=== PATIENT | male | born 1950 | race Caucasian/White ===

== ENCOUNTER → 2020-07-18 | Outpatient (CLI) | payer MEDICARE ==
--- NOTE | 2020-07-18 16:38 | XR ---
EXAMINATION TYPE: XR chest 2V DATE OF EXAM: 07/18/2020 COMPARISON: NONE HISTORY: COPD. Short of breath. TECHNIQUE: Single view FINDINGS: There is 10 cm area of increased density in the lateral aspect of the right lung with fluid level. There is blunting right costophrenic angle. Left lung is clear. Heart size is normal. There i s no heart failure. Bony thorax is intact. IMPRESSION: Complex mass in the lateral aspect of the right lung adjacent to the pleura. This could b e chronic empyema or lung abscess. Necrotic tumor also possible.
== END | disposition home or self-care (01) ==
LOC: RADXRMAIN 16:19
PROVIDERS: ATTEND Family Medicine
DX: R91.8 Other nonspecific abnormal finding of lung field (principal); J44.9 Chronic obstructive pulmonary disease, unspecified
CPT/HCPCS: 71046

== ENCOUNTER 2020-07-22 11:25 | Inpatient (IN) | payer MEDICARE ==
[2020-07-22] MEDS ORDERED: VANCOMYCIN 1,000 MG in SODIUM CHLORIDE 0.9% 250 ML IVPB STA (11:29)
[2020-07-22] MEDS ORDERED: PIPERACILLIN-TAZOBACTAM 3.375 GM in SODIUM CHLORIDE 0.9% 100 ML IVPB STA (11:29)
[2020-07-22] MEDS ORDERED: RX INFO: IV CONTRAST WAS GIVEN 1 EACH MISC MISCELLANE PRN (11:29)
--- NOTE | 2020-07-22 11:45 | ED ---
General Adult HPI - General Chief complaint: Shortness of Breath Stated complaint: mass in lung Time Seen by Provider: 07/22/20 11:30 Source: patient, RN notes reviewed, old records reviewed Mode of arrival: ambulatory Limitations: no limitations - History of Present Illness Initial comments: This is a 69-year-old male who presents emergency Department complaining of some shortness of breath recently. Patient was seeing a media relations specialist because of a m ass in his right lung and it was determined it was either abscess empyema or eye cavitating mass potentially. Dr. Ortega wanted the patient admitted after CAT scan antibiotics are started. Patient denies any fever chills patient denies any chest pain or palpitations. Patient denies any abdominal pain patient denies nausea vomiting diarrhea. - Related Data Home Medications Medication Instructions Recorded Confirmed Fluticasone/Umeclidin/Vilanter 1 puff INHALATION RT-DAILY 07/22/20 07/22/20 [Trelegy Ellipta 100-62.5-25] Ibuprofen [Motrin Ib] 200 mg PO Q8H PRN 07/22/20 07/22/20 Multivitamins, Thera [Multivitamin 1 tab PO DAILY 07/22/20 07/22/20 (formulary)] allopurinoL [Zyloprim] 300 mg PO DAILY 07/22/20 07/22/20 Allergies Allergy/AdvReac Type Severity Reaction Status Date / Time No Known Allergies Allergy Verified 07/22/20 12:36 Review of Systems ROS Statement: Those systems with pertinent positive or pertinent negative responses have been documented in the HPI. ROS Other: All systems not noted in ROS Statement are negative. Past Medical History Past Medical History: COPD Additional Past Medical History / Comment(s): gout History of Any Multi-Drug Resistant Organisms: None Reported Past Surgical History: Adenoidectomy, Appendectomy, Tonsillectomy Past Psychological History: No Psychological Hx Reported Smoking Status: Former smoker Past Alcohol Use History: None Reported Past Drug Use History: None Reported General Exam - General Exam Comments Initial Comments: GENERAL: Patient is well-developed and well-nourished. Patient is nontoxic and well- hydrated and is in mild distress. ENT: Neck is soft and supple. No significant lymphadenopathy is noted. Oropharynx is clear. Moist mucous membranes. Neck has full range of motion without eliciting any pain. EYES: The sclera were anicteric and conjunctiva were pink and moist. Extraocular movements were intact and pupils were equal round and reactive to light. Eyelids were unremarkable. PULMONARY: Unlabored respirations. Good breath sounds bilaterally. Right right face has significant crackles. CARDIOVASCULAR: There is a regular rate and rhythm without any murmurs gallops or rubs. ABDOMEN: Soft and nontender with normal bowel sounds. SKIN: Skin is clear with no lesions or rashes and otherwise unremarkable. NEUROLOGIC: Patient is alert and oriented x3. Cranial nerves II through XII are grossly intact. Motor and sensory are also intact. Normal speech, volume and content. Symmetrical smile. MUSCULOSKELETAL: Normal extremities with adequate strength and full range of motion. No lower extremity swelling or edema. No calf tenderness. LYMPHATICS: No significant lymphadenopathy is noted PSYCHIATRIC: Normal psychiatric evaluation. Limitations: no limitations Course Vital Signs 07/22/20 07/22/20 11:27 13:31 Temperature 96.9 F L Pulse Rate 110 H 97 Respiratory 18 18 Rate Blood Pressure 122/74 103/65 O2 Sat by Pulse 96 96 Oximetry Medical Decision Making - Medical Decision Making EKG shows normal sinus rhythm at 100 bpm ID interval 112 QRS is 82 QT interval 352 QTC is 454. Patient's EKG shows no ST segment elevation or depression. CT of the chest showed a right-sided empyema. I spoke with Dr. merlos he agreed to admit the patient admitted the patient wrote admitting orders. I started Zosyn and Vanco on the patient in the emergency department. I continue that on the floor. I also consulted Dr. Ortega - Lab Data Result diagrams: 07/22/20 11:53 07/22/20 11:53 Lab Results 07/22/20 07/22/20 07/22/20 Range/Units 11:53 11:53 11:53 WBC 18.3 H (3.8-10.6) k/uL RBC 4.29 L (4.30-5.90) m/uL Hgb 10.5 L (13.0-17.5) gm/dL Hct 33.4 L (39.0-53.0) % MCV 77.9 L (80.0-100.0) fL MCH 24.5 L (25.0-35.0) pg MCHC 31.5 (31.0-37.0) g/dL RDW 16.2 H (11.5-15.5) % Plt Count 590 H (150-450) k/uL MPV 6.5 Neutrophils % 80 % Lymphocytes % 14 % Monocytes % 4 % Eosinophils % 1 % Basophils % 0 % Neutrophils # 14.6 H (1.3-7.7) k/uL Lymphocytes # 2.6 (1.0-4.8) k/uL Monocytes # 0.7 (0-1.0) k/uL Eosinophils # 0.2 (0-0.7) k/uL Basophils # 0.1 (0-0.2) k/uL Hypochromasia Slight Anisocytosis Slight Microcytosis Slight PT 11.1 (9.0-12.0) sec INR 1.1 (<1.2) APTT 23.6 (22.0-30.0) sec Sodium 135 L (137-145) mmol/L Potassium 4.2 (3.5-5.1) mmol/L Chloride 106 (98-107) mmol/L Carbon Dioxide 23 (22-30) mmol/L Anion Gap 6 mmol/L BUN 14 (9-20) mg/dL Creatinine 0.80 (0.66-1.25) mg/dL Est GFR (CKD-EPI)AfAm >90 (>60 ml/min/1.73 sqM) Est GFR (CKD-EPI)NonAf >90 (>60 ml/min/1.73 sqM) Glucose 99 (74-99) mg/dL Plasma Lactic Acid Maverick (0.7-2.0) mmol/L Calcium 8.7 (8.4-10.2) mg/dL Magnesium 2.0 (1.6-2.3) mg/dL Total Bilirubin 0.2 (0.2-1.3) mg/dL AST 19 (17-59) U/L ALT 13 (4-49) U/L Alkaline Phosphatase 100 (38-126) U/L Troponin I (0.000-0.034) ng/mL NT-Pro-B Natriuret Pep pg/mL Total Protein 6.4 (6.3-8.2) g/dL Albumin 2.7 L (3.5-5.0) g/dL 07/22/20 07/22/20 07/22/20 Range/Units 11:53 11:53 11:53 WBC (3.8-10.6) k/uL RBC (4.30-5.90) m/uL Hgb (13.0-17.5) gm/dL Hct (39.0-53.0) % MCV (80.0-100.0) fL MCH (25.0-35.0) pg MCHC (31.0-37.0) g/dL RDW (11.5-15.5) % Plt Count (150-450) k/uL MPV Neutrophils % % Lymphocytes % % Monocytes % % Eosinophils % % Basophils % % Neutrophils # (1.3-7.7) k/uL Lymphocytes # (1.0-4.8) k/uL Monocytes # (0-1.0) k/uL Eosinophils # (0-0.7) k/uL Basophils # (0-0.2) k/uL Hypochromasia Anisocytosis Microcytosis PT (9.0-12.0) sec INR (<1.2) APTT (22.0-30.0) sec Sodium (137-145) mmol/L Potassium (3.5-5.1) mmol/L Chloride (98-107) mmol/L Carbon Dioxide (22-30) mmol/L Anion Gap mmol/L BUN (9-20) mg/dL Creatinine (0.66-1.25) mg/dL Est GFR (CKD-EPI)AfAm (>60 ml/min/1.73 sqM) Est GFR (CKD-EPI)NonAf (>60 ml/min/1.73 sqM) Glucose (74-99) mg/dL Plasma Lactic Acid Maverick 1.2 (0.7-2.0) mmol/L Calcium (8.4-10.2) mg/dL Magnesium (1.6-2.3) mg/dL Total Bilirubin (0.2-1.3) mg/dL AST (17-59) U/L ALT (4-49) U/L Alkaline Phosphatase (38-126) U/L Troponin I <0.012 (0.000-0.034) ng/mL NT-Pro-B Natriuret Pep 779 pg/mL Total Protein (6.3-8.2) g/dL Albumin (3.5-5.0) g/dL Disposition Clinical Impression: Empyema lung Disposition: ADMITTED IP TO THIS HOSP Referrals: Chapito Stokes Jr, [Primary Care Provider] - 1-2 days Time of Disposition: 14:06
[2020-07-22 12:06] LABS: Anisocytosis Slight; Basophils # (A) 0.1 k/uL (0-0.2); Basophils % (A) 0 %; Eosinophils # (A) 0.2 k/uL (0-0.7); Eosinophils % (A) 1 %; HCT 33.4 % (39.0-53.0); HGB 10.5 gm/dL (13.0-17.5); Hypochromasia Slight; Lymphocytes # (A) 2.6 k/uL (1.0-4.8); Lymphocytes % (A) 14 %; MCH 24.5 pg (25.0-35.0); MCHC 31.5 g/dL (31.0-37.0); MCV 77.9 fL (80.0-100.0); Mean Platelet Volume 6.5; Microcytosis Slight; Monocytes # (A) 0.7 k/uL (0-1.0); Monocytes % (A) 4 %; Neutrophils # (A) 14.6 k/uL (1.3-7.7); Neutrophils % (A) 80 %; Platelet Count 590 k/uL (150-450); RBC 4.29 m/uL (4.30-5.90); RDW 16.2 % (11.5-15.5); WBC 18.3 k/uL (3.8-10.6)
[2020-07-22 12:21] LABS: INR 1.1 (<1.2); Partial Thromboplastin Time 23.6 sec (22.0-30.0); Prothrombin Time 11.1 sec (9.0-12.0)
[2020-07-22 12:32] LABS: ALT 13 U/L (4-49); AST 19 U/L (17-59); African American GFR (CKD) >90 (>60 ml/min/1.73 sqM); Albumin 2.7 g/dL (3.5-5.0); Alkaline Phosphatase 100 U/L (38-126); Anion Gap 6 mmol/L; Blood Urea Nitrogen 14 mg/dL (9-20); Calcium 8.7 mg/dL (8.4-10.2); Carbon Dioxide 23 mmol/L (22-30); Chloride 106 mmol/L (98-107); Glucose 99 mg/dL (74-99); Non-African American GFR(CKD) >90 (>60 ml/min/1.73 sqM); Potassium 4.2 mmol/L (3.5-5.1); Sodium 135 mmol/L (137-145); Total Bilirubin 0.2 mg/dL (0.2-1.3); Total Protein 6.4 g/dL (6.3-8.2)
--- NOTE | 2020-07-22 13:37 | CT ---
EXAMINATION TYPE: CT chest angio for PE DATE OF EXAM: 07/22/2020 COMPARISON: HISTORY: Mass in Lung CT DLP: 266.5 mGycm Automated exposure control for dose reduction was used. CONTRAST: CT Chest for pulmonary embolism performed with with IV Contrast, patient injected with 71 mL of Isovu e 370. FINDINGS: LUNGS: Large area of pleural-based thickening and subpleural fluid collection mixed with air suggesti ve of either empyema or less likely pulmonary abscess. There is a consolidation noted. No pneumothora x. COPD noted. MEDIASTINUM: There is satisfactory enhancement of the pulmonary artery and its branches, there is no CT evidence for pulmonary embolism. There is a 1.1 cm lymph node in the mediastinum.. No pericardi al effusion is seen. OTHER: Hypertrophic and degenerative changes of the spine chronic appearing rib fracture on the left noted. Hypodensity within the right lobe of the liver is stable from prior CT scan likely related IMPRESSION: 1. No diagnostic evidence of pulmonary embolism. Correlate for COPD. Mediastinal lymphadenopathy note d. 2. Large right-sided suspected subpleural fluid collection or empyema with mixed soft tissue, fluid a nd air density.
[2020-07-22] MEDS ORDERED: SODIUM CHLORIDE 0.9% 1,000 ML IV ONE (14:07)
[2020-07-22] MEDS ORDERED: VANCOMYCIN IV PER PHARMACY 1 EACH MISC MISCELLANE PRN (14:12)
[2020-07-22] MEDS: PIPERACILLIN-TAZOBACTAM 3.375 GM in SODIUM CHLORIDE 0.9% 100 ML IVPB SCH (20:30)
[2020-07-23] MEDS: VANCOMYCIN 1,250 MG in SODIUM CHLORIDE 0.9% 250 ML IVPB SCH ×2 (00:02→12:00)
[2020-07-23] MEDS: PIPERACILLIN-TAZOBACTAM 3.375 GM in SODIUM CHLORIDE 0.9% 100 ML IVPB SCH ×3 (04:00→19:20)
[2020-07-23 07:32] LABS: African American GFR (CKD) >90 (>60 ml/min/1.73 sqM); Non-African American GFR(CKD) 84 (>60 ml/min/1.73 sqM)
--- NOTE | 2020-07-23 09:15 | US ---
EXAMINATION TYPE: US chest DATE OF EXAM: 07/23/2020 COMPARISON: NONE CLINICAL HISTORY: empyema, right lung. Pleural effusion. TECHNIQUE: Targeted ultrasound of the posterior lower right hemithorax EXAM MEASUREMENTS: Right Pleural Effusion pocket size: 2.9 cm complex fluid pocket. Right skin surface to fluid distance: 2.6 cm Right side not marked for thoracentesis outside the dept. Pulmonologists are able to review the images in the patient?s EMR. Complex small right pleural fluid collection most consistent with empyema. IMPRESSIONS: Small right-sided empyema
[2020-07-23 11:00] LABS: African American GFR (CKD) >90 (>60 ml/min/1.73 sqM); Anion Gap 6 mmol/L; Blood Urea Nitrogen 13 mg/dL (9-20); Calcium 8.4 mg/dL (8.4-10.2); Carbon Dioxide 26 mmol/L (22-30); Chloride 106 mmol/L (98-107); Glucose 158 mg/dL (74-99); Non-African American GFR(CKD) 82 (>60 ml/min/1.73 sqM); Sodium 138 mmol/L (137-145)
[2020-07-23 11:28] LABS: Anisocytosis Slight; Basophils % (A) 0 %; Eosinophils # (A) 0.1 k/uL (0-0.7); Eosinophils % (A) 0 %; HCT 32.2 % (39.0-53.0); HGB 10.1 gm/dL (13.0-17.5); Hypochromasia Moderate; Lymphocytes # (A) 1.7 k/uL (1.0-4.8); Lymphocytes % (A) 8 %; MCH 24.8 pg (25.0-35.0); MCHC 31.3 g/dL (31.0-37.0); MCV 79.3 fL (80.0-100.0); Mean Platelet Volume 6.3; Microcytosis Slight; Monocytes # (A) 0.6 k/uL (0-1.0); Monocytes % (A) 3 %; Neutrophils # (A) 19.1 k/uL (1.3-7.7); Neutrophils % (A) 88 %; Platelet Count 536 k/uL (150-450); RBC 4.06 m/uL (4.30-5.90); RDW 16.6 % (11.5-15.5); WBC 21.6 k/uL (3.8-10.6)
--- NOTE | 2020-07-23 11:45 | P.HPIM ---
History of Present Illness H&P Date: 07/23/20 Chief Complaint: Fluid on the lungs. 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 He was seen by Dr. Saba one day ago and sent to the emergency room after there is evidence of empyema in the right lung. Emergency room CTA showed on the empyema, and no evidence of pulmonary embolism. He is admitted to the stepdown unit is currently resting comfortably. He is complaining quite a bit of cough. He is complaining of chest pains with cough. He denies any significant nausea or vomiting. Indicates he's lost about 30 pounds over the past 2-3 months. Vital signs overnight show he's been afebrile. Labs show a white count of 21.6 and hemoglobin 10.1. There is predominantly neutrophilia. Chemistries are essentially normal, the exception of a glucose 158 late a.m. COVID-19, RSV and influenza PCR were all negative. 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 History of Any Multi-Drug Resistant Organisms: None Reported Past Surgical History: Adenoidectomy, Appendectomy, Tonsillectomy Past Anesthesia/Blood Transfusion Reactions: No Reported Reaction Past Psychological History: No Psychological Hx Reported Additional Psychological History / Comment(s): Pt resides alone. He is independent. Smoking Status: Former smoker Past Alcohol Use History: None Reported Additional Past Alcohol Use History / Comment(s): Pt started smoking in 1964 and quit 2 months ago. He was a 3 ppd smoker. Past Drug Use History: None Reported - Past Family History Father Family Medical History: Hyperlipidemia, Pneumonia Additional Family Medical History / Comment(s): Father did of aspiration pneumonia. Mother Family Medical History: Diabetes Mellitus, Hypertension Additional Family Medical History / Comment(s): Mother is living. Medications and Allergies Home Medications Medication Instructions Recorded Confirmed Type Fluticasone/Umeclidin/Vilanter 1 puff INHALATION RT-DAILY 07/22/20 07/22/20 History [Trelegy Ellipta 100-62.5-25] Ibuprofen [Motrin Ib] 200 mg PO Q8H PRN 07/22/20 07/22/20 History Multivitamins, Thera [Multivitamin 1 tab PO DAILY 07/22/20 07/22/20 History (formulary)] allopurinoL [Zyloprim] 300 mg PO DAILY 07/22/20 07/22/20 History Allergies Allergy/AdvReac Type Severity Reaction Status Date / Time No Known Allergies Allergy Verified 07/22/20 12:36 Physical Exam Vitals: Vital Signs Temp Pulse Pulse Pulse Pulse Resp BP 07/23/20 07:28 98.4 F 94 16 07/23/20 02:08 98.8 F 101 H 17 07/22/20 19:10 98.5 F 103 H 103 H 20 07/22/20 13:31 97 18 103/65 BP Pulse Ox 07/23/20 07:28 103/57 94 L 07/23/20 02:08 104/68 98 07/22/20 19:10 113/72 07/22/20 13:31 96 Intake and Output 07/22/20 07/23/20 07/23/20 22:59 06:59 14:59 Intake Total 1850 Balance 1850 Intake: Intake, IV Titration 1200 Amount Piperacillin-Tazobactam 3 200 .375 gm In Sodium Chloride 0.9% 100 ml @ 25 mls/hr IVPB Q8H [facility] Rx#: [id number] Sodium Chloride 0.9% 1, 750 000 ml @ 75 mls/hr IV . [id number] ONE Rx#:[id number] Vancomycin 1,250 mg In 250 Sodium Chloride 0.9% 250 ml @ 125 mls/hr IVPB Q12H [facility] Rx#:[id number] Oral 650 Other: Voiding Method Toilet # Voids 3 Weight 68.039 kg 68.039 kg GENERAL: Thin slightly emaciated white male, actively coughing during my exam. HEAD: Atraumatic, normocephalic. EYES: Pupils equal round and reactive to light, extraocular movements intact, sclera anicteric, conjunctiva are normal. ENT:nares patent, oropharynx clear without exudates. Moist mucous membranes. NECK: Normal range of motion, supple without lymphadenopathy or JVD, no thyromegaly LUNGS: Breath sounds coarse with decreased air exchange on the right side consistent with empyema findings, risks crackles or rhonchi noted. HEART: Regular rate and rhythm without murmurs, rubs or gallops.S1S2 Normal ABDOMEN: Soft, nontender, normoactive bowel sounds. No guarding, no rebound. No masses appreciated. EXTREMITIES: Normal range of motion, no pitting or edema. No clubbing or cyanosis. NEUROLOGICAL: Cranial nerves II through XII grossly intact. Normal speech, normal gait. PSYCH: Normal mood, normal affect. SKIN: Warm, Dry, normal turgor, no rashes or lesions noted. Results CBC & Chem 7: 07/23/20 10:32 07/23/20 10:32 Labs: Abnormal Lab Results - Last 24 Hours (Table) 07/22/20 07/22/20 07/23/20 Range/Units 11:53 11:53 10:32 WBC 18.3 H 21.6 H (3.8-10.6) k/uL RBC 4.29 L 4.06 L (4.30-5.90) m/uL Hgb 10.5 L 10.1 L (13.0-17.5) gm/dL Hct 33.4 L 32.2 L (39.0-53.0) % MCV 77.9 L 79.3 L (80.0-100.0) fL MCH 24.5 L 24.8 L (25.0-35.0) pg RDW 16.2 H 16.6 H (11.5-15.5) % Plt Count 590 H 536 H (150-450) k/uL Neutrophils # 14.6 H (1.3-7.7) k/uL Sodium 135 L (137-145) mmol/L Glucose (74-99) mg/dL Albumin 2.7 L (3.5-5.0) g/dL 07/23/20 Range/Units 10:32 WBC (3.8-10.6) k/uL RBC (4.30-5.90) m/uL Hgb (13.0-17.5) gm/dL Hct (39.0-53.0) % MCV (80.0-100.0) fL MCH (25.0-35.0) pg RDW (11.5-15.5) % Plt Count (150-450) k/uL Neutrophils # (1.3-7.7) k/uL Sodium (137-145) mmol/L Glucose 158 H (74-99) mg/dL Albumin (3.5-5.0) g/dL CT scan - chest: report reviewed Thrombosis Risk Factor Assmnt - DVT/VTE Prophylaxis DVT/VTE Prophylaxis: Mechanical Prophylaxis ordered - Choose All That Apply Any of the Below Risk Factors Present?: Yes Each Factor Represents 1 point: Abnormal pulmonary function (COPD), Serious lung disease incl. pneumonia (< 1month) Other Risk Factors: Yes Each Risk Factor Represents 2 Points: Age 61-74 years Other congenital or acquired thrombophilia - If yes, enter type in comment: No Thrombosis Risk Factor Assessment Total Risk Factor Score: 4 Thrombosis Risk Factor Assessment Level: Moderate Risk Assessment and Plan (1) Fatigue Current Visit: Yes Status: Acute Code(s): R53.83 - OTHER FATIGUE SNOMED Code(s): 93358585 (2) Weight loss Current Visit: Yes Status: Acute Code(s): R63.4 - ABNORMAL WEIGHT LOSS SNOMED Code(s): 83079659 (3) Gout Current Visit: Yes Status: Acute Code(s): M10.9 - GOUT, UNSPECIFIED SNOMED Code(s): 39967337 (4) Empyema lung Narrative/Plan: Patient remain on Zosyn and vancomycin, and IV fluid until pulmonology sees. Weight on the consultation. Repeat labs in a.m. Thoracic surgery may need to be consult depending on the pulmonology findings. Ultrasound was reviewed showing a complex loculated mass. Order medications for pain and cough this time. He'll be reevaluated next 24 hours. Current Visit: Yes Status: Acute Code(s): J86.9 - PYOTHORAX WITHOUT FISTULA SNOMED Code(s): 21202299
[2020-07-23 12:09] LABS: Lymphocytes # (M) 3.24 k/uL (1.0-4.8); Monocytes # (M) 0.43 k/uL (0-1.0); Neutrophils # (M) 17.93 k/uL (1.3-7.7); Neutrophils % (M) 83 %; Nucleated Red Blood Cells 0 /100 WBC (0-0); Total Cells Counted 100
--- NOTE | 2020-07-23 13:25 | P.CNPUL ---
History of Present Illness Consult date: 07/23/20 Requesting physician: Marty Garcia Reason for consult: dyspnea, abnormal CXR/CT Chief complaint: Shortness of breath, right-sided chest discomfort History of present illness: This is a pleasant 69-year-old male, known history of COPD, benign essential hypertension, patient salas been feeling ill for the last few months. Back in March, patient had symptoms suggestive of COVID-19 infection including cough, fatigue, aches and pains, fever and chills, but apparently no medical attention was sought at the time. Patient was recently seen by Dr. Stokes and he was complaining of cough, he was also complaining of left-sided chest pain. Patient had positive IgG titer for COVID-19 infection which clearly implies that the patient had previous exposure and COVID-19 infection. Part of the workup also included a chest x-ray, and it came back quite abnormal showing a large area of abnormality involving the right lung, the differential diagnoses includes empyema, lung abscess, and possibly a large tumor involving the right lower lobe with necrosis and air fluid level noted. He was referred to Dr. Ortega in our office for the same. He was seen as a new patient yesterday. Based on the [facility] t x-ray findings Dr. Ortega preferred the patient obtain a computed tomography scan of the chest and probable admission for IV antibiotics and possible CT- guided needle biopsy or bronchoscopy with transbronchial biopsies. CAT scan does reveal a large right-sided suspected subpleural fluid collection or empyema with mixed soft tissue, fluid in ear density. No evidence of pulmonary embolism. There is evidence of COPD. Mediastinal lymphadenopathy. Ultrasound of the chest revealed minimal effusion at 2.9 cm and a complex fluid pocket suggestive of empyema. White count 21.6. Hemoglobin 10.1. Sodium 138. Potassium 4.0. Creatinine 0.96. ProBNP 779. Influenza screen negative. Coronavirus screen negative. Patient is seen today in consultation on the regular medical floor. He is currently sitting up in bed. Awake and alert in no acute distress. Currently maintaining O2 saturations in the mid 90s on room air. He's been afebrile. He's been initiated on vancomycin and Zosyn. Review of Systems REVIEW OF SYSTEMS: CONSTITUTIONAL: Denies any recent significant weight loss or weight gain. EYES: Denies change in vision. EARS, NOSE, MOUTH, THROAT: Denies headaches, denies sore throat. CARDIOVASCULAR: Right-sided chest pain, no palpitations or syncopal episodes. RESPIRATORY: Positive for shortness of breath, cough, congestion no hemoptysis. GASTROINTESTINAL: Denies change in appetite, denies abdominal pain GENITOURINARY: Denies hematuria, denies infections. MUSKULOSKELETAL: Denies pain, denies swelling. INTEGUMENTARY: Denies rash, denies eczema. NEUROLOGICAL: Denies recent memory loss, no recent seizure activity. PSYCHIATRIC: Denies anxiety, denies depression. HEMATOLOGIC/LYMPHATIC: Denies anemia, denies enlarged lymph nodes. 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 History of Any Multi-Drug Resistant Organisms: None Reported Past Surgical History: Adenoidectomy, Appendectomy, Tonsillectomy Past Anesthesia/Blood Transfusion Reactions: No Reported Reaction Past Psychological History: No Psychological Hx Reported Additional Psychological History / Comment(s): Pt resides alone. He is independent. Smoking Status: Former smoker Past Alcohol Use History: None Reported Additional Past Alcohol Use History / Comment(s): Pt started smoking in 1965 and quit 2 months ago. He was a 3 ppd smoker. Past Drug Use History: None Reported - Past Family History Father Family Medical History: Hyperlipidemia, Pneumonia Additional Family Medical History / Comment(s): Father did of aspiration pneumonia. Mother Family Medical History: Diabetes Mellitus, Hypertension Additional Family Medical History / Comment(s): Mother is living. Medications and Allergies Home Medications Medication Instructions Recorded Confirmed Type Fluticasone/Umeclidin/Vilanter 1 puff INHALATION RT-DAILY 07/22/20 07/22/20 History [Trelegy Ellipta 100-62.5-25] Ibuprofen [Motrin Ib] 200 mg PO Q8H PRN 07/22/20 07/22/20 History Multivitamins, Thera [Multivitamin 1 tab PO DAILY 07/22/20 07/22/20 History (formulary)] allopurinoL [Zyloprim] 300 mg PO DAILY 07/22/20 07/22/20 History Allergies Allergy/AdvReac Type Severity Reaction Status Date / Time No Known Allergies Allergy Verified 07/22/20 12:36 Physical Exam Vitals: Vital Signs Temp Pulse Pulse Pulse Pulse Resp BP 07/23/20 08:00 16 07/23/20 07:28 98.4 F 94 16 07/23/20 02:08 98.8 F 101 H 17 07/22/20 19:10 98.5 F 103 H 103 H 20 07/22/20 13:31 97 18 103/65 BP Pulse Ox 07/23/20 08:00 07/23/20 07:28 103/57 94 L 07/23/20 02:08 104/68 98 07/22/20 19:10 113/72 07/22/20 13:31 96 Intake and Output 07/22/20 07/23/20 07/23/20 22:59 06:59 14:59 Intake Total 1850 Balance 1850 Intake: Intake, IV Titration 1200 Amount Piperacillin-Tazobactam 3 200 .375 gm In Sodium Chloride 0.9% 100 ml @ 25 mls/hr IVPB Q8H [facility] Rx#: [id number] Sodium Chloride 0.9% 1, 750 000 ml @ 75 mls/hr IV . [id number] ONE Rx#:[id number] Vancomycin 1,250 mg In 250 Sodium Chloride 0.9% 250 ml @ 125 mls/hr IVPB Q12H [facility] Rx#:[id number] Oral 650 Other: Voiding Method Toilet # Voids 3 Weight 68.039 kg 68.039 kg GENERAL EXAM: Alert, 69-year-old gentleman, on room air, fairly comfortable in no apparent distress. HEAD: Normocephalic. EYES: Normal reaction of pupils, equal size. NOSE: Clear with pink turbinates. THROAT: No erythema or exudates. NECK: No masses, no JVD. CHEST: No chest wall deformity. LUNGS: Equal air entry with crackles in the right lung base, diminished. CVS: S1 and S2 normal with no audible murmur, regular rhythm. ABDOMEN: No hepatosplenomegaly, normal bowel sounds, no guarding or rigidity. SPINE: No scoliosis or deformity SKIN: No rashes CENTRAL NERVOUS SYSTEM: No focal deficits, tone is normal in all 4 extremities. EXTREMITIES: There is no peripheral edema. No clubbing, no cyanosis. Angela pheral pulses are intact. Results - Laboratory Findings CBC and BMP: 05/01/21 10:32 07/23/20 10:32 PT/INR, D-dimer PT 11.1 sec (9.0-12.0) 07/22/20 11:53 INR 1.1 (<1.2) 07/22/20 11:53 Abnormal lab findings: Abnormal Labs 07/22/20 07/22/20 07/23/20 11:53 11:53 10:32 WBC 18.3 H 21.6 H RBC 4.29 L 4.06 L Hgb 10.5 L 10.1 L Hct 33.4 L 32.2 L MCV 77.9 L 79.3 L MCH 24.5 L 24.8 L RDW 16.2 H 16.6 H Plt Count 590 H 536 H Neutrophils # 14.6 H 19.1 H Neutrophils # (Manual) 17.93 H Sodium 135 L Glucose Albumin 2.7 L 07/23/20 10:32 WBC RBC Hgb Hct MCV MCH RDW Plt Count Neutrophils # Neutrophils # (Manual) Sodium Glucose 158 H Albumin - Diagnostic Findings Chest x-ray: image reviewed CT scan - chest: image reviewed Assessment and Plan Assessment: 1 Dyspnea with right-sided chest discomfort secondary to large right-sided loculated pleural fluid collection, suspect empyema versus lung abscess versus necrotic tumor/bronchogenic carcinoma 2 History of COVID-19 infection based on titers. Initial symptoms from March 2020. 3 Chronic obstructive pulmonary disease 4 History of chronic tobacco dependence up to 3 packs per day. Quit 2 months ago 5 History of gout Plan: The patient was seen and evaluated by Dr. Lind Chest x-ray, CAT scans and labs reviewed Continue vancomycin and Zosyn Consult interventional radiology for possible pigtail placement Consults cardiothoracic surgery for possible surgical intervention We'll continue to follow and make further recommendations based on his clinical status I, the cosigning physician, performed a history & physical examination of the patient. Lungs sounds with crackles in the right lung base, diminished. Maintaining good O2 saturations in the 90s on room air. I discussed the assessment and plan of care with my nurse practitioner, Shirlene Garcia. I attest to the above consultation as dictated by her. Time with Patient: Greater than 30
[2020-07-23] MEDS: guaiFENesin 600 MG TABLET.ER PO SCH ×2 (14:12→20:52)
[2020-07-23] MEDS: methylPREDNISolone SOD SUCCI 40 MG/ML 1 ML VIAL IV SCH (14:21)
[2020-07-23] MEDS: PANTOPRAZOLE 40 MG TABLET PO SCH (14:21)
[2020-07-23] MEDS: ENOXAPARIN 40 MG/0.4 ML SYRINGE SQ SCH (14:21)
[2020-07-23] MEDS: IPRATROPIUM-ALBUTEROL 3 ML NEB INHALATION SCH ×2 (17:13→20:11)
[2020-07-23] MEDS: FORMOTEROL FUMARATE 20 MCG/2 ML NEBU INHALATION SCH (20:10)
[2020-07-23] MEDS: BUDESONIDE 1 MG/2 ML NEBU INHALATION SCH (20:11)
[2020-07-24] MEDS: methylPREDNISolone SOD SUCCI 40 MG/ML 1 ML VIAL IV SCH ×4 (00:16→23:36)
[2020-07-24] MEDS: VANCOMYCIN 1,250 MG in SODIUM CHLORIDE 0.9% 250 ML IVPB SCH ×3 (00:16→23:37)
[2020-07-24] MEDS: PIPERACILLIN-TAZOBACTAM 3.375 GM in SODIUM CHLORIDE 0.9% 100 ML IVPB SCH ×3 (03:49→19:05)
--- NOTE | 2020-07-24 07:21 | XR ---
EXAMINATION TYPE: XR chest 2V DATE OF EXAM: 07/24/2020 COMPARISON: 07/18/2020 TECHNIQUE: PA and lateral views submitted. HISTORY: Cough possible pneumonia FINDINGS: Pleural-based mass or complicated fluid collection with air-fluid level noted correlate for possible empyema. Right basilar infiltrate and small effusion seen. Left lung clear. Underlying chronic inters titial lung disease and COPD suspected. Arthropathy shoulders. Heart size normal. IMPRESSION: 1. Persistent suspected pleural fluid collection with air-fluid levels correlate for empyema otherwis e consider pulmonary abscess.
[2020-07-24] MEDS: MULTIVITAMINS, THERA 1 EACH TAB PO SCH (07:55)
[2020-07-24] MEDS: ENOXAPARIN 40 MG/0.4 ML SYRINGE SQ SCH (07:55)
[2020-07-24] MEDS: allopurinoL 300 MG TAB PO SCH (07:55)
[2020-07-24] MEDS: guaiFENesin 600 MG TABLET.ER PO SCH ×2 (07:55→20:24)
[2020-07-24] MEDS: PANTOPRAZOLE 40 MG TABLET PO SCH (07:55)
[2020-07-24] MEDS: IPRATROPIUM-ALBUTEROL 3 ML NEB INHALATION SCH ×4 (08:43→19:37)
[2020-07-24] MEDS: FORMOTEROL FUMARATE 20 MCG/2 ML NEBU INHALATION SCH ×2 (08:43→19:37)
[2020-07-24] MEDS: BUDESONIDE 1 MG/2 ML NEBU INHALATION SCH ×2 (08:43→19:37)
[2020-07-24 09:40] LABS: HCT 35.6 % (39.6-50.0); HGB 10.1 g/dL (13.0-17.0); MCH 23.5 pg (27.0-32.0); MCHC 28.4 g/dL (32.0-37.0); MCV 82.8 fL (80.0-97.0); Platelet Count 594 X 10*3/uL (140-440); RDW 17.8 % (11.5-14.5); WBC 21.02 X 10*3/uL (4.50-10.00)
[2020-07-24 09:43] LABS: African American GFR (CKD) 80.1 (60.0-200.0); Anion Gap 10.1 mmol/L (4.00-12.00); BUN/Creat Ratio 11.82 Ratio (12.00-20.00); Calcium 8.5 mg/dL (8.7-10.3); Carbon Dioxide 24.9 mmol/L (21.6-31.8); Magnesium 2.2 mg/dL (1.5-2.4); Non-African American GFR(CKD) 69.1 (60.0-200.0); Potassium 4.9 mmol/L (3.5-5.5)
--- NOTE | 2020-07-24 10:12 | P.GSCN ---
History of Present Illness Consult date: 07/24/20 Reason for Consult: Loculated right pleural effusion. Requesting physician: Wolfgang Lind History of present illness: This is a 69-year-old gentleman who is followed by Dr. Chapito Stokes on an outpatient basis for his primary care service. He is a past medical history significant for COPD, remote history of pneumonia, gout, history of obstructive sleep apnea-status post corrective surgery, hard of hearing and chronic ongoing tobacco dependence although reports that he has not been smoking for the past 6 weeks due to him feeling short of breath. The patient also reports that he has had COVID 19 in March and has also been vaccinated for COVID 19 with the Neuronetrix vaccination within the last 3 weeks. Recently, the patient has had complaints of shortness of breath, productive cough with yellowish colored ten acious sputum, fatigue, decreased appetite with a 30 pound weight loss in the past 6-8 weeks. He reports the symptoms have progressively gotten worse over the last week and has sought medical attention with his primary care office. He denies any fever, chills, nausea, vomiting, headache, dizziness, syncope, hemoptysis or hematemesis. Subsequently, due to the patient's symptoms he was started on Trelegy Ellipta inhaler in which he says did help his symptoms for a short period. He was referred to Dr. Ortega from pulmonary medicine for further evaluation and treatment recommendations. A chest x-ray was completed on 07/18/2020 which showed a complex mass in the lateral aspect of the right lung adjacent to the pleura. This was suspicious for chronic empyema, lung abscess or necrotic tumor. After seeing Dr. Ortega from pulmonary medicine, recommendations were made to proceed to clear at [facility] for further workup and treatment recommendations as an inpatient. On admission 07/22/[address] chest in August for pulmonary embolus was completed which demonstrated no diagnostic evidence of a pulmonary embolism, they 1.1 cm lymph node in the mediastinum and a large right-sided suspected subpleural fluid collection or empyema with mixed soft tissue, fluid and air density was noted. Yesterday 07/23/2020 he underwent an ultrasound of his chest which showed a 2.9 cm complex fluid pocket, small right-sided empyema. A repeat chest x-ray was Completed this morning 07/24/2020 which showed a persistent suspected pleural fluid collection with air-fluid levels correlated for empyema or pulmonary abscess considered. Due to the patient's presenting symptoms and findings on his above mentioned studies a consult was placed to Dr. Valentin Soliz from cardiothoracic surgery for further evaluation and treatment recommendations. Review of Systems A 14 point review of systems was completed and was negative except as mentioned in the HPI. 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 History of Any Multi-Drug Resistant Organisms: None Reported Past Surgical History: Adenoidectomy, Appendectomy, Tonsillectomy Additional Past Surgical History / Comment(s): Surgery for sleep apnea. Past Anesthesia/Blood Transfusion Reactions: No Reported Reaction Past Psychological History: No Psychological Hx Reported Additional Psychological History / Comment(s): Pt resides alone. He is independent. Smoking Status: Former smoker Past Alcohol Use History: Occasional Additional Past Alcohol Use History / Comment(s): Pt started smoking in 1964 and quit 2 months ago due to his symptoms of shortness of breath. He was a 3 ppd smoker. Past Drug Use History: None Reported - Past Family History Father Family Medical History: Dementia, Hyperlipidemia, Pneumonia Additional Family Medical History / Comment(s): Father of aspiration pneumonia. Mother Family Medical History: Diabetes Mellitus, Hypertension Additional Family Medical History / Comment(s): Mother is living. Medications and Allergies Home Medications Medication Instructions Recorded Confirmed Type Fluticasone/Umeclidin/Vilanter 1 puff INHALATION RT-DAILY 07/22/20 07/22/20 History [Trelegy Ellipta 100-62.5-25] Ibuprofen [Motrin Ib] 200 mg PO Q8H PRN 07/22/20 07/22/20 History Multivitamins, Thera [Multivitamin 1 tab PO DAILY 07/22/20 07/22/20 History (formulary)] allopurinoL [Zyloprim] 300 mg PO DAILY 07/22/20 07/22/20 History Allergies Allergy/AdvReac Type Severity Reaction Status Date / Time No Known Allergies Allergy Verified 07/22/20 12:36 Surgical - Exam Vital Signs Temp Pulse Resp BP Pulse Ox 96.9 F L 110 H 18 122/74 96 07/22/20 11:27 07/22/20 11:27 07/22/20 11:27 07/22/20 11:27 07/22/20 11:27 - General well developed, well nourished, no distress, no pain - Eyes PERRL, normal ocular movement, no icteric - ENT normal pinna, normal nares, normal mucosa, no congestion, decreased hearing - Neck Neck is supple, no lymphadenopathy. no masses, no bruits, trachea midline, no venous distension - Respiratory Lung sounds with expiratory wheezes and diminished to his bilateral bases right greater than left. Respirations are symmetrical and nonlabored. - Cardiovascular Regular rhythm and rate. S1 and S2 present, negative for S3, gallop or murmur. No edema present. - Abdomen Abdomen is soft, nontender and nondistended. Active bowel sounds present in all 4 abdominal quadrants. No guarding or rigidity. No organomegaly appreciated. - Genitourinary Deferred - Rectum Deferred - Integumentary no rash, no growths, no abnormal pigmentation - Neurologic Cranial nerves II through XII intact. normal coordination, normal sensation - Musculoskeletal Moves all 4 extremities with equal strength bilateral. - Psychiatric oriented to time, oriented to person, oriented to place, speech is normal, memory intact Results - Labs 07/24/20 05:48 07/24/20 05:48 Abnormal Lab Results - Last 24 Hours (Table) 07/23/20 07/23/20 07/23/20 Range/Units 10:32 10:32 10:32 WBC 21.6 H (3.8-10.6) k/uL RBC 4.06 L (4.30-5.90) m/uL Hgb 10.1 L (13.0-17.5) gm/dL Hct 32.2 L (39.0-53.0) % MCV 79.3 L (80.0-100.0) fL MCH 24.8 L (25.0-35.0) pg MCHC (32.0-37.0) g/dL RDW 16.6 H (11.5-15.5) % Plt Count 536 H (150-450) k/uL MPV (9.5-12.2) fL Neutrophils # 19.1 H (1.3-7.7) k/uL Neutrophils # (Manual) 17.93 H (1.3-7.7) k/uL BUN/Creatinine Ratio (12.00-20.00) Ratio Glucose 158 H (74-99) mg/dL Calcium (8.7-10.3) mg/dL Procalcitonin 0.13 H (0.02-0.09) ng/mL 07/24/20 07/24/20 Range/Units 05:48 05:48 WBC 21.02 H (3.8-10.6) k/uL RBC 4.30 L (4.30-5.90) m/uL Hgb 10.1 L (13.0-17.5) gm/dL Hct 35.6 L (39.0-53.0) % MCV (80.0-100.0) fL MCH 23.5 L (25.0-35.0) pg MCHC 28.4 L (32.0-37.0) g/dL RDW 17.8 H (11.5-15.5) % Plt Count 594 H (150-450) k/uL MPV 9.0 L (9.5-12.2) fL Neutrophils # (1.3-7.7) k/uL Neutrophils # (Manual) (1.3-7.7) k/uL BUN/Creatinine Ratio 11.82 L (12.00-20.00) Ratio Glucose 182 H (74-99) mg/dL Calcium 8.5 L (8.7-10.3) mg/dL Procalcitonin (0.02-0.09) ng/mL Microbiology - Last 24 Hours (Table) 07/23/20 20:15 Sputum Culture - Preliminary Sputum 07/22/20 12:12 Blood Culture - Preliminary Blood No Growth after 24 hours 07/22/20 12:12 Blood Culture - Preliminary Blood No Growth after 24 hours Diabetes panel 07/23/20 07/24/20 Range/Units 10:32 05:48 Sodium 138 141 (137-145) mmol/L Potassium 4.0 4.9 (3.5-5.1) mmol/L Chloride 106 106 (98-107) mmol/L Carbon Dioxide 26 24.9 (22-30) mmol/L BUN 13 13.0 (9-20) mg/dL Creatinine 0.96 1.1 (0.66-1.25) mg/dL Glucose 158 H 182 H (74-99) mg/dL Calcium 8.4 8.5 L (8.4-10.2) mg/dL Calcium panel 07/23/20 07/24/20 Range/Units 10:32 05:48 Calcium 8.4 8.5 L (8.4-10.2) mg/dL Pituitary panel 07/23/20 07/24/20 Range/Units 10:32 05:48 Sodium 138 141 (137-145) mmol/L Potassium 4.0 4.9 (3.5-5.1) mmol/L Chloride 106 106 (98-107) mmol/L Carbon Dioxide 26 24.9 (22-30) mmol/L BUN 13 13.0 (9-20) mg/dL Creatinine 0.96 1.1 (0.66-1.25) mg/dL Glucose 158 H 182 H (74-99) mg/dL Calcium 8.4 8.5 L (8.4-10.2) mg/dL Adrenal panel 07/23/20 07/24/20 Range/Units 10:32 05:48 Sodium 138 141 (137-145) mmol/L Potassium 4.0 4.9 (3.5-5.1) mmol/L Chloride 106 106 (98-107) mmol/L Carbon Dioxide 26 24.9 (22-30) mmol/L BUN 13 13.0 (9-20) mg/dL Creatinine 0.96 1.1 (0.66-1.25) mg/dL Glucose 158 H 182 H (74-99) mg/dL Calcium 8.4 8.5 L (8.4-10.2) mg/dL - Imaging Chest x-ray: report reviewed, image reviewed CT scan - chest: report reviewed, image reviewed Assessment and Plan Assessment: 1. Large right-sided loculated pleural fluid collection, suspected empyema versus lung abscess versus necrotic tumor 2. Dyspnea, secondary to above 3. Leukocytosis, secondary to loculated pleural collection suspected empyema 4. Chronic obstructive pulmonary disease 5. History of COVID 19 infection from March 2020, status post COVID 19 vaccination around 3 weeks ago 6. History of chronic tobacco dependence, quit smoking around 6 weeks ago 7. History of gout 8. History of obstructive sleep apnea, status post corrective surgery Plan: The patient was seen and examined at his bedside on the fourth floor medical surgical unit. His chart and diagnostics were reviewed. His case was discussed in detail with Dr. Valentin Soliz from cardiothoracic surgery. Agree with consultation to interventional radiology for pigtail catheter placement with initial treatment recommendations for pleural instillation of fibrinolytic therapy once the pigtail catheter has been placed. Currently on Zosyn and vancomycin for antibiotic coverage managed by pulmonary/critical care medicine. We will order an incentive spirometry and encourage use every hour while awake. Medical management and other comorbidities per primary care service. Continue to follow daily chest x-rays. More recommendations to follow based on patient's clinical course. Follow sputum and blood culture results. Thank you Dr. Lind for this consult and we will look forward to working with you in the care of this patient. Time with Patient: Greater than 30
[2020-07-24 10:30] LABS: Basophils # (A) 0.03 X 10*3/uL (0.00-0.10); Basophils % (A) 0.1 %; Eosinophils # (A) 0.01 X 10*3/uL (0.04-0.35); Eosinophils % (A) 0 %; Lymphocytes # (A) 1.25 X 10*3/uL (0.90-5.00); Lymphocytes % (A) 5.9 %; Monocytes # (A) 0.07 X 10*3/uL (0.20-1.00); Monocytes % (A) 0.3 %; Neutrophils # (A) 19.49 X 10*3/uL (1.80-7.70); Neutrophils % (A) 92.9 %
--- NOTE | 2020-07-24 10:53 | P.PN ---
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 He was seen by Dr. Saba one day ago and sent to the emergency room after there is evidence of empyema in the right lung. Emergency room CTA showed on the empyema, and no evidence of pulmonary embolism. He is admitted to the stepdown unit is currently resting comfortably. He is complaining quite a bit of cough. He is complaining of chest pains with cough. He denies any significant nausea or vomiting. Indicates he's lost about 30 pounds over the past 2-3 months. Vital signs overnight show he's been afebrile. Labs show a white count of 21.6 and hemoglobin 10.1. There is predominantly neutrophilia. Chemistries are essentially normal, the exception of a glucose 158 late a.m. COVID-19, RSV and influenza PCR were all negative. 07/24/2020: Patient remained stable overnight. He denies any current significant chest pains pressures or shortness of breath at rest. He indicates cough is little bit better. He denies any significant nausea or vomiting. Denies any difficulty with urination or constipation this time. Pulmonology has seen him as have thoracic surgery. Currently thoracic surgery is planning a to catheter versus. Interventional radiology and fibrotic treatment. Vitals remained stable. He remains on room air. He is afebrile. Weight is down almost 4 kg from admission. Laboratory studies continue to show a significant leukocytosis at 21 predominantly left shift of neutrophils. He has a microcytic anemia hemoglobin 10.1 and MCV 82.8. Platelets are increased at 594 this time. Chemistries were essentially normal. Patient remains on albuterol, budesonide, millimeter all, doing, methylprednisolone, Zosyn, and vancomycin. His guaifenesin ordered for cough. He is currently on Lovenox 40 mg daily for anticoagulation. Objective - Vital Signs Vital signs: Vital Signs Temp 97.4 F L 07/24/20 07:20 Pulse 100 07/24/20 09:22 Resp 17 07/24/20 08:00 BP 94/59 07/24/20 07:20 Pulse Ox 94 L 07/24/20 07:20 Intake & Output 05/04/1407/24/20 07/24/20 18:59 06:59 18:59 Intake Total 1200 200 Balance 1200 200 Weight 68.039 kg 64.1 kg Intake: Intake, IV Titration 600 Amount Sodium Chloride 0.9% 1, 600 000 ml @ 75 mls/hr IV . [id number] Rx#:[id number] Oral 600 200 Other: Voiding Method Toilet # Voids 2 3 - Exam GENERAL: Thin slightly emaciated white male, actively coughing during my exam. NECK: Normal range of motion, supple without lymphadenopathy or JVD, no thyromegaly LUNGS: Breath sounds coarse with decreased air exchange on the right side consistent with empyema findings, risks crackles or rhonchi noted. HEART: Regular rate and rhythm without murmurs, rubs or gallops.S1S2 Normal ABDOMEN: Soft, nontender, normoactive bowel sounds. No guarding, no rebound. No masses appreciated. EXTREMITIES: Normal range of motion, no pitting or edema. No clubbing or cyanosis. NEUROLOGICAL: Cranial nerves II through XII grossly intact. Normal speech, normal gait. PSYCH: Normal mood, normal affect. SKIN: Warm, Dry, normal turgor, no rashes or lesions noted. - Labs CBC & Chem 7: 07/24/20 05:48 07/24/20 05:48 Labs: Abnormal Lab Results - Last 24 Hours (Table) 07/23/20 07/23/20 07/23/20 Range/Units 10:32 10:32 10:32 WBC 21.6 H (3.8-10.6) k/uL RBC 4.06 L (4.30-5.90) m/uL Hgb 10.1 L (13.0-17.5) gm/dL Hct 32.2 L (39.0-53.0) % MCV 79.3 L (80.0-100.0) fL MCH 24.8 L (25.0-35.0) pg MCHC (32.0-37.0) g/dL RDW 16.6 H (11.5-15.5) % Plt Count 536 H (150-450) k/uL Plt Count Comment MPV (9.5-12.2) fL Immature Gran # (0.00-0.04) X 10*3/uL Neutrophils # 19.1 H (1.3-7.7) k/uL Neutrophils # (Manual) 17.93 H (1.3-7.7) k/uL Monocytes # (0.20-1.00) X 10*3/uL Eosinophils # (0.04-0.35) X 10*3/uL BUN/Creatinine Ratio (12.00-20.00) Ratio Glucose 158 H (74-99) mg/dL Calcium (8.7-10.3) mg/dL Procalcitonin 0.13 H (0.02-0.09) ng/mL 07/24/20 07/24/20 Range/Units 05:48 05:48 WBC 21.02 H (3.8-10.6) k/uL RBC 4.30 L (4.30-5.90) m/uL Hgb 10.1 L (13.0-17.5) gm/dL Hct 35.6 L (39.0-53.0) % MCV (80.0-100.0) fL MCH 23.5 L (25.0-35.0) pg MCHC 28.4 L (32.0-37.0) g/dL RDW 17.8 H (11.5-15.5) % Plt Count 594 H (150-450) k/uL Plt Count Comment INCREASED A MPV 9.0 L (9.5-12.2) fL Immature Gran # 0.17 H (0.00-0.04) X 10*3/uL Neutrophils # 19.49 H (1.3-7.7) k/uL Neutrophils # (Manual) (1.3-7.7) k/uL Monocytes # 0.07 L (0.20-1.00) X 10*3/uL Eosinophils # 0.01 L (0.04-0.35) X 10*3/uL BUN/Creatinine Ratio 11.82 L (12.00-20.00) Ratio Glucose 182 H (74-99) mg/dL Calcium 8.5 L (8.7-10.3) mg/dL Procalcitonin (0.02-0.09) ng/mL Microbiology - Last 24 Hours (Table) 07/23/20 20:15 Sputum Culture - Preliminary Sputum 07/22/20 12:12 Blood Culture - Preliminary Blood No Growth after 24 hours 07/22/20 12:12 Blood Culture - Preliminary Blood No Growth after 24 hours Assessment and Plan (1) Fatigue Current Visit: Yes Status: Acute Code(s): R53.83 - OTHER FATIGUE SNOMED Code(s): 73595005 (2) Weight loss Current Visit: Yes Status: Acute Code(s): R63.4 - ABNORMAL WEIGHT LOSS SNOMED Code(s): 86526987 (3) Gout Current Visit: Yes Status: Acute Code(s): M10.9 - GOUT, UNSPECIFIED SNOMED Code(s): 92225351 (4) Empyema lung Current Visit: Yes Status: Acute Code(s): J86.9 - PYOTHORAX WITHOUT FISTULA SNOMED Code(s): 14785087 (5) Leukocytosis Current Visit: Yes Status: Acute Code(s): D72.829 - ELEVATED WHITE BLOOD CELL COUNT, UNSPECIFIED SNOMED Code(s): 031435386 (6) Microcytic anemia Current Visit: Yes Status: Acute Code(s): D50.9 - IRON DEFICIENCY ANEMIA, UN SPECIFIED SNOMED Code(s): 384737436 (7) Thrombocytosis Current Visit: Yes Status: Acute Code(s): D47.3 - ESSENTIAL (HEMORRHAGIC) THROMBOCYTHEMIA SNOMED Code(s): 6934556 Plan: I will await further recommendations from pulmonology, thoracic surgery, infectious disease. I will await procedure pigtail catheter by interventional radiology. Repeat labs in am. Remain on vancomycin and Zosyn. Continue on his breathing medications ordered by pulmonology. I'll continue enalapril for now. Reevaluate next 24 hours.
[2020-07-24] MEDS ORDERED: VANCOMYCIN TROUGH DUE 1 EACH MISC MISCELLANE ONE (11:00)
[2020-07-24 11:12] LABS: African American GFR (CKD) >90 (>60 ml/min/1.73 sqM); Non-African American GFR(CKD) 88 (>60 ml/min/1.73 sqM)
[2020-07-24 12:13] LABS: Glucose,Whole Blood 154 mg/dL (75-99)
[2020-07-24] MEDS: INSULIN ASPART (NovoLOG) 100 UNIT/ML VIAL SQ SCH ×3 (12:33→20:24)
--- NOTE | 2020-07-24 14:58 | P.PN ---
Subjective Progress Note Date: 07/24/20 Principal diagnosis: Right-sided pleural effusion, empyema This is a pleasant 69-year-old male, known history of COPD, benign essential hypertension, patient salas been feeling ill for the last few months. Back in March, patient had symptoms suggestive of COVID-19 infection including cough, fatigue, aches and pains, fever and chills, but apparently no medical attention was sought at the time. Patient was recently seen by Dr. Stokes and he was complaining of cough, he was also complaining of left-sided chest pain. Patient had positive IgG titer for COVID-19 infection which clearly implies that the patient had previous exposure and COVID-19 infection. Part of the workup also included a chest x-ray, and it came back quite abnormal showing a large area of abnormality involving the right lung, the differential diagnoses includes empyema, lung abscess, and possibly a large tumor involving the right lower lobe with necrosis and air fluid level noted. He was referred to Dr. Ortega in our office for the same. He was seen as a new patient yesterday. Based on the chest x-ray findings Dr. Ortega preferred the patient obtain a computed tomography scan of the chest and probable admission for IV antibiotics and possible CT-guided needle biopsy or bronchoscopy with transbronchial biopsies. CAT scan does reveal a large right-sided suspected subpleural fluid collection or empyema with mixed soft tissue, fluid in ear density. No evidence of pulmonary embolism. There is evidence of COPD. Mediastinal lymphadenopathy. Ultrasound of the chest revealed minimal effusion at 2.9 cm and a complex fluid pocket suggestive of empyema. White count 21.6. Hemoglobin 10.1. Sodium 138. Potassium 4.0. Creatinine 0.96. ProBNP 779. Influenza screen negative. Coronavirus screen negative. Patient is seen today in consultation on the regular medical floor. He is currently sitting up in bed. Awake and alert in no acute distress. Currently maintaining O2 saturations in the mid 90s on room air. He's been afebrile. He's been initiated on vancomycin and Zosyn. On 07/24/2020 patient seen in follow-up on medical surgical floor. He states he is feeling better today, but still congested and wheezy, he is bringing up large amount of phlegm, he was able to produce sputum for culture, which was sent to the lab, and is pending at this time, blood cultures so far have shown no growth, final cultures are pending, has had no fevers overnight. Vital signs have been stable, he is maintaining stable O2 saturations, his pulse ox is 95% on room air, no complex of chest pain or hemoptysis. He continues on the antibiotics in the form of Zosyn and vancomycin. He is on IV steroids and breathing treatments. 0.9 normal saline at 20 ML per hour. Today's labs have been reviewed the patient's white blood cell count is 21.02, hemoglobin is 10.1, electrolytes and renal profile are within normal limits, the viral panel including influenza RSV and COVID-19 were negative. Objective - Vital Signs Vital signs: Vital Signs Temp 97.7 F 07/24/20 14:00 Pulse 112 H 07/24/20 14:00 Resp 16 07/24/20 14:00 BP 113/69 07/24/20 14:00 Pulse Ox 95 07/24/20 14:00 Intake & Output 07/23/20 07/24/20 07/24/20 18:59 06:59 18:59 Intake Total 1200 200 240 Balance 1200 200 240 Weight 68.039 kg 64.1 kg Intake: Intake, IV Titration 600 Amount Sodium Chloride 0.9% 1, 600 000 ml @ 75 mls/hr IV . [id number] Rx#:[id number] Oral 600 200 240 Other: Voiding Method Toilet # Voids 2 3 - Exam GENERAL EXAM: Alert, very pleasant, 69-year-old white male on room air with a pulse ox of 95%, comfortable in no apparent distress. HEAD: Normocephalic/atraumatic. EYES: Normal reaction of pupils, equal size. Conjunctiva pink, sclera white. NOSE: Clear with pink turbinates. THROAT: No erythema or exudates. NECK: No masses, no JVD, no thyroid enlargement, no adenopathy. CHEST: No chest wall deformity. Symmetrical expansion. LUNGS: Equal air entry with coarse crackles, and wheezes CVS: Regular rate and rhythm, normal S1 and S2, no gallops, no murmurs, no rubs ABDOMEN: Soft, nontender. No hepatosplenomegaly, normal bowel sounds, no guarding or rigidity. EXTREMITIES: No clubbing, no edema, no cyanosis, 2+ pulses and upper and lower extremities. MUSCULOSKELETAL: Muscle strength and tone normal. SPINE: No scoliosis or deformity SKIN: No rashes CENTRAL NERVOUS SYSTEM: Alert and oriented -3. No focal deficits, tone is normal in all 4 extremities. PSYCHIATRIC: Alert and oriented -3. Appropriate affect. Intact judgment and insight. - Labs CBC & Chem 7: 07/24/20 05:48 07/24/20 10:39 Labs: Abnormal Lab Results - Last 24 Hours (Table) 07/23/20 07/24/20 07/24/20 Range/Units 10:32 05:48 05:48 WBC 21.02 H (4.50-10.00) X 10*3/uL RBC 4.30 L (4.40-5.60) X 10*6/uL Hgb 10.1 L (13.0-17.0) g/dL Hct 35.6 L (39.6-50.0) % MCH 23.5 L (27.0-32.0) pg MCHC 28.4 L (32.0-37.0) g/dL RDW 17.8 H (11.5-14.5) % Plt Count 594 H (140-440) X 10*3/uL Plt Count Comment INCREASED A MPV 9.0 L (9.5-12.2) fL Immature Gran # 0.17 H (0.00-0.04) X 10*3/uL Neutrophils # 19.49 H (1.80-7.70) X 10*3/uL Monocytes # 0.07 L (0.20-1.00) X 10*3/uL Eosinophils # 0.01 L (0.04-0.35) X 10*3/uL BUN/Creatinine Ratio 11.82 L (12.00-20.00) Ratio Glucose 182 H (70-110) mg/dL POC Glucose (mg/dL) (75-99) mg/dL Calcium 8.5 L (8.7-10.3) mg/dL Procalcitonin 0.13 H (0.02-0.09) ng/mL 07/24/20 Range/Units 12:10 WBC (4.50-10.00) X 10*3/uL RBC (4.40-5.60) X 10*6/uL Hgb (13.0-17.0) g/dL Hct (39.6-50.0) % MCH (27.0-32.0) pg MCHC (32.0-37.0) g/dL RDW (11.5-14.5) % Plt Count (140-440) X 10*3/uL Plt Count Comment MPV (9.5-12.2) fL Immature Gran # (0.00-0.04) X 10*3/uL Neutrophils # (1.80-7.70) X 10*3/uL Monocytes # (0.20-1.00) X 10*3/uL Eosinophils # (0.04-0.35) X 10*3/uL BUN/Creatinine Ratio (12.00-20.00) Ratio Glucose (70-110) mg/dL POC Glucose (mg/dL) 154 H (75-99) mg/dL Calcium (8.7-10.3) mg/dL Procalcitonin (0.02-0.09) ng/mL Microbiology - Last 24 Hours (Table) 07/22/20 12:12 Blood Culture - Preliminary Blood No Growth after 48 hours 07/22/20 12:12 Blood Culture - Preliminary Blood No Growth after 48 hours 07/23/20 20:15 Sputum Culture - Preliminary Sputum Assessment and Plan Plan: Assessment: #1. Right-sided empyema and loculated right-sided pleural fluid collection, rule out possibility of lung abscess versus necrotic tumor/bronchogenic carcinoma #2. History of COVID-19 infection based on titers, initial symptoms from March 2020 #3. History of COPD #4. History of chronic tobacco dependence up to 3 packs per day, quit smoking 2 months ago #5. History of gout Plan: Consultation to interventional radiology has been placed for CT-guided pigtail chest tube placement CT surgery is following Continue current antibiotics Continue steroids and breathing treatments GI/DVT prophylaxis I performed a history & physical examination of the patient and discussed their management with my nurse practitioner, Adela Ruelas. I reviewed the nurse practitioner's note and agree with the documented findings and plan of care. Lung sounds are positive for diffuse wheezes throughout the lung [place]. The findings and the impression was discussed with the patient. I attest to the documentation by the nurse practitioner. Time with Patient: Less than 30
[2020-07-24 16:41] LABS: Glucose,Whole Blood 164 mg/dL (75-99)
[2020-07-24 18:54] LABS: Hemoglobin A1C 5.8 % (4.0-6.0)
[2020-07-24 20:29] LABS: Glucose,Whole Blood 145 mg/dL (75-99)
[2020-07-25] MEDS: PIPERACILLIN-TAZOBACTAM 3.375 GM in SODIUM CHLORIDE 0.9% 100 ML IVPB SCH ×3 (03:53→19:47)
[2020-07-25 07:11] LABS: Glucose,Whole Blood 130 mg/dL (75-99)
[2020-07-25] MEDS: INSULIN ASPART (NovoLOG) 100 UNIT/ML VIAL SQ SCH ×4 (07:35→21:34)
[2020-07-25] MEDS: ENOXAPARIN 40 MG/0.4 ML SYRINGE SQ SCH ×2 (07:51→07:54)
[2020-07-25] MEDS: allopurinoL 300 MG TAB PO SCH (07:51)
[2020-07-25] MEDS: guaiFENesin 600 MG TABLET.ER PO SCH ×2 (07:51→19:47)
[2020-07-25] MEDS: PANTOPRAZOLE 40 MG TABLET PO SCH (07:51)
[2020-07-25] MEDS: methylPREDNISolone SOD SUCCI 40 MG/ML 1 ML VIAL IV SCH ×2 (07:51→17:07)
[2020-07-25] MEDS: MULTIVITAMINS, THERA 1 EACH TAB PO SCH (07:51)
[2020-07-25] MEDS: IPRATROPIUM-ALBUTEROL 3 ML NEB INHALATION SCH ×4 (08:24→21:19)
[2020-07-25] MEDS: FORMOTEROL FUMARATE 20 MCG/2 ML NEBU INHALATION SCH ×2 (08:24→21:20)
[2020-07-25] MEDS: BUDESONIDE 1 MG/2 ML NEBU INHALATION SCH ×2 (08:24→21:19)
[2020-07-25 11:02] LABS: Basophils # (A) 0.02 X 10*3/uL (0.00-0.10); Basophils % (A) 0.1 %; Eosinophils # (A) 0 X 10*3/uL (0.04-0.35); Eosinophils % (A) 0 %; HCT 34.3 % (39.6-50.0); HGB 9.8 g/dL (13.0-17.0); Lymphocytes # (A) 1.52 X 10*3/uL (0.90-5.00); Lymphocytes % (A) 7.9 %; MCH 23.4 pg (27.0-32.0); MCHC 28.6 g/dL (32.0-37.0); MCV 82.1 fL (80.0-97.0); Monocytes # (A) 0.19 X 10*3/uL (0.20-1.00); Neutrophils # (A) 17.37 X 10*3/uL (1.80-7.70); Neutrophils % (A) 90.1 %; Platelet Count 583 X 10*3/uL (140-440); RBC 4.18 X 10*6/uL (4.40-5.60); WBC 19.27 X 10*3/uL (4.50-10.00)
[2020-07-25 11:40] LABS: African American GFR (CKD) 102.1 (60.0-200.0); Anion Gap 6.4 mmol/L (4.00-12.00); BUN/Creat Ratio 22.22 Ratio (12.00-20.00); Calcium 8.2 mg/dL (8.7-10.3); Carbon Dioxide 24.6 mmol/L (21.6-31.8); Non-African American GFR(CKD) 88.1 (60.0-200.0); Potassium 4.7 mmol/L (3.5-5.5)
[2020-07-25] MEDS: VANCOMYCIN 1,250 MG in SODIUM CHLORIDE 0.9% 250 ML IVPB SCH (11:48)
[2020-07-25 12:06] LABS: Glucose,Whole Blood 144 mg/dL (75-99)
--- NOTE | 2020-07-25 13:22 | P.PN ---
Subjective Progress Note Date: 07/25/20 Principal diagnosis: This is a 69-year-old gentleman who is followed by Dr. Chapito Stokes on an outpatient basis for his primary care service. He is a past medical history significant for COPD, remote history of pneumonia, gout, history of obstructive sleep apnea-status post corrective surgery, hard of hearing and chronic ongoing tobacco dependence although reports that he has not been smoking for the past 6 weeks due to him feeling short of breath. The patient also reports that he has had COVID 19 in March and has also been vaccinated for COVID 19 with the [employer] vaccination within the last 3 weeks. Recently, the patient has had complaints of shortness of breath, productive cough with yellowish colored tenacious sputum, fatigue, decreased appetite with a 30 pound weight loss in the past 6-8 weeks. He reports the symptoms have progressively gotten worse over the last week and has sought medical attention with his primary care office. He denies any fever, chills, nausea, vomiting, headache, dizziness, syncope, hemoptysis or hematemesis. Subsequently, due to the patient's symptoms he was started on Trelegy Ellipta inhaler in which he says did help his symptoms for a short period. He was referred to Dr. Ortega from pulmonary medicine for further evaluation and treatment recommendations. A chest x-ray was completed on 07/18/2020 which showed a complex mass in the lateral aspect of the right lung adjacent to the pleura. This was suspicious for chronic empyema, lung abscess or necrotic tumor. After seeing Dr. Ortega from pulmonary medicine, recomme ndations were made to proceed to clear at [facility] for further workup and treatment recommendations as an inpatient. On admission 07/22/[address] chest in August for pulmonary embolus was completed which demonstrated no diagnostic evidence of a pulmonary embolism, they 1.1 cm lymph node in the mediastinum and a large right-sided suspected subpleural fluid collection or empyema with mixed soft tissue, fluid and air density was noted. Yesterday 07/23/2020 he underwent an ultrasound of his chest which showed a 2.9 cm complex fluid pocket, small right-sided empyema. A repeat chest x-ray was Completed this morning 07/24/2020 which showed a persistent suspected pleural fluid collection with air-fluid levels correlated for empyema or pulmonary abscess considered. Due to the patient's presenting symptoms and findings on his above mentioned studies a consult was placed to Dr. Valentin Soliz from cardiothoracic surgery for further evaluation and treatment recommendations. The patient was seen in follow-up today 07/25/2020 at his bedside on the fourth floor medical surgical unit. He is currently sitting up to the bedside edge, is awake, alert and oriented 3. Denies any complaints of pain or shortness of breath. This morning he is reporting that his cough is somewhat improved with less sputum production. He is having some occasional productive cough with yellowish tinged tenacious sputum. Oxygen saturations are 98% on 2 L nasal cannula and he is achieving 1500 mL on his incentive spirometry. Laboratory results this morning show his WBC count trending down and is 19.2 this morning hemoglobin 9.8, hematocrit 34.3, platelets 583, sodium 142, potassium 4.7, chloride 111, BUN 20.0, creatinine 0.9, glucose 130 and calcium 8.2. The patient is scheduled for a right-sided pigtail catheter placement today by interventional radiology. The patient has remained afebrile the last 24 hours, sputum culture preliminary report shows many polymorphonuclear leukocytes, rare epithelial cells, moderate gram-positive bacilli and few gram-positive cocci. Blood culture results show no growth after 48 hours. The patient remains on Zosyn and vancomycin for antibiotic coverage managed by pulmonary/critical care medicine. Objective - Vital Signs Vital signs: Vital Signs Temp 97.6 F 07/25/20 07:27 Pulse 89 07/25/20 12:10 Resp 17 07/25/20 07:27 BP 102/49 07/25/20 07:27 Pulse Ox 95 07/25/20 07:27 Intake & Output 07/24/20 07/25/20 07/25/20 18:59 06:59 18:59 Intake Total 240 200 Balance 240 200 Weight 66.6 kg Intake: Oral 240 200 Other: Voiding Method Toilet Toilet # Voids 3 1 - Exam CONSTITUTIONAL: Sitting up to the bedside edge, appears comfortable, cooperative, no apparent acute distress. RESPIRATORY: Lungs sounds with few scattered rhonchi and wheezes throughout, diminished to his bilateral bases right greater than left. Respirations are symmetrical and nonlabored. Currently on 2 L nasal cannula with oxygen saturations 98%. Able to achieve 1500 mL on incentive spirometry. Strong cough productive cough with yellow tinge tenacious sputum. CARDIOVASCULAR: S1, S2 present, negative for S3, gallop or murmur. Regular rate and rhythm. Palpable peripheral pulses bilaterally. No edema present. No calf pain or tenderness noted. GASTROINTESTINAL: Abdomen soft, nontender, nondistended. Active bowel sounds present 4 quadrants. Tolerating diet. GENITOURINARY: Continues to void clear, yellow urine. INTEGUMENTARY: Skin is warm and dry. No clubbing or cyanosis is present. NEUROLOGIC: Cranial nerves II through XII intact. No focal deficits. MUSKULOSKELETAL: Able to move all extremities, strength equal bilaterally, gait normal. PSYCHIATRIC: Alert and oriented to person place and time, appropriate affect, intact judgment and insight. - Labs CBC & Chem 7: 07/25/20 07:06 07/25/20 07:06 Labs: Abnormal Lab Results - Last 24 Hours (Table) 07/24/20 07/24/20 07/25/20 Range/Units 16:35 20:16 06:55 WBC (4.50-10.00) X 10*3/uL RBC (4.40-5.60) X 10*6/uL Hgb (13.0-17.0) g/dL Hct (39.6-50.0) % MCH (27.0-32.0) pg MCHC (32.0-37.0) g/dL RDW (11.5-14.5) % Plt Count (140-440) X 10*3/uL MPV (9.5-12.2) fL Immature Gran # (0.00-0.04) X 10*3/uL Neutrophils # (1.80-7.70) X 10*3/uL Monocytes # (0.20-1.00) X 10*3/uL Eosinophils # (0.04-0.35) X 10*3/uL Chloride (96-109) mmol/L BUN/Creatinine Ratio (12.00-20.00) Ratio Glucose (70-110) mg/dL POC Glucose (mg/dL) 164 H 145 H 130 H (75-99) mg/dL Calcium (8.7-10.3) mg/dL 07/25/20 07/25/20 07/25/20 Range/Units 07:06 07:06 11:38 WBC 19.27 H (4.50-10.00) X 10*3/uL RBC 4.18 L (4.40-5.60) X 10*6/uL Hgb 9.8 L (13.0-17.0) g/dL Hct 34.3 L (39.6-50.0) % MCH 23.4 L (27.0-32.0) pg MCHC 28.6 L (32.0-37.0) g/dL RDW 18.0 H (11.5-14.5) % Plt Count 583 H (140-440) X 10*3/uL MPV 9.0 L (9.5-12.2) fL Immature Gran # 0.17 H (0.00-0.04) X 10*3/uL Neutrophils # 17.37 H (1.80-7.70) X 10*3/uL Monocytes # 0.19 L (0.20-1.00) X 10*3/uL Eosinophils # 0 L (0.04-0.35) X 10*3/uL Chloride 111 H (96-109) mmol/L BUN/Creatinine Ratio 22.22 H (12.00-20.00) Ratio Glucose 119 H (70-110) mg/dL POC Glucose (mg/dL) 144 H (75-99) mg/dL Calcium 8.2 L (8.7-10.3) mg/dL Microbiology - Last 24 Hours (Table) 07/23/20 20:15 Gram Stain - Preliminary Sputum Sputum Culture - Preliminary 07/22/20 12:12 Blood Culture - Preliminary Blood No Growth after 48 hours 07/22/20 12:12 Blood Culture - Preliminary Blood No Growth after 48 hours Assessment and Plan Assessment: 1. Large right-sided loculated pleural fluid collection, suspected empyema versus lung abscess versus necrotic tumor 2. Dyspnea, secondary to above 3. Leukocytosis, secondary to loculated pleural collection suspected empyema 4. Chronic obstructive pulmonary disease 5. History of COVID 19 infection from March 2020, status post COVID 19 vaccination around 3 weeks ago 6. History of chronic tobacco dependence, quit smoking around 6 weeks ago 7. History of gout 8. History of obstructive sleep apnea, status post corrective surgery Plan: 1. Interventional radiology has been consulted for pigtail catheter placement, scheduled for pigtail catheter placement today. Once the pigtail catheter has been placed starting tomorrow 07/26/2020 we will start to instill pleural fibrinolytic. 2. Encourage use of his incentive spirometry 10 times every hour while awake. 3. Continue IV antibiotics Zosyn and vancomycin managed by pulmonary/critical care medicine. 4. Continue to follow daily chest x-rays. 5. Send pleural fluid for Gram stain and culture and cytology. 6. More recommendations follow based on patient's clinical course. Time with Patient: Greater than 30
--- NOTE | 2020-07-25 13:57 | P.PN ---
Subjective Progress Note Date: 07/25/20 Principal diagnosis: Right-sided pleural effusion, empyema This is a pleasant 69-year-old male, known history of COPD, benign essential hypertension, patient salas been feeling ill for the last few months. Back in March, patient had symptoms suggestive of COVID-19 infection including cough, fatigue, aches and pains, fever and chills, but apparently no medical attention was sought at the time. Patient was recently seen by Dr. Stokes and he was complaining of cough, he was also complaining of left-sided chest pain. Patient had positive IgG titer for COVID-19 infection which clearly implies that the patient had previous exposure and COVID-19 infection. Part of the workup also included a chest x-ray, and it came back quite abnormal showing a large area of abnormality involving the right lung, the differential diagnoses includes empyema, lung abscess, and possibly a large tumor involving the right lower lobe with necrosis and air fluid level noted. He was referred to Dr. Ortega in our office for the same. He was seen as a new patient yesterday. Based on the chest x-ray findings Dr. Ortega preferred the patient obtain a computed tomography scan of the chest and probable admission for IV antibiotics and possible CT-guided needle biopsy or bronchoscopy with transbronchial biopsies. CAT scan does reveal a large right-sided suspected subpleural fluid collection or empyema with mixed soft tissue, fluid in ear density. No evidence of pulmonary embolism. There is evidence of COPD. Mediastinal lymphadenopathy. Ultrasound of the chest revealed minimal effusion at 2.9 cm and a complex fluid pocket suggestive of empyema. White count 21.6. Hemoglobin 10.1. Sodium 138. Potassium 4.0. Creatinine 0.96. ProBNP 779. Influenza screen negative. Coronavirus screen negative. Patient is seen today in consultation on the regular medical floor. He is currently sitting up in bed. Awake and alert in no acute distress. Currently maintaining O2 saturations in the mid 90s on room air. He's been afebrile. He's been initiated on vancomycin and Zosyn. On 07/24/2020 patient seen in follow-up on medical surgical floor. He states he is feeling better today, but still congested and wheezy, he is bringing up large amount of phlegm, he was able to produce sputum for culture, which was sent to the lab, and is pending at this time, blood cultures so far have shown no growth, final cultures are pending, has had no fevers overnight. Vital signs have been stable, he is maintaining stable O2 saturations, his pulse ox is 95% on room air, no complex of chest pain or hemoptysis. He continues on the antibiotics in the form of Zosyn and vancomycin. He is on IV steroids and breathing treatments. 0.9 normal saline at 20 ML per hour. Today's labs have been reviewed the patient's white blood cell count is 21.02, hemoglobin is 10.1, electrolytes and renal profile are within normal limits, the viral panel including influenza RSV and COVID-19 were negative. On 07/25/2020 patient seen in follow-up on medical surgical floor. He is awake and alert, and in no acute distress, he is not on any oxygen, he states his breathing is improving, although physical exam still reveals diffuse rhonchi and wheezes, patient remains on IV steroids and antibiotics. His had no fevers overnight, interventional radiology was consulted for placement of right-sided pigtail chest tube catheter for loculated pleural effusion likely related to empyema. CT surgery is also following the patient. Overnight he's had no acute events, his labs have been reviewed, his white count is improving but still elevated at 19.7, hemoglobin is 9.8, his electrolyte and renal profile were unremarkable. His blood and sputum cultures have shown no growth thus far, final cultures are pending. He still bringing up phlegm, no hemoptysis. Denies any chest discomfort, denies any pleuritic chest pain Objective - Vital Signs Vital signs: Vital Signs Temp 97.6 F 07/25/20 07:27 Pulse 89 07/25/20 12:10 Resp 17 07/25/20 07:27 BP 102/49 07/25/20 07:27 Pulse Ox 95 07/25/20 07:27 Intake & Output 07/24/20 07/25/20 07/25/20 18:59 06:59 18:59 Intake Total 240 200 Balance 240 200 Weight 66.6 kg Intake: Oral 240 200 Other: Voiding Method Toilet Toilet # Voids 3 1 - Exam GENERAL EXAM: Alert, very pleasant, 69-year-old white male on room air with a pulse ox of 95%, comfortable in no apparent distress. HEAD: Normocephalic/atraumatic. EYES: Normal reaction of pupils, equal size. Conjunctiva pink, sclera white. NOSE: Clear with pink turbinates. THROAT: No erythema or exudates. NECK: No masses, no JVD, no thyroid enlargement, no adenopathy. CHEST: No chest wall deformity. Symmetrical expansion. LUNGS: Equal air entry with coarse crackles, and wheezes CVS: Regular rate and rhythm, normal S1 and S2, no gallops, no murmurs, no rubs ABDOMEN: Soft, nontender. No hepatosplenomegaly, normal bowel sounds, no guarding or rigidity. EXTREMITIES: No clubbing, no edema, no cyanosis, 2+ pulses and upper and lower extremities. MUSCULOSKELETAL: Muscle strength and tone normal. SPINE: No scoliosis or deformity SKIN: No rashes CENTRAL NERVOUS SYSTEM: Alert and oriented -3. No focal deficits, tone is normal in all 4 extremities. PSYCHIATRIC: Alert and oriented -3. Appropriate affect. Intact judgment and insight. - Labs CBC & Chem 7: 07/25/20 07:06 07/25/20 07:06 Labs: Abnormal Lab Results - Last 24 Hours (Table) 07/24/20 07/24/20 07/25/20 Range/Units 16:35 20:16 06:55 WBC (4.50-10.00) X 10*3/uL RBC (4.40-5.60) X 10*6/uL Hgb (13.0-17.0) g/dL Hct (39.6-50.0) % MCH (27.0-32.0) pg MCHC (32.0-37.0) g/dL RDW (11.5-14.5) % Plt Count (140-440) X 10*3/uL MPV (9.5-12.2) fL Immature Gran # (0.00-0.04) X 10*3/uL Neutrophils # (1.80-7.70) X 10*3/uL Monocytes # (0.20-1.00) X 10*3/uL Eosinophils # (0.04-0.35) X 10*3/uL Chloride (96-109) mmol/L BUN/Creatinine Ratio (12.00-20.00) Ratio Glucose (70-110) mg/dL POC Glucose (mg/dL) 164 H 145 H 130 H (75-99) mg/dL Calcium (8.7-10.3) mg/dL 07/25/20 07/25/20 07/25/20 Range/Units 07:06 07:06 11:38 WBC 19.27 H (4.50-10.00) X 10*3/uL RBC 4.18 L (4.40-5.60) X 10*6/uL Hgb 9.8 L (13.0-17.0) g/dL Hct 34.3 L (39.6-50.0) % MCH 23.4 L (27.0-32.0) pg MCHC 28.6 L (32.0-37.0) g/dL RDW 18.0 H (11.5-14.5) % Plt Count 583 H (140-440) X 10*3/uL MPV 9.0 L (9.5-12.2) fL Immature Gran # 0.17 H (0.00-0.04) X 10*3/uL Neutrophils # 17.37 H (1.80-7.70) X 10*3/uL Monocytes # 0.19 L (0.20-1.00) X 10*3/uL Eosinophils # 0 L (0.04-0.35) X 10*3/uL Chloride 111 H (96-109) mmol/L BUN/Creatinine Ratio 22.22 H (12.00-20.00) Ratio Glucose 119 H (70-110) mg/dL POC Glucose (mg/dL) 144 H (75-99) mg/dL Calcium 8.2 L (8.7-10.3) mg/dL Microbiology - Last 24 Hours (Table) 07/23/20 20:15 Gram Stain - Preliminary Sputum Sputum Culture - Preliminary 07/22/20 12:12 Blood Culture - Preliminary Blood No Growth after 48 hours 07/22/20 12:12 Blood Culture - Preliminary Blood No Growth after 48 hours Assessment and Plan Plan: Assessment: #1. Right-sided empyema and loculated right-sided pleural fluid collection, rule out possibility of lung abscess versus necrotic tumor/bronchogenic carcinoma #2. History of COVID-19 infection based on titers, initial symptoms from March 2020 #3. History of COPD #4. History of chronic tobacco dependence up to 3 packs per day, quit smoking 2 months ago #5. History of gout Plan: Consultation to interventional radiology has been placed for CT-guided pigtail chest tube placement The procedure is planned for today in the afternoon Continue current antibiotics and steroids, Continue bronchodilators Nothing by mouth after midnight for bronchoscopy with bronchoalveolar lavage of the right lower lobe with Dr. Berg This was discussed with the patient and he is agreeable to proceed GI/DVT prophylaxis I performed a history & physical examination of the patient and discussed their management with my nurse practitioner, Adela Ruelas. I reviewed the nurse practitioner's note and agree with the documented findings and plan of care. Lung sounds are positive for diffuse wheezes throughout the lung [place]. The f indings and the impression was discussed with the patient. I attest to the documentation by the nurse practitioner. Time with Patient: Less than 30
--- NOTE | 2020-07-25 16:11 | P.PN ---
Subjective Progress Note Date: 07/25/20 This is a pleasant 69-year-old white male patient of nurse practitioner, CHIARA Baig, is been having shortness of breath for the past 4-6 weeks after COVID-19. He was seen by Dr. Saba one day ago and sent to the emergency room after there is evidence of empyema in the right lung. Emergency room CTA showed on the empyema, and no evidence of pulmonary embolism. He is admitted to the stepdown unit is currently resting comfortably. He is complaining quite a bit of cough. He is complaining of chest pains with cough. He denies any significant nausea or vomiting. Indicates he's lost about 30 pounds over the past 2-3 months. Vital signs overnight show he's been afebrile. Labs show a white count of 21.6 and hemoglobin 10.1. There is predominantly neutrophilia. Chemistries are essentially normal, the exception of a glucose 158 late a.m. COVID-19, RSV and influenza PCR were all negative. 07/24/2020: Patient remained stable overnight. He denies any current significant chest pains pressures or shortness of breath at rest. He indicates cough is little bit better. He denies any significant nausea or vomiting. Denies any difficulty with urination or constipation this time. Pulmonology has seen him as have thoracic surgery. Currently thoracic surgery is planning a to catheter versus. Interventional radiology and fibrotic treatment. Vitals remained stable. He remains on room air. He is afebrile. Weight is down almost 4 kg from admission. Laboratory studies continue to show a signific ant leukocytosis at 21 predominantly left shift of neutrophils. He has a microcytic anemia hemoglobin 10.1 and MCV 82.8. Platelets are increased at 594 this time. Chemistries were essentially normal. Patient remains on albuterol, budesonide, millimeter all, doing, methylprednisolone, Zosyn, and vancomycin. His guaifenesin ordered for cough. He is currently on Lovenox 40 mg daily for anticoagulation. 07/25/2020 maintained on nebulized bronchodilators, IV steroids, antibiotics sitting up at side of bed, maintaining O2 sats of 96% on room air. Awaiting placement of pigtail catheter via interventional radiology, in regards to right loculated pleural effusion. Cardiothoracic surgery following. Scheduled for bronchoscopy tomorrow. Sputum culture pending. No hemoptysis. Continues on van comycin and Zosyn. Afebrile, WBC decreased to 19.27. Blood cultures reporting no growth at 72 hours, sputum culture pending . Blood sugars controlled.Denies any chest pain/discomfort. Objective - Vital Signs Vital signs: Vital Signs Temp 97.6 F 07/25/20 07:27 Pulse 94 07/25/20 08:45 Resp 17 07/25/20 07:27 BP 102/49 07/25/20 07:27 Pulse Ox 95 07/25/20 07:27 Intake & Output 07/24/20 07/25/20 07/25/20 18:59 06:59 18:59 Intake Total 240 200 Balance 240 200 Weight 66.6 kg Intake: Oral 240 200 Other: Voiding Method Toilet Toilet # Voids 3 1 - Exam - Exam GENERAL: Alert and oriented 3, sitting up at side of bed, no acute distress NECK: Normal range of motion, supple without lymphadenopathy or JVD, no thyromegaly LUNGS: Breath sounds decreased with coarse rhonchi and expiratory wheezing. HEART: Regular rate and rhythm without murmurs, rubs or gallops.S1S2 Normal. ABDOMEN: Soft, nontender, normoactive bowel sounds. No guarding, no rebound. No masses appreciated. EXTREMITIES: Normal range of motion, no pitting or edema. No clubbing or cyanosis. NEUROLOGICAL: Cranial nerves II through XII grossly intact. Normal speech, normal gait. PSYCH: Normal mood, normal affect. SKIN: Warm, Dry, normal turgor, no rashes noted. Microbiology 07/23/20 20:15 Sputum Gram Stain - Preliminary 07/23/20 20:15 Sputum Sputum Culture - Preliminary 07/22/20 12:12 Blood Blood Culture - Preliminary No Growth after 48 hours 07/22/20 12:12 Blood Blood Culture - Preliminary No Growth after 48 hours - Labs CBC & Chem 7: 07/25/20 07:06 07/25/20 07:06 Labs: Abnormal Lab Results - Last 24 Hours (Table) 07/24/20 07/24/20 07/24/20 Range/Units 12:10 16:35 20:16 POC Glucose (mg/dL) 154 H 164 H 145 H (75-99) mg/dL 07/25/20 Range/Units 06:55 POC Glucose (mg/dL) 130 H (75-99) mg/dL Microbiology - Last 24 Hours (Table) 07/23/20 20:15 Gram Stain - Preliminary Sputum Sputum Culture - Preliminary 07/22/20 12:12 Blood Culture - Preliminary Blood No Growth after 48 hours 07/22/20 12:12 Blood Culture - Preliminary Blood No Growth after 48 hours Assessment and Plan Assessment: Right-sided empyema with right-sided loculated pleural effusion, possible abscess, possible necrotic tumor, possible bronchogenic carcinoma in a patient who smoked 3 packs a day for many years, quit smoking 3 months ago, with unintentional weight loss of 30 pounds in one month. Leukocytosis, thrombocytosis, microcytic anemia secondary to the above History of Covid-19 infection, March 2020 COPD, history of Chronic nicotine dependence, 3 packs per dayX many years, quit 3 months ago History of gout Plan: Continue on current medication regime ,monitoring and symptomatic treatment. Aggressive pulmonary toileting, continue nebulized bronchodilators, steroids, antibiotics. Pigtail catheter placement per interventional radiology pending. Diagnostic bronchoscopy with pulmonary tomorrow. Prognosis guarded given multiple complex medical issues . The impression and plan of care has been dictated as directed. : I performed a history and examination of this patient, discussed the same with the dictator. I agree with the dictator's note ,documented as a scribe. Any additional findings or plans will be noted.
--- NOTE | 2020-07-25 16:49 | P.OP ---
Date of Procedure: 07/25/20 Preoperative Diagnosis: Right empyema Postoperative Diagnosis: Right empyema Procedure(s) Performed: CT guided right side chest tube placement Implants: 8.5 FR coiled chest tube Anesthesia: local Surgeon: Robyn Vazquez Estimated Blood Loss (ml): 1 Pathology: other (20 mL green-tinged pus sent for microbiology) Condition: stable Disposition: floor
[2020-07-25 17:09] LABS: Glucose,Whole Blood 133 mg/dL (75-99)
[2020-07-25 19:20] LABS: Appearance,BF Cloudy; Nucleated Cells, Body Fluid 477500 /uL; RBC, Body Fluid 17000 /uL
[2020-07-25 19:27] LABS: Mononuclear WBC,Body Fluid 16 %; Polynuclear WBC,Body Fluid 84 %; Total Cells Counted,Body Fluid 100
[2020-07-25 20:45] LABS: Glucose,Whole Blood 255 mg/dL (75-99)
--- NOTE | 2020-07-25 20:57 | XR ---
EXAMINATION TYPE: XR chest 1V portable DATE OF EXAM: 07/25/2020 COMPARISON: Radiograph 07/24/2020. Same-day CT. HISTORY: Pulled chest tube. TECHNIQUE: Single frontal view of the chest is obtained. FINDINGS: There is redemonstration of small to moderate partially loculated right pleural effusion w ith associated peripheral and bibasilar opacities, similar to prior study. No definite new opacity or pneumothorax. Stable mild cardiomegaly. The osseous structures are unchanged. IMPRESSION: No significant change of partially loculated right pleural effusion with associated opaci ties.
[2020-07-26] MEDS: methylPREDNISolone SOD SUCCI 40 MG/ML 1 ML VIAL IV SCH ×3 (00:31→16:57)
[2020-07-26] MEDS: VANCOMYCIN 1,250 MG in SODIUM CHLORIDE 0.9% 250 ML IVPB SCH ×2 (00:31→12:22)
[2020-07-26 01:51] LABS: Amylase, Fluid Source Pleural Fluid; LDH, Body Fluid Source Pleural Fluid
[2020-07-26] MEDS: PIPERACILLIN-TAZOBACTAM 3.375 GM in SODIUM CHLORIDE 0.9% 100 ML IVPB SCH ×3 (05:18→20:59)
[2020-07-26 06:54] LABS: Glucose,Whole Blood 125 mg/dL (75-99)
[2020-07-26] MEDS: INSULIN ASPART (NovoLOG) 100 UNIT/ML VIAL SQ SCH ×4 (06:54→20:16)
[2020-07-26] MEDS: ENOXAPARIN 40 MG/0.4 ML SYRINGE SQ SCH (07:03)
[2020-07-26] MEDS: MULTIVITAMINS, THERA 1 EACH TAB PO SCH (07:06)
[2020-07-26] MEDS: PANTOPRAZOLE 40 MG TABLET PO SCH (07:06)
[2020-07-26] MEDS: guaiFENesin 600 MG TABLET.ER PO SCH ×2 (07:12→20:59)
[2020-07-26] MEDS: allopurinoL 300 MG TAB PO SCH (07:12)
[2020-07-26] MEDS: IPRATROPIUM-ALBUTEROL 3 ML NEB INHALATION SCH ×4 (07:40→21:34)
[2020-07-26] MEDS: BUDESONIDE 1 MG/2 ML NEBU INHALATION SCH ×2 (07:40→21:34)
[2020-07-26] MEDS: FORMOTEROL FUMARATE 20 MCG/2 ML NEBU INHALATION SCH ×2 (07:40→21:34)
--- NOTE | 2020-07-26 10:24 | P.PN ---
Subjective Progress Note Date: 07/26/20 Principal diagnosis: This is a 69-year-old gentleman who is followed by Dr. Chapito Stokes on an outpatient basis for his primary care service. He is a past medical history significant for COPD, remote history of pneumonia, gout, history of obstructive sleep apnea-status post corrective surgery, hard of hearing and chronic ongoing tobacco dependence although reports that he has not been smoking for the past 6 weeks due to him feeling short of breath. The patient also reports that he has had COVID 19 in March and has also been vaccinated for COVID 19 with the [employer] vaccination within the last 3 weeks. Recently, the patient has had complaints of shortness of breath, productive cough with yellowish colored tenacious sputum, fatigue, decreased appetite with a 30 pound weight loss in the past 6-8 weeks. He reports the symptoms have progressively gotten worse over the last week and has sought medical attention with his primary care office. He denies any fever, chills, nausea, vomiting, headache, dizziness, syncope, hemoptysis or hematemesis. Subsequently, due to the patient's symptoms he was started on Trelegy Ellipta inhaler in which he says did help his symptoms for a short period. He was referred to Dr. Ortega from pulmonary medicine for further evaluation and treatment recommendations. A chest x-ray was completed on 07/18/2020 which showed a complex mass in the lateral aspect of the right lung adjacent to the pleura. This was suspicious for chronic empyema, lung abscess or necrotic tumor. After seeing Dr. Ortega from pulmonary medicine, recomme ndations were made to proceed to clear at [facility] for further workup and treatment recommendations as an inpatient. On admission 07/22/[address] chest in August for pulmonary embolus was completed which demonstrated no diagnostic evidence of a pulmonary embolism, they 1.1 cm lymph node in the mediastinum and a large right-sided suspected subpleural fluid collection or empyema with mixed soft tissue, fluid and air density was noted. Yesterday 07/23/2020 he underwent an ultrasound of his chest which showed a 2.9 cm complex fluid pocket, small right-sided empyema. A repeat chest x-ray was Completed this morning 07/24/2020 which showed a persistent suspected pleural fluid collection with air-fluid levels correlated for empyema or pulmonary abscess considered. Due to the patient's presenting symptoms and findings on his above mentioned studies a consult was placed to Dr. Valentin Soliz from cardiothoracic surgery for further evaluation and treatment recommendations. POD #[address]-guided 8.5-Thai coiled chest tube performed by interventional radiology. The patient was seen in follow-up today 07/26/2020 at his bedside on the medical surgical unit. He is currently sitting up to the bedside edge, as awake, alert and oriented 3. Denies any complaints of pain or shortness of breath at this time. He underwent a CT-guided placement of a right chest pigtail catheter placed by interventional radiology yesterday 07/25/2020. The patient reports around 3 hours after the pigtail catheter was placed the tube fell out. A repeat chest x-ray last evening after the pigtail catheter came out was completed which showed no significant change of partially loculated right pleural effusion with associated opacities and no evidence of pneumothorax. Oxygen saturation are 95% on room air and he is achieving 2000 L on his incentive spirometry. Blood culture results show no growth after 72 hours. Sputum culture final results shows many normal respiratory chris and his Gram stain pleural fluid shows many polymorphonuclear leukocytes and no organisms seen. Cytology and final culture results from the pleural fluid remain pending. He remains on Zosyn and vancomycin for antibiotic coverage which is managed by pulmonary/critical care medicine. He is nothing by mouth at this time as he reports he is to undergo a bronchoscopy procedure to be performed by Dr. Katie peters today. Objective - Vital Signs Vital signs: Vital Signs Temp 97.5 F L 07/26/20 07:55 Pulse 89 07/26/20 08:06 Resp 16 07/26/20 07:55 BP 122/74 07/26/20 07:55 Pulse Ox 95 07/26/20 07:55 Intake & Output 07/25/20 07/26/20 07/26/20 18:59 06:59 18:59 Weight 68.8 kg Other: Voiding Method Toilet Toilet # Voids 1 - Exam CONSTITUTIONAL: Sitting up to the bedside edge, appears comfortable, cooperative, no apparent acute distress. HEENT: No scleral icterus. Normocephalic. No JVD. No lymphadenopathy. Mucous membranes are moist. RESPIRATORY: Lungs sounds with few scattered rhonchi and wheezes throughout, diminished to his bilateral bases right greater than left. Respirations are symmetrical and nonlabored. Currently on room air with oxygen saturations 95%. Able to achieve 2000 mL on incentive spirometry. Strong cough productive cough with yellow tinge tenacious sputum. CARDIOVASCULAR: S1, S2 present, negative for S3, gallop or murmur. Regular rate and rhythm. Palpable peripheral pulses bilaterally. No edema present. No calf pain or tenderness noted. GASTROINTESTINAL: Abdomen soft, nontender, nondistended. Active bowel sounds present 4 quadrants. Tolerating diet. GENITOURINARY: Continues to void clear, yellow urine. INTEGUMENTARY: Skin is warm and dry. No clubbing or cyanosis is present. NEUROLOGIC: Cranial nerves II through XII intact. No focal deficits. MUSKULOSKELETAL: Able to move all extremities, strength equal bilaterally, gait normal. PSYCHIATRIC: Alert and oriented to person place and time, appropriate affect, intact judgment and insight. - Labs CBC & Chem 7: 07/25/20 07:06 07/25/20 07:06 Labs: Abnormal Lab Results - Last 24 Hours (Table) 07/25/20 07/25/20 07/25/20 Range/Units 07:06 07:06 11:38 WBC 19.27 H (4.50-10.00) X 10*3/uL RBC 4.18 L (4.40-5.60) X 10*6/uL Hgb 9.8 L (13.0-17.0) g/dL Hct 34.3 L (39.6-50.0) % MCH 23.4 L (27.0-32.0) pg MCHC 28.6 L (32.0-37.0) g/dL RDW 18.0 H (11.5-14.5) % Plt Count 583 H (140-440) X 10*3/uL MPV 9.0 L (9.5-12.2) fL Immature Gran # 0.17 H (0.00-0.04) X 10*3/uL Neutrophils # 17.37 H (1.80-7.70) X 10*3/uL Monocytes # 0.19 L (0.20-1.00) X 10*3/uL Eosinophils # 0 L (0.04-0.35) X 10*3/uL Chloride 111 H (96-109) mmol/L BUN/Creatinine Ratio 22.22 H (12.00-20.00) Ratio Glucose 119 H (70-110) mg/dL POC Glucose (mg/dL) 144 H (75-99) mg/dL Calcium 8.2 L (8.7-10.3) mg/dL 07/25/20 07/25/20 07/26/20 Range/Units 17:07 20:43 06:52 WBC (4.50-10.00) X 10*3/uL RBC (4.40-5.60) X 10*6/uL Hgb (13.0-17.0) g/dL Hct (39.6-50.0) % MCH (27.0-32.0) pg MCHC (32.0-37.0) g/dL RDW (11.5-14.5) % Plt Count (140-440) X 10*3/uL MPV (9.5-12.2) fL Immature Gran # (0.00-0.04) X 10*3/uL Neutrophils # (1.80-7.70) X 10*3/uL Monocytes # (0.20-1.00) X 10*3/uL Eosinophils # (0.04-0.35) X 10*3/uL Chloride (96-109) mmol/L BUN/Creatinine Ratio (12.00-20.00) Ratio Glucose (70-110) mg/dL POC Glucose (mg/dL) 133 H 255 H 125 H (75-99) mg/dL Calcium (8.7-10.3) mg/dL Microbiology - Last 24 Hours (Table) 07/23/20 20:15 Gram Stain - Final Sputum Sputum Culture - Final 07/25/20 17:03 Gram Stain - Preliminary Pleural Fluid Body Fluid Culture - Preliminary 07/25/20 17:03 Anaerobic Culture - Preliminary Pleural Fluid 07/22/20 12:12 Blood Culture - Preliminary Blood No Growth after 72 hours 07/22/20 12:12 Blood Culture - Preliminary Blood No Growth after 72 hours Assessment and Plan Assessment: 1. Large right-sided loculated pleural fluid collection, suspected empyema versus lung abscess versus necrotic tumor, status post right chest pigtail catheter placement by interventional radiology 2. Dyspnea, secondary to above 3. Leukocytosis, secondary to loculated pleural collection suspected empyema 4. Chronic obstructive pulmonary disease 5. History of COVID 19 infection from March 2020, status post COVID 19 vaccination around 3 weeks ago 6. History of chronic tobacco dependence, quit smoking around 6 weeks ago 7. History of gout 8. History of obstructive sleep apnea, status post corrective surgery Plan: 1. Interventional radiology has been re-consulted consulted for pigtail catheter placement, as his other pigtail catheter has fallen out. Once the pigtail catheter has been placed today we will start to instill pleural fibrinolytic therapy. 2. Encourage use of his incentive spirometry 10 times every hour while awake. 3. Continue IV antibiotics Zosyn and vancomycin managed by pulmonary/critical care medicine. 4. Continue to follow daily chest x-rays. 5. Continue to follow pleural fluid culture and cytology, results pending. 6. More recommendations follow based on patient's clinical course. Time with Patient: Greater than 30
--- NOTE | 2020-07-26 12:13 | P.OP ---
Date of Procedure: 07/26/20 Preoperative Diagnosis: left empyema Postoperative Diagnosis: same Procedure(s) Performed: CT guided left chest tube placement Implants: 8.5 FR coiled catheter Anesthesia: local Surgeon: Robyn Vazquez Estimated Blood Loss (ml): 0 Pathology: other Condition: stable Disposition: floor
--- NOTE | 2020-07-26 12:31 | P.PN ---
Subjective Progress Note Date: 07/26/20 This is a pleasant 69-year-old white male patient of nurse practitioner, CHIARA Baig, is been having shortness of breath for the past 4-6 weeks after COVID-19. He was seen by Dr. Saba one day ago and sent to the emergency room after there is evidence of empyema in the right lung. Emergency room CTA showed on the empyema, and no evidence of pulmonary embolism. He is admitted to the stepdown unit is currently resting comfortably. He is complaining quite a bit of cough. He is complaining of chest pains with cough. He denies any significant nausea or vomiting. Indicates he's lost about 30 pounds over the past 2-3 months. Vital signs overnight show he's been afebrile. Labs show a white count of 21.6 and hemoglobin 10.1. There is predominantly neutrophilia. Chemistries are essentially normal, the exception of a glucose 158 late a.m. COVID-19, RSV and influenza PCR were all negative. 07/24/2020: Patient remained stable overnight. He denies any current significant chest pains pressures or shortness of breath at rest. He indicates cough is little bit better. He denies any significant nausea or vomiting. Denies any difficulty with urination or constipation this time. Pulmonology has seen him as have thoracic surgery. Currently thoracic surgery is planning a to catheter versus. Interventional radiology and fibrotic treatment. Vitals remained stable. He remains on room air. He is afebrile. Weight is down almost 4 kg from admission. Laboratory studies continue to show a signific ant leukocytosis at 21 predominantly left shift of neutrophils. He has a microcytic anemia hemoglobin 10.1 and MCV 82.8. Platelets are increased at 594 this time. Chemistries were essentially normal. Patient remains on albuterol, budesonide, millimeter all, doing, methylprednisolone, Zosyn, and vancomycin. His guaifenesin ordered for cough. He is currently on Lovenox 40 mg daily for anticoagulation. 07/25/2020 maintained on nebulized bronchodilators, IV steroids, antibiotics sitting up at side of bed, maintaining O2 sats of 96% on room air. Awaiting placement of pigtail catheter via interventional radiology, in regards to right loculated pleural effusion. Cardiothoracic surgery following. Scheduled for bronchoscopy tomorrow. Sputum culture pending. No hemoptysis. Continues on van comycin and Zosyn. Afebrile, WBC decreased to 19.27. Blood cultures reporting no growth at 72 hours, sputum culture pending . Blood sugars controlled.Denies any chest pain/discomfort. 07/26/2020 CT-guided chest pigtail catheter placed yesterday via interventional radiology, tolerated procedure well. Apparently the catheter fell out shortly after. Follow-up chest x-ray reported no significant change of partially loculated right pleural effusion with associated opacities, pneumonia, no pneumo thorax. Pleural fluid cultures/cytology pending. Productive cough with thick yellow sputum .Continues on vancomycin and Zosyn, sputum culture reporting many normal respiratory chris, Gram stain reporting many polymorphonuclear leukocytes ,moderate gram positive Bacilli with few gram-positive cocci .Afebrile. Labs pending. NPO, scheduled for bronchoscopy today with pulmonary. Maintaining O2 sats in the mid 90s on room air, incentive spirometer up to 1999. Objective - Vital Signs Vital signs: Vital Signs Temp 97.5 F L 07/26/20 07:55 Pulse 89 07/26/20 08:06 Resp 16 07/26/20 07:55 BP 122/74 07/26/20 07:55 Pulse Ox 95 07/26/20 07:55 Intake & Output 07/25/20 07/26/20 07/26/20 18:59 06:59 18:59 Intake Total 100 Balance 100 Weight 68.8 kg Intake: Oral 100 Other: Voiding Method Toilet Toilet # Voids 1 - Exam - Exam GENERAL: Alert and oriented 3, sitting up at side of bed, no acute distress NECK: Normal range of motion, supple without lymphadenopathy or JVD, no thyromegaly LUNGS: Breath sounds decreased with coarse rhonchi and expiratory wheezing. HEART: Regular rate and rhythm without murmurs, rubs or gallops.S1S2 Normal. ABDOMEN: Soft, nontender, normoactive bowel sounds. No guarding, no rebound. No masses appreciated. EXTREMITIES: Normal range of motion, no pitting or edema. No clubbing or cyanosis. NEUROLOGICAL: Cranial nerves II through XII grossly intact. Normal speech, normal gait. PSYCH: Normal mood, normal affect. SKIN: Warm, Dry, normal turgor, no rashes noted. Microbiology 07/23/20 20:15 Sputum Gram Stain - Final 07/23/20 20:15 Sputum Sputum Culture - Final 07/25/20 17:03 Pleural Fluid Gram Stain - Preliminary 07/25/20 17:03 Pleural Fluid Body Fluid Culture - Preliminary 07/25/20 17:03 Pleural Fluid Anaerobic Culture - Preliminary 07/22/20 12:12 Blood Blood Culture - Preliminary No Growth after 72 hours 07/22/20 12:12 Blood Blood Culture - Preliminary No Growth after 72 hours - Labs CBC & Chem 7: 07/25/20 07:06 07/25/20 07:06 Labs: Abnormal Lab Results - Last 24 Hours (Table) 07/25/20 07/25/20 07/25/20 Range/Units 07:06 11:38 17:07 Chloride 111 H (96-109) mmol/L BUN/Creatinine Ratio 22.22 H (12.00-20.00) Ratio Glucose 119 H (70-110) mg/dL POC Glucose (mg/dL) 144 H 133 H (75-99) mg/dL Calcium 8.2 L (8.7-10.3) mg/dL 07/25/20 07/26/20 Range/Units 20:43 06:52 Chloride (96-109) mmol/L BUN/Creatinine Ratio (12.00-20.00) Ratio Glucose (70-110) mg/dL POC Glucose (mg/dL) 255 H 125 H (75-99) mg/dL Calcium (8.7-10.3) mg/dL Microbiology - Last 24 Hours (Table) 07/23/20 20:15 Gram Stain - Final Sputum Sputum Culture - Final 07/25/20 17:03 Gram Stain - Preliminary Pleural Fluid Body Fluid Culture - Preliminary 07/25/20 17:03 Anaerobic Culture - Preliminary Pleural Fluid 07/22/20 12:12 Blood Culture - Preliminary Blood No Growth after 72 hours 07/22/20 12:12 Blood Culture - Preliminary Blood No Growth after 72 hours Assessment and Plan Assessment: Right-sided empyema with right-sided loculated pleural effusion, possible abscess, possible necrotic tumor, possible bronchogenic carcinoma in a patient who smoked 3 packs a day for many years, quit smoking 3 months ago, with unintentional weight loss of 30 pounds in one month. Leukocytosis, thrombocytosis, microcytic anemia secondary to the above History of Covid-19 infection, March 2020 COPD, history of Chronic nicotine dependence, 3 packs per dayX many years, quit 3 months ago History of gout Plan: Continue on current medication regime ,monitoring and symptomatic treatment. Labs pending. Replacement of pigtail catheter with interventional radiology pending.pleural cytology/cultures pending .NPO,Diagnostic bronchoscopy pending. Aggressive pulmonary toileting, continue nebulized bronchodilators, steroids, antibiotics.Prognosis guarded given multiple complex medical issues . The impression and plan of care has been dictated as directed. : I performed a history and examination of this patient, discussed the same with the dictator. I agree with the dictator's note ,documented as a scribe. Any additional findings or plans will be noted.
[2020-07-26 12:38] LABS: Anisocytosis Slight; HCT 35.3 % (39.0-53.0); HGB 10.7 gm/dL (13.0-17.5); Hypochromasia Marked; MCH 24.6 pg (25.0-35.0); MCHC 30.3 g/dL (31.0-37.0); Mean Platelet Volume 6.1; Platelet Count 532 k/uL (150-450); RBC 4.36 m/uL (4.30-5.90); WBC 21.2 k/uL (3.8-10.6)
[2020-07-26 12:51] LABS: African American GFR (CKD) >90 (>60 ml/min/1.73 sqM); Anion Gap 6 mmol/L; Blood Urea Nitrogen 24 mg/dL (9-20); Calcium 8.8 mg/dL (8.4-10.2); Carbon Dioxide 25 mmol/L (22-30); Chloride 112 mmol/L (98-107); Glucose 125 mg/dL (74-99); Non-African American GFR(CKD) 78 (>60 ml/min/1.73 sqM); Sodium 143 mmol/L (137-145)
[2020-07-26 12:55] LABS: INR 1.1 (<1.2); Prothrombin Time 11.2 sec (9.0-12.0)
--- NOTE | 2020-07-26 13:01 | CT ---
EXAMINATION TYPE: CT chest tube insertion DATE OF EXAM: 07/25/2020 HISTORY: Right empyema COMPARISON: CTA chest 07/22/2020 SHEETROCK APPLICATOR: Dr. Robyn Vazquez PROCEDURE: The procedure was discussed with the patient. The risks, complications, benefits, and alternatives we re discussed and any questions were answered. Informed consent was obtained. Preprocedure preliminary imaging demonstrated a moderate right empyema of the mid and upper right hem ithorax, moderate centrilobular emphysema, and consolidative patchy opacities at the right lung base. Patient was placed mildly left posterior oblique. Maximal barrier technique was utilized. The skin ov er suitable path to the right empyema was localized with CT and the overlying skin prepped and draped . 1% Lidocaine was used for local anesthesia. A skin rahul made with a scalpel. Access was gained usin g CT guidance with an 8-FR drain utilizing direct trocar technique. 20 cc of green-tinged purulent m aterial aspirated and sent for laboratory analysis. Catheter fixed in place with stay-fix device and the cathter was attached to Pleur-evac. No immediate complication. The patient remained in stable condition. Postprocedure imaging demonstrated no evidence of significant hemorrhage or pneumothorax. Drain care orders placed in patient's chart. IMPRESSION: Status post CT-guided 8FR coiled chest tube placement in right-sided empyema.
--- NOTE | 2020-07-26 13:05 | CT ---
EXAMINATION TYPE: CT chest tube insertion DATE OF EXAM: 07/26/2020 HISTORY: Right-sided chest tube fell out. Right empyema. COMPARISON: CT chest tube placement 07/25/2020 STEERSMAN: Dr. Robyn Vazquez PROCEDURE: The procedure was discussed with the patient. The risks, complications, benefits, and alternatives we re discussed and any questions were answered. Informed consent was obtained. Preprocedure preliminary imaging demonstrated a persistent moderate right empyema of the mid and uppe r right hemithorax with internal foci of air, and moderate centrilobular emphysema. Patient was placed mildly left posterior oblique. Maximal barrier technique was utilized. The skin ov er suitable path to the right empyema was localized with CT and the overlying skin prepped and draped . 1% Lidocaine was used for local anesthesia. A skin rahul made with a scalpel. Access was gained usin g CT guidance with an 8-FR drain utilizing direct trocar technique. 5 cc of green-tinged purulent ma terial aspirated and sent for laboratory analysis. Catheter fixed in place with single suture with 8. 0 silk, and also with stay-fix device. No immediate complication. The patient remained in stable condition. Postprocedure imaging demonstrated appropriately positioned right-sided chest tube, and no evidence o f significant hemorrhage or pneumothorax. Drain care orders placed in patient's chart. IMPRESSION: Status post CT-guided 8FR coiled chest tube placement in right-sided empyema.
--- NOTE | 2020-07-26 14:11 | P.PN ---
Subjective Progress Note Date: 07/26/20 Principal diagnosis: Right-sided pleural effusion, empyema This is a pleasant 69-year-old male, known history of COPD, benign essential hypertension, patient salas been feeling ill for the last few months. Back in March, patient had symptoms suggestive of COVID-19 infection including cough, fatigue, aches and pains, fever and chills, but apparently no medical attention was sought at the time. Patient was recently seen by Dr. Stokes and he was complaining of cough, he was also complaining of left-sided chest pain. Patient had positive IgG titer for COVID-19 infection which clearly implies that the patient had previous exposure and COVID-19 infection. Part of the workup also included a chest x-ray, and it came back quite abnormal showing a large area of abnormality involving the right lung, the differential diagnoses includes empyema, lung abscess, and possibly a large tumor involving the right lower lobe with necrosis and air fluid level noted. He was referred to Dr. Ortega in our office for the same. He was seen as a new patient yesterday. Based on the chest x-ray findings Dr. Ortega preferred the patient obtain a computed tomography scan of the chest and probable admission for IV antibiotics and possible CT-guided needle biopsy or bronchoscopy with transbronchial biopsies. CAT scan does reveal a large right-sided suspected subpleural fluid collection or empyema with mixed soft tissue, fluid in ear density. No evidence of pulmonary embolism. There is evidence of COPD. Mediastinal lymphadenopathy. Ultrasound of the chest revealed minimal effusion at 2.9 cm and a complex fluid pocket suggestive of empyema. White count 21.6. Hemoglobin 10.1. Sodium 138. Potassium 4.0. Creatinine 0.96. ProBNP 779. Influenza screen negative. Coronavirus screen negative. Patient is seen today in consultation on the regular medical floor. He is currently sitting up in bed. Awake and alert in no acute distress. Currently maintaining O2 saturations in the mid 90s on room air. He's been afebrile. He's been initiated on vancomycin and Zosyn. On 07/24/2020 patient seen in follow-up on medical surgical floor. He states he is feeling better today, but still congested and wheezy, he is bringing up large amount of phlegm, he was able to produce sputum for culture, which was sent to the lab, and is pending at this time, blood cultures so far have shown no growth, final cultures are pending, has had no fevers overnight. Vital signs have been stable, he is maintaining stable O2 saturations, his pulse ox is 95% on room air, no complex of chest pain or hemoptysis. He continues on the antibiotics in the form of Zosyn and vancomycin. He is on IV steroids and breathing treatments. 0.9 normal saline at 20 ML per hour. Today's labs have been reviewed the patient's white blood cell count is 21.02, hemoglobin is 10.1, electrolytes and renal profile are within normal limits, the viral panel including influenza RSV and COVID-19 were negative. On 07/25/2020 patient seen in follow-up on medical surgical floor. He is awake and alert, and in no acute distress, he is not on any oxygen, he states his breathing is improving, although physical exam still reveals diffuse rhonchi and wheezes, patient remains on IV steroids and antibiotics. His had no fevers overnight, interventional radiology was consulted for placement of right-sided pigtail chest tube catheter for loculated pleural effusion likely related to empyema. CT surgery is also following the patient. Overnight he's had no acute events, his labs have been reviewed, his white count is improving but still elevated at 19.7, hemoglobin is 9.8, his electrolyte and renal profile were unremarkable. His blood and sputum cultures have shown no growth thus far, final cultures are pending. He still bringing up phlegm, no hemoptysis. Denies any chest discomfort, denies any pleuritic chest pain On 07/26/2020 patient seen in follow-up on medical surgical floor, his pigtail chest tube got dislodged and fell out, pleural fluid was sent for cultures, pleural fluid analysis showed high content of fluid nucleated cells, of 477,500, polynuclear WBCs were 84, mononuclear WBCs were 16, LDH was greater than 4500, and pleural fluid analysis was consistent with empyema. Had no fever or chills overnight, pleural fluid cultures are pending, Gram stain showed no organisms. Today's labs have been reviewed. He continues on Zosyn and vancomycin, he continues on breathing treatments and IV steroids 40 mg every 8 hours. Objective - Vital Signs Vital signs: Vital Signs Temp 97.5 F L 07/26/20 07:55 Pulse 82 07/26/20 11:40 Resp 16 07/26/20 11:40 BP 122/72 07/26/20 11:40 Pulse Ox 95 07/26/20 11:40 Intake & Output 07/25/20 07/26/20 07/26/20 18:59 06:59 18:59 Intake Total 200 Balance 200 Weight 68.8 kg Intake: Oral 200 Other: Voiding Method Toilet Toilet # Voids 1 - Exam GENERAL EXAM: Alert, very pleasant, 69-year-old white male on room air with a pulse ox of 95%, comfortable in no apparent distress. HEAD: Normocephalic/atraumatic. EYES: Normal reaction of pupils, equal size. Conjunctiva pink, sclera white. NOSE: Clear with pink turbinates. THROAT: No erythema or exudates. NECK: No masses, no JVD, no thyroid enlargement, no adenopathy. CHEST: No chest wall deformity. Symmetrical expansion. LUNGS: Equal air entry with coarse crackles, and wheezes CVS: Regular rate and rhythm, normal S1 and S2, no gallops, no murmurs, no rubs ABDOMEN: Soft, nontender. No hepatosplenomegaly, normal bowel sounds, no guarding or rigidity. EXTREMITIES: No clubbing, no edema, no cyanosis, 2+ pulses and upper and lower extremities. MUSCULOSKELETAL: Muscle strength and tone normal. SPINE: No scoliosis or deformity SKIN: No rashes CENTRAL NERVOUS SYSTEM: Alert and oriented -3. No focal deficits, tone is normal in all 4 extremities. PSYCHIATRIC: Alert and oriented -3. Appropriate affect. Intact judgment and i nsight. - Labs CBC & Chem 7: 07/26/20 12:22 07/26/20 12:22 Labs: Abnormal Lab Results - Last 24 Hours (Table) 07/25/20 07/25/20 07/26/20 Range/Units 17:07 20:43 06:52 WBC (3.8-10.6) k/uL Hgb (13.0-17.5) gm/dL Hct (39.0-53.0) % MCH (25.0-35.0) pg MCHC (31.0-37.0) g/dL RDW (11.5-15.5) % Plt Count (150-450) k/uL Chloride (98-107) mmol/L BUN (9-20) mg/dL Glucose (74-99) mg/dL POC Glucose (mg/dL) 133 H 255 H 125 H (75-99) mg/dL 07/26/20 07/26/20 Range/Units 12:22 12:22 WBC 21.2 H (3.8-10.6) k/uL Hgb 10.7 L (13.0-17.5) gm/dL Hct 35.3 L (39.0-53.0) % MCH 24.6 L (25.0-35.0) pg MCHC 30.3 L (31.0-37.0) g/dL RDW 17.0 H (11.5-15.5) % Plt Count 532 H (150-450) k/uL Chloride 112 H (98-107) mmol/L BUN 24 H (9-20) mg/dL Glucose 125 H (74-99) mg/dL POC Glucose (mg/dL) (75-99) mg/dL Microbiology - Last 24 Hours (Table) 07/23/20 20:15 Gram Stain - Final Sputum Sputum Culture - Final 07/25/20 17:03 Gram Stain - Preliminary Pleural Fluid Body Fluid Culture - Preliminary 07/25/20 17:03 Anaerobic Culture - Preliminary Pleural Fluid 07/22/20 12:12 Blood Culture - Preliminary Blood No Growth after 72 hours 07/22/20 12:12 Blood Culture - Preliminary Blood No Growth after 72 hours Assessment and Plan Plan: Assessment: #1. Right-sided empyema and loculated right-sided pleural fluid collection, status post pigtail chest tube placement on 07/25/2020, and pleural fluid analysis is consistent with empyema, pleural fluid cultures are pending at this time. Pigtail chest tube been dislodged on 07/25/2020, and he is scheduled for reinsertion of the chest tube today on 07/26/2020 #2. History of COVID-19 infection based on titers, initial symptoms from March 2020 #3. History of COPD #4. History of chronic tobacco dependence up to 3 packs per day, quit smoking 2 months ago #5. History of gout Plan: Patient is having another pigtail chest tube catheter reinserted today TPA per CT surgery Continue current antibiotics No fever or chills Continue steroids and breathing treatments Still quite wheezy and congested Bronchoscopy will be rescheduled for tomorrow related to scheduling conflict with reinsertion of the pigtail chest tube catheter I performed a history & physical examination of the patient and discussed their management with my nurse practitioner, Adela Ruelas. I reviewed the nurse practitioner's note and agree with the documented findings and plan of care. Lung sounds are positive for diffuse wheezes throughout the lung [place]. The findings and the impression was discussed with the patient. I attest to the documentation by the nurse practitioner. Time with Patient: Less than 30
[2020-07-26] MEDS ORDERED: SODIUM CHLORIDE 0.9% IRRIGATION ONE ×2 (16:00)
[2020-07-26] MEDS ORDERED: ALTEPLASE IRRIGATION ONE (16:00)
[2020-07-26] MEDS ORDERED: DORNASE ALFA IRRIGATION ONE (16:00)
[2020-07-26 16:55] LABS: Glucose,Whole Blood 246 mg/dL (75-99)
[2020-07-26 20:14] LABS: Glucose,Whole Blood 131 mg/dL (75-99)
[2020-07-26] MEDS ORDERED: MELATONIN 3 MG TABLET PO SCH (21:00)
[2020-07-26] MEDS: ACETAMINOPHEN TAB 325 MG TAB PO PRN (21:00)
[2020-07-27] MEDS: methylPREDNISolone SOD SUCCI 40 MG/ML 1 ML VIAL IV SCH ×3 (00:25→15:43)
[2020-07-27] MEDS: VANCOMYCIN 1,250 MG in SODIUM CHLORIDE 0.9% 250 ML IVPB SCH (00:26)
[2020-07-27] MEDS ORDERED: MELATONIN 3 MG TABLET PO SCH (00:45)
[2020-07-27] MEDS: PIPERACILLIN-TAZOBACTAM 3.375 GM in SODIUM CHLORIDE 0.9% 100 ML IVPB SCH ×3 (05:44→16:16)
[2020-07-27 06:54] LABS: Glucose,Whole Blood 126 mg/dL (75-99)
[2020-07-27] MEDS: INSULIN ASPART (NovoLOG) 100 UNIT/ML VIAL SQ SCH ×4 (07:18→20:55)
[2020-07-27] MEDS: PANTOPRAZOLE 40 MG TABLET PO SCH (07:29)
[2020-07-27] MEDS: BUDESONIDE 1 MG/2 ML NEBU INHALATION SCH ×2 (07:35→19:28)
[2020-07-27] MEDS: IPRATROPIUM-ALBUTEROL 3 ML NEB INHALATION SCH ×4 (07:35→19:29)
[2020-07-27] MEDS: FORMOTEROL FUMARATE 20 MCG/2 ML NEBU INHALATION SCH ×2 (07:35→19:28)
--- NOTE | 2020-07-27 08:42 | P.PN ---
Subjective Progress Note Date: 07/27/20 Principal diagnosis: Large right-sided loculated pleural fluid collection, suspected empyema versus lung abscess versus necrotic tumor, status post right chest pigtail catheter meghan cement by interventional radiology, leukocytosis. Previous medical history of chronic obstructive pulmonary disease, COVID 19 infection from March 2020 with subsequent COVID 19 vaccination around 3 weeks ago, previous tobacco dependence with recent cessation, gout, obstructive sleep apnea, status post corrective surgery, 30 pound weight loss in the last 6-8 weeks The patient currently sitting up in bed in no acute distress receiving a breathing treatment. Denies pain, states shortness of breath has improved somewhat. Remains afebrile on room air, actively using incentive spirometer. He is coughing up thick sputum. Right anterior chest wall pigtail catheter placed yesterday, subsequent installation of alteplase/dornase with evacuation of approximately 140 mL of thick yellowish white fluid. Patient has been ambulatory in his room. Anticipate bronchoscopy today with Dr. Berg. No other new concerns Objective - Vital Signs Vital signs: Vital Signs Temp 97.5 F L 07/27/20 07:08 Pulse 72 07/27/20 07:56 Resp 17 07/27/20 07:08 BP 116/79 07/27/20 07:08 Pulse Ox 97 07/27/20 07:08 Intake & Output 07/26/20 07/27/20 07/27/20 18:59 06:59 18:59 Intake Total 200 750 Output Total 95 Balance 200 655 Weight 70.9 kg Intake: Intake, IV Titration 350 Amount Piperacillin-Tazobactam 3 100 .375 gm In Sodium Chloride 0.9% 100 ml @ 25 mls/hr IVPB Q8H [facility] Rx#: [id number] Vancomycin 1,250 mg In 250 Sodium Chloride 0.9% 250 ml @ 125 mls/hr IVPB Q12H [facility] Rx#:[id number] Oral 200 400 Output: Chest Tube Drainage 95 Chest Tube Right Anterior 95 Chest Other: Voiding Method Toilet Toilet # Voids 3 3 - Exam CONSTITUTIONAL: Appears comfortable, cooperative, no acute distress RESPIRATORY: Lungs sounds diminished bilaterally, right greater than left. Respirations even, nonlabored. Currently on room air with oxygen saturation 97%. Able to achieve 2000 mL on incentive spirometry. Strong productive cough. CARDIOVASCULAR: S1, S2 present. Regular rate and rhythm. Palpable peripheral pulses bilaterally. No edema present. No calf pain or tenderness noted. GASTROINTESTINAL: Abdomen soft, nontender, nondistended. Active bowel sounds present 4 quadrants. Tolerating diet. GENITOURINARY: Continues to void INTEGUMENTARY: Skin is warm and dry with evidence of good perfusion. NEUROLOGIC: Cranial nerves II through XII intact MUSKULOSKELETAL: Able to move all extremities, strength equal bilaterally, gait normal PSYCHIATRIC: Alert and oriented to person place and time, appropriate affect, intact judgment and insight INVASIVE LINES AND TUBES: Right anterior pigtail catheter present and connected to wall suction, no air leaks present, 140 mL thick yellowish-white drainage since placement of pigtail yesterday. - Allied health notes Allied health notes reviewed: nursing - Labs CBC & Chem 7: 07/26/20 12:22 07/26/20 12:22 Labs: Abnormal Lab Results - Last 24 Hours (Table) 07/26/20 07/26/20 07/26/20 Range/Units 12:22 12:22 16:53 WBC 21.2 H (3.8-10.6) k/uL Hgb 10.7 L (13.0-17.5) gm/dL Hct 35.3 L (39.0-53.0) % MCH 24.6 L (25.0-35.0) pg MCHC 30.3 L (31.0-37.0) g/dL RDW 17.0 H (11.5-15.5) % Plt Count 532 H (150-450) k/uL Chloride 112 H (98-107) mmol/L BUN 24 H (9-20) mg/dL Glucose 125 H (74-99) mg/dL POC Glucose (mg/dL) 246 H (75-99) mg/dL 07/26/20 07/27/20 Range/Units 20:11 06:52 WBC (3.8-10.6) k/uL Hgb (13.0-17.5) gm/dL Hct (39.0-53.0) % MCH (25.0-35.0) pg MCHC (31.0-37.0) g/dL RDW (11.5-15.5) % Plt Count (150-450) k/uL Chloride (98-107) mmol/L BUN (9-20) mg/dL Glucose (74-99) mg/dL POC Glucose (mg/dL) 131 H 126 H (75-99) mg/dL Microbiology - Last 24 Hours (Table) 07/25/20 17:03 Gram Stain - Preliminary Pleural Fluid Body Fluid Culture - Preliminary 07/22/20 12:12 Blood Culture - Preliminary Blood No Growth after 96 hours 07/22/20 12:12 Blood Culture - Preliminary Blood No Growth after 96 hours 07/23/20 20:15 Gram Stain - Final Sputum Sputum Culture - Final - Imaging and Cardiology Chest x-ray: image reviewed Assessment and Plan Assessment: 1. Large right-sided loculated pleural fluid collection, suspected empyema versus lung abscess versus necrotic tumor, status post right chest pigtail catheter placement by interventional radiology, with subsequent alteplase/dornase instillation 2. Dyspnea, secondary to above 3. Leukocytosis, secondary to above 4. Chronic obstructive pulmonary disease 5. COVID 19 infection March 2020, status post COVID 19 vaccination around 3 weeks ago 6. Previous tobacco dependence with recent cessation 7. History of gout 8. History of obstructive sleep apnea, status post corrective surgery 9. Unplanned 30 pound weight loss in the last 6-8 weeks Plan: 1. We will instill pleural fibrinolytic therapy again today 2. Encourage use of his incentive spirometry 10 times every hour while awake. 3. Continue IV antibiotics, steroids, bronchodilators per pulmonology 4. Continue to follow daily chest x-rays. 5. Continue to follow pleural fluid culture and cytology, results pending. 6. Anticipate bronchoscopy today by Dr. Berg 7. More recommendations to follow Time with Patient: Greater than 30
[2020-07-27] MEDS: MULTIVITAMINS, THERA 1 EACH TAB PO SCH (09:24)
--- NOTE | 2020-07-27 09:42 | XR ---
EXAMINATION TYPE: XR chest 1V portable DATE OF EXAM: 07/27/2020 CLINICAL HISTORY: pneumonia. TECHNIQUE: Portable frontal view of the chest. COMPARISON: 07/25/2020 chest x-ray. 07/26/2020 CT chest tube placement. FINDINGS: There is a coiled chest tube distally over the mid peripheral right lung overlying the kno wn empyema focal fluid collection. Small foci of air within the empyema redemonstrated from CT compar marlin. There is increased opacity over the right lung base versus 07/25/2020. No pneumothorax. Cardiomed iastinal silhouette normal. IMPRESSION: 1. Coiled chest tube distally over the right peripheral empyema focal fluid collection. 2. Moderately increased airspace opacities over the right lung base versus 07/25/2020 may be related to atelectasis versus worsening consolidation.
[2020-07-27] MEDS: guaiFENesin 600 MG TABLET.ER PO SCH ×2 (09:45→20:55)
[2020-07-27] MEDS ORDERED: VANCOMYCIN TROUGH DUE 1 EACH MISC MISCELLANE ONE (11:00)
--- NOTE | 2020-07-27 11:04 | P.PN ---
Subjective Progress Note Date: 07/27/20 This is a pleasant 69-year-old white male patient of nurse practitioner, CHIARA Baig, is been having shortness of breath for the past 4-6 weeks after COVID-19. He was seen by Dr. Saba one day ago and sent to the emergency room after there is evidence of empyema in the right lung. Emergency room CTA showed on the empyema, and no evidence of pulmonary embolism. He is admitted to the stepdown unit is currently resting comfortably. He is complaining quite a bit of cough. He is complaining of chest pains with cough. He denies any significant nausea or vomiting. Indicates he's lost about 30 pounds over the past 2-3 months. Vital signs overnight show he's been afebrile. Labs show a white count of 21.6 and hemoglobin 10.1. There is predominantly neutrophilia. Chemistries are essentially normal, the exception of a glucose 158 late a.m. COVID-19, RSV and influenza PCR were all negative. 07/24/2020: Patient remained stable overnight. He denies any current significant chest pains pressures or shortness of breath at rest. He indicates cough is little bit better. He denies any significant nausea or vomiting. Denies any difficulty with urination or constipation this time. Pulmonology has seen him as have thoracic surgery. Currently thoracic surgery is planning a to catheter versus. Interventional radiology and fibrotic treatment. Vitals remained stable. He remains on room air. He is afebrile. Weight is down almost 4 kg from admission. Laboratory studies continue to show a signific ant leukocytosis at 21 predominantly left shift of neutrophils. He has a microcytic anemia hemoglobin 10.1 and MCV 82.8. Platelets are increased at 594 this time. Chemistries were essentially normal. Patient remains on albuterol, budesonide, millimeter all, doing, methylprednisolone, Zosyn, and vancomycin. His guaifenesin ordered for cough. He is currently on Lovenox 40 mg daily for anticoagulation. 07/25/2020 maintained on nebulized bronchodilators, IV steroids, antibiotics sitting up at side of bed, maintaining O2 sats of 96% on room air. Awaiting placement of pigtail catheter via interventional radiology, in regards to right loculated pleural effusion. Cardiothoracic surgery following. Scheduled for bronchoscopy tomorrow. Sputum culture pending. No hemoptysis. Continues on van comycin and Zosyn. Afebrile, WBC decreased to 19.27. Blood cultures reporting no growth at 72 hours, sputum culture pending . Blood sugars controlled.Denies any chest pain/discomfort. 07/26/2020 CT-guided chest pigtail catheter placed yesterday via interventional radiology, tolerated procedure well. Apparently the catheter fell out shortly after. Follow-up chest x-ray reported no significant change of partially loculated right pleural effusion with associated opacities, pneumonia, no pneumo thorax. Pleural fluid cultures/cytology pending. Productive cough with thick yellow sputum .Continues on vancomycin and Zosyn, sputum culture reporting many normal respiratory chris, Gram stain reporting many polymorphonuclear leukocytes ,moderate gram positive Bacilli with few gram-positive cocci .Afebrile. Labs pending. NPO, scheduled for bronchoscopy today with pulmonary. Maintaining O2 sats in the mid 90s on room air, incentive spirometer up to 1999. 07/27/2020 Right chest pigtail catheter replaced yesterday, tolerated procedure well. Instilled with alteplase/dornase. Less shortness of breath. Is up to 1999. Chest x-ray reporting coiled chest tube distally over the right periph eral empyema focal fluid collection, moderately increased airspace opacity over the right lung base, possibly atelectasis versus worsening consolidation .Maintaining O2 sats in the high 90s on room air. Continues on Zosyn, vancomycin nebulized bronchodilators, steroids. Afebrile, cultures and labs pending. Bronchoscopy today. Objective - Vital Signs Vital signs: Vital Signs Temp 97.5 F L 07/27/20 07:08 Pulse 72 07/27/20 07:56 Resp 17 07/27/20 07:08 BP 116/79 07/27/20 07:08 Pulse Ox 97 07/27/20 07:08 Intake & Output 07/26/20 07/27/20 07/27/20 18:59 06:59 18:59 Intake Total 200 750 Output Total 95 Balance 200 655 Weight 70.9 kg Intake: Intake, IV Titration 350 Amount Piperacillin-Tazobactam 3 100 .375 gm In Sodium Chloride 0.9% 100 ml @ 25 mls/hr IVPB Q8H [facility] Rx#: [id number] Vancomycin 1,250 mg In 250 Sodium Chloride 0.9% 250 ml @ 125 mls/hr IVPB Q12H [facility] Rx#:[id number] Oral 200 400 Output: Chest Tube Drainage 95 Chest Tube Right Anterior 95 Chest Other: Voiding Method Toilet Toilet # Voids 3 3 - Exam - Exam GENERAL: Alert and oriented 3, sitting up at side of bed, no acute distress NECK: Supple, no JVD LUNGS: Nonlabored, Breath sounds decreased with bilateral bases diminished. Course rhonchi, Right anterior chest pigtail catheter present with purulent drainage. HEART: Regular rate and rhythm without murmurs, rubs or gallops.S1S2 Normal. ABDOMEN: Soft, nontender, normoactive bowel sounds. No guarding, no rebound. No masses appreciated. EXTREMITIES: Normal range of motion, no pitting or edema. No clubbing or cyanosis. NEUROLOGICAL: Cranial nerves II through XII grossly intact. No focal deficits. PSYCH: Normal mood, normal affect. SKIN: Warm, Dry, normal turgor, no rashes noted. - Labs CBC & Chem 7: 07/26/20 12:22 07/26/20 12:22 Labs: Abnormal Lab Results - Last 24 Hours (Table) 07/26/20 07/26/20 07/26/20 Range/Units 12:22 12:22 16:53 WBC 21.2 H (3.8-10.6) k/uL Hgb 10.7 L (13.0-17.5) gm/dL Hct 35.3 L (39.0-53.0) % MCH 24.6 L (25.0-35.0) pg MCHC 30.3 L (31.0-37.0) g/dL RDW 17.0 H (11.5-15.5) % Plt Count 532 H (150-450) k/uL Chloride 112 H (98-107) mmol/L BUN 24 H (9-20) mg/dL Glucose 125 H (74-99) mg/dL POC Glucose (mg/dL) 246 H (75-99) mg/dL 07/26/20 07/27/20 Range/Units 20:11 06:52 WBC (3.8-10.6) k/uL Hgb (13.0-17.5) gm/dL Hct (39.0-53.0) % MCH (25.0-35.0) pg MCHC (31.0-37.0) g/dL RDW (11.5-15.5) % Plt Count (150-450) k/uL Chloride (98-107) mmol/L BUN (9-20) mg/dL Glucose (74-99) mg/dL POC Glucose (mg/dL) 131 H 126 H (75-99) mg/dL Microbiology - Last 24 Hours (Table) 07/25/20 17:03 Gram Stain - Preliminary Pleural Fluid Body Fluid Culture - Preliminary 07/22/20 12:12 Blood Culture - Preliminary Blood No Growth after 96 hours 07/22/20 12:12 Blood Culture - Preliminary Blood No Growth after 96 hours 07/23/20 20:15 Gram Stain - Final Sputum Sputum Culture - Final Assessment and Plan Assessment: Right-sided empyema with right-sided loculated pleural effusion, possible abscess, possible necrotic tumor, possible bronchogenic carcinoma in a patient who smoked 3 packs a day for many years, quit smoking 3 months ago, with unintentional weight loss of 30 pounds in one month. Status post right chest pigtail catheter placement. Leukocytosis, thrombocytosis, microcytic anemia secondary to the above History of Covid-19 infection, March 2020 COPD, history of Chronic nicotine dependence, 3 packs per dayX many years, quit 3 months ago History of gout Plan: Continue on current medication regime ,monitoring and symptomatic treatment. Labs pending. Pleural cytology/cultures pending .NPO,Diagnostic bronchoscopy pending. Aggressive pulmonary toileting, continue nebulized bronchodilators, steroids, antibiotics.Prognosis guarded given multiple complex medical issues . The impression and plan of care has been dictated as directed. : I performed a history and examination of this patient, discussed the same with the dictator. I agree with the dictator's note ,documented as a scribe. Any additional findings or plans will be noted.
[2020-07-27 11:22] LABS: Anisocytosis Slight; HCT 35.8 % (39.0-53.0); HGB 10.6 gm/dL (13.0-17.5); Hypochromasia Marked; MCH 24.4 pg (25.0-35.0); MCHC 29.5 g/dL (31.0-37.0); MCV 82.8 fL (80.0-100.0); Mean Platelet Volume 6.5; Platelet Count 501 k/uL (150-450); RBC 4.32 m/uL (4.30-5.90); WBC 23.7 k/uL (3.8-10.6)
[2020-07-27 11:31] LABS: Glucose,Whole Blood 115 mg/dL (75-99)
[2020-07-27 11:33] LABS: African American GFR (CKD) 85 (>60 ml/min/1.73 sqM); Anion Gap 3 mmol/L; Blood Urea Nitrogen 24 mg/dL (9-20); Calcium 9.2 mg/dL (8.4-10.2); Carbon Dioxide 28 mmol/L (22-30); Chloride 110 mmol/L (98-107); Glucose 121 mg/dL (74-99); Non-African American GFR(CKD) 74 (>60 ml/min/1.73 sqM); Potassium 4.9 mmol/L (3.5-5.1); Sodium 141 mmol/L (137-145)
[2020-07-27] MEDS ORDERED: VANCOMYCIN 1,000 MG in SODIUM CHLORIDE 0.9% 250 ML IVPB SCH (12:00)
[2020-07-27] MEDS ORDERED: DORNASE ALFA IRRIGATION ONE (13:00)
[2020-07-27] MEDS ORDERED: ALTEPLASE IRRIGATION ONE (13:00)
[2020-07-27] MEDS ORDERED: SODIUM CHLORIDE 0.9% IRRIGATION ONE ×2 (13:00)
[2020-07-27] MEDS ORDERED: LIDOCAINE 1% INJ 10MG/ML (20 ML MDV) ONE (13:37)
[2020-07-27] MEDS ORDERED: SUCCINYLCHOLINE CHLORIDE 100 MG/5 ML SYR IV ONE (13:37)
[2020-07-27] MEDS ORDERED: PROPOFOL 10 MG/ML 20 ML VIAL IV ONE (13:37)
[2020-07-27] MEDS ORDERED: LACTATED RINGERS 1,000 ML IV ONE (13:41)
[2020-07-27] MEDS: allopurinoL 300 MG TAB PO SCH (13:43)
[2020-07-27] MEDS ORDERED: SODIUM CHLORIDE 0.9% 500 ML 500 ML IV ONE (14:32)
--- NOTE | 2020-07-27 15:29 | P.PN ---
Subjective Progress Note Date: 07/27/20 On today's evaluation of 07/27/2020, the patient is being seen for a follow-up. He still has some cough and congestion. Noted the original pigtail catheter was inserted in this patient was accidentally lost and the patient's was given another pigtail catheter to drain the right-sided empyema. Noted the patient was found to have a located pleural effusion/collection which turned out to be competent parapneumonic effusion/empyema. Post insertion of the second pigtail catheter, the patient was given alteplase 2 and the patient has drained approximately 160 mL of purulent material/possible from his right hemithorax. He is having some cough and congestion. No fever or chills. The plan is to pro ceed with a bronchoscopy today for therapeutic or suctioning and the bronchioloalveolar lavage. At the same time look for any endobronchial abnormalities contributing to this pneumonia. The patient remains on broad- spectrum antibiotics and the patient is currently on accommodation Zosyn and vancomycin. He is on DuoNeb nebulized treatment [id number]. He is also on IV Solu Medrol 40 g every 8 hours. On his blood work, the patient's white cell count is at 23 and the patient is a hemoglobin of 10.6 and renal function is stable with a creatinine of 1.05 and a BUN of 24. Pleural fluid as mentioned earlier showed elevated LDH more than 4500 and the white cell count was 199144 and this is consistent with an empyema/pus. Cultures are still pending for now. Repeat chest x-ray post pigtail catheter insertion And the chest tube is coiled over the right peripheral empyema fluid collection. There is also airspace disease in the right lower lobe and possibly some right midlung atelectasis. There is an area of atelectasis and consolidation involving the right middle lobe/right lower lobe. Objective - Vital Signs Vital signs: Vital Signs Temp 98 F 07/27/20 14:37 Pulse 83 07/27/20 14:37 Resp 16 07/27/20 14:37 BP 132/80 07/27/20 14:37 Pulse Ox 98 07/27/20 14:37 Intake & Output 07/26/20 07/27/20 07/27/20 18:59 06:59 18:59 Intake Total 200 750 300 Output Total 95 Balance 200 655 300 Weight 70.9 kg Intake: IV 300 Intake, IV Titration 350 Amount Piperacillin-Tazobactam 3 100 .375 gm In Sodium Chloride 0.9% 100 ml @ 25 mls/hr IVPB Q8H [facility] Rx#: [id number] Vancomycin 1,250 mg In 250 Sodium Chloride 0.9% 250 ml @ 125 mls/hr IVPB Q12H [facility] Rx#:[id number] Oral 200 400 Output: Chest Tube Drainage 95 Chest Tube Right Anterior 95 Chest Other: Voiding Method Toilet Toilet # Voids 3 3 - Exam CONSTITUTIONAL: Appears comfortable, cooperative, no acute distress RESPIRATORY: Lungs sounds diminished bilaterally, right greater than left. Respirations even, nonlabored. Currently on room air with oxygen saturation 97%. Able to achieve 2000 mL on incentive spirometry. Strong productive cough. CARDIOVASCULAR: S1, S2 present. Regular rate and rhythm. Palpable peripheral pulses bilaterally. No edema present. No calf pain or tenderness noted. GASTROINTESTINAL: Abdomen soft, nontender, nondistended. Active bowel sounds present 4 quadrants. Tolerating diet. GENITOURINARY: Continues to void INTEGUMENTARY: Skin is warm and dry with evidence of good perfusion. NEUROLOGIC: Cranial nerves II through XII intact MUSKULOSKELETAL: Able to move all extremities, strength equal bilaterally, gait normal PSYCHIATRIC: Alert and oriented to person place and time, appropriate affect, intact judgment and insight INVASIVE LINES AND TUBES: Right anterior pigtail catheter present and connected to wall suction, no air leaks present, 140 mL thick yellowish-white drainage since placement of pigtail yesterday. - Labs CBC & Chem 7: 07/27/20 10:55 07/27/20 10:55 Labs: Abnormal Lab Results - Last 24 Hours (Table) 07/26/20 07/26/20 07/27/20 Range/Units 16:53 20:11 06:52 WBC (3.8-10.6) k/uL Hgb (13.0-17.5) gm/dL Hct (39.0-53.0) % MCH (25.0-35.0) pg MCHC (31.0-37.0) g/dL RDW (11.5-15.5) % Plt Count (150-450) k/uL Chloride (98-107) mmol/L BUN (9-20) mg/dL Glucose (74-99) mg/dL POC Glucose (mg/dL) 246 H 131 H 126 H (75-99) mg/dL 07/27/20 07/27/20 07/27/20 Range/Units 10:55 10:55 11:29 WBC 23.7 H (3.8-10.6) k/uL Hgb 10.6 L (13.0-17.5) gm/dL Hct 35.8 L (39.0-53.0) % MCH 24.4 L (25.0-35.0) pg MCHC 29.5 L (31.0-37.0) g/dL RDW 17.0 H (11.5-15.5) % Plt Count 501 H (150-450) k/uL Chloride 110 H (98-107) mmol/L BUN 24 H (9-20) mg/dL Glucose 121 H (74-99) mg/dL POC Glucose (mg/dL) 115 H (75-99) mg/dL Microbiology - Last 24 Hours (Table) 07/22/20 12:12 Blood Culture - Preliminary Blood No Growth after 120 hours 07/22/20 12:12 Blood Culture - Preliminary Blood No Growth after 120 hours 07/25/20 17:03 Gram Stain - Preliminary Pleural Fluid Body Fluid Culture - Preliminary Assessment and Plan Plan: 1 right-sided loculated empyema post-PICC Catheter insertion. Fluid is consistent with pus and a culture are still pending. Patient was given altepl ase 2 and output is being monitored. 2 right lower lobe consolidation/volume loss. Rule out atelectasis. Rule out endobronchial tumor. Bronchoscopy will be needed 3 leukocytosis secondary to above 4 COPD 5 history of COVID-19 infection back in early of 2020 6 history of smoking 7 obstructive sleep apnea. 8 gout Plan Keep the pigtail catheter in place Alteplase on a daily basis Monitor output Repeat chest x-ray on daily basis Continued IV Zosyn and vancomycin Awaiting final cultures from the pleural fluid aspirated Bronchoscopy today We'll continue to follow
--- NOTE | 2020-07-27 15:43 | P.PCN ---
Date of Procedure: 07/27/20 Preoperative Diagnosis: Right lung empyema Postoperative Diagnosis: Right lung empyema Right middle lobe syndrome Pneumonia, likely postobstructive Anesthesia: JEOVANYA Surgeon: Onofre Berg Estimated Blood Loss (ml): 0 Pathology: other Condition: stable Disposition: same day Operative Findings: This procedure was done under general anesthesia. The patient was intubated and placed on a mechanical ventilator by the anesthesia team. The procedure was done while the patient was adequately oxygenated and ventilated. An adapter was attached and orotracheal tube and following that the bronchoscope was advanced into the mid and lower trachea. Inspection of the airway was initiated. There was purulent respiratory secretions throughout the patient's middle and distal trachea and the secretions were suctioned out. Most of the secretions were originating from the right lung as the right mainstem bronchus was also involved with rest or secretions that were quite purulent. Examination of the right mainstem bronchus was within normal limits. Airway was patent. Secretions were suctioned out. The bronchoscope was moved to the right upper lobe bronchus and the 3 different segments of the right upper lobe were visualized including the anterior, apical and posterior segments. Following that, the bronchus was moved to the bronchus intermedius. The orifice and the ostium of the right middle lobe bronchus was atelectatic and there was only a slit opening. Examination of the right lower lobe bronchus was within normal limits. Very symptoms of the right lower lobe including the superior, medial basilar, anterior lateral and posterior segments were within normal limits. There were some rest or secretions within the subsegments in the right lower lobe and these were suctioned out. Examination of the left side included the left mainstem bronchus, left upper lobe bronchus, laser segment and left lower lobe bronchus and the various 8 segments of the left upper and left lower lobe were visualized and there was no endobronchial tumors or lesions or abnormalities noted. Most of the respiratory secretions were identified from the right lung. As such, a bronchioloalveolar lavage of the right lower lobe was done with a total of 80 mL of fluid was infused in 15- 20 mL was suctioned back. Aspirate was purulence. Following that, the bronchoscope was moved again to the ostium of the right middle lobe. With various manipulations, was able to introduce the bronchoscope through the ostial and into the right middle lobe bronchus and the different segments of the right middle lobe including the medial and lateral segments were visualized. I do not think there is any form of extrinsic compression. The segments were patent. Fluid was infused and on the aquatic vision, the various segments and the right middle lobe were patent and were free of any endobronchial tumors or lesions. after completing the airway inspection, the bronchoscope was removed and the patient was extubated and transferred to recovery in stable condition. In summary, there is a possibility of a right middle lobe syndrome causing pneumonia with secondary empyema. The pathology underlying this narrowing of the ostium of the right middle lobe is fully understood. It can be related to 4 collateral ventilation. Chronic infections may also play a role. No endobronchial tumors. No evidence of any extrinsic compression based on my bronchoscopic evaluation.
[2020-07-27] MEDS: VANCOMYCIN 1,000 MG in SODIUM CHLORIDE 0.9% 250 ML IVPB SCH (15:52)
[2020-07-27] MEDS ORDERED: TEMAZEPAM 15 MG CAP PO PRN (16:05)
[2020-07-27] MEDS: ENOXAPARIN 40 MG/0.4 ML SYRINGE SQ SCH (16:07)
[2020-07-27 16:31] LABS: Glucose,Whole Blood 107 mg/dL (75-99)
[2020-07-27 20:11] LABS: Glucose,Whole Blood 180 mg/dL (75-99)
[2020-07-27] MEDS: ACETAMINOPHEN TAB 325 MG TAB PO PRN (20:55)
[2020-07-28] MEDS: methylPREDNISolone SOD SUCCI 40 MG/ML 1 ML VIAL IV SCH ×4 (00:33→23:55)
[2020-07-28] MEDS: PIPERACILLIN-TAZOBACTAM 3.375 GM in SODIUM CHLORIDE 0.9% 100 ML IVPB SCH ×4 (00:33→23:56)
[2020-07-28] MEDS: VANCOMYCIN 1,000 MG in SODIUM CHLORIDE 0.9% 250 ML IVPB SCH ×2 (05:16→15:19)
[2020-07-28 06:59] LABS: Glucose,Whole Blood 111 mg/dL (75-99)
[2020-07-28] MEDS: INSULIN ASPART (NovoLOG) 100 UNIT/ML VIAL SQ SCH ×4 (07:37→20:20)
--- NOTE | 2020-07-28 07:49 | P.PN ---
Subjective Progress Note Date: 07/28/20 Principal diagnosis: Large right-sided loculated pleural fluid collection, suspected empyema versus lung abscess versus necrotic tumor, status post right chest pigtail catheter meghan cement by interventional radiology, leukocytosis. Previous medical history of chronic obstructive pulmonary disease, COVID 19 infection from March 2020 with subsequent COVID 19 vaccination around 3 weeks ago, previous tobacco dependence with recent cessation, gout, obstructive sleep apnea, status post corrective surgery, 30 pound weight loss in the last 6-8 weeks The patient currently sitting up in bed in no acute distress. Denies pain, states shortness of breath has improved. Remains afebrile on room air, actively using incentive spirometer. He continues to cough up thick sputum although less than yesterday. Right anterior chest wall pigtail catheter in place, status post 2 installations of alteplase/dornase. Patient has been ambulatory in his room. Bronchoscopy completed yesterday by Dr. Berg, no endobronchial tumors found, copious amounts of purulent secretions were suctions, patient has evidence of possible right middle lobe syndrome. No other new concerns Objective - Vital Signs Vital signs: Vital Signs Temp 97.7 F 07/28/20 07:21 Pulse 72 07/28/20 07:21 Resp 16 07/28/20 07:21 BP 137/85 07/28/20 07:21 Pulse Ox 97 07/28/20 07:21 Intake & Output 07/27/20 07/28/20 07/28/20 18:59 06:59 18:59 Intake Total 1070 Output Total 32 Balance 1038 Weight 71 kg Intake: IV 350 Oral 720 Output: Chest Tube Drainage 32 Chest Tube Right Anterior 32 Chest Other: Voiding Method Toilet Toilet # Voids 1 - Exam CONSTITUTIONAL: Appears comfortable, cooperative, no acute distress RESPIRATORY: Lungs sounds diminished bilaterally. Respirations even, nonlabored. Currently on room air with oxygen saturation 96%. Able to achieve 1500 mL on incentive spirometry. Strong productive cough. CARDIOVASCULAR: S1, S2 present. Regular rate and rhythm. Palpable peripheral pulses bilaterally. No edema present. No calf pain or tenderness noted. GASTROINTESTINAL: Abdomen soft, nontender, nondistended. Active bowel sounds present 4 quadrants. Tolerating diet. GENITOURINARY: Continues to void INTEGUMENTARY: Skin is warm and dry with evidence of good perfusion. NEUROLOGIC: Cranial nerves II through XII intact MUSKULOSKELETAL: Able to move all extremities, strength equal bilaterally, gait normal PSYCHIATRIC: Alert and oriented to person place and time, appropriate affect, intact judgment and insight INVASIVE LINES AND TUBES: Right anterior pigtail catheter present and connected to wall suction, no air leaks present, 50 mL thick blood tinged drainage in the last 24 hours. - Allied health notes Allied health notes reviewed: nursing - Labs CBC & Chem 7: 07/27/20 10:55 07/27/20 10:55 Labs: Abnormal Lab Results - Last 24 Hours (Table) 07/27/20 07/27/20 07/27/20 Range/Units 10:55 10:55 11:29 WBC 23.7 H (3.8-10.6) k/uL Hgb 10.6 L (13.0-17.5) gm/dL Hct 35.8 L (39.0-53.0) % MCH 24.4 L (25.0-35.0) pg MCHC 29.5 L (31.0-37.0) g/dL RDW 17.0 H (11.5-15.5) % Plt Count 501 H (150-450) k/uL Chloride 110 H (98-107) mmol/L BUN 24 H (9-20) mg/dL Glucose 121 H (74-99) mg/dL POC Glucose (mg/dL) 115 H (75-99) mg/dL 07/27/20 07/27/20 07/28/20 Range/Units 16:29 20:08 06:58 WBC (3.8-10.6) k/uL Hgb (13.0-17.5) gm/dL Hct (39.0-53.0) % MCH (25.0-35.0) pg MCHC (31.0-37.0) g/dL RDW (11.5-15.5) % Plt Count (150-450) k/uL Chloride (98-107) mmol/L BUN (9-20) mg/dL Glucose (74-99) mg/dL POC Glucose (mg/dL) 107 H 180 H 111 H (75-99) mg/dL Microbiology - Last 24 Hours (Table) 07/27/20 14:15 Bronchial Washings Culture - Preliminary Bronchial Washings - Random 07/27/20 14:15 Acid Fast Bacilli Culture - Preliminary Bronchial Washings - Random 07/27/20 14:15 Fungal Culture - Preliminary Bronchial Washings - Random 07/25/20 17:03 Gram Stain - Preliminary Pleural Fluid Body Fluid Culture - Preliminary 07/22/20 12:12 Blood Culture - Preliminary Blood No Growth after 120 hours 07/22/20 12:12 Blood Culture - Preliminary Blood No Growth after 120 hours - Imaging and Cardiology Chest x-ray: image reviewed Assessment and Plan Assessment: 1. Large right-sided loculated pleural fluid collection, suspected empyema versus lung abscess versus necrotic tumor, status post right chest pigtail catheter placement by interventional radiology, with subsequent alteplase/dornase instillation, S/P bronchoscopy 2. Dyspnea, secondary to above 3. Leukocytosis, secondary to above 4. Chronic obstructive pulmonary disease 5. COVID 19 infection March 2020, status post COVID 19 vaccination around 3 weeks ago 6. Previous tobacco dependence with recent cessation 7. History of gout 8. History of obstructive sleep apnea, status post corrective surgery 9. Unplanned 30 pound weight loss in the last 6-8 weeks Plan: 1. We will instill pleural fibrinolytic therapy again today 2. Encourage use of his incentive spirometry 10 times every hour while awake. 3. Continue IV antibiotics, steroids, bronchodilators per pulmonology 4. Continue to follow daily chest x-rays. 5. Continue to follow pleural fluid culture and cytology, results pending. 6. More recommendations to follow Time with Patient: Greater than 30
[2020-07-28] MEDS: guaiFENesin 600 MG TABLET.ER PO SCH ×2 (07:55→20:26)
[2020-07-28] MEDS: MULTIVITAMINS, THERA 1 EACH TAB PO SCH (07:55)
[2020-07-28] MEDS: allopurinoL 300 MG TAB PO SCH (07:55)
[2020-07-28] MEDS: PANTOPRAZOLE 40 MG TABLET PO SCH (07:55)
[2020-07-28] MEDS: ENOXAPARIN 40 MG/0.4 ML SYRINGE SQ SCH (08:03)
[2020-07-28] MEDS: FORMOTEROL FUMARATE 20 MCG/2 ML NEBU INHALATION SCH ×2 (08:43→20:26)
[2020-07-28] MEDS: IPRATROPIUM-ALBUTEROL 3 ML NEB INHALATION SCH ×4 (08:43→20:26)
[2020-07-28] MEDS: BUDESONIDE 1 MG/2 ML NEBU INHALATION SCH ×2 (08:43→20:33)
[2020-07-28] MEDS ORDERED: SODIUM CHLORIDE 0.9% IRRIGATION ONE ×2 (09:00)
[2020-07-28] MEDS ORDERED: DORNASE ALFA IRRIGATION ONE (09:00)
[2020-07-28] MEDS ORDERED: ALTEPLASE IRRIGATION ONE (09:00)
[2020-07-28 09:18] LABS: HCT 35.5 % (39.6-50.0); HGB 10.1 g/dL (13.0-17.0); MCH 23.7 pg (27.0-32.0); MCHC 28.5 g/dL (32.0-37.0); MCV 83.3 fL (80.0-97.0); Platelet Count 461 X 10*3/uL (140-440); RBC 4.26 X 10*6/uL (4.40-5.60); RDW 18.7 % (11.5-14.5); WBC 17.05 X 10*3/uL (4.50-10.00)
[2020-07-28 09:35] LABS: Glucose,Whole Blood 173 mg/dL (75-99)
--- NOTE | 2020-07-28 09:42 | XR ---
EXAMINATION TYPE: XR chest 1V portable DATE OF EXAM: 07/28/2020 CLINICAL HISTORY: empyema. TECHNIQUE: Portable frontal view of the chest. COMPARISON: 07/27/2020 FINDINGS: There is a coiled chest catheter over the right peripheral midlung overlying the empyema. There is mildly decreased size of the focal fluid collection versus 07/27/2020. There is improved aerat ion of the right lung base versus 07/27/2020 with persistent linear opacities. No pneumothorax. Cardiac size normal. IMPRESSION: 1. Coiled chest tube distal tip over the right peripheral empyema focal fluid collection. The empyem a is mildly decreased in size versus 07/27/2020 comparison. 2. There is improved aeration of the right lung base versus 07/27/2020, with persistent linear opaciti es.
--- NOTE | 2020-07-28 10:44 | P.PN ---
Subjective Progress Note Date: 07/28/20 This is a pleasant 69-year-old white male patient of nurse practitioner, CHIARA Baig, is been having shortness of breath for the past 4-6 weeks after COVID-19. He was seen by Dr. Saba one day ago and sent to the emergency room after there is evidence of empyema in the right lung. Emergency room CTA showed on the empyema, and no evidence of pulmonary embolism. He is admitted to the stepdown unit is currently resting comfortably. He is complaining quite a bit of cough. He is complaining of chest pains with cough. He denies any significant nausea or vomiting. Indicates he's lost about 30 pounds over the past 2-3 months. Vital signs overnight show he's been afebrile. Labs show a white count of 21.6 and hemoglobin 10.1. There is predominantly neutrophilia. Chemistries are essentially normal, the exception of a glucose 158 late a.m. COVID-19, RSV and influenza PCR were all negative. 07/24/2020: Patient remained stable overnight. He denies any current significant chest pains pressures or shortness of breath at rest. He indicates cough is little bit better. He denies any significant nausea or vomiting. Denies any difficulty with urination or constipation this time. Pulmonology has seen him as have thoracic surgery. Currently thoracic surgery is planning a to catheter versus. Interventional radiology and fibrotic treatment. Vitals remained stable. He remains on room air. He is afebrile. Weight is down almost 4 kg from admission. Laboratory studies continue to show a signific ant leukocytosis at 21 predominantly left shift of neutrophils. He has a microcytic anemia hemoglobin 10.1 and MCV 82.8. Platelets are increased at 594 this time. Chemistries were essentially normal. Patient remains on albuterol, budesonide, millimeter all, doing, methylprednisolone, Zosyn, and vancomycin. His guaifenesin ordered for cough. He is currently on Lovenox 40 mg daily for anticoagulation. 07/25/2020 maintained on nebulized bronchodilators, IV steroids, antibiotics sitting up at side of bed, maintaining O2 sats of 96% on room air. Awaiting placement of pigtail catheter via interventional radiology, in regards to right loculated pleural effusion. Cardiothoracic surgery following. Scheduled for bronchoscopy tomorrow. Sputum culture pending. No hemoptysis. Continues on van comycin and Zosyn. Afebrile, WBC decreased to 19.27. Blood cultures reporting no growth at 72 hours, sputum culture pending . Blood sugars controlled.Denies any chest pain/discomfort. 07/26/2020 CT-guided chest pigtail catheter placed yesterday via interventional radiology, tolerated procedure well. Apparently the catheter fell out shortly after. Follow-up chest x-ray reported no significant change of partially loculated right pleural effusion with associated opacities, pneumonia, no pneumo thorax. Pleural fluid cultures/cytology pending. Productive cough with thick yellow sputum .Continues on vancomycin and Zosyn, sputum culture reporting many normal respiratory chris, Gram stain reporting many polymorphonuclear leukocytes ,moderate gram positive Bacilli with few gram-positive cocci .Afebrile. Labs pending. NPO, scheduled for bronchoscopy today with pulmonary. Maintaining O2 sats in the mid 90s on room air, incentive spirometer up to 2000. 07/27/2020 Right chest pigtail catheter replaced yesterday, tolerated procedure well. Instilled with alteplase/dornase. Less shortness of breath. Is up to 1999. Chest x-ray reporting coiled chest tube distally over the right periph eral empyema focal fluid collection, moderately increased airspace opacity over the right lung base, possibly atelectasis versus worsening consolidation .Maintaining O2 sats in the high 90s on room air. Continues on Zosyn, vancomycin nebulized bronchodilators, steroids. Afebrile, cultures and labs pending. Bronchoscopy today. 07/28/2020 maintained on nebulized bronchodilators, steroids, antibiotics and addition to pleural fibrinolytics as per CTS. Right pleural fluid cytology reporting empyema with no cytologically malignant cells identified. Underwent diagnostic bronchoscopy yesterday reporting no endobronchial tumors, lesions or abnormalities noted, possible right middle lobe syndrome causing pneumonia- postobstructive and secondary empyema. Tolerated procedure well. Afebrile, yulia ntaining O2 sats in the high 90s on room air. Incentive spirometer up to 1500.Chest x-ray pending.WBC trending down, 17. Denies chest pain, palpitation or shortness of breath. BUN 24 creatinine 1.05. Yesterday, patient joked about needing a Bryn Walker, used to drink a couple cocktails daily. He reports his last drink was 2 months ago. Reported melatonin did not help him sleep, slept well with Restoril. Objective - Vital Signs Vital signs: Vital Signs Temp 97.7 F 07/28/20 07:21 Pulse 87 07/28/20 09:05 Resp 16 07/28/20 07:21 BP 137/85 07/28/20 07:21 Pulse Ox 97 07/28/20 07:21 Intake & Output 07/27/20 07/28/20 07/28/20 18:59 06:59 18:59 Intake Total 1070 Output Total 32 Balance 1038 Weight 71 kg Intake: IV 350 Oral 720 Output: Chest Tube Drainage 32 Chest Tube Right Anterior 32 Chest Other: Voiding Method Toilet Toilet # Voids 1 - Exam - Exam GENERAL: Alert and oriented 3, sitting up at side of bed, no acute distress NECK: Supple, no JVD LUNGS: Nonlabored, Breath sounds decreased with bilateral bases diminished. Right anterior chest pigtail catheter present. HEART: Regular rate and rhythm without murmurs, rubs or gallops.S1S2 Normal. ABDOMEN: Soft, nontender, normoactive bowel sounds. No guarding, no rebound. No masses appreciated. EXTREMITIES: Normal range of motion, no pitting or edema. No clubbing or cyanosis. NEUROLOGICAL: Cranial nerves II through XII grossly intact. No focal deficits. PSYCH: Normal mood, normal affect. SKIN: Warm, Dry, normal turgor, no rashes noted. - Labs CBC & Chem 7: 07/28/20 06:44 07/27/20 10:55 Labs: Abnormal Lab Results - Last 24 Hours (Table) 07/27/20 07/27/20 07/27/20 Range/Units 10:55 10:55 11:29 WBC 23.7 H (3.8-10.6) k/uL RBC (4.40-5.60) X 10*6/uL Hgb 10.6 L (13.0-17.5) gm/dL Hct 35.8 L (39.0-53.0) % MCH 24.4 L (25.0-35.0) pg MCHC 29.5 L (31.0-37.0) g/dL RDW 17.0 H (11.5-15.5) % Plt Count 501 H (150-450) k/uL MPV (9.5-12.2) fL Chloride 110 H (98-107) mmol/L BUN 24 H (9-20) mg/dL Glucose 121 H (74-99) mg/dL POC Glucose (mg/dL) 115 H (75-99) mg/dL 07/27/20 07/27/20 07/28/20 Range/Units 16:29 20:08 06:44 WBC 17.05 H (3.8-10.6) k/uL RBC 4.26 L (4.40-5.60) X 10*6/uL Hgb 10.1 L (13.0-17.5) gm/dL Hct 35.5 L (39.0-53.0) % MCH 23.7 L (25.0-35.0) pg MCHC 28.5 L (31.0-37.0) g/dL RDW 18.7 H (11.5-15.5) % Plt Count 461 H (150-450) k/uL MPV 9.0 L (9.5-12.2) fL Chloride (98-107) mmol/L BUN (9-20) mg/dL Glucose (74-99) mg/dL POC Glucose (mg/dL) 107 H 180 H (75-99) mg/dL 07/28/20 Range/Units 06:58 WBC (3.8-10.6) k/uL RBC (4.40-5.60) X 10*6/uL Hgb (13.0-17.5) gm/dL Hct (39.0-53.0) % MCH (25.0-35.0) pg MCHC (31.0-37.0) g/dL RDW (11.5-15.5) % Plt Count (150-450) k/uL MPV (9.5-12.2) fL Chloride (98-107) mmol/L BUN (9-20) mg/dL Glucose (74-99) mg/dL POC Glucose (mg/dL) 111 H (75-99) mg/dL Microbiology - Last 24 Hours (Table) 07/27/20 14:15 Gram Stain - Preliminary Bronchial Washings - Random Bronchial Washings Culture - Preliminary 07/27/20 14:15 Acid Fast Bacilli Culture - Preliminary Bronchial Washings - Random 07/27/20 14:15 Fungal Culture - Preliminary Bronchial Washings - Random 07/25/20 17:03 Gram Stain - Preliminary Pleural Fluid Body Fluid Culture - Preliminary 07/22/20 12:12 Blood Culture - Preliminary Blood No Growth after 120 hours 07/22/20 12:12 Blood Culture - Preliminary Blood No Growth after 120 hours Assessment and Plan Assessment: Right-sided empyema with right-sided loculated pleural effusion, status post right chest pigtail catheter placement with cytology reporting empyema. 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 Leukocytosis, thrombocytosis, microcytic anemia secondary to the above Unintentional weight loss of 30 pounds in one month. History of Covid-19 infection, March 2020 COPD, history of History of daily alcohol use, reports last drink 2 months ago Chronic nicotine dependence, 3 packs per dayX many years, quit 3 months ago History of gout Plan: Continue on current medication regime ,monitoring and symptomatic treatment. Bronchial washings/cultures pending. Aggressive pulmonary toileting, incentive spirometer reinforced.Continue nebulized bronchodilators, steroids, antibiotics.Prognosis guarded given multiple complex medical issues. The impression and plan of care has been dictated as directed. : I performed a history and examination of this patient, discussed the same with the dictator. I agree with the dictator's note ,documented as a scribe. Any additional findings or plans will be noted.
[2020-07-28 11:11] LABS: African American GFR (CKD) 102.1 (60.0-200.0); Anion Gap 6.2 mmol/L (4.00-12.00); BUN/Creat Ratio 26.67 Ratio (12.00-20.00); Calcium 8.3 mg/dL (8.7-10.3); Carbon Dioxide 25.8 mmol/L (21.6-31.8); Non-African American GFR(CKD) 88.1 (60.0-200.0); Potassium 4.8 mmol/L (3.5-5.5)
[2020-07-28 11:34] LABS: Glucose,Whole Blood 105 mg/dL (75-99)
--- NOTE | 2020-07-28 15:56 | P.PN ---
Subjective Progress Note Date: 07/28/20 Principal diagnosis: Right-sided pleural effusion, empyema This is a pleasant 69-year-old male, known history of COPD, benign essential hypertension, patient salas been feeling ill for the last few months. Back in March, patient had symptoms suggestive of COVID-19 infection including cough, fatigue, aches and pains, fever and chills, but apparently no medical attention was sought at the time. Patient was recently seen by Dr. Stokes and he was complaining of cough, he was also complaining of left-sided chest pain. Patient had positive IgG titer for COVID-19 infection which clearly implies that the patient had previous exposure and COVID-19 infection. Part of the workup also included a chest x-ray, and it came back quite abnormal showing a large area of abnormality involving the right lung, the differential diagnoses includes empyema, lung abscess, and possibly a large tumor involving the right lower lobe with necrosis and air fluid level noted. He was referred to Dr. Ortega in our office for the same. He was seen as a new patient yesterday. Based on the chest x-ray findings Dr. Ortega preferred the patient obtain a computed tomography scan of the chest and probable admission for IV antibiotics and possible CT-guided needle biopsy or bronchoscopy with transbronchial biopsies. CAT scan does reveal a large right-sided suspected subpleural fluid collection or empyema with mixed soft tissue, fluid in ear density. No evidence of pulmonary embolism. There is evidence of COPD. Mediastinal lymphadenopathy. Ultrasound of the chest revealed minimal effusion at 2.9 cm and a complex fluid pocket suggestive of empyema. White count 21.6. Hemoglobin 10.1. Sodium 138. Potassium 4.0. Creatinine 0.96. ProBNP 779. Influenza screen negative. Coronavirus screen negative. Patient is seen today in consultation on the regular medical floor. He is currently sitting up in bed. Awake and alert in no acute distress. Currently maintaining O2 saturations in the mid 90s on room air. He's been afebrile. He's been initiated on vancomycin and Zosyn. On 07/24/2020 patient seen in follow-up on medical surgical floor. He states he is feeling better today, but still congested and wheezy, he is bringing up large amount of phlegm, he was able to produce sputum for culture, which was sent to the lab, and is pending at this time, blood cultures so far have shown no growth, final cultures are pending, has had no fevers overnight. Vital signs have been stable, he is maintaining stable O2 saturations, his pulse ox is 95% on room air, no complex of chest pain or hemoptysis. He continues on the antibiotics in the form of Zosyn and vancomycin. He is on IV steroids and breathing treatments. 0.9 normal saline at 20 ML per hour. Today's labs have been reviewed the patient's white blood cell count is 21.02, hemoglobin is 10.1, electrolytes and renal profile are within normal limits, the viral panel including influenza RSV and COVID-19 were negative. On 07/25/2020 patient seen in follow-up on medical surgical floor. He is awake and alert, and in no acute distress, he is not on any oxygen, he states his breathing is improving, although physical exam still reveals diffuse rhonchi and wheezes, patient remains on IV steroids and antibiotics. His had no fevers overnight, interventional radiology was consulted for placement of right-sided pigtail chest tube catheter for loculated pleural effusion likely related to empyema. CT surgery is also following the patient. Overnight he's had no acute events, his labs have been reviewed, his white count is improving but still elevated at 19.7, hemoglobin is 9.8, his electrolyte and renal profile were unremarkable. His blood and sputum cultures have shown no growth thus far, final cultures are pending. He still bringing up phlegm, no hemoptysis. Denies any chest discomfort, denies any pleuritic chest pain On 07/26/2020 patient seen in follow-up on medical surgical floor, his pigtail chest tube got dislodged and fell out, pleural fluid was sent for cultures, pleural fluid analysis showed high content of fluid nucleated cells, of 477,500, polynuclear WBCs were 84, mononuclear WBCs were 16, LDH was greater than 4500, and pleural fluid analysis was consistent with empyema. Had no fever or chills overnight, pleural fluid cultures are pending, Gram stain showed no organisms. Today's labs have been reviewed. He continues on Zosyn and vancomycin, he continues on breathing treatments and IV steroids 40 mg every 8 hours. On 07/28/2020 and the patient seen in follow-up on the surgical floor, he is status post bronchoscopy with bronchoalveolar lavage on 07/27/2020, patient tolerated procedure very well, he was found to have significant the right middle lobe. Large amount of thick secretions were removed from the airways. Patient states he is breathing easier today, his been afebrile, he still has a right- sided chest tube in place, and there has been additional 60 mL of thinners serosanguineous output since yesterday. Pleural fluid cultures remained negative, cytology showed inflammatory cells, no cytologically malignant cells were identified. Today's chest x-ray shows chest tube the distal tip over the right peripheral empyema focal fluid collection. In the empyema was mildly decreased in size versus 07/27/2020 comparison, with improved aeration of the right lung base. And there were persistent linear opacities. Patient remains on antibiotics in the form of Zosyn and vancomycin. No complaint of chest pain, he is breathing comfortably, lung sounds revealed minimal wheezing, less congested. Objective - Vital Signs Vital signs: Vital Signs Temp 97.5 F L 07/28/20 14:29 Pulse 96 07/28/20 14:29 Resp 16 07/28/20 14:29 BP 144/76 07/28/20 14:29 Pulse Ox 94 L 07/28/20 14:29 Intake & Output 07/27/20 07/28/20 07/28/20 18:59 06:59 18:59 Intake Total 1070 200 Output Total 32 Balance 1038 200 Weight 71 kg Intake: IV 350 Oral 720 200 Output: Chest Tube Drainage 32 Chest Tube Right Anterior 32 Chest Other: Voiding Method Toilet Toilet Toilet # Voids 1 - Exam GENERAL EXAM: Alert, very pleasant, 69-year-old white male on room air with a pulse ox of 94%, comfortable in no apparent distress. HEAD: Normocephalic/atraumatic. EYES: Normal reaction of pupils, equal size. Conjunctiva pink, sclera white. NOSE: Clear with pink turbinates. THROAT: No erythema or exudates. NECK: No masses, no JVD, no thyroid enlargement, no adenopathy. CHEST: No chest wall deformity. Symmetrical expansion. LUNGS: Equal air entry with coarse crackles, and wheezes CVS: Regular rate and rhythm, normal S1 and S2, no gallops, no murmurs, no rubs ABDOMEN: Soft, nontender. No hepatosplenomegaly, normal bowel sounds, no guarding or rigidity. EXTREMITIES: No clubbing, no edema, no cyanosis, 2+ pulses and upper and lower extremities. MUSCULOSKELETAL: Muscle strength and tone normal. SPINE: No scoliosis or deformity SKIN: No rashes CENTRAL NERVOUS SYSTEM: Alert and oriented -3. No focal deficits, tone is normal in all 4 extremities. PSYCHIATRIC: Alert and oriented -3. Appropriate affect. Intact judgment and insight. - Labs CBC & Chem 7: 07/28/20 06:44 07/28/20 06:44 Labs: Abnormal Lab Results - Last 24 Hours (Table) 07/27/20 07/27/20 07/28/20 Range/Units 16:29 20:08 06:44 WBC 17.05 H (4.50-10.00) X 10*3/uL RBC 4.26 L (4.40-5.60) X 10*6/uL Hgb 10.1 L (13.0-17.0) g/dL Hct 35.5 L (39.6-50.0) % MCH 23.7 L (27.0-32.0) pg MCHC 28.5 L (32.0-37.0) g/dL RDW 18.7 H (11.5-14.5) % Plt Count 461 H (140-440) X 10*3/uL MPV 9.0 L (9.5-12.2) fL Chloride (96-109) mmol/L BUN/Creatinine Ratio (12.00-20.00) Ratio Glucose (70-110) mg/dL POC Glucose (mg/dL) 107 H 180 H (75-99) mg/dL Calcium (8.7-10.3) mg/dL 07/28/20 07/28/20 07/28/20 Range/Units 06:44 06:58 09:32 WBC (4.50-10.00) X 10*3/uL RBC (4.40-5.60) X 10*6/uL Hgb (13.0-17.0) g/dL Hct (39.6-50.0) % MCH (27.0-32.0) pg MCHC (32.0-37.0) g/dL RDW (11.5-14.5) % Plt Count (140-440) X 10*3/uL MPV (9.5-12.2) fL Chloride 110 H (96-109) mmol/L BUN/Creatinine Ratio 26.67 H (12.00-20.00) Ratio Glucose 114 H (70-110) mg/dL POC Glucose (mg/dL) 111 H 173 H (75-99) mg/dL Calcium 8.3 L (8.7-10.3) mg/dL 07/28/20 Range/Units 11:32 WBC (4.50-10.00) X 10*3/uL RBC (4.40-5.60) X 10*6/uL Hgb (13.0-17.0) g/dL Hct (39.6-50.0) % MCH (27.0-32.0) pg MCHC (32.0-37.0) g/dL RDW (11.5-14.5) % Plt Count (140-440) X 10*3/uL MPV (9.5-12.2) fL Chloride (96-109) mmol/L BUN/Creatinine Ratio (12.00-20.00) Ratio Glucose (70-110) mg/dL POC Glucose (mg/dL) 105 H (75-99) mg/dL Calcium (8.7-10.3) mg/dL Microbiology - Last 24 Hours (Table) 07/22/20 12:12 Blood Culture - Final Blood No Growth after 144 hours 07/22/20 12:12 Blood Culture - Final Blood No Growth after 144 hours 07/27/20 14:15 Gram Stain - Preliminary Bronchial Washings - Random Bronchial Washings Culture - Preliminary 07/27/20 14:15 Acid Fast Bacilli Culture - Preliminary Bronchial Washings - Random 07/27/20 14:15 Fungal Culture - Preliminary Bronchial Washings - Random 07/25/20 17:03 Gram Stain - Preliminary Pleural Fluid Body Fluid Culture - Preliminary Assessment and Plan Plan: Assessment: #1. Right-sided empyema and loculated right-sided pleural fluid collection, status post pigtail chest tube placement on 07/25/2020, and pleural fluid analysis is consistent with empyema, pleural fluid cultures are pending at this time. Pigtail chest tube been dislodged on 07/25/2020, and he is scheduled for reinsertion of the chest tube today on 07/26/2020 #2. History of COVID-19 infection based on titers, initial symptoms from March 2020 #3. History of COPD #4. History of chronic tobacco dependence up to 3 packs per day, quit smoking 2 months ago #5. History of gout Plan: Continue current antibiotics Cultures remain negative thus far Today's chest x-ray reviewed showing improved aeration of the right lung base TPA per CT surgery No fever or chills Continue steroids and breathing treatments Continue steroids and breathing treatments I performed a history & physical examination of the patient and discussed their management with my nurse practitioner, Adela Ruelas. I reviewed the nurse practitioner's note and agree with the documented findings and plan of care. Lung sounds are positive for diffuse wheezes throughout the lung [place]. The findings and the impression was discussed with the patient. I attest to the documentation by the nurse practitioner. Time with Patient: Less than 30
[2020-07-28 15:57] VITALS: BMI 26.9
[2020-07-28 17:11] LABS: Glucose,Whole Blood 92 mg/dL (75-99)
[2020-07-28 20:11] LABS: Glucose,Whole Blood 134 mg/dL (75-99)
[2020-07-29] MEDS: TEMAZEPAM 15 MG CAP PO PRN ×2 (00:14→21:12)
[2020-07-29] MEDS: VANCOMYCIN 1,000 MG in SODIUM CHLORIDE 0.9% 250 ML IVPB SCH (05:15)
[2020-07-29 07:00] LABS: Glucose,Whole Blood 130 mg/dL (75-99)
[2020-07-29] MEDS: INSULIN ASPART (NovoLOG) 100 UNIT/ML VIAL SQ SCH ×4 (07:02→21:11)
--- NOTE | 2020-07-29 07:02 | XR ---
EXAMINATION TYPE: XR chest 1V portable DATE OF EXAM: 07/29/2020 CLINICAL HISTORY: Difficulty breathing and chest tube progress study. TECHNIQUE: Single AP portable upright view of the chest is obtained. COMPARISON: Chest x-ray from one day earlier FINDINGS: Persistent bilateral basilar right pleural drainage catheter at stable small right pleural fluid collection extending laterally. Chronic parenchymal changes with right basilar opacity. Improv ed left basilar opacity. Cardiac flow size stable and within normal limits. High riding humeral heads consistent with chronic rotator cuff tears. IMPRESSION: Chronic changes with small right pleural fluid collection despite a pleural drainage cath eter. Associated right basilar atelectasis and/or infiltrate. Improved aeration left lung base noted.
[2020-07-29] MEDS: BUDESONIDE 1 MG/2 ML NEBU INHALATION SCH ×2 (07:18→20:08)
[2020-07-29] MEDS: IPRATROPIUM-ALBUTEROL 3 ML NEB INHALATION SCH ×4 (07:18→20:08)
[2020-07-29] MEDS: FORMOTEROL FUMARATE 20 MCG/2 ML NEBU INHALATION SCH ×2 (07:18→20:08)
[2020-07-29] MEDS: methylPREDNISolone SOD SUCCI 40 MG/ML 1 ML VIAL IV SCH ×2 (07:19→15:58)
[2020-07-29] MEDS: guaiFENesin 600 MG TABLET.ER PO SCH ×2 (07:20→21:13)
[2020-07-29] MEDS: PIPERACILLIN-TAZOBACTAM 3.375 GM in SODIUM CHLORIDE 0.9% 100 ML IVPB SCH ×2 (07:20→15:58)
[2020-07-29] MEDS: ENOXAPARIN 40 MG/0.4 ML SYRINGE SQ SCH (07:20)
[2020-07-29] MEDS: MULTIVITAMINS, THERA 1 EACH TAB PO SCH (07:20)
[2020-07-29] MEDS: allopurinoL 300 MG TAB PO SCH (07:20)
[2020-07-29] MEDS: PANTOPRAZOLE 40 MG TABLET PO SCH (07:21)
--- NOTE | 2020-07-29 09:05 | P.PN ---
Subjective Progress Note Date: 07/29/20 Principal diagnosis: Large right-sided loculated pleural fluid collection, suspected empyema versus lung abscess versus necrotic tumor, status post right chest pigtail catheter meghan cement by interventional radiology, leukocytosis. Previous medical history of chronic obstructive pulmonary disease, COVID 19 infection from March 2020 with subsequent COVID 19 vaccination around 3 weeks ago, previous tobacco dependence with recent cessation, gout, obstructive sleep apnea, status post corrective surgery, 30 pound weight loss in the last 6-8 weeks The patient currently sitting up in bed eating breakfast in no acute distress. Denies pain, states shortness of breath continues to improve. Remains afebrile on room air, actively using incentive spirometer. He continues to cough up thick sputum although minimal in the last 24 hours per the patient. Right anterior chest wall pigtail catheter in place, status post 3 installations of alteplase/dornase. Patient has been ambulatory in his room. Bronchoscopy completed by Dr. Berg, no endobronchial tumors found, copious amounts of purulent secretions were suctioned, patient has evidence of right middle lobe syndrome. No other new concerns Objective - Vital Signs Vital signs: Vital Signs Temp 99.2 F 07/29/20 07:42 Pulse 80 07/29/20 07:43 Resp 16 07/29/20 07:42 BP 133/80 07/29/20 07:42 Pulse Ox 96 07/29/20 07:42 Intake & Output 07/28/20 07/29/20 07/29/20 18:59 06:59 18:59 Intake Total 200 Balance 200 Weight 71 kg 72 kg Intake: Oral 200 Other: Voiding Method Toilet Toilet # Voids 1 4 - Exam CONSTITUTIONAL: Appears comfortable, cooperative, no acute distress RESPIRATORY: Lungs sounds diminished bilaterally. Respirations even, n onlabored. Currently on room air with oxygen saturation 98%. Able to achieve 1500 mL on incentive spirometry. Strong productive cough. CARDIOVASCULAR: S1, S2 present. Regular rate and rhythm. Palpable peripheral pulses bilaterally. No edema present. No calf pain or tenderness noted. GASTROINTESTINAL: Abdomen soft, nontender, nondistended. Active bowel sounds present 4 quadrants. Tolerating diet. GENITOURINARY: Continues to void INTEGUMENTARY: Skin is warm and dry with evidence of good perfusion. NEUROLOGIC: Cranial nerves II through XII intact MUSKULOSKELETAL: Able to move all extremities, strength equal bilaterally, gait normal PSYCHIATRIC: Alert and oriented to person place and time, appropriate affect, intact judgment and insight INVASIVE LINES AND TUBES: Right anterior pigtail catheter present and connected to wall suction, no air leaks present, 90 mL blood tinged drainage in the last 24 hours. - Allied health notes Allied health notes reviewed: nursing - Labs CBC & Chem 7: 07/28/20 06:44 07/28/20 06:44 Labs: Abnormal Lab Results - Last 24 Hours (Table) 07/28/20 07/28/20 07/28/20 Range/Units 06:44 06:44 09:32 WBC 17.05 H (4.50-10.00) X 10*3/uL RBC 4.26 L (4.40-5.60) X 10*6/uL Hgb 10.1 L (13.0-17.0) g/dL Hct 35.5 L (39.6-50.0) % MCH 23.7 L (27.0-32.0) pg MCHC 28.5 L (32.0-37.0) g/dL RDW 18.7 H (11.5-14.5) % Plt Count 461 H (140-440) X 10*3/uL MPV 9.0 L (9.5-12.2) fL Chloride 110 H (96-109) mmol/L BUN/Creatinine Ratio 26.67 H (12.00-20.00) Ratio Glucose 114 H (70-110) mg/dL POC Glucose (mg/dL) 173 H (75-99) mg/dL Calcium 8.3 L (8.7-10.3) mg/dL 07/28/20 07/28/20 07/29/20 Range/Units 11:32 20:09 06:59 WBC (4.50-10.00) X 10*3/uL RBC (4.40-5.60) X 10*6/uL Hgb (13.0-17.0) g/dL Hct (39.6-50.0) % MCH (27.0-32.0) pg MCHC (32.0-37.0) g/dL RDW (11.5-14.5) % Plt Count (140-440) X 10*3/uL MPV (9.5-12.2) fL Chloride (96-109) mmol/L BUN/Creatinine Ratio (12.00-20.00) Ratio Glucose (70-110) mg/dL POC Glucose (mg/dL) 105 H 134 H 130 H (75-99) mg/dL Calcium (8.7-10.3) mg/dL Microbiology - Last 24 Hours (Table) 07/25/20 17:03 Anaerobic Culture - Final Pleural Fluid Anaerobic Gm Negative Bacilli 07/27/20 14:15 Acid Fast Bacilli Smear - Final Bronchial Washings - Random Acid Fast Bacilli Culture - Preliminary 07/25/20 17:03 Gram Stain - Preliminary Pleural Fluid Body Fluid Culture - Preliminary 07/22/20 12:12 Blood Culture - Final Blood No Growth after 144 hours 07/22/20 12:12 Blood Culture - Final Blood No Growth after 144 hours 07/27/20 14:15 Gram Stain - Preliminary Bronchial Washings - Random Bronchial Washings Culture - Preliminary - Imaging and Cardiology Chest x-ray: report reviewed, image reviewed Assessment and Plan Assessment: 1. Large right-sided loculated pleural fluid collection, suspected empyema versus lung abscess versus necrotic tumor, status post right chest pigtail catheter placement by interventional radiology, with subsequent alt eplase/dornase instillation, S/P bronchoscopy with suspected right middle lobe syndrome 2. Dyspnea, secondary to above 3. Leukocytosis, secondary to above 4. Chronic obstructive pulmonary disease 5. COVID 19 infection March 2020, status post COVID 19 vaccination around 3 weeks ago 6. Previous tobacco dependence with recent cessation 7. History of gout 8. History of obstructive sleep apnea, status post corrective surgery 9. Unplanned 30 pound weight loss in the last 6-8 weeks Plan: 1. We will instill pleural fibrinolytic therapy again today 2. Encourage use of his incentive spirometry 10 times every hour while awake. 3. Continue IV antibiotics, steroids, bronchodilators per pulmonology 4. Continue to follow daily chest x-rays. 5. Continue to follow pleural fluid culture and cytology, anaerobic pleural fluid culture growing gram-negative bacilli. 6. More recommendations to follow Time with Patient: Greater than 30
[2020-07-29 10:59] LABS: Anisocytosis Slight; HCT 37.3 % (39.0-53.0); HGB 10.9 gm/dL (13.0-17.5); Hypochromasia Marked; MCH 23.9 pg (25.0-35.0); MCHC 29.3 g/dL (31.0-37.0); MCV 81.4 fL (80.0-100.0); Mean Platelet Volume 6.6; Platelet Count 470 k/uL (150-450); RBC 4.59 m/uL (4.30-5.90); RDW 17.8 % (11.5-15.5); WBC 16.8 k/uL (3.8-10.6)
[2020-07-29 11:15] LABS: African American GFR (CKD) >90 (>60 ml/min/1.73 sqM); Anion Gap 6 mmol/L; Blood Urea Nitrogen 23 mg/dL (9-20); Calcium 8.6 mg/dL (8.4-10.2); Carbon Dioxide 26 mmol/L (22-30); Chloride 108 mmol/L (98-107); Glucose 147 mg/dL (74-99); Non-African American GFR(CKD) 86 (>60 ml/min/1.73 sqM); Potassium 4.5 mmol/L (3.5-5.1); Sodium 140 mmol/L (137-145)
--- NOTE | 2020-07-29 11:24 | P.PN ---
Subjective Progress Note Date: 07/29/20 This is a pleasant 69-year-old white male patient of nurse practitioner, CHIARA Baig, is been having shortness of breath for the past 4-6 weeks after COVID-19. He was seen by Dr. Saba one day ago and sent to the emergency room after there is evidence of empyema in the right lung. Emergency room CTA showed on the empyema, and no evidence of pulmonary embolism. He is admitted to the stepdown unit is currently resting comfortably. He is complaining quite a bit of cough. He is complaining of chest pains with cough. He denies any significant nausea or vomiting. Indicates he's lost about 30 pounds over the past 2-3 months. Vital signs overnight show he's been afebrile. Labs show a white count of 21.6 and hemoglobin 10.1. There is predominantly neutrophilia. Chemistries are essentially normal, the exception of a glucose 158 late a.m. COVID-19, RSV and influenza PCR were all negative. 07/24/2020: Patient remained stable overnight. He denies any current significant chest pains pressures or shortness of breath at rest. He indicates cough is little bit better. He denies any significant nausea or vomiting. Denies any difficulty with urination or constipation this time. Pulmonology has seen him as have thoracic surgery. Currently thoracic surgery is planning a to catheter versus. Interventional radiology and fibrotic treatment. Vitals remained stable. He remains on room air. He is afebrile. Weight is down almost 4 kg from admission. Laboratory studies continue to show a signific ant leukocytosis at 21 predominantly left shift of neutrophils. He has a microcytic anemia hemoglobin 10.1 and MCV 82.8. Platelets are increased at 594 this time. Chemistries were essentially normal. Patient remains on albuterol, budesonide, millimeter all, doing, methylprednisolone, Zosyn, and vancomycin. His guaifenesin ordered for cough. He is currently on Lovenox 40 mg daily for anticoagulation. 07/25/2020 maintained on nebulized bronchodilators, IV steroids, antibiotics sitting up at side of bed, maintaining O2 sats of 96% on room air. Awaiting placement of pigtail catheter via interventional radiology, in regards to right loculated pleural effusion. Cardiothoracic surgery following. Scheduled for bronchoscopy tomorrow. Sputum culture pending. No hemoptysis. Continues on van comycin and Zosyn. Afebrile, WBC decreased to 19.27. Blood cultures reporting no growth at 72 hours, sputum culture pending . Blood sugars controlled.Denies any chest pain/discomfort. 07/26/2020 CT-guided chest pigtail catheter placed yesterday via interventional radiology, tolerated procedure well. Apparently the catheter fell out shortly after. Follow-up chest x-ray reported no significant change of partially loculated right pleural effusion with associated opacities, pneumonia, no pneumo thorax. Pleural fluid cultures/cytology pending. Productive cough with thick yellow sputum .Continues on vancomycin and Zosyn, sputum culture reporting many normal respiratory chris, Gram stain reporting many polymorphonuclear leukocytes ,moderate gram positive Bacilli with few gram-positive cocci .Afebrile. Labs pending. NPO, scheduled for bronchoscopy today with pulmonary. Maintaining O2 sats in the mid 90s on room air, incentive spirometer up to 2000. 07/27/2020 Right chest pigtail catheter replaced yesterday, tolerated procedure well. Instilled with alteplase/dornase. Less shortness of breath. Is up to 1999. Chest x-ray reporting coiled chest tube distally over the right periph eral empyema focal fluid collection, moderately increased airspace opacity over the right lung base, possibly atelectasis versus worsening consolidation .Maintaining O2 sats in the high 90s on room air. Continues on Zosyn, vancomycin nebulized bronchodilators, steroids. Afebrile, cultures and labs pending. Bronchoscopy today. 07/28/2020 maintained on nebulized bronchodilators, steroids, antibiotics and addition to pleural fibrinolytics as per CTS. Right pleural fluid cytology reporting empyema with no cytologically malignant cells identified. Underwent diagnostic bronchoscopy yesterday reporting no endobronchial tumors, lesions or abnormalities noted, possible right middle lobe syndrome causing pneumonia- postobstructive and secondary empyema. Tolerated procedure well. Afebrile, yulia ntaining O2 sats in the high 90s on room air. Incentive spirometer up to 1500.Chest x-ray pending.WBC trending down, 17. Denies chest pain, palpitation or shortness of breath. BUN 24 creatinine 1.05. Yesterday, patient joked about needing a Bryn Walker, used to drink a couple cocktails daily. He reports his last drink was 2 months ago. Reported melatonin did not help him sleep, slept well with Restoril. 07/29/2020 T-max 99.2. Maintaining O2 sats in the high 90s on room air. Reports less coughing, productive. Labs pending. Incentive spirometer up to 1500. Chest x-ray reporting chronic changes with small right pleural fluid collection despite pleural drainage catheter, associated right basilar atelectasis and/or infiltrate, improving left lung base aeration. Labs pending. AFB smear reporting no acid-fast bacilli. Anaerobic bronch wash reporting no growth at 48 hours, Gram stain bronch wash no organisms seen, pleural fluid cultures reporting no growth at 72 hours. Anaerobic pleural fluid when culture reporting gram-negative bacilli. Objective - Vital Signs Vital signs: Vital Signs Temp 99.2 F 07/29/20 07:42 Pulse 80 07/29/20 07:43 Resp 16 07/29/20 07:42 BP 133/80 07/29/20 07:42 Pulse Ox 96 07/29/20 07:42 Intake & Output 07/28/20 07/29/20 07/29/20 18:59 06:59 18:59 Intake Total 200 Balance 200 Weight 71 kg 72 kg Intake: Oral 200 Other: Voiding Method Toilet Toilet # Voids 1 4 - Exam - Exam GENERAL: Alert and oriented 3, sitting up at side of bed, no acute distress NECK: Supple, no JVD LUNGS: Nonlabored, Breath sounds decreased with bilateral bases diminished. Righ t anterior chest pigtail catheter present. HEART: Regular rate and rhythm without murmurs, rubs or gallops.S1S2 Normal. ABDOMEN: Soft, nontender, normoactive bowel sounds. No guarding, no rebound. No masses appreciated. EXTREMITIES: Normal range of motion, no pitting or edema. No clubbing or cyanos is. NEUROLOGICAL: Cranial nerves II through XII grossly intact. No focal deficits. PSYCH: Normal mood, normal affect. SKIN: Warm, Dry, normal turgor, no rashes noted. - Labs CBC & Chem 7: 07/29/20 10:34 07/29/20 10:34 Labs: Abnormal Lab Results - Last 24 Hours (Table) 07/28/20 07/28/20 07/28/20 Range/Units 06:44 11:32 20:09 Chloride 110 H (96-109) mmol/L BUN/Creatinine Ratio 26.67 H (12.00-20.00) Ratio Glucose 114 H (70-110) mg/dL POC Glucose (mg/dL) 105 H 134 H (75-99) mg/dL Calcium 8.3 L (8.7-10.3) mg/dL 07/29/20 Range/Units 06:59 Chloride (96-109) mmol/L BUN/Creatinine Ratio (12.00-20.00) Ratio Glucose (70-110) mg/dL POC Glucose (mg/dL) 130 H (75-99) mg/dL Calcium (8.7-10.3) mg/dL Microbiology - Last 24 Hours (Table) 07/25/20 17:03 Anaerobic Culture - Final Pleural Fluid Anaerobic Gm Negative Bacilli 07/27/20 14:15 Acid Fast Bacilli Smear - Final Bronchial Washings - Random Acid Fast Bacilli Culture - Preliminary 07/25/20 17:03 Gram Stain - Preliminary Pleural Fluid Body Fluid Culture - Preliminary 07/22/20 12:12 Blood Culture - Final Blood No Growth after 144 hours 07/22/20 12:12 Blood Culture - Final Blood No Growth after 144 hours 07/27/20 14:15 Gram Stain - Preliminary Bronchial Washings - Random Bronchial Washings Culture - Preliminary Assessment and Plan Assessment: Right-sided empyema with right-sided loculated pleural effusion, status post right chest pigtail catheter placement with cytology reporting empyema. 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 Leukocytosis, thrombocytosis, microcytic anemia secondary to the above Unintentional weight loss of 30 pounds in one month. History of Covid-19 infection, March 2020 COPD, history of History of daily alcohol use, reports last drink 2 months ago Chronic nicotine dependence, 3 packs per dayX many years, quit 3 months ago History of gout Plan: Continue on current medication regime ,monitoring and symptomatic treatment. Labs pending, cultures finalizing. Aggressive pulmonary toileting, incentive spirometer reinforced.Continue nebulized bronchodilators, steroids, antibiotics.Prognosis guarded given multiple complex medical issues. The impression and plan of care has been dictated as directed. : I performed a history and examination of this patient, discussed the same with the dictator. I agree with the dictator's note ,documented as a scribe. Any additional findings or plans will be noted.
[2020-07-29 11:37] LABS: HCT 36.7 % (39.6-50.0); HGB 10.3 g/dL (13.0-17.0); MCH 23.7 pg (27.0-32.0); MCHC 28.1 g/dL (32.0-37.0); MCV 84.6 fL (80.0-97.0); Mean Platelet Volume 9.2 fL (9.5-12.2); Platelet Count 472 X 10*3/uL (140-440); RBC 4.34 X 10*6/uL (4.40-5.60); RDW 19.4 % (11.5-14.5); WBC 18.26 X 10*3/uL (4.50-10.00)
[2020-07-29 11:40] LABS: Glucose,Whole Blood 143 mg/dL (75-99)
[2020-07-29 12:19] LABS: Basophils # (A) 0.03 X 10*3/uL (0.00-0.10); Basophils % (A) 0.2 %; Eosinophils # (A) 0 X 10*3/uL (0.04-0.35); Eosinophils % (A) 0 %; Lymphocytes # (A) 1.45 X 10*3/uL (0.90-5.00); Lymphocytes % (A) 7.9 %; Monocytes # (A) 0.25 X 10*3/uL (0.20-1.00); Monocytes % (A) 1.4 %; Neutrophils # (A) 16.02 X 10*3/uL (1.80-7.70); Neutrophils % (A) 87.7 %
[2020-07-29] MEDS ORDERED: DORNASE ALFA IRRIGATION ONE (13:00)
[2020-07-29] MEDS ORDERED: SODIUM CHLORIDE 0.9% IRRIGATION ONE ×2 (13:00)
[2020-07-29] MEDS ORDERED: ALTEPLASE IRRIGATION ONE (13:00)
--- NOTE | 2020-07-29 16:41 | P.PN ---
Subjective Progress Note Date: 07/29/20 07/29/2020, the patient is being seen for a follow-up. Doing well. He is currently on room air oxygen. Pleural fluid culture came back positive for 19 oh. The patient is on Zosyn and vancomycin. Vancomycin will be discontinued. Meanwhile, the bronchioloalveolar lavage came back also negative for the time being. The patient is being seen by cardiac thoracic surgery. The patient has a pigtail catheter in his right hemithorax. The patient is status post previous ablation with alteplase. Output is diminished at this point in time. His cough and congestion is improved. Is feeling better. Less short of breath is sitting up on a chair. He is ambulating. No chest pain. No angina. No other new complaints otherwise for now. His white cell count at 16.8 with hemoglobin of 10.9. Objective - Vital Signs Vital signs: Vital Signs Temp 97.6 F 07/29/20 14:00 Pulse 100 07/29/20 14:00 Resp 16 07/29/20 14:00 BP 125/76 07/29/20 14:00 Pulse Ox 95 07/29/20 14:00 Intake & Output 07/28/20 07/29/20 07/29/20 18:59 06:59 18:59 Intake Total 200 633 Balance 200 633 Weight 71 kg 72 kg Intake: Oral 200 633 Other: Voiding Method Toilet Toilet # Voids 1 4 - Exam CONSTITUTIONAL: Appears comfortable, cooperative, no acute distress, currently on room air oxygen. RESPIRATORY: Lungs sounds diminished bilaterally, right greater than left. Respirations even, nonlabored. Currently on room air with oxygen saturation 97%. Able to achieve 2000 mL on incentive spirometry. Strong productive cough. CARDIOVASCULAR: S1, S2 present. Regular rate and rhythm. Palpable peripheral pulses bilaterally. No edema present. No calf pain or tenderness noted. GASTROINTESTINAL: Abdomen soft, nontender, nondistended. Active bowel sounds present 4 quadrants. Tolerating diet. GENITOURINARY: Continues to void INTEGUMENTARY: Skin is warm and dry with evidence of good perfusion. NEUROLOGIC: Cranial nerves II through XII intact MUSKULOSKELETAL: Able to move all extremities, strength equal bilaterally, gait normal PSYCHIATRIC: Alert and oriented to person place and time, appropriate affect, intact judgment and insight INVASIVE LINES AND TUBES: Right anterior pigtail catheter present and connected to wall suction, no air leaks present, 140 mL thick yellowish-white drainage since placement of pigtail yesterday. - Labs CBC & Chem 7: 07/29/20 10:34 07/29/20 10:34 Labs: Abnormal Lab Results - Last 24 Hours (Table) 07/28/20 07/29/20 07/29/20 Range/Units 20:09 06:59 07:06 WBC 18.26 H (4.50-10.00) X 10*3/uL RBC 4.34 L (4.40-5.60) X 10*6/uL Hgb 10.3 L (13.0-17.0) g/dL Hct 36.7 L (39.6-50.0) % MCH 23.7 L (27.0-32.0) pg MCHC 28.1 L (32.0-37.0) g/dL RDW 19.4 H (11.5-14.5) % Plt Count 472 H (140-440) X 10*3/uL Plt Count Comment INCREASED A MPV 9.2 L (9.5-12.2) fL Absolute Nucleated RBC 0.02 H (0.00-0.00) X 10*3/uL Immature Gran # 0.51 H (0.00-0.04) X 10*3/uL Neutrophils # 16.02 H (1.80-7.70) X 10*3/uL Eosinophils # 0 L (0.04-0.35) X 10*3/uL NRBC/100 WBC Diff 0.1 H (0.0-0.0) /100 WBCS Chloride (98-107) mmol/L BUN (9-20) mg/dL Glucose (74-99) mg/dL POC Glucose (mg/dL) 134 H 130 H (75-99) mg/dL 07/29/20 07/29/20 07/29/20 Range/Units 10:34 10:34 11:39 WBC 16.8 H (4.50-10.00) X 10*3/uL RBC (4.40-5.60) X 10*6/uL Hgb 10.9 L (13.0-17.0) g/dL Hct 37.3 L (39.6-50.0) % MCH 23.9 L (27.0-32.0) pg MCHC 29.3 L (32.0-37.0) g/dL RDW 17.8 H (11.5-14.5) % Plt Count 470 H (140-440) X 10*3/uL Plt Count Comment MPV (9.5-12.2) fL Absolute Nucleated RBC (0.00-0.00) X 10*3/uL Immature Gran # (0.00-0.04) X 10*3/uL Neutrophils # (1.80-7.70) X 10*3/uL Eosinophils # (0.04-0.35) X 10*3/uL NRBC/100 WBC Diff (0.0-0.0) /100 WBCS Chloride 108 H (98-107) mmol/L BUN 23 H (9-20) mg/dL Glucose 147 H (74-99) mg/dL POC Glucose (mg/dL) 143 H (75-99) mg/dL Microbiology - Last 24 Hours (Table) 07/27/20 14:15 Gram Stain - Final Bronchial Washings - Random Bronchial Washings Culture - Final 07/25/20 17:03 Anaerobic Culture - Final Pleural Fluid Anaerobic Gm Negative Bacilli 07/27/20 14:15 Acid Fast Bacilli Smear - Final Bronchial Washings - Random Acid Fast Bacilli Culture - Preliminary 07/25/20 17:03 Gram Stain - Preliminary Pleural Fluid Body Fluid Culture - Preliminary 07/22/20 12:12 Blood Culture - Final Blood No Growth after 144 hours 07/22/20 12:12 Blood Culture - Final Blood No Growth after 144 hours Assessment and Plan Plan: 1 right-sided loculated empyema post-PICC Catheter insertion. Fluid is consistent with pus and a culture are consistent with anaerobes. Patient was given alteplase 3 and output is being monitored. Noted the output has dropped recently from his PICC the catheter. The repeat chest x-ray from today showing chronic changes with a small right-sided pleural effusion with collection. The pigtail catheter is in good location. There is also some right basilar atelectasis/infiltration. Overall, the patient has improved in both lungs. 2 right middle lobe syndrome/atelectasis, please refer to the bronchoscopy report 3 leukocytosis secondary to above, improving 4 COPD 5 history of COVID-19 infection back in early of 2020 6 history of smoking 7 obstructive sleep apnea. 8 gout Plan Keep the pigtail catheter in place and monitor the output. The patient will receive a total of 3 treatments with alteplase Alteplase on a daily basis Monitor output Chest x-ray showing some residual pleural fluid. Nevertheless, there is improvement in aeration and infiltration of the right lung base. Continued IV Zosyn and discontinue the vancomycin Awaiting the final results of the bronchial lavage. The pleural fluid cultures positive for an adult. We'll continue to follow
[2020-07-29 17:05] LABS: Glucose,Whole Blood 111 mg/dL (75-99)
[2020-07-29 20:37] LABS: Glucose,Whole Blood 181 mg/dL (75-99)
[2020-07-30] MEDS: methylPREDNISolone SOD SUCCI 40 MG/ML 1 ML VIAL IV SCH ×3 (00:04→16:46)
[2020-07-30] MEDS: PIPERACILLIN-TAZOBACTAM 3.375 GM in SODIUM CHLORIDE 0.9% 100 ML IVPB SCH ×3 (00:04→16:46)
[2020-07-30 06:45] LABS: Glucose,Whole Blood 147 mg/dL (75-99)
[2020-07-30] MEDS: allopurinoL 300 MG TAB PO SCH (07:39)
[2020-07-30] MEDS: MULTIVITAMINS, THERA 1 EACH TAB PO SCH (07:39)
[2020-07-30] MEDS: INSULIN ASPART (NovoLOG) 100 UNIT/ML VIAL SQ SCH ×4 (07:39→21:03)
[2020-07-30] MEDS: guaiFENesin 600 MG TABLET.ER PO SCH ×2 (07:39→21:03)
[2020-07-30] MEDS: ENOXAPARIN 40 MG/0.4 ML SYRINGE SQ SCH (07:40)
[2020-07-30] MEDS: PANTOPRAZOLE 40 MG TABLET PO SCH (07:40)
--- NOTE | 2020-07-30 07:50 | P.PN ---
Subjective Progress Note Date: 07/30/20 Principal diagnosis: Large right-sided loculated pleural fluid collection, suspected empyema, status post right chest pigtail catheter placement by interventional radiology, leukoc ytosis. Previous medical history of chronic obstructive pulmonary disease, COVID 19 infection from March 2020 with subsequent COVID 19 vaccination around 3 weeks ago, previous tobacco dependence with recent cessation, gout, obstructive sleep apnea, status post corrective surgery, 30 pound weight loss in the last 6-8 weeks The patient currently sitting up in bed eating breakfast in no acute distress. Denies pain, states shortness of breath continues to improve. Remains afebrile on room air, actively using incentive spirometer. Right anterior chest wall pigtail catheter in place, status post 4 installations of alteplase/dornase. Patient has been ambulatory in his room. Bronchoscopy completed by Dr. Berg, no endobronchial tumors found, copious amounts of purulent secretions were suctioned, patient has evidence of right middle lobe syndrome. No other new concerns Objective - Vital Signs Vital signs: Vital Signs Temp 97.4 F L 07/30/20 00:18 Pulse 103 H 07/30/20 00:18 Resp 15 07/30/20 00:18 BP 133/83 07/30/20 00:18 Pulse Ox 98 07/30/20 00:18 Intake & Output 07/29/20 07/30/20 07/30/20 18:59 06:59 18:59 Intake Total 869 100 Balance 869 100 Weight 73.5 kg Intake: Oral 869 100 Other: Voiding Method Toilet # Voids 3 1 - Exam CONSTITUTIONAL: Appears comfortable, cooperative, no acute distress RESPIRATORY: Lungs sounds slightly diminished bilaterally. Respirations even, nonlabored. Currently on room air with oxygen saturation 98%. Able to achieve 1500 mL on incentive spirometry. Strong productive cough. CARDIOVASCULAR: S1, S2 present. Regular rate and rhythm. Palpable peripheral pulses bilaterally. Bilateral lower extremity edema present. No calf pain or tenderness noted. GASTROINTESTINAL: Abdomen soft, nontender, nondistended. Active bowel sounds present 4 quadrants. Tolerating diet. GENITOURINARY: Continues to void INTEGUMENTARY: Skin is warm and dry with evidence of good perfusion. NEUROLOGIC: Cranial nerves II through XII intact MUSKULOSKELETAL: Able to move all extremities, strength equal bilaterally, gait normal PSYCHIATRIC: Alert and oriented to person place and time, appropriate affect, intact judgment and insight INVASIVE LINES AND TUBES: Right anterior pigtail catheter present and connected to wall suction, no air leaks present, 50 mL blood tinged drainage in the last 24 hours. - Allied health notes Allied health notes reviewed: nursing - Labs CBC & Chem 7: 07/29/20 10:34 07/29/20 10:34 Labs: Abnormal Lab Results - Last 24 Hours (Table) 07/29/20 07/29/20 07/29/20 Range/Units 07:06 10:34 10:34 WBC 18.26 H 16.8 H (4.50-10.00) X 10*3/uL RBC 4.34 L (4.40-5.60) X 10*6/uL Hgb 10.3 L 10.9 L (13.0-17.0) g/dL Hct 36.7 L 37.3 L (39.6-50.0) % MCH 23.7 L 23.9 L (27.0-32.0) pg MCHC 28.1 L 29.3 L (32.0-37.0) g/dL RDW 19.4 H 17.8 H (11.5-14.5) % Plt Count 472 H 470 H (140-440) X 10*3/uL Plt Count Comment INCREASED A MPV 9.2 L (9.5-12.2) fL Absolute Nucleated RBC 0.02 H (0.00-0.00) X 10*3/uL Immature Gran # 0.51 H (0.00-0.04) X 10*3/uL Neutrophils # 16.02 H (1.80-7.70) X 10*3/uL Eosinophils # 0 L (0.04-0.35) X 10*3/uL NRBC/100 WBC Diff 0.1 H (0.0-0.0) /100 WBCS Chloride 108 H (98-107) mmol/L BUN 23 H (9-20) mg/dL Glucose 147 H (74-99) mg/dL POC Glucose (mg/dL) (75-99) mg/dL 07/29/20 07/29/20 07/29/20 Range/Units 11:39 17:04 20:35 WBC (4.50-10.00) X 10*3/uL RBC (4.40-5.60) X 10*6/uL Hgb (13.0-17.0) g/dL Hct (39.6-50.0) % MCH (27.0-32.0) pg MCHC (32.0-37.0) g/dL RDW (11.5-14.5) % Plt Count (140-440) X 10*3/uL Plt Count Comment MPV (9.5-12.2) fL Absolute Nucleated RBC (0.00-0.00) X 10*3/uL Immature Gran # (0.00-0.04) X 10*3/uL Neutrophils # (1.80-7.70) X 10*3/uL Eosinophils # (0.04-0.35) X 10*3/uL NRBC/100 WBC Diff (0.0-0.0) /100 WBCS Chloride (98-107) mmol/L BUN (9-20) mg/dL Glucose (74-99) mg/dL POC Glucose (mg/dL) 143 H 111 H 181 H (75-99) mg/dL 07/30/20 Range/Units 06:44 WBC (4.50-10.00) X 10*3/uL RBC (4.40-5.60) X 10*6/uL Hgb (13.0-17.0) g/dL Hct (39.6-50.0) % MCH (27.0-32.0) pg MCHC (32.0-37.0) g/dL RDW (11.5-14.5) % Plt Count (140-440) X 10*3/uL Plt Count Comment MPV (9.5-12.2) fL Absolute Nucleated RBC (0.00-0.00) X 10*3/uL Immature Gran # (0.00-0.04) X 10*3/uL Neutrophils # (1.80-7.70) X 10*3/uL Eosinophils # (0.04-0.35) X 10*3/uL NRBC/100 WBC Diff (0.0-0.0) /100 WBCS Chloride (98-107) mmol/L BUN (9-20) mg/dL Glucose (74-99) mg/dL POC Glucose (mg/dL) 147 H (75-99) mg/dL Microbiology - Last 24 Hours (Table) 07/25/20 17:03 Gram Stain - Final Pleural Fluid Body Fluid Culture - Final 07/27/20 14:15 Gram Stain - Final Bronchial Washings - Random Bronchial Washings Culture - Final - Imaging and Cardiology Chest x-ray: image reviewed Assessment and Plan Assessment: 1. Large right-sided loculated pleural fluid collection, suspected empyema, status post right chest pigtail catheter placement by interventional radiology, with subsequent alteplase/dornase instillation, S/P bronchoscopy with suspected right middle lobe syndrome. Sputum culture negative, pleural fluid growing anaerobic gram negative bacilli, bronchial washings negative 2. Dyspnea, secondary to above 3. Leukocytosis, secondary to above 4. Chronic obstructive pulmonary disease 5. COVID 19 infection March 2020, status post COVID 19 vaccination around 3 weeks ago 6. Previous tobacco dependence with recent cessation 7. History of gout 8. History of obstructive sleep apnea, status post corrective surgery 9. Unplanned 30 pound weight loss in the last 6-8 weeks Plan: 1. We will instill pleural fibrinolytic therapy again today 2. Encourage use of his incentive spirometry 10 times every hour while awake. 3. Continue IV antibiotics, steroids, bronchodilators per pulmonology 4. Continue to follow daily chest x-rays. 5. More recommendations to follow Time with Patient: Greater than 30
--- NOTE | 2020-07-30 08:37 | XR ---
EXAMINATION TYPE: XR chest 1V portable DATE OF EXAM: 07/30/2020 COMPARISON: 07/29/2020 INDICATION: Empyema TECHNIQUE: Single frontal view of the chest is obtained. FINDINGS: The heart size is normal. The pulmonary vasculature is normal. There is thickening along the right pleural margin with stranding in the right lower lung field. Cath eter is present at this level. No interval change from comparison is evident IMPRESSION: 1. Stable right catheter and pleural thickening. Continued follow-up is recommended.
[2020-07-30] MEDS: IPRATROPIUM-ALBUTEROL 3 ML NEB INHALATION SCH ×4 (08:57→20:11)
[2020-07-30] MEDS: FORMOTEROL FUMARATE 20 MCG/2 ML NEBU INHALATION SCH ×2 (08:57→20:11)
[2020-07-30] MEDS: BUDESONIDE 1 MG/2 ML NEBU INHALATION SCH ×2 (08:57→20:11)
[2020-07-30] MEDS ORDERED: DORNASE ALFA IRRIGATION ONE (10:00)
[2020-07-30] MEDS ORDERED: SODIUM CHLORIDE 0.9% IRRIGATION ONE ×2 (10:00)
[2020-07-30] MEDS ORDERED: ALTEPLASE IRRIGATION ONE (10:00)
[2020-07-30 11:26] LABS: Glucose,Whole Blood 157 mg/dL (75-99)
[2020-07-30] MEDS ORDERED: RX INFO: IV CONTRAST WAS GIVEN 1 EACH MISC MISCELLANE PRN (12:04)
[2020-07-30 12:09] LABS: HCT 39.4 % (39.6-50.0); HGB 11.1 g/dL (13.0-17.0); MCH 23.8 pg (27.0-32.0); MCHC 28.2 g/dL (32.0-37.0); MCV 84.4 fL (80.0-97.0); Mean Platelet Volume 9.5 fL (9.5-12.2); Platelet Count 508 X 10*3/uL (140-440); RBC 4.67 X 10*6/uL (4.40-5.60); RDW 20.2 % (11.5-14.5)
--- NOTE | 2020-07-30 13:15 | P.PN ---
Subjective Progress Note Date: 07/30/20 Principal diagnosis: Large right-sided loculated fluid collection, empyema versus necrotizing abscess, known COVID-19 infection March 2020 with subsequent vaccination completed 3 months ago 2-3 pack cigarette smoker up until approximately 2 weeks ago known history of gout obstructive sleep apnea post-corrective surgery recent 30 pound weight loss. Patient up in bed in no apparent distress denies pain denies dyspnea improving daily currently afebrile current right anterior chest wall pigtail catheter in place status post core instillations of alteplase/dornase. Patient up in room. Bronchoscopy completed no endobronchial tumors significant amount of purulent secretion suctioned with bronch, cultures suggests gram-negative bacilli in the anaerobic waiting on final Appropriate IV antibiotics infusing Objective - Vital Signs Vital signs: Vital Signs Temp 97.4 F L 07/30/20 07:46 Pulse 98 07/30/20 12:47 Resp 16 07/30/20 09:20 BP 145/85 07/30/20 07:46 Pulse Ox 97 07/30/20 08:57 Intake & Output 07/29/20 07/30/20 07/30/20 18:59 06:59 18:59 Intake Total 869 100 100 Balance 869 100 100 Weight 73.5 kg Intake: Oral 869 100 100 Other: Voiding Method Toilet # Voids 3 1 - Exam General: [Patient awake, alert and oriented times 3. Patient in no acute distress.] HEENT: [PERRL. EOMI. No pharyngeal erythema or exudate.] Neck: [No adenopathy.] Cardiac: [Heart regular in rate and rhythm. No S3. No S4. No clicks, rubs. No murmur.] Lungs: [Clear to auscultation bilaterally. Right anterior chest wall pigtail catheter in place Abdomen: [No mass. No organomegaly. Bowel sounds presnt and normoactive in all 4 quadrants.] Extremes: [No edema no cyanosis no claudication normal pulses] : Normal male genitalia Musculoskeletal: [No joint erythema, edema or tenderness.] Skin: [No rash.] Neurologic: [No lateralizing deficits. CN II - XII grossly intact.] Lymphatic: [No adenopathy.] - Labs CBC & Chem 7: 07/30/20 06:57 07/30/20 06:57 Labs: Abnormal Lab Results - Last 24 Hours (Table) 07/29/20 07/29/20 07/30/20 Range/Units 17:04 20:35 06:44 WBC (4.50-10.00) X 10*3/uL Hgb (13.0-17.0) g/dL Hct (39.6-50.0) % MCH (27.0-32.0) pg MCHC (32.0-37.0) g/dL RDW (11.5-14.5) % Plt Count (140-440) X 10*3/uL POC Glucose (mg/dL) 111 H 181 H 147 H (75-99) mg/dL 07/30/20 07/30/20 Range/Units 06:57 11:25 WBC 23.10 H (4.50-10.00) X 10*3/uL Hgb 11.1 L (13.0-17.0) g/dL Hct 39.4 L (39.6-50.0) % MCH 23.8 L (27.0-32.0) pg MCHC 28.2 L (32.0-37.0) g/dL RDW 20.2 H (11.5-14.5) % Plt Count 508 H (140-440) X 10*3/uL POC Glucose (mg/dL) 157 H (75-99) mg/dL Microbiology - Last 24 Hours (Table) 07/25/20 17:03 Gram Stain - Final Pleural Fluid Body Fluid Culture - Final 07/27/20 14:15 Gram Stain - Final Bronchial Washings - Random Bronchial Washings Culture - Final Assessment and Plan (1) Empyema lung Current Visit: Yes Status: Acute Code(s): J86.9 - PYOTHORAX WITHOUT FISTULA SNOMED Code(s): 88759698 (2) Fatigue Current Visit: Yes Status: Acute Code(s): R53.83 - OTHER FATIGUE SNOMED Code(s): 28506103 (3) Gout Current Visit: Yes Status: Acute Code(s): M10.9 - GOUT, UNSPECIFIED SNOMED Code(s): 32624911 (4) Leukocytosis Current Visit: Yes Status: Acute Code(s): D72.829 - ELEVATED WHITE BLOOD CELL COUNT, UNSPECIFIED SNOMED Code(s): 995850693 (5) Microcytic anemia Current Visit: Yes Status: Acute Code(s): D50.9 - IRON DEFICIENCY ANEMIA, UNSPECIFIED SNOMED Code(s): 289954776 (6) Thrombocytosis Current Visit: Yes Status: Acute Code(s): D47.3 - ESSENTIAL (HEMORRHAGIC) THROMBOCYTHEMIA SNOMED Code(s): 9568559 (7) Weight loss Current Visit: Yes Status: Acute Code(s): R63.4 - ABNORMAL WEIGHT LOSS SNOMED Code(s): 91521432 Plan: Large right ocular dated pleural fluid collection empyema suspected Status post right chest pigtail catheter placement with subsequent ateplase/dornase instillation, status post bronchoscopy with suspected right middle lobe syndrome sputum culture negative pleural fluid growing anaerobic gram-negative bacilli bronchial washings currently negative Dyspnea secondary to above Leukocytosis reactive Chronic obstructive pulmonary disease by history COVID-19 infection March 2020, status post COVID-19 vaccination 3 weeks ago Heavy tobacco user recent cessation 2 weeks ago Known history of gout Known history of obstructive sleep apnea, status post 30 pounds weight loss, status post corrective surgery Plan Continued fibrolytic therapy per CVT Continue continue IV antibiotics Encouraged incentive spirometry Waiting on final culture report Time with Patient: Greater than 30
--- NOTE | 2020-07-30 13:25 | P.PN ---
Subjective Progress Note Date: 07/30/20 Principal diagnosis: Empyema of the right lung The patient is seen today 07/30/2020 follow-up on the regular medical floor. He is currently sitting up at the bedside. Awake and alert in no acute distress. Maintaining good O2 saturations in the 90s on room air. Right-sided pigtail catheter remains in place. He did receive alteplase again this morning. His x- ray reveals stable right sided catheter placement with pleural thickening. Pleural fluid cultures pending. Bronchial wash cultures pending. White count 23.1. Hemoglobin 11.1. Creatinine 1.04. He is continued on IV Solu-Medrol, bronchodilators, Zosyn. Lovenox for DVT prophylaxis. Objective - Vital Signs Vital signs: Vital Signs Temp 97.4 F L 07/30/20 07:46 Pulse 98 07/30/20 12:47 Resp 16 07/30/20 09:20 BP 145/85 07/30/20 07:46 Pulse Ox 97 07/30/20 08:57 Intake & Output 07/29/20 07/30/20 07/30/20 18:59 06:59 18:59 Intake Total 869 100 100 Balance 869 100 100 Weight 73.5 kg Intake: Oral 869 100 100 Other: Voiding Method Toilet # Voids 3 1 - Exam CONSTITUTIONAL: Very pleasant 69-year-old gentleman, comfortable, cooperative, no acute distress, currently on room air oxygen. HEENT: Head is normocephalic. Sclerae nonicteric. Trachea midline. RESPIRATORY: Lungs sounds diminished bilaterally, right greater than left. Respirations even, nonlabored. Currently on room air with oxygen saturation 97%. Able to achieve 2000 mL on incentive spirometry. Strong productive cough. CARDIOVASCULAR: S1, S2 present. Regular rate and rhythm. Palpable peripheral pulses bilaterally. No edema present. No calf pain or tenderness noted. GASTROINTESTINAL: Abdomen soft, nontender, nondistended. Active bowel sounds present 4 quadrants. Tolerating diet. GENITOURINARY: Continues to void INTEGUMENTARY: Skin is warm and dry with evidence of good perfusion. NEUROLOGIC: Cranial nerves II through XII intact MUSKULOSKELETAL: Able to move all extremities, strength equal bilaterally, gait normal PSYCHIATRIC: Alert and oriented to person place and time, appropriate affect, intact judgment and insight INVASIVE LINES AND TUBES: Right anterior pigtail catheter present and connected to wall suction, no air leaks present, 140 mL thick yellowish-white drainage since placement of pigtail yesterday. - Labs CBC & Chem 7: 07/30/20 06:57 07/30/20 06:57 Labs: Abnormal Lab Results - Last 24 Hours (Table) 07/29/20 07/29/20 07/30/20 Range/Units 17:04 20:35 06:44 WBC (4.50-10.00) X 10*3/uL Hgb (13.0-17.0) g/dL Hct (39.6-50.0) % MCH (27.0-32.0) pg MCHC (32.0-37.0) g/dL RDW (11.5-14.5) % Plt Count (140-440) X 10*3/uL POC Glucose (mg/dL) 111 H 181 H 147 H (75-99) mg/dL 07/30/20 07/30/20 Range/Units 06:57 11:25 WBC 23.10 H (4.50-10.00) X 10*3/uL Hgb 11.1 L (13.0-17.0) g/dL Hct 39.4 L (39.6-50.0) % MCH 23.8 L (27.0-32.0) pg MCHC 28.2 L (32.0-37.0) g/dL RDW 20.2 H (11.5-14.5) % Plt Count 508 H (140-440) X 10*3/uL POC Glucose (mg/dL) 157 H (75-99) mg/dL Microbiology - Last 24 Hours (Table) 07/25/20 17:03 Gram Stain - Final Pleural Fluid Body Fluid Culture - Final 07/27/20 14:15 Gram Stain - Final Bronchial Washings - Random Bronchial Washings Culture - Final Assessment and Plan Assessment: 1 Right-sided loculated empyema post-PICC Catheter insertion. Fluid is consistent with pus and a culture are consistent with anaerobes. Patient was given alteplase 4 and output is being monitored. Noted the output has dropped recently from his PICC the catheter. The repeat chest x-ray from today showing chronic changes with a small right-sided pleural effusion with collection. The pigtail catheter is in good location. There is also some right basilar atelectasis/infiltration. Overall, the patient has improved in both lungs. On room air oxygen. Status post bronchoscopy with BAL. Cultures pending. 2 History of COVID-19 infection based on titers. Initial symptoms from March 2020. 3 Chronic obstructive pulmonary disease 4 History of chronic tobacco dependence up to 3 packs per day. Quit 2 months ago 5 History of gout Plan: The patient was seen and evaluated by Dr. Berg Chest x-ray and labs reviewed Received alteplase again today CAT scan of the chest in the a.m. Continue the current treatment plan We'll continue to follow
[2020-07-30 13:52] LABS: Basophils # (A) 0.03 X 10*3/uL (0.00-0.10); Basophils % (A) 0.1 %; Eosinophils # (A) 0 X 10*3/uL (0.04-0.35); Eosinophils % (A) 0 %; Lymphocytes # (A) 1.59 X 10*3/uL (0.90-5.00); Lymphocytes % (A) 6.9 %; Monocytes % (A) 1.7 %; Neutrophils # (A) 20.45 X 10*3/uL (1.80-7.70); Neutrophils % (A) 88.6 %
[2020-07-30 16:15] LABS: Glucose,Whole Blood 124 mg/dL (75-99)
[2020-07-30 20:17] LABS: Glucose,Whole Blood 135 mg/dL (75-99)
[2020-07-30] MEDS: TEMAZEPAM 15 MG CAP PO PRN (21:03)
[2020-07-31] MEDS: methylPREDNISolone SOD SUCCI 40 MG/ML 1 ML VIAL IV SCH ×3 (00:47→16:51)
[2020-07-31] MEDS: PIPERACILLIN-TAZOBACTAM 3.375 GM in SODIUM CHLORIDE 0.9% 100 ML IVPB SCH ×3 (00:47→16:51)
[2020-07-31 07:06] LABS: Glucose,Whole Blood 107 mg/dL (75-99)
[2020-07-31] MEDS: INSULIN ASPART (NovoLOG) 100 UNIT/ML VIAL SQ SCH ×4 (07:09→21:36)
[2020-07-31] MEDS: PANTOPRAZOLE 40 MG TABLET PO SCH (07:27)
[2020-07-31] MEDS: MULTIVITAMINS, THERA 1 EACH TAB PO SCH (07:27)
[2020-07-31] MEDS: ENOXAPARIN 40 MG/0.4 ML SYRINGE SQ SCH (07:27)
[2020-07-31] MEDS: guaiFENesin 600 MG TABLET.ER PO SCH ×2 (07:27→21:41)
[2020-07-31] MEDS: allopurinoL 300 MG TAB PO SCH (07:27)
--- NOTE | 2020-07-31 07:43 | P.PN ---
Subjective Progress Note Date: 07/31/20 Principal diagnosis: Large right-sided loculated pleural fluid collection, suspected empyema, status post right chest pigtail catheter placement by interventional radiology, leukoc ytosis. Previous medical history of chronic obstructive pulmonary disease, COVID 19 infection from March 2020 with subsequent COVID 19 vaccination around 3 weeks ago, previous tobacco dependence with recent cessation, gout, obstructive sleep apnea, status post corrective surgery, 30 pound weight loss in the last 6-8 weeks The patient currently sitting up in bed eating breakfast in no acute distress. Denies pain, shortness of breath. Remains afebrile on room air, actively using incentive spirometer. Right anterior chest wall pigtail catheter in place, status post 5 installations of alteplase/dornase. Patient has been ambulatory in his room. Bronchoscopy completed by Dr. Berg, no endobronchial tumors found, copious amounts of purulent secretions were suctioned, patient has evid ence of right middle lobe syndrome. Patient is to have CT of chest today per pulmonology. No other new concerns Objective - Vital Signs Vital signs: Vital Signs Temp 98.2 F 07/31/20 01:59 Pulse 88 07/31/20 01:59 Resp 18 07/31/20 01:59 BP 132/67 07/31/20 01:59 Pulse Ox 96 07/31/20 01:59 Intake & Output 07/30/20 07/31/20 07/31/20 18:59 06:59 18:59 Intake Total 200 Output Total 0 Balance 200 0 Weight 74 kg Intake: Oral 200 Output: Chest Tube Drainage 0 Chest Tube Right Anterior 0 Chest Drainage 0 Right Chest 0 Other: Voiding Method Toilet # Voids 3 1 - Exam CONSTITUTIONAL: Appears comfortable, cooperative, no acute distress RESPIRATORY: Lungs sounds slightly diminished bilaterally. Respirations even, nonlabored. Currently on room air with oxygen saturation 96%. Able to achieve 2500 mL on incentive spirometry. Strong productive cough. CARDIOVASCULAR: S1, S2 present. Regular rate and rhythm. Palpable peripheral pulses bilaterally. Bilateral lower extremity edema present. No calf pain or tenderness noted. GASTROINTESTINAL: Abdomen soft, nontender, nondistended. Active bowel sounds present 4 quadrants. Tolerating diet. GENITOURINARY: Continues to void INTEGUMENTARY: Skin is warm and dry with evidence of good perfusion. NEUROLOGIC: Cranial nerves II through XII intact MUSKULOSKELETAL: Able to move all extremities, strength equal bilaterally, gait normal PSYCHIATRIC: Alert and oriented to person place and time, appropriate affect, intact judgment and insight INVASIVE LINES AND TUBES: Right anterior pigtail catheter present and connected to wall suction, no air leaks present, 50 mL blood tinged drainage in the last 24 hours. - Allied health notes Allied health notes reviewed: nursing - Labs CBC & Chem 7: 07/30/20 06:57 07/30/20 06:57 Labs: Abnormal Lab Results - Last 24 Hours (Table) 07/30/20 07/30/20 07/30/20 Range/Units 06:57 11:25 16:14 WBC 23.10 H (4.50-10.00) X 10*3/uL Hgb 11.1 L (13.0-17.0) g/dL Hct 39.4 L (39.6-50.0) % MCH 23.8 L (27.0-32.0) pg MCHC 28.2 L (32.0-37.0) g/dL RDW 20.2 H (11.5-14.5) % Plt Count 508 H (140-440) X 10*3/uL Plt Count Comment INCREASED A Immature Gran # 0.63 H (0.00-0.04) X 10*3/uL Neutrophils # 20.45 H (1.80-7.70) X 10*3/uL Eosinophils # 0 L (0.04-0.35) X 10*3/uL POC Glucose (mg/dL) 157 H 124 H (75-99) mg/dL 07/30/20 07/31/20 Range/Units 20:16 07:05 WBC (4.50-10.00) X 10*3/uL Hgb (13.0-17.0) g/dL Hct (39.6-50.0) % MCH (27.0-32.0) pg MCHC (32.0-37.0) g/dL RDW (11.5-14.5) % Plt Count (140-440) X 10*3/uL Plt Count Comment Immature Gran # (0.00-0.04) X 10*3/uL Neutrophils # (1.80-7.70) X 10*3/uL Eosinophils # (0.04-0.35) X 10*3/uL POC Glucose (mg/dL) 135 H 107 H (75-99) mg/dL Microbiology - Last 24 Hours (Table) 07/25/20 17:03 Anaerobic Culture - Final Pleural Fluid Anaerobic Gm Negative Bacilli Anaerobic Gm Negative Bacilli#2 Assessment and Plan Assessment: 1. Large right-sided loculated pleural fluid collection, suspected empyema, status post right chest pigtail catheter placement by interventional radiology, with subsequent alteplase/dornase instillation, S/P bronchoscopy with suspected right middle lobe syndrome. Sputum culture negative, pleural fluid growing anaerobic gram negative bacilli, bronchial washings negative 2. Dyspnea, secondary to above 3. Leukocytosis, secondary to above 4. Chronic obstructive pulmonary disease 5. COVID 19 infection March 2020, status post COVID 19 vaccination around 3 weeks ago 6. Previous tobacco dependence with recent cessation 7. History of gout 8. History of obstructive sleep apnea, status post corrective surgery 9. Unplanned 30 pound weight loss in the last 6-8 weeks Plan: 1. Will review CT scan once completed, further recommendations for continued lytic instillation 2. Encourage use of his incentive spirometry 10 times every hour while awake. 3. Continue IV antibiotics, steroids, bronchodilators per pulmonology 4. Continue to follow daily chest x-rays. 5. More recommendations to follow Time with Patient: Greater than 30
--- NOTE | 2020-07-31 08:09 | XR ---
EXAMINATION TYPE: XR chest 1V portable DATE OF EXAM: 07/31/2020 COMPARISON: 07/30/2020 INDICATION: Empyema TECHNIQUE: Single frontal view of the chest is obtained. FINDINGS: The heart size is normal. The pulmonary vasculature is normal. There is continued thickening along the right pleural margin. Catheter is present. No pneumothorax is evident. There are increased lung markings at the right base which are increased from the comparison . There is blunting of the right costophrenic angle. IMPRESSION: 1. Worsening increased lung markings at the right lung base with small amount of fluid present. 2. Persistent thickening along the right pleural margin with catheter present.
[2020-07-31] MEDS: IPRATROPIUM-ALBUTEROL 3 ML NEB INHALATION SCH ×4 (08:29→19:12)
[2020-07-31] MEDS: FORMOTEROL FUMARATE 20 MCG/2 ML NEBU INHALATION SCH ×2 (08:29→19:12)
[2020-07-31] MEDS: BUDESONIDE 1 MG/2 ML NEBU INHALATION SCH ×2 (08:29→19:12)
--- NOTE | 2020-07-31 11:10 | CT ---
EXAMINATION TYPE: CT chest w con DATE OF EXAM: 07/31/2020 COMPARISON: 07/26/2020 HISTORY: Empyema CT DLP: 356.3 mGycm, Automated exposure control for dose reduction was used. CONTRAST: Performed injected with 100 mL of Isovue 300. TECHNIQUE: Axial images were obtained at 5 mm thick sections. Reconstructed images are reviewed on t computer in the coronal plane. FINDINGS: Portion of the thyroid visualized is normal. Right-sided chest tube remains present. Minimal thickening remains present. This has diminished from the comparison. No significant residual fluid is identified. Some emphysematous changes within the lung [place]. Right lower lobe infiltrate is present likely on t basis of atelectasis. No enlarged mediastinal or hilar adenopathy is evident. The ascending aorta diameter at the level o f the main pulmonary artery is 3.1 cm. The main pulmonary artery diameter at the bifurcation is 2.5 cm. Very minimal pericardial effusion may be present. Limited CT sections are obtained through the upper abdomen. There may be a couple of hepatic cysts pr esent. Upper abdomen is otherwise unremarkable. IMPRESSIONS: 1. No significant residual fluid right pleural space. Chest tube remains in position. 2. Right basilar infiltrate likely atelectasis.
[2020-07-31 11:34] LABS: Glucose,Whole Blood 168 mg/dL (75-99)
--- NOTE | 2020-07-31 13:17 | P.PN ---
Subjective Progress Note Date: 07/31/20 Principal diagnosis: fluid collection resolving right pleural space , empyema versus necrotizing abscess improvement noted, known COVID-19 infection March 2020 with subsequent vaccination completed 3 months ago 2-3 pack cigarette smoker up until approximately 2 weeks ago known history of gout obstructive sleep apnea post- corrective surgery recent 30 pound weight loss. Patient up in bed in no apparent distress denies pain denies dyspnea improving daily currently afebrile current right anterior chest wall pigtail catheter in place status post core instillations of alteplase/dornase. Patient up in room. Bronchoscopy completed no endobronchial tumors significant amount of purulent secretion suctioned with bronch, cultures suggests gram-negative bacilli in the anaerobic waiting on final Appropriate IV antibiotics infusing Objective - Vital Signs Vital signs: Vital Signs Temp 97.6 F 07/31/20 08:00 Pulse 82 07/31/20 12:04 Resp 18 07/31/20 08:00 BP 136/78 07/31/20 08:00 Pulse Ox 96 07/31/20 08:00 Intake & Output 07/30/20 07/31/20 07/31/20 18:59 06:59 18:59 Intake Total 200 200 Output Total 0 Balance 200 0 200 Weight 74 kg Intake: Oral 200 200 Output: Chest Tube Drainage 0 Chest Tube Right Anterior 0 Chest Drainage 0 Right Chest 0 Other: Voiding Method Toilet # Voids 3 1 - Exam General: [Patient awake, alert and oriented times 3. Patient in no acute distress.] HEENT: [PERRL. EOMI. No pharyngeal erythema or exudate.] Neck: [No adenopathy.] Cardiac: [Heart regular in rate and rhythm. No S3. No S4. No clicks, rubs. No murmur.] Lungs: [Clear to auscultation bilaterally. Right anterior chest wall pigtail catheter in place Abdomen: [No mass. No organomegaly. Bowel sounds presnt and normoactive in all 4 quadrants.] Extremes: [No edema no cyanosis no claudication normal pulses] : Normal male genitalia Musculoskeletal: [No joint erythema, edema or tenderness.] Skin: [No rash.] Neurologic: [No lateralizing deficits. CN II - XII grossly intact.] Lymphatic: [No adenopathy.] - Labs CBC & Chem 7: 07/30/20 06:57 07/30/20 06:57 Labs: Abnormal Lab Results - Last 24 Hours (Table) 07/30/20 07/30/20 07/30/20 Range/Units 06:57 16:14 20:16 Plt Count Comment INCREASED A Immature Gran # 0.63 H (0.00-0.04) X 10*3/uL Neutrophils # 20.45 H (1.80-7.70) X 10*3/uL Eosinophils # 0 L (0.04-0.35) X 10*3/uL POC Glucose (mg/dL) 124 H 135 H (75-99) mg/dL 07/31/20 07/31/20 Range/Units 07:05 11:32 Plt Count Comment Immature Gran # (0.00-0.04) X 10*3/uL Neutrophils # (1.80-7.70) X 10*3/uL Eosinophils # (0.04-0.35) X 10*3/uL POC Glucose (mg/dL) 107 H 168 H (75-99) mg/dL Microbiology - Last 24 Hours (Table) 07/25/20 17:03 Anaerobic Culture - Final Pleural Fluid Anaerobic Gm Negative Bacilli Anaerobic Gm Negative Bacilli#2 Assessment and Plan (1) Empyema lung Current Visit: Yes Status: Acute Code(s): J86.9 - PYOTHORAX WITHOUT FISTULA SNOMED Code(s): 89605386 (2) Fatigue Current Visit: Yes Status: Acute Code(s): R53.83 - OTHER FATIGUE SNOMED Code(s): 69146863 (3) Gout Current Visit: Yes Status: Acute Code(s): M10.9 - GOUT, UNSPECIFIED SNOMED Code(s): 42090487 (4) Leukocytosis Current Visit: Yes Status: Acute Code(s): D72.829 - ELEVATED WHITE BLOOD CELL COUNT, UNSPECIFIED SNOMED Code(s): 869920477 (5) Microcytic anemia Current Visit: Yes Status: Acute Code(s): D50.9 - IRON DEFICIENCY ANEMIA, UNSPECIFIED SNOMED Code(s): 723013952 (6) Thrombocytosis Current Visit: Yes Status: Acute Code(s): D47.3 - ESSENTIAL (HEMORRHAGIC) THROMBOCYTHEMIA SNOMED Code(s): 9163853 (7) Weight loss Current Visit: Yes Status: Acute Code(s): R63.4 - ABNORMAL WEIGHT LOSS SNOMED Code(s): 88654157 Plan: Large right ocular dated pleural fluid collection, significant improvement on CT this Status post right chest pigtail catheter placement with subsequent ate plase/dornase instillation, status post bronchoscopy with suspected right middle lobe syndrome sputum culture negative pleural fluid growing anaerobic gram- negative bacilli bronchial washings currently negative Dyspnea secondary to above Leukocytosis reactive Chronic obstructive pulmonary disease by history COVID-19 infection March 2020, status post COVID-19 vaccination 3 weeks ago Heavy tobacco user recent cessation 2 weeks ago Known history of gout Known history of obstructive sleep apnea, status post 30 pounds weight loss, status post corrective surgery Plan Continued fibrolytic therapy per CVT Continue continue IV antibiotics Encouraged incentive spirometry Waiting on final culture report Time with Patient: Greater than 30
[2020-07-31 16:31] LABS: Glucose,Whole Blood 102 mg/dL (75-99)
[2020-07-31 20:38] LABS: Glucose,Whole Blood 119 mg/dL (75-99)
[2020-07-31] MEDS: TEMAZEPAM 15 MG CAP PO PRN (21:41)
[2020-08-01] MEDS: methylPREDNISolone SOD SUCCI 40 MG/ML 1 ML VIAL IV SCH ×2 (01:42→07:38)
[2020-08-01] MEDS: PIPERACILLIN-TAZOBACTAM 3.375 GM in SODIUM CHLORIDE 0.9% 100 ML IVPB SCH ×2 (01:43→07:52)
[2020-08-01 07:07] LABS: Glucose,Whole Blood 106 mg/dL (75-99)
[2020-08-01] MEDS: INSULIN ASPART (NovoLOG) 100 UNIT/ML VIAL SQ SCH ×4 (07:16→21:11)
[2020-08-01] MEDS: MULTIVITAMINS, THERA 1 EACH TAB PO SCH (07:38)
[2020-08-01] MEDS: guaiFENesin 600 MG TABLET.ER PO SCH ×2 (07:38→21:14)
[2020-08-01] MEDS: allopurinoL 300 MG TAB PO SCH (07:38)
[2020-08-01] MEDS: ENOXAPARIN 40 MG/0.4 ML SYRINGE SQ SCH (07:38)
[2020-08-01] MEDS: PANTOPRAZOLE 40 MG TABLET PO SCH (07:38)
[2020-08-01] MEDS: IPRATROPIUM-ALBUTEROL 3 ML NEB INHALATION SCH ×4 (08:03→20:36)
[2020-08-01] MEDS: BUDESONIDE 1 MG/2 ML NEBU INHALATION SCH ×2 (08:03→20:35)
[2020-08-01] MEDS: FORMOTEROL FUMARATE 20 MCG/2 ML NEBU INHALATION SCH ×2 (08:03→20:35)
--- NOTE | 2020-08-01 08:06 | P.PN ---
Subjective Progress Note Date: 08/01/20 Principal diagnosis: Large right-sided loculated pleural fluid collection, suspected empyema, status post right chest pigtail catheter placement by interventional radiology, leukoc ytosis. Previous medical history of chronic obstructive pulmonary disease, COVID 19 infection from March 2020 with subsequent COVID 19 vaccination around 3 weeks ago, previous tobacco dependence with recent cessation, gout, obstructive sleep apnea, status post corrective surgery, 30 pound weight loss in the last 6-8 weeks The patient currently sitting up in bed eating breakfast in no acute distress. Denies pain, shortness of breath. Remains afebrile on room air, actively using incentive spirometer. Right anterior chest wall pigtail catheter in place, status post 5 installations of alteplase/dornase with no output in the last 24 hours. Patient has been ambulatory in his room. Bronchoscopy completed by Dr. Berg, no endobronchial tumors found, copious amounts of purulent secretions were suctioned, patient has evidence of right middle lobe syndrome. CT of chest reviewed and discussed with Dr. Spears. No other new concerns Objective - Vital Signs Vital signs: Vital Signs Temp 98.3 F 08/01/20 02:00 Pulse 101 H 08/01/20 07:55 Resp 19 08/01/20 07:55 BP 138/82 08/01/20 02:00 Pulse Ox 97 08/01/20 02:00 Intake & Output 07/31/20 08/01/20 08/01/20 18:59 06:59 18:59 Intake Total 200 Balance 200 Weight 74.1 kg Intake: Oral 200 Other: Voiding Method Toilet Toilet # Voids 3 3 - Exam CONSTITUTIONAL: Appears comfortable, cooperative, no acute distress RESPIRATORY: Lungs sounds slightly diminished bilaterally. Respirations even, nonlabored. Currently on room air with oxygen saturation 97%. Able to achieve 2500 mL on incentive spirometry. Strong productive cough. CARDIOVASCULAR: S1, S2 present. Regular rate and rhythm. Palpable peripheral pulses bilaterally. Bilateral lower extremity edema present. No calf pain or tenderness noted. GASTROINTESTINAL: Abdomen soft, nontender, nondistended. Active bowel sounds present 4 quadrants. Tolerating diet. GENITOURINARY: Continues to void INTEGUMENTARY: Skin is warm and dry with evidence of good perfusion. NEUROLOGIC: Cranial nerves II through XII intact MUSKULOSKELETAL: Able to move all extremities, strength equal bilaterally, gait normal PSYCHIATRIC: Alert and oriented to person place and time, appropriate affect, intact judgment and insight INVASIVE LINES AND TUBES: Right anterior pigtail catheter present and connected to wall suction, no air leaks present, no drainage in the last 24 hours. - Labs CBC & Chem 7: 07/30/20 06:57 07/30/20 06:57 Labs: Abnormal Lab Results - Last 24 Hours (Table) 07/31/20 07/31/20 07/31/20 Range/Units 11:32 16:29 20:21 POC Glucose (mg/dL) 168 H 102 H 119 H (75-99) mg/dL 08/01/20 Range/Units 07:06 POC Glucose (mg/dL) 106 H (75-99) mg/dL - Imaging and Cardiology CT scan - chest: report reviewed, image reviewed Assessment and Plan Assessment: 1. Large right-sided loculated pleural fluid collection, suspected empyema, status post right chest pigtail catheter placement by interventional radiology, with subsequent 5 doses alteplase/dornase instillation, S/P bronchoscopy with suspected right middle lobe syndrome. Sputum culture negative, pleural fluid growing anaerobic gram negative bacilli, bronchial washings negative 2. Dyspnea, secondary to above 3. Leukocytosis, secondary to above 4. Chronic obstructive pulmonary disease 5. COVID 19 infection March 2020, status post COVID 19 vaccination around 3 weeks ago 6. Previous tobacco dependence with recent cessation 7. History of gout 8. History of obstructive sleep apnea, status post corrective surgery 9. Unplanned 30 pound weight loss in the last 6-8 weeks Plan: 1. Reviewed CT scan. Order placed for IR to remove pigtail catheter. No further surgical intervention planned. 2. Encourage use of his incentive spirometry 10 times every hour while awake. 3. Continue IV antibiotics, steroids, bronchodilators per pulmonology 4. Continue to follow daily chest x-rays. 5. More recommendations to follow Time with Patient: Greater than 30
[2020-08-01 08:16] LABS: Anisocytosis Slight; Basophils % (A) 0 %; Eosinophils % (A) 0 %; HGB 11.8 gm/dL (13.0-17.5); Hypochromasia Marked; Lymphocytes # (A) 0.8 k/uL (1.0-4.8); Lymphocytes % (A) 4 %; MCH 25.5 pg (25.0-35.0); MCHC 30.9 g/dL (31.0-37.0); MCV 82.5 fL (80.0-100.0); Mean Platelet Volume 6.9; Monocytes # (A) 0.4 k/uL (0-1.0); Monocytes % (A) 2 %; Neutrophils # (A) 17.5 k/uL (1.3-7.7); Neutrophils % (A) 92 %; Platelet Count 414 k/uL (150-450); RBC 4.61 m/uL (4.30-5.90); RDW 19.8 % (11.5-15.5); WBC 18.9 k/uL (3.8-10.6)
[2020-08-01 08:30] LABS: African American GFR (CKD) 88 (>60 ml/min/1.73 sqM); Anion Gap 5 mmol/L; Blood Urea Nitrogen 26 mg/dL (9-20); Calcium 8.7 mg/dL (8.4-10.2); Carbon Dioxide 31 mmol/L (22-30); Chloride 105 mmol/L (98-107); Glucose 89 mg/dL (74-99); Non-African American GFR(CKD) 76 (>60 ml/min/1.73 sqM); Potassium 5.3 mmol/L (3.5-5.1); Sodium 141 mmol/L (137-145)
--- NOTE | 2020-08-01 10:48 | P.PN ---
Progress Note - Text Progress Note Date: 08/01/20 s/p right chest tube pigtail removal without incident, chest xray pending
--- NOTE | 2020-08-01 11:20 | XR ---
EXAMINATION TYPE: XR chest 1V portable DATE OF EXAM: 08/01/2020 COMPARISON: Prior chest x-ray 07/31/2020 HISTORY: Status post chest tube removal TECHNIQUE: Single frontal view of the chest is obtained. FINDINGS: There is been interval removal of the right-sided pigtail catheter. No other significant i nterval change. IMPRESSION: No evident complication status post chest tube removal.
[2020-08-01 11:55] LABS: Glucose,Whole Blood 135 mg/dL (75-99)
--- NOTE | 2020-08-01 13:49 | P.PN ---
Subjective Progress Note Date: 08/01/20 This is a pleasant 69-year-old white male patient of nurse practitioner, CHIARA Baig, is been having shortness of breath for the past 4-6 weeks after COVID-19. He was seen by Dr. Saba one day ago and sent to the emergency room after there is evidence of empyema in the right lung. Emergency room CTA showed on the empyema, and no evidence of pulmonary embolism. He is admitted to the stepdown unit is currently resting comfortably. He is complaining quite a bit of cough. He is complaining of chest pains with cough. He denies any significant nausea or vomiting. Indicates he's lost about 30 pounds over the past 2-3 months. Vital signs overnight show he's been afebrile. Labs show a white count of 21.6 and hemoglobin 10.1. There is predominantly neutrophilia. Chemistries are essentially normal, the exception of a glucose 158 late a.m. COVID-19, RSV and influenza PCR were all negative. 07/24/2020: Patient remained stable overnight. He denies any current significant chest pains pressures or shortness of breath at rest. He indicates cough is little bit better. He denies any significant nausea or vomiting. Denies any difficulty with urination or constipation this time. Pulmonology has seen him as have thoracic surgery. Currently thoracic surgery is planning a to catheter versus. Interventional radiology and fibrotic treatment. Vitals remained stable. He remains on room air. He is afebrile. Weight is down almost 4 kg from admission. Laboratory studies continue to show a signific ant leukocytosis at 21 predominantly left shift of neutrophils. He has a microcytic anemia hemoglobin 10.1 and MCV 82.8. Platelets are increased at 594 this time. Chemistries were essentially normal. Patient remains on albuterol, budesonide, millimeter all, doing, methylprednisolone, Zosyn, and vancomycin. His guaifenesin ordered for cough. He is currently on Lovenox 40 mg daily for anticoagulation. 07/25/2020 maintained on nebulized bronchodilators, IV steroids, antibiotics sitting up at side of bed, maintaining O2 sats of 96% on room air. Awaiting placement of pigtail catheter via interventional radiology, in regards to right loculated pleural effusion. Cardiothoracic surgery following. Scheduled for bronchoscopy tomorrow. Sputum culture pending. No hemoptysis. Continues on van comycin and Zosyn. Afebrile, WBC decreased to 19.27. Blood cultures reporting no growth at 72 hours, sputum culture pending . Blood sugars controlled.Denies any chest pain/discomfort. 07/26/2020 CT-guided chest pigtail catheter placed yesterday via interventional radiology, tolerated procedure well. Apparently the catheter fell out shortly after. Follow-up chest x-ray reported no significant change of partially loculated right pleural effusion with associated opacities, pneumonia, no pneumo thorax. Pleural fluid cultures/cytology pending. Productive cough with thick yellow sputum .Continues on vancomycin and Zosyn, sputum culture reporting many normal respiratory chris, Gram stain reporting many polymorphonuclear leukocytes ,moderate gram positive Bacilli with few gram-positive cocci .Afebrile. Labs pending. NPO, scheduled for bronchoscopy today with pulmonary. Maintaining O2 sats in the mid 90s on room air, incentive spirometer up to 2000. 07/27/2020 Right chest pigtail catheter replaced yesterday, tolerated procedure well. Instilled with alteplase/dornase. Less shortness of breath. Is up to 1999. Chest x-ray reporting coiled chest tube distally over the right periph eral empyema focal fluid collection, moderately increased airspace opacity over the right lung base, possibly atelectasis versus worsening consolidation .Maintaining O2 sats in the high 90s on room air. Continues on Zosyn, vancomycin nebulized bronchodilators, steroids. Afebrile, cultures and labs pending. Bronchoscopy today. 07/28/2020 maintained on nebulized bronchodilators, steroids, antibiotics and addition to pleural fibrinolytics as per CTS. Right pleural fluid cytology reporting empyema with no cytologically malignant cells identified. Underwent diagnostic bronchoscopy yesterday reporting no endobronchial tumors, lesions or abnormalities noted, possible right middle lobe syndrome causing pneumonia- postobstructive and secondary empyema. Tolerated procedure well. Afebrile, yulia ntaining O2 sats in the high 90s on room air. Incentive spirometer up to 1500.Chest x-ray pending.WBC trending down, 17. Denies chest pain, palpitation or shortness of breath. BUN 24 creatinine 1.05. Yesterday, patient joked about needing a Bryn Walker, used to drink a couple cocktails daily. He reports his last drink was 2 months ago. Reported melatonin did not help him sleep, slept well with Restoril. 07/29/2020 T-max 99.2. Maintaining O2 sats in the high 90s on room air. Reports less coughing, productive. Labs pending. Incentive spirometer up to 1500. Chest x-ray reporting chronic changes with small right pleural fluid collection despite pleural drainage catheter, associated right basilar atelectasis and/or infiltrate, improving left lung base aeration. Labs pending. AFB smear reporting no acid-fast bacilli. Anaerobic bronch wash reporting no growth at 48 hours, Gram stain bronch wash no organisms seen, pleural fluid cultures reporting no growth at 72 hours. Anaerobic pleural fluid when culture reporting gram-negative bacilli. 08/01/2020 maintained on Zosyn. Cultures finalizing, afebrile, WBC 18.9. Yesterday chest CT reported no significant residual fluid right pleural space, right basilar infiltrate likely atelectasis. Maintaining O2 sats in the high 90s on room air. Evaluated by cardiothoracic surgery and right pigtail catheter has been ordered to be discontinued. BUN 26 creatinine 1.02. Objective - Vital Signs Vital signs: Vital Signs Temp 97.5 F L 08/01/20 08:40 Pulse 88 08/01/20 11:51 Resp 16 08/01/20 08:40 BP 148/81 08/01/20 08:40 Pulse Ox 97 08/01/20 08:40 Intake & Output 07/31/20 08/01/20 08/01/20 18:59 06:59 18:59 Intake Total 200 Balance 200 Weight 74.1 kg Intake: Oral 200 Other: Voiding Method Toilet Toilet # Voids 3 3 - Exam - Exam GENERAL: Alert and oriented 3, sitting up at side of bed, no acute distress NECK: Supple, no JVD LUNGS: Nonlabored, Breath sounds decreased with bilateral bases diminished. Right anterior chest pigtail catheter present. HEART: Regular rate and rhythm without murmurs, rubs or gallops.S1S2 Normal. ABDOMEN: Soft, nontender, normoactive bowel sounds. No guarding, no rebound. No masses appreciated. EXTREMITIES: Normal range of motion, no pitting or edema. No clubbing or cyanosis. NEUROLOGICAL: Cranial nerves II through XII grossly intact. No focal deficits. PSYCH: Normal mood, normal affect. SKIN: Warm, Dry, normal turgor, no rashes noted. - Labs CBC & Chem 7: 08/01/20 07:06 08/01/20 07:06 Labs: Abnormal Lab Results - Last 24 Hours (Table) 07/31/20 07/31/20 08/01/20 Range/Units 16:29 20:21 07:06 WBC 18.9 H (3.8-10.6) k/uL Hgb 11.8 L (13.0-17.5) gm/dL Hct 38.0 L (39.0-53.0) % MCHC 30.9 L (31.0-37.0) g/dL RDW 19.8 H (11.5-15.5) % Neutrophils # 17.5 H (1.3-7.7) k/uL Lymphocytes # 0.8 L (1.0-4.8) k/uL Potassium (3.5-5.1) mmol/L Carbon Dioxide (22-30) mmol/L BUN (9-20) mg/dL POC Glucose (mg/dL) 102 H 119 H (75-99) mg/dL 08/01/20 08/01/20 08/01/20 Range/Units 07:06 07:06 11:53 WBC (3.8-10.6) k/uL Hgb (13.0-17.5) gm/dL Hct (39.0-53.0) % MCHC (31.0-37.0) g/dL RDW (11.5-15.5) % Neutrophils # (1.3-7.7) k/uL Lymphocytes # (1.0-4.8) k/uL Potassium 5.3 H (3.5-5.1) mmol/L Carbon Dioxide 31 H (22-30) mmol/L BUN 26 H (9-20) mg/dL POC Glucose (mg/dL) 106 H 135 H (75-99) mg/dL Assessment and Plan Assessment: Right-sided empyema with right-sided loculated pleural effusion, status post right chest pigtail catheter placement with cytology reporting empyema. 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 Leukocytosis, thrombocytosis, microcytic anemia secondary to the above Unintentional weight loss of 30 pounds in one month. History of Covid-19 infection, March 2020, status post vaccination 3 weeks ago COPD, history of History of daily alcohol use, reports last drink 2 months ago Chronic nicotine dependence, 3 packs per dayX many years, quit 3 months ago History of gout Plan: Continue on current medication regime ,monitoring and symptomatic treatment. Pigtail catheter removal pending.Maintain nebulized bronchodilators, steroids, antibiotics.Cultures finalizing.Aggressive pulmonary toileting, incentive spirometer reinforced.Prognosis guarded given multiple complex medical issues. The impression and plan of care has been dictated as directed. : I performed a history and examination of this patient, discussed the same with the dictator. I agree with the dictator's note ,documented as a scribe. Any additional findings or plans will be noted.
[2020-08-01 17:12] LABS: Glucose,Whole Blood 74 mg/dL (75-99)
--- NOTE | 2020-08-01 18:31 | P.PN ---
Subjective Progress Note Date: 08/01/20 Principal diagnosis: Right-sided pleural effusion, empyema This is a pleasant 69-year-old male, known history of COPD, benign essential hypertension, patient salas been feeling ill for the last few months. Back in March, patient had symptoms suggestive of COVID-19 infection including cough, fatigue, aches and pains, fever and chills, but apparently no medical attention was sought at the time. Patient was recently seen by Dr. Stokes and he was complaining of cough, he was also complaining of left-sided chest pain. Patient had positive IgG titer for COVID-19 infection which clearly implies that the patient had previous exposure and COVID-19 infection. Part of the workup also included a chest x-ray, and it came back quite abnormal showing a large area of abnormality involving the right lung, the differential diagnoses includes empyema, lung abscess, and possibly a large tumor involving the right lower lobe with necrosis and air fluid level noted. He was referred to Dr. Ortega in our office for the same. He was seen as a new patient yesterday. Based on the chest x-ray findings Dr. Ortega preferred the patient obtain a computed tomography scan of the chest and probable admission for IV antibiotics and possible CT-guided needle biopsy or bronchoscopy with transbronchial biopsies. CAT scan does reveal a large right-sided suspected subpleural fluid collection or empyema with mixed soft tissue, fluid in ear density. No evidence of pulmonary embolism. There is evidence of COPD. Mediastinal lymphadenopathy. Ultrasound of the chest revealed minimal effusion at 2.9 cm and a complex fluid pocket suggestive of empyema. White count 21.6. Hemoglobin 10.1. Sodium 138. Potassium 4.0. Creatinine 0.96. ProBNP 779. Influenza screen negative. Coronavirus screen negative. Patient is seen today in consultation on the regular medical floor. He is currently sitting up in bed. Awake and alert in no acute distress. Currently maintaining O2 saturations in the mid 90s on room air. He's been afebrile. He's been initiated on vancomycin and Zosyn. On 07/24/2020 patient seen in follow-up on medical surgical floor. He states he is feeling better today, but still congested and wheezy, he is bringing up large amount of phlegm, he was able to produce sputum for culture, which was sent to the lab, and is pending at this time, blood cultures so far have shown no growth, final cultures are pending, has had no fevers overnight. Vital signs have been stable, he is maintaining stable O2 saturations, his pulse ox is 95% on room air, no complex of chest pain or hemoptysis. He continues on the antibiotics in the form of Zosyn and vancomycin. He is on IV steroids and breathing treatments. 0.9 normal saline at 20 ML per hour. Today's labs have been reviewed the patient's white blood cell count is 21.02, hemoglobin is 10.1, electrolytes and renal profile are within normal limits, the viral panel including influenza RSV and COVID-19 were negative. On 07/25/2020 patient seen in follow-up on medical surgical floor. He is awake and alert, and in no acute distress, he is not on any oxygen, he states his breathing is improving, although physical exam still reveals diffuse rhonchi and wheezes, patient remains on IV steroids and antibiotics. His had no fevers overnight, interventional radiology was consulted for placement of right-sided pigtail chest tube catheter for loculated pleural effusion likely related to empyema. CT surgery is also following the patient. Overnight he's had no acute events, his labs have been reviewed, his white count is improving but still elevated at 19.7, hemoglobin is 9.8, his electrolyte and renal profile were unremarkable. His blood and sputum cultures have shown no growth thus far, final cultures are pending. He still bringing up phlegm, no hemoptysis. Denies any chest discomfort, denies any pleuritic chest pain On 07/26/2020 patient seen in follow-up on medical surgical floor, his pigtail chest tube got dislodged and fell out, pleural fluid was sent for cultures, pleural fluid analysis showed high content of fluid nucleated cells, of 477,500, polynuclear WBCs were 84, mononuclear WBCs were 16, LDH was greater than 4500, and pleural fluid analysis was consistent with empyema. Had no fever or chills overnight, pleural fluid cultures are pending, Gram stain showed no organisms. Today's labs have been reviewed. He continues on Zosyn and vancomycin, he continues on breathing treatments and IV steroids 40 mg every 8 hours. On 07/28/2020 and the patient seen in follow-up on the surgical floor, he is status post bronchoscopy with bronchoalveolar lavage on 07/27/2020, patient tolerated procedure very well, he was found to have significant the right middle lobe. Large amount of thick secretions were removed from the airways. Patient states he is breathing easier today, his been afebrile, he still has a right- sided chest tube in place, and there has been additional 60 mL of thinners serosanguineous output since yesterday. Pleural fluid cultures remained negative, cytology showed inflammatory cells, no cytologically malignant cells were identified. Today's chest x-ray shows chest tube the distal tip over the right peripheral empyema focal fluid collection. In the empyema was mildly decreased in size versus 07/27/2020 comparison, with improved aeration of the right lung base. And there were persistent linear opacities. Patient remains on antibiotics in the form of Zosyn and vancomycin. No complaint of chest pain, he is breathing comfortably, lung sounds revealed minimal wheezing, less congested. On 08/01/2020 patient seen in follow-up on medical surgical floor. He is currently resting very comfortably in bed, he is on room air and his pulse ox is 98%, his been afebrile, hemodynamically his been stable, his right-sided pigtail chest tube has been removed, he's been working on incentive spirometer, his pleural fluid cultures showed anaerobic gram-negative bacilli, she is currently on Zosyn for antibiotic coverage, he's had no fever or chills, no worsening chest discomfort, today's chest x-ray has been reviewed owing no evident complication status post chest tube removal. His cytology of the pleural fluid was negative for cytologically malignant cells. Objective - Vital Signs Vital signs: Vital Signs Temp 97.7 F 08/01/20 14:00 Pulse 88 08/01/20 17:02 Resp 16 08/01/20 14:00 BP 138/73 08/01/20 14:00 Pulse Ox 98 08/01/20 16:50 Intake & Output 07/31/20 08/01/20 08/01/20 18:59 06:59 18:59 Intake Total 200 Balance 200 Weight 74.1 kg Intake: Oral 200 Other: Voiding Method Toilet Toilet # Voids 3 3 - Exam GENERAL EXAM: Alert, very pleasant, 69-year-old white male on room air with a pulse ox of 94%, comfortable in no apparent distress. HEAD: Normocephalic/atraumatic. EYES: Normal reaction of pupils, equal size. Conjunctiva pink, sclera white. NOSE: Clear with pink turbinates. THROAT: No erythema or exudates. NECK: No masses, no JVD, no thyroid enlargement, no adenopathy. CHEST: No chest wall deformity. Symmetrical expansion. There has been interval removal of the right-sided pigtail chest tube catheter LUNGS: Equal air entry with coarse crackles, and wheezes CVS: Regular rate and rhythm, normal S1 and S2, no gallops, no murmurs, no rubs ABDOMEN: Soft, nontender. No hepatosplenomegaly, normal bowel sounds, no guarding or rigidity. EXTREMITIES: No clubbing, no edema, no cyanosis, 2+ pulses and upper and lower extremities. MUSCULOSKELETAL: Muscle strength and tone normal. SPINE: No scoliosis or deformity SKIN: No rashes CENTRAL NERVOUS SYSTEM: Alert and oriented -3. No focal deficits, tone is normal in all 4 extremities. PSYCHIATRIC: Alert and oriented -3. Appropriate affect. Intact judgment and insight. - Labs CBC & Chem 7: 08/01/20 07:06 08/01/20 07:06 Labs: Abnormal Lab Results - Last 24 Hours (Table) 07/31/20 08/01/20 08/01/20 Range/Units 20:21 07:06 07:06 WBC 18.9 H (3.8-10.6) k/uL Hgb 11.8 L (13.0-17.5) gm/dL Hct 38.0 L (39.0-53.0) % MCHC 30.9 L (31.0-37.0) g/dL RDW 19.8 H (11.5-15.5) % Neutrophils # 17.5 H (1.3-7.7) k/uL Lymphocytes # 0.8 L (1.0-4.8) k/uL Potassium 5.3 H (3.5-5.1) mmol/L Carbon Dioxide 31 H (22-30) mmol/L BUN 26 H (9-20) mg/dL POC Glucose (mg/dL) 119 H (75-99) mg/dL 08/01/20 08/01/20 08/01/20 Range/Units 07:06 11:53 17:10 WBC (3.8-10.6) k/uL Hgb (13.0-17.5) gm/dL Hct (39.0-53.0) % MCHC (31.0-37.0) g/dL RDW (11.5-15.5) % Neutrophils # (1.3-7.7) k/uL Lymphocytes # (1.0-4.8) k/uL Potassium (3.5-5.1) mmol/L Carbon Dioxide (22-30) mmol/L BUN (9-20) mg/dL POC Glucose (mg/dL) 106 H 135 H 74 L (75-99) mg/dL Assessment and Plan Plan: Assessment: #1. Right-sided empyema and loculated right-sided pleural fluid collection, status post pigtail chest tube placement on 07/25/2020, and pleural fluid analysis is consistent with empyema, pleural fluid cultures are pending at this time. Pigtail chest tube been dislodged on 07/25/2020, and he is scheduled for reinsertion of the chest tube today on 07/26/2020. Right-sided pigtail chest tube catheter has been removed today on 08/01/2020 #2. History of COVID-19 infection based on titers, initial symptoms from March 2020 #3. History of COPD #4. History of chronic tobacco dependence up to 3 packs per day, quit smoking 2 months ago #5. History of gout Plan: Patient is doing well Clinically stable No fever or chills Right-sided pigtail chest tube has been removed Cultures reviewed, pleural fluid cultures showed anaerobic gram-negative bacilli Patient has been on IV Zosyn, we can switch this to oral Augmentin If remains stable, may consider for discharge home in the morning on 10 more days of oral Augmentin We'll need outpatient follow-up with Dr. Jewell in the office in one week I performed a history & physical examination of the patient and discussed their management with my nurse practitioner, Adela Ruelas. I reviewed the nurse practitioner's note and agree with the documented findings and plan of care. Lung sounds are positive for diffuse wheezes throughout the lung [place]. The findings and the impression was discussed with the patient. I attest to the documentation by the nurse practitioner. Time with Patient: Less than 30
[2020-08-01 20:42] LABS: Glucose,Whole Blood 86 mg/dL (75-99)
[2020-08-01] MEDS: AMOXIC-POT CLAV 875-125MG 1 EACH TAB PO SCH (21:17)
[2020-08-01] MEDS: TEMAZEPAM 15 MG CAP PO PRN (21:24)
[2020-08-02 07:03] LABS: Glucose,Whole Blood 99 mg/dL (75-99)
[2020-08-02 07:48] VITALS: TEMP 98
[2020-08-02] MEDS: BUDESONIDE 1 MG/2 ML NEBU INHALATION SCH (08:02)
[2020-08-02] MEDS: FORMOTEROL FUMARATE 20 MCG/2 ML NEBU INHALATION SCH (08:02)
[2020-08-02] MEDS: IPRATROPIUM-ALBUTEROL 3 ML NEB INHALATION SCH ×2 (08:02→12:06)
--- NOTE | 2020-08-02 08:17 | XR ---
EXAMINATION TYPE: XR chest 2V DATE OF EXAM: 08/02/2020 COMPARISON: Chest x-ray 08/01/2020 HISTORY: Abnormal chest x-ray, pleural effusion TECHNIQUE: Frontal and lateral views of the chest are obtained. FINDINGS: Findings are similar to prior exam, there is pleural thickening along the right lateral ma rgin of the lower chest, there are areas of probable scarring or atelectasis noted predominantly the right lung base. Cardiac mediastinal silhouette is stable. No evident pneumothorax. IMPRESSION: Findings are essentially stable, pleural reaction, scarring, possible associated atelect asis.
[2020-08-02] MEDS: INSULIN ASPART (NovoLOG) 100 UNIT/ML VIAL SQ SCH ×2 (08:24→11:49)
--- NOTE | 2020-08-02 08:32 | P.PN ---
Subjective Progress Note Date: 08/02/20 Principal diagnosis: Large right-sided loculated pleural fluid collection, suspected empyema, status post right chest pigtail catheter placement by interventional radiology, leukoc ytosis. Previous medical history of chronic obstructive pulmonary disease, COVID 19 infection from March 2020 with subsequent COVID 19 vaccination around 3 weeks ago, previous tobacco dependence with recent cessation, gout, obstructive sleep apnea, status post corrective surgery, 30 pound weight loss in the last 6-8 weeks The patient currently sitting up in bed eating breakfast in no acute distress. Denies pain, shortness of breath. Remains afebrile on room air, actively using incentive spirometer. Right anterior chest wall pigtail catheter removed yesterday and patient states he feels much better without it. Patient has been ambulatory in his room. He is hoping to go home today. No other new concerns Objective - Vital Signs Vital signs: Vital Signs Temp 97.8 F 08/02/20 01:11 Pulse 90 08/02/20 01:11 Resp 16 08/01/20 14:00 BP 132/81 08/02/20 01:11 Pulse Ox 96 08/02/20 01:11 Intake & Output 08/01/20 08/02/20 08/02/20 18:59 06:59 18:59 Weight 74 kg Other: Voiding Method Toilet Toilet # Voids 2 - Exam CONSTITUTIONAL: Appears comfortable, cooperative, no acute distress RESPIRATORY: Lungs sounds slightly diminished bilaterally. Respirations even, nonlabored. Currently on room air with oxygen saturation 96%. Able to achieve 2500 mL on incentive spirometry. Strong productive cough. CARDIOVASCULAR: S1, S2 present. Regular rate and rhythm. Palpable peripheral pulses bilaterally. Bilateral lower extremity edema present. No calf pain or tenderness noted. GASTROINTESTINAL: Abdomen soft, nontender, nondistended. Active bowel sounds present 4 quadrants. Tolerating diet. GENITOURINARY: Continues to void INTEGUMENTARY: Skin is warm and dry with evidence of good perfusion. NEUROLOGIC: Cranial nerves II through XII intact MUSKULOSKELETAL: Able to move all extremities, strength equal bilaterally, gait normal PSYCHIATRIC: Alert and oriented to person place and time, appropriate affect, intact judgment and insight - Allied health notes Allied health notes reviewed: nursing - Labs CBC & Chem 7: 08/01/20 07:06 08/01/20 07:06 Labs: Abnormal Lab Results - Last 24 Hours (Table) 08/01/20 08/01/20 08/01/20 Range/Units 07:06 07:06 11:53 WBC 18.9 H (3.8-10.6) k/uL Hgb 11.8 L (13.0-17.5) gm/dL Hct 38.0 L (39.0-53.0) % MCHC 30.9 L (31.0-37.0) g/dL RDW 19.8 H (11.5-15.5) % Neutrophils # 17.5 H (1.3-7.7) k/uL Lymphocytes # 0.8 L (1.0-4.8) k/uL Potassium 5.3 H (3.5-5.1) mmol/L Carbon Dioxide 31 H (22-30) mmol/L BUN 26 H (9-20) mg/dL POC Glucose (mg/dL) 135 H (75-99) mg/dL 08/01/20 Range/Units 17:10 WBC (3.8-10.6) k/uL Hgb (13.0-17.5) gm/dL Hct (39.0-53.0) % MCHC (31.0-37.0) g/dL RDW (11.5-15.5) % Neutrophils # (1.3-7.7) k/uL Lymphocytes # (1.0-4.8) k/uL Potassium (3.5-5.1) mmol/L Carbon Dioxide (22-30) mmol/L BUN (9-20) mg/dL POC Glucose (mg/dL) 74 L (75-99) mg/dL - Imaging and Cardiology Chest x-ray: image reviewed Assessment and Plan Assessment: 1. Large right-sided loculated pleural fluid collection, suspected empyema, status post right chest pigtail catheter placement by interventional radiology, with subsequent 5 doses alteplase/dornase instillation, S/P bronchoscopy with suspected right middle lobe syndrome. Sputum culture negative, pleural fluid growing anaerobic gram negative bacilli, bronchial washings negative 2. Dyspnea, secondary to above 3. Leukocytosis, secondary to above 4. Chronic obstructive pulmonary disease 5. COVID 19 infection March 2020, status post COVID 19 vaccination around 3 weeks ago 6. Previous tobacco dependence with recent cessation 7. History of gout 8. History of obstructive sleep apnea, status post corrective surgery 9. Unplanned 30 pound weight loss in the last 6-8 weeks Plan: 1. No further surgical intervention planned. 2. Encourage use of his incentive spirometry 10 times every hour while awake. 3. Continue antibiotics, steroids, bronchodilators per pulmonology 4. Patient may be discharged to home from our standpoint when okay with other services. Will sign off. Please call us with any further concerns Time with Patient: Greater than 30
[2020-08-02] MEDS: PANTOPRAZOLE 40 MG TABLET PO SCH (08:36)
[2020-08-02] MEDS: ENOXAPARIN 40 MG/0.4 ML SYRINGE SQ SCH (08:36)
[2020-08-02] MEDS: AMOXIC-POT CLAV 875-125MG 1 EACH TAB PO SCH (08:36)
[2020-08-02] MEDS: guaiFENesin 600 MG TABLET.ER PO SCH (08:37)
[2020-08-02] MEDS: MULTIVITAMINS, THERA 1 EACH TAB PO SCH (08:37)
[2020-08-02] MEDS ORDERED: predniSONE 10 MG TAB PO SCH (09:00)
--- NOTE | 2020-08-02 10:18 | P.DS ---
Providers Date of admission: 07/22/20 14:07 Expected date of discharge: 08/02/20 Attending physician: Marty Garcia Consults: 07/22/20 14:07 Consult Physician Urgent Consulting Provider: Asiya Ortega Consult Reason/Comments: Empyema Do you want consulting provider notified?: Yes 07/23/20 13:35 Consult Physician Routine Consulting Provider: Valentin Soliz Consult Reason/Comments: Loculated right pleural effusion, empyema Do you want consulting provider notified?: Yes Primary care physician: [facility] Course: Final Diagnoses: Right-sided empyema with right-sided loculated pleural effusion, status post right chest pigtail catheter placement with cytology reporting empyema. 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 Leukocytosis, thrombocytosis, microcytic anemia secondary to the above Unintentional weight loss of 30 pounds in one month. History of Covid-19 infection, March 2020, status post vaccination 3 weeks ago COPD, history of History of daily alcohol use, reports last drink 2 months ago Chronic nicotine dependence, 3 packs per dayX many years, quit 3 months ago History of gout Hospital course:This is a pleasant 69-year-old white male patient of nurse practitioner, CHIARA Baig, is been having shortness of breath for the past 4-6 weeks after COVID-19. He was seen by Dr. Saba one day ago and sent to the emergency room after there is evidence of empyema in the right lung. Emergency room CTA showed on the empyema, and no evidence of pulmonary embolism. He is admitted to the stepdown unit is currently resting comfortably. He is complaining quite a bit of cough. He is complaining of chest pains with cough. He denies any significant nausea or vomiting. Indicates he's lost about 30 pounds over the past 2-3 months. Vital signs overnight show he's been afebrile. Labs show a white count of 21.6 and hemoglobin 10.1. There is predominantly neutrophilia. Chemistries are essentially normal, the exception of a glucose 158 late a.m. COVID-19, RSV and influenza PCR were all negative. 07/24/2020: Patient remained stable overnight. He denies any current significant chest pains pressures or shortness of breath at rest. He indicates cough is little bit better. He denies any significant nausea or vomiting. Denies any difficulty with urination or constipation this time. Pulmonology has seen him as have thoracic surgery. Currently thoracic surgery is planning a to catheter versus. Interventional radiology and fibrotic treatment. Vitals remained stable. He remains on room air. He is afebrile. Weight is down almost 4 kg from admission. Laboratory studies continue to show a significant leukocytosis at 21 predominantly left shift of neutrophils. He has a microcytic anemia hemoglobin 10.1 and MCV 82.8. Platelets are increased at 594 this time. Chemistries were essentially normal. Patient remains on albuterol, budesonide, millimeter all, doing, methylprednisolone, Zosyn, and vancomycin. His guaifenesin ordered for cough. He is currently on Lovenox 40 mg daily for anticoagulation. 07/25/2020 maintained on nebulized bronchodilators, IV steroids, antibiotics sitting up at side of bed, maintaining O2 sats of 96% on room air. Awaiting placement of pigtail catheter via interventional radiology, in regards to right loculated pleural effusion. Cardiothoracic surgery following. Scheduled for bronchoscopy tomorrow. Sputum culture pending. No hemoptysis. Continues on vancomycin and Zosyn. Afebrile, WBC decreased to 19.27. Blood cultures reporting no growth at 72 hours, sputum culture pending . Blood sugars controlled.Denies any chest pain/discomfort. 07/26/2020 CT-guided chest pigtail catheter placed yesterday via interventional radiology, tolerated procedure well. Apparently the catheter fell out shortly after. Follow-up chest x-ray reported no significant change of partially loculated right pleural effusion with associated opacities, pneumonia, no pneumothorax. Pleural fluid cultures/cytology pending. Productive cough with thick yellow sputum .Continues on vancomycin and Zosyn, sputum culture reporting many normal respiratory chris, Gram stain reporting many polymorphonuclear leukocytes ,moderate gram positive Bacilli with few gram-positive cocci .Afebr ile. Labs pending. NPO, scheduled for bronchoscopy today with pulmonary. Maintaining O2 sats in the mid 90s on room air, incentive spirometer up to 1999. 07/27/2020 Right chest pigtail catheter replaced yesterday, tolerated procedure well. Instilled with alteplase/dornase. Less shortness of breath. Is up to 1999. Chest x-ray reporting coiled chest tube distally over the right peripheral empyema focal fluid collection, moderately increased airspace opacity over the right lung base, possibly atelectasis versus worsening consolidation .Maintaining O2 sats in the high 90s on room air. Continues on Zosyn, vancomycin nebulized bronchodilators, steroids. Afebrile, cultures and labs pending. Bronchoscopy today. 07/28/2020 maintained on nebulized bronchodilators, steroids, antibiotics and addition to pleural fibrinolytics as per CTS. Right pleural fluid cytology reporting empyema with no cytologically malignant cells identified. Underwent diagnostic bronchoscopy yesterday reporting no endobronchial tumors, lesions or abnormalities noted, possible right middle lobe syndrome causing pneumonia- postobstructive and secondary empyema. Tolerated procedure well. Afebrile, maintaining O2 sats in the high 90s on room air. Incentive spirometer up to 1500.Chest x-ray pending.WBC trending down, 17. Denies chest pain, palpitation or shortness of breath. BUN 24 creatinine 1.05. Yesterday, patient joked about needing a madvertise Walker, used to drink a couple cocktails daily. He reports his last drink was 2 months ago. Reported melatonin did not help him sleep, slept well with Restoril. 07/29/2020 T-max 99.2. Maintaining O2 sats in the high 90s on room air. Reports less coughing, productive. Labs pending. Incentive spirometer up to 1500. Chest x-ray reporting chronic changes with small right pleural fluid collection despite pleural drainage catheter, associated right basilar atelectasis and/or infiltrate, improving left lung base aeration. Labs pending. AFB smear reporting no acid-fast bacilli. Anaerobic bronch wash reporting no growth at 48 hours, Gram stain bronch wash no organisms seen, pleural fluid cultures reporting no growth at 72 hours. Anaerobic pleural fluid when culture reporting gram-negative bacilli. 08/01/2020 maintained on Zosyn. Cultures finalizing, afebrile, WBC 18.9. Yesterday chest CT reported no significant residual fluid right pleural space, right basilar infiltrate likely atelectasis. Maintaining O2 sats in the high 90s on room air. Evaluated by cardiothoracic surgery and right pigtail catheter has been ordered to be discontinued. BUN 26 creatinine 1.02. Pigtail catheter discontinued yesterday, tolerated procedure well. Routine O2 sats of 94% on room air. Denies chest pain, palpitations or shortness of breath. Ambulating, tolerated exertion well. Denies lightheadedness dizziness or focal deficits. Chest x-ray reporting essentially stable, pleural reaction, scarring, possible associated atelectasis, predominantly the right lung base with no evident pneumothorax. Cleared by cardiothoracic surgery for discharge. Patient will be discharged home today in a stable condition with guarded prognosis pending final DC recommendations and clearance from pulmonary. Patient will require nebulizer to manage COPD, being discharged home on DuoNeb's 4 times a day and every 4 hours when necessary shortness of breath, in addition to steroid taper in 10 days of Augmentin. The impression and plan of care has been dictated as directed. : I performed a history and examination of this patient, discussed the same with the dictator. I agree with the dictator's note ,documented as a scribe. Any additional findings or plans will be noted. Patient Condition at Discharge: Stable Plan - Discharge Summary Discharge Rx Participant: No New Discharge Prescriptions: New guaiFENesin [Mucinex] 600 mg PO Q12HR tablet.er Famotidine [Pepcid] 20 mg PO BID 10 Days #40 tablet Amoxic-Pot Clav 875-125Mg [Augmentin 875-125] 1 each PO Q12HR 10 Days #20 tab Acetaminophen Tab [Tylenol] 650 mg PO Q6HR PRN tab PRN Reason: Fever and/ or Mild Pain Ipratropium-Albuterol Nebulize [Duoneb 0.5 mg-3 mg/3 ml Soln] 3 ml INHALATION RT-QID #120 ml predniSONE 10 mg PO DIRECTED #18 tab Continue allopurinoL [Zyloprim] 300 mg PO DAILY Multivitamins, Thera [Multivitamin (formulary)] 1 tab PO DAILY Fluticasone/Umeclidin/Vilanter [Trelegy Ellipta 100-62.5-25] 1 puff INHALATION RT-DAILY Discontinued Ibuprofen [Motrin Ib] 200 mg PO Q8H PRN PRN Reason: Pain Discharge Medication List Fluticasone/Umeclidin/Vilanter [Trelegy Ellipta 100-62.5-25] 1 puff INHALATION RT-DAILY 07/22/20 [History] Multivitamins, Thera [Multivitamin (formulary)] 1 tab PO DAILY 07/22/20 [History] allopurinoL [Zyloprim] 300 mg PO DAILY 07/22/20 [History] Acetaminophen Tab [Tylenol] 650 mg PO Q6HR PRN tab 08/02/20 [Rx] Amoxic-Pot Clav 875-125Mg [Augmentin 875-125] 1 each PO Q12HR 10 Days #20 tab 08/02/20 [Rx] Famotidine [Pepcid] 20 mg PO BID 10 Days #40 tablet 08/02/20 [Rx] Ipratropium-Albuterol Nebulize [Duoneb 0.5 mg-3 mg/3 ml Soln] 3 ml INHALATION RT-QID #120 ml 08/02/20 [Rx] guaiFENesin [Mucinex] 600 mg PO Q12HR tablet.er 08/02/20 [Rx] predniSONE 10 mg PO DIRECTED #18 tab 08/02/20 [Rx] Follow up Appointment(s)/Referral(s): Asiya Ortega MD [STAFF PHYSICIAN] - 08/17/20 1:00 pm Chapito Stokes Jr, DO [Primary Care Provider] - 08/05/20 10:30 am Patient Instructions/Handouts: Pleural Empyema (DC) Activity/Diet/Wound Care/Special Instructions: pending final dc rec. & clearance per pulmonary
[2020-08-02 11:40] LABS: HCT 39.9 % (39.6-50.0); HGB 11.8 g/dL (13.0-17.0); MCH 25.3 pg (27.0-32.0); MCHC 29.6 g/dL (32.0-37.0); MCV 85.4 fL (80.0-97.0); Mean Platelet Volume 9.8 fL (9.5-12.2); Platelet Count 397 X 10*3/uL (140-440); RBC 4.67 X 10*6/uL (4.40-5.60); RDW 22.9 % (11.5-14.5); WBC 18.37 X 10*3/uL (4.50-10.00)
[2020-08-02 11:47] LABS: Glucose,Whole Blood 145 mg/dL (75-99)
[2020-08-02 13:47] VITALS: BP 127/74; PULSE 108; RESP 19
--- NOTE | 2020-08-02 15:41 | P.PN ---
Subjective Progress Note Date: 08/02/20 Principal diagnosis: Right-sided pleural effusion, empyema This is a pleasant 69-year-old male, known history of COPD, benign essential hypertension, patient salas been feeling ill for the last few months. Back in March, patient had symptoms suggestive of COVID-19 infection including cough, fatigue, aches and pains, fever and chills, but apparently no medical attention was sought at the time. Patient was recently seen by Dr. Stokes and he was complaining of cough, he was also complaining of left-sided chest pain. Patient had positive IgG titer for COVID-19 infection which clearly implies that the patient had previous exposure and COVID-19 infection. Part of the workup also included a chest x-ray, and it came back quite abnormal showing a large area of abnormality involving the right lung, the differential diagnoses includes empyema, lung abscess, and possibly a large tumor involving the right lower lobe with necrosis and air fluid level noted. He was referred to Dr. Ortega in our office for the same. He was seen as a new patient yesterday. Based on the chest x-ray findings Dr. Ortega preferred the patient obtain a computed tomography scan of the chest and probable admission for IV antibiotics and possible CT-guided needle biopsy or bronchoscopy with transbronchial biopsies. CAT scan does reveal a large right-sided suspected subpleural fluid collection or empyema with mixed soft tissue, fluid in ear density. No evidence of pulmonary embolism. There is evidence of COPD. Mediastinal lymphadenopathy. Ultrasound of the chest revealed minimal effusion at 2.9 cm and a complex fluid pocket suggestive of empyema. White count 21.6. Hemoglobin 10.1. Sodium 138. Potassium 4.0. Creatinine 0.96. ProBNP 779. Influenza screen negative. Coronavirus screen negative. Patient is seen today in consultation on the regular medical floor. He is currently sitting up in bed. Awake and alert in no acute distress. Currently maintaining O2 saturations in the mid 90s on room air. He's been afebrile. He's been initiated on vancomycin and Zosyn. On 07/24/2020 patient seen in follow-up on medical surgical floor. He states he is feeling better today, but still congested and wheezy, he is bringing up large amount of phlegm, he was able to produce sputum for culture, which was sent to the lab, and is pending at this time, blood cultures so far have shown no growth, final cultures are pending, has had no fevers overnight. Vital signs have been stable, he is maintaining stable O2 saturations, his pulse ox is 95% on room air, no complex of chest pain or hemoptysis. He continues on the antibiotics in the form of Zosyn and vancomycin. He is on IV steroids and breathing treatments. 0.9 normal saline at 20 ML per hour. Today's labs have been reviewed the patient's white blood cell count is 21.02, hemoglobin is 10.1, electrolytes and renal profile are within normal limits, the viral panel including influenza RSV and COVID-19 were negative. On 07/25/2020 patient seen in follow-up on medical surgical floor. He is awake and alert, and in no acute distress, he is not on any oxygen, he states his breathing is improving, although physical exam still reveals diffuse rhonchi and wheezes, patient remains on IV steroids and antibiotics. His had no fevers overnight, interventional radiology was consulted for placement of right-sided pigtail chest tube catheter for loculated pleural effusion likely related to empyema. CT surgery is also following the patient. Overnight he's had no acute events, his labs have been reviewed, his white count is improving but still elevated at 19.7, hemoglobin is 9.8, his electrolyte and renal profile were unremarkable. His blood and sputum cultures have shown no growth thus far, final cultures are pending. He still bringing up phlegm, no hemoptysis. Denies any chest discomfort, denies any pleuritic chest pain On 07/26/2020 patient seen in follow-up on medical surgical floor, his pigtail chest tube got dislodged and fell out, pleural fluid was sent for cultures, pleural fluid analysis showed high content of fluid nucleated cells, of 477,500, polynuclear WBCs were 84, mononuclear WBCs were 16, LDH was greater than 4500, and pleural fluid analysis was consistent with empyema. Had no fever or chills overnight, pleural fluid cultures are pending, Gram stain showed no organisms. Today's labs have been reviewed. He continues on Zosyn and vancomycin, he continues on breathing treatments and IV steroids 40 mg every 8 hours. On 07/28/2020 and the patient seen in follow-up on the surgical floor, he is status post bronchoscopy with bronchoalveolar lavage on 07/27/2020, patient tolerated procedure very well, he was found to have significant the right middle lobe. Large amount of thick secretions were removed from the airways. Patient states he is breathing easier today, his been afebrile, he still has a right- sided chest tube in place, and there has been additional 60 mL of thinners serosanguineous output since yesterday. Pleural fluid cultures remained negative, cytology showed inflammatory cells, no cytologically malignant cells were identified. Today's chest x-ray shows chest tube the distal tip over the right peripheral empyema focal fluid collection. In the empyema was mildly decreased in size versus 07/27/2020 comparison, with improved aeration of the right lung base. And there were persistent linear opacities. Patient remains on antibiotics in the form of Zosyn and vancomycin. No complaint of chest pain, he is breathing comfortably, lung sounds revealed minimal wheezing, less congested. On 08/01/2020 patient seen in follow-up on medical surgical floor. He is currently resting very comfortably in bed, he is on room air and his pulse ox is 98%, his been afebrile, hemodynamically his been stable, his right-sided pigtail chest tube has been removed, he's been working on incentive spirometer, his pleural fluid cultures showed anaerobic gram-negative bacilli, she is currently on Zosyn for antibiotic coverage, he's had no fever or chills, no worsening chest discomfort, today's chest x-ray has been reviewed owing no evident complication status post chest tube removal. His cytology of the pleural fluid was negative for cytologically malignant cells. On 08/02/2020 patient seen in follow-up on medical surgical floor, he has remained stable, no worsening dyspnea, room air pulse ox is 96%, his right-sided pigtail chest tube catheter was discontinued yesterday, his vital signs remain stable, has had no fever or chills, no worsening dyspnea or cough, no complaints of chest discomfort. This microbiology results of the bronchial washings and p leural fluid cultures have been reviewed, and his pleural fluid cultures showed anaerobic gram-negative bacilli, patient has received several days of IV Zosyn while inpatient which he can switch to oral Augmentin. His chest x-ray from today shows essentially stable findings with pleural thickening along the right lateral margin of the lower chest and areas of probable scarring or atelectasis predominantly at the right lung base. No specific complaints, patient states he is feeling good, today's labs have been reviewed, CBC was done only, white blood cell count is stable compared to yesterday, at 18.3, hemoglobin is 11.8. Objective - Vital Signs Vital signs: Vital Signs Temp 98 F 08/02/20 13:47 Pulse 108 H 08/02/20 13:47 Resp 19 08/02/20 13:47 BP 127/74 08/02/20 13:47 Pulse Ox 96 08/02/20 13:47 Intake & Output 08/01/20 08/02/20 08/02/20 18:59 06:59 18:59 Weight 74 kg Other: Voiding Method Toilet Toilet Toilet # Voids 2 - Exam GENERAL EXAM: Alert, very pleasant, 69-year-old white male on room air with a pulse ox of 94%, comfortable in no apparent distress. HEAD: Normocephalic/atraumatic. EYES: Normal reaction of pupils, equal size. Conjunctiva pink, sclera white. NOSE: Clear with pink turbinates. THROAT: No erythema or exudates. NECK: No masses, no JVD, no thyroid enlargement, no adenopathy. CHEST: No chest wall deformity. Symmetrical expansion. There has been interval removal of the right-sided pigtail chest tube catheter LUNGS: Equal air entry with coarse crackles, and wheezes CVS: Regular rate and rhythm, normal S1 and S2, no gallops, no murmurs, no rubs ABDOMEN: Soft, nontender. No hepatosplenomegaly, normal bowel sounds, no guarding or rigidity. EXTREMITIES: No clubbing, no edema, no cyanosis, 2+ pulses and upper and lower extremities. MUSCULOSKELETAL: Muscle strength and tone normal. SPINE: No scoliosis or deformity SKIN: No rashes CENTRAL NERVOUS SYSTEM: Alert and oriented -3. No focal deficits, tone is normal in all 4 extremities. PSYCHIATRIC: Alert and oriented -3. Appropriate affect. Intact judgment and insight. - Labs CBC & Chem 7: 08/02/20 06:54 08/01/20 07:06 Labs: Abnormal Lab Results - Last 24 Hours (Table) 08/01/20 08/02/20 08/02/20 Range/Units 17:10 06:54 11:46 WBC 18.37 H (4.50-10.00) X 10*3/uL Hgb 11.8 L (13.0-17.0) g/dL MCH 25.3 L (27.0-32.0) pg MCHC 29.6 L (32.0-37.0) g/dL RDW 22.9 H (11.5-14.5) % POC Glucose (mg/dL) 74 L 145 H (75-99) mg/dL Assessment and Plan Plan: Assessment: #1. Right-sided empyema and loculated right-sided pleural fluid collection, status post pigtail chest tube placement on 07/25/2020, and pleural fluid analysis is consistent with empyema, pleural fluid cultures are pending at this time. Pigtail chest tube been dislodged on 07/25/2020, and he is scheduled for reinsertion of the chest tube today on 07/26/2020. Right-sided pigtail chest tube catheter has been removed today on 08/01/2020 #2. History of COVID-19 infection based on titers, initial symptoms from March 2020 #3. History of COPD #4. History of chronic tobacco dependence up to 3 packs per day, quit smoking 2 months ago #5. History of gout Plan: Patient has remained stable No acute events overnight No fever or chills Today's chest x-ray has been reviewed showing pleural reaction of scarring at the right lung base Patient remains on room air From pulmonary perspective he stable for discharge home on 10 more days of Augmentin [id number] twice daily Outpatient follow-up with Dr. Jewell in the office in one to 2 weeks I performed a history & physical examination of the patient and discussed their management with my nurse practitioner, Adela Ruelas. I reviewed the nurse practitioner's note and agree with the documented findings and plan of care. Lung sounds are positive for diffuse wheezes throughout the lung [place]. The findings and the impression was discussed with the patient. I attest to the documentation by the nurse practitioner. Time with Patient: Less than 30
--- NOTE | 2020-08-10 06:14 | CDI ---
Documentation Clarification Form Date: 08/10/2020 05:58:00 AM From: Bernie Mckee Phone: If you have a question about this query, please contact Jacqueline Campos, Hospital Fellow at [phone] between 8am and 5pm. Admit Date: 07/22/2020 02:07:00 PM Patient Name: Lucian Basilio Visit Number: [id number] Discharge Date: 08/02/2020 03:11:00 PM ATTENTION: The Clinical Documentation Specialists (CDI) and [facility] Coding Staff appreciate your assistance in clarifying documentation. Please respond to the clarification below the line at the bottom and electronically sign. The CDI & [facility] Coding staff will review the response and follow-up if needed. Please note: Queries are made part of the Legal Health Record. If you have any questions, please contact the author of this message via ITS. Dr. Marty Garcia The patient presented with empyema. Patient with tachycardia, elevated WBC's, left shift, in the setting of empyema. Appears to meet SIRS criteria. Please clarify if patient had sepsis History/Risk Factors: empyema Clinical Indicators: WBC: 18.3 Lactic acid: 1.2 Blood cultures: no growth Vitals signs: 96.9 F, 110, 18, 122/74, 96 RA Treatment: Antibiotics, steroids and bronchodilators ID Consult: No ID consult Antibiotics: Zosyn and vancomycin In your professional opinion, please clarify if these findings signify one of the following conditions: [ ] Sepsis POA [ ] Sepsis, Not POA [ X] Sepsis ruled out [ ] Severe Sepsis with organ failure [ ] Septic Shock [ ] SIRS, without underlying infectious process [ ] Other, please specify [ ] Unable to determine SIRS Criteria: 2 or more of the following may indicate SIRS -Temperature < 96.8F (36C) or > 101.0F (38.3C) -Heart Rate > 90 bpm -Respiratory Rate > 20 breaths/min or PaCO2 < 32 mmHg -White Blood Cell Count > 12,000 or < 4,000 cells/mm3 or > 10% bands MTDD
== END 2020-08-02 15:11 | disposition home or self-care (01) | DRG 177 ==
LOC: EC 11:25 → 4SSUR 14:07
PROVIDERS: ADMIT Family Medicine; ATTEND Family Medicine
PROC: 0W9930Z Drainage of Right Pleural Cavity with Drainage Device, Percutaneous Approach (ICD-10-PCS; 2020-07-25)
PROC: 0W9B30Z Drainage of Left Pleural Cavity with Drainage Device, Percutaneous Approach (ICD-10-PCS; principal; 2020-07-26)
PROC: 0W9930Z Drainage of Right Pleural Cavity with Drainage Device, Percutaneous Approach (ICD-10-PCS; principal; 2020-07-26)
PROC: 0B9F8ZZ Drainage of Right Lower Lung Lobe, Via Natural or Artificial Opening Endoscopic (ICD-10-PCS; 2020-07-27)
PROC: 0BJ08ZZ Inspection of Tracheobronchial Tree, Via Natural or Artificial Opening Endoscopic (ICD-10-PCS; 2020-07-27)
PROC: 05HD33Z Insertion of Infusion Device into Right Cephalic Vein, Percutaneous Approach (ICD-10-PCS; 2020-07-27)
DX: J86.9 Pyothorax without fistula (principal); J18.9 Pneumonia, unspecified organism; J44.0 Chronic obstructive pulmonary disease with (acute) lower respiratory infection; J91.8 Pleural effusion in other conditions classified elsewhere; J98.11 Atelectasis; J98.19 Other pulmonary collapse; Z87.891 Personal history of nicotine dependence; D47.3 Essential (hemorrhagic) thrombocythemia; D50.9 Iron deficiency anemia, unspecified; H91.90 Unspecified hearing loss, unspecified ear; I10 Essential (primary) hypertension; M10.9 Gout, unspecified; Z86.16 Personal history of COVID-19; Z20.822 Contact with and (suspected) exposure to COVID-19; R53.83 Other fatigue; R63.4 Abnormal weight loss; Z68.28 Body mass index [BMI] 28.0-28.9, adult; Z79.52 Long term (current) use of systemic steroids; Z79.899 Other long term (current) drug therapy; Z82.49 Family history of ischemic heart disease and other diseases of the circulatory system; Z83.3 Family history of diabetes mellitus; Z87.01 Personal history of pneumonia (recurrent); Z90.89 Acquired absence of other organs; Z82.0 Family history of epilepsy and other diseases of the nervous system; Z82.5 Family history of asthma and other chronic lower respiratory diseases
CPT/HCPCS: 31624; 32551; 36410; 36415; 71045; 71046; 71260; 71275; 76604; 76937; 80048; 80053; 80202; 82150; 82565; 83036; 83605; 83615; 83735; 83880; 84145; 84443; 84484; 85025; 85027; 85610; 85730; 87040; 87070; 87075; 87102; 87116; 87205; 87206; 87252; 87496; 87498; 87502; 87529; 87634; 87636; 87798; 88108; 88305; 89050; 93005; 94640; 94760; 96365; 96366; 96368; 99285

== ENCOUNTER → 2021-08-24 | Outpatient (CLI) | payer MEDICARE ==
--- NOTE | 2021-08-25 18:21 | CA ---
Transthoracic Echo Report Name: Lucian Basilio Age: 70 Gender: M : 1950 Exam Date: 08/24/2021 14:42 Exam Location: [facility] Ht (in): 65 Wt (lb): 162 Ordering Physician: Chapito Stokes DO Attending/Referring Phys: Convertible Sofa Bedspring Tester Pinky Mir RDCS Procedure CPT: Indications: I50.813 ACUTE ON CHRONIC RIGHT SIDED HEART FAILURE Cardiac Hx: Technical Quality: Good Contrast 1: N/A Total Dose (mL): Contrast 2: Total Dose (mL): MEASUREMENTS (Male / Female) Normal Values 2D ECHO LV Diastolic Diameter PLAX 4.6 cm 4.2 - 5.9 / 3.9 - 5.3 cm LV Systolic Diameter PLAX 3.1 cm IVS Diastolic Thickness 0.9 cm 0.6 - 1.0 / 0.6 - 0.9 cm LVPW Diastolic Thickness 1.3 cm 0.6 - 1.0 / 0.6 - 0.9 cm LV Relative Wall Thickness 0.5 RV Internal Dim ED PLAX 3.0 cm LA Systolic Diameter LX 3.0 cm 3.0 - 4.0 / 2.7 - 3.8 cm M-MODE Aortic Root Diameter MM 3.0 cm LA Systolic Diameter MM 3.3 cm LA Ao Ratio MM 1.1 MV E Point Septal Separation 0.6 cm AV Cusp Separation MM 1.9 cm DOPPLER MV Area PHT 3.5 cm??? Mitral E Point Velocity 45.3 cm/s Mitral A Point Velocity 79.2 cm/s Mitral E to A Ratio 0.6 MV Deceleration Time 216.9 ms MV E' Velocity 7.2 cm/s Mitral E to MV E' Ratio 6.3 TR Peak Velocity 152.5 cm/s TR Peak Gradient 9.3 mmHg Right Ventricular Systolic Press 14.3 mmHg FINDINGS Left Ventricle Normal Left ventricular size, wall thickness, systolic function with no obvious regional wall motion abnormalities. Right Ventricle Normal right ventricular size and function. Right ventricular systolic pressure within normal limits. Right Atrium Normal right atrial size. Left Atrium Left atrial size at the upper limits of normal. Mitral Valve Structurally normal mitral valve. Trace to mild mitral regurgitation. Aortic Valve Aortic valve sclerosis. Trileaflet aortic valve Tricuspid Valve Structurally normal tricuspid valve. Trace to mild tricuspid regurgitation. Pulmonic Valve Structurally normal pulmonic valve. Pericardium Normal pericardium. Aorta Normal size aortic root and proximal ascending aorta. CONCLUSIONS Normal left ventricular ejection fraction 55-60% Normal RVSP 14 Normal left atrial size Trace to mild mitral regurgitation Trace to mild tricuspid regurgitation Previewed by: Dr. Gregorio Robles DO (Electronically Signed) Final Date: 25 August 2021 18:20
== END | disposition home or self-care (01) ==
LOC: RADECHMAIN 14:26
PROVIDERS: ATTEND Family Medicine
DX: I08.3 Combined rheumatic disorders of mitral, aortic and tricuspid valves (principal)
CPT/HCPCS: 93306

== ENCOUNTER → 2021-08-31 | Outpatient (CLI) | payer MEDICARE ==
--- NOTE | 2021-08-31 18:30 | CONS ---
CONSULTATION DATE OF SERVICE: 08/31/2021 This 70-year-old gentleman has been evaluated in Sleep Center for obstructive sleep apnea-hypopnea syndrome. HISTORY OF PRESENT ILLNESS/SLEEP-WAKE EVALUATION: The patient has a history of obstructive sleep apnea, first diagnosed about 20 years ago. After that he underwent oral surgery by Dr. Byrd, and after that his condition improved. His snoring improved and he did not have significant problems with breathing. But then he again developed symptoms of sleep apnea and started to use CPAP equipment belonging to his relative. He felt better with the usage of CPAP. About 1-1/2 years ago the machine was broken and he stopped using it. He also had COVID-19 about one year ago, and since that time his condition has been worse. He feels more tired and sleepy during the day. His sleep schedule from 11 or 12 midnight until between 9 and 11 a.m. basically 7 days a week. He does have some problems with falling asleep. He used to read in his bedroom. He usually sleeps on the stomach position. He wakes up from sleep once with nocturia. He snores. [place] Sleepiness Scale is 3. Usually he does not take any naps. PAST MEDICAL HISTORY: Positive for gout, COVID-19 with right side , hyperlipidemia, COPD and emphysema. MEDICATIONS: Allopurinol 300 mg once a day. SOCIAL HISTORY: The patient continues to smoke; has been smoking for about 50 pack/years. Alcohol consumption occasional. FAMILY HISTORY: Arthritis, diabetes. REVIEW OF SYSTEMS: Awakenings from sleep, tiredness during the day, snoring. No fevers. No double vision. No recent chest pain. No shortness of breath. No abdominal pain. No bleeding episodes. No blood in the urine. No seizure episodes. PHYSICAL EXAMINATION: GENERAL: Pleasant gentleman without distress. VITAL SIGNS: BP 155/90, HR 88, RR 16, height 5 feet 2-1/2 inches, weight 167 pounds, body mass index 30.0, temperature 98.5, oxygen saturation at room air 97%. HEENT: PERRLA, EOMI, evaluation of oropharynx showed tongue protrudes midline. Extremely low position of soft palate; Mallampati IV. NECK: Supple, no JVD. Thyroid is not palpable. Neck measures 16-1/2 inches in circumference. CHEST: Increased anterior-posterior diameter. LUNGS: Clear to percussion and to auscultation. Good air exchange. No wheezing or rhonchi. HEART: S1, S2 regular. No murmurs, gallops, or rubs. ABDOMEN: Soft and nontender. Bowel sounds are present. No organomegaly appreciated. EXTREMITIES: No clubbing or cyanosis. ESTHETIC DERMATOLOGIST: Awake, alert, and oriented X3. Cranial nerves 2 to 7 intact. There is no fasciculation or atrophy. noted. No focal deficits observed. IMPRESSION: 1. Snoring, awakenings from sleep, extremely low position of soft palate, Mallampati IV, borderline size of the neck, 16-1/2 inches in circumference, history of obstructive sleep apnea-hypopnea syndrome in the past; obstructive sleep apnea- hypopnea syndrome. 2. Chronic obstructive pulmonary disease, emphysema. 3. History of smoking for 50 pack/years. Patient continues to smoke. 4. Status post COVID-19. 5. Status post empyema on the right side. 6. Gout. 7. Mild obesity; BMI 30.0. 8. Status post uvulopalatopharyngoplasty. PLAN: 1. Polysomnography for evaluation of patient's breathing during sleep. 2. CPAP/BiPAP titration if sleep study confirms obstructive sleep apnea-hypopnea syndrome. 3. Preferable position during sleep on the side. 4. No driving if patient feels any sleepiness. 5. I will see patient for follow up visit to explain results of testing and following plan. Thank you very much for referring this patient for consultation. Sincerely, Malick Silver MD, PhD, FAASM Diplomat of [place] [employer] Sleep Medicine Board of [place] [employer] Search Developer of [facility] [place] MMODL / IJN: [id number] /
== END | disposition home or self-care (01) ==
LOC: SLEEP 15:15
PROVIDERS: ATTEND Internal Medicine
DX: G47.33 Obstructive sleep apnea (adult) (pediatric) (principal); J43.9 Emphysema, unspecified; M10.9 Gout, unspecified; E66.9 Obesity, unspecified; Z68.30 Body mass index [BMI] 30.0-30.9, adult; Z86.16 Personal history of COVID-19; Z98.890 Other specified postprocedural states
CPT/HCPCS: 99211

== ENCOUNTER → 2021-12-20 | Outpatient (CLI) | payer MEDICARE ==
--- NOTE | 2021-12-20 14:36 | P.PN ---
Subjective DATE: 12/20/2021 FOLLOW UP VISIT. Patient with obstructive sleep apnea hypopnea syndrome return to sleep center for follow-up visit. Recently patient had sleep study which documented obstructive sleep apnea hypopnea syndrome. Patient was initiated on PAP therapy and today is first visit after treatment was started. Patient was able to use PAP equipment every night for the whole night. Patient sleeps better and feels better during the day after starting treatment with CPAP. The patient does not have significant problems with the mask, PAP pressure and humidification. [place] sleepiness scale is 5. I checked information from PAP unit. PAP unit pressure 5-10, average 9.8 cm H2O. Usage is 100 % for more then 4 hours, average 7 and three-quarter hours per night. Leak is 0.4 l/m, which is in perfect range. Apnea Hypopnea Index is 1.2, which is totally normal. MEDICATIONS:1. Allopurinol During physical exam: GENERAL: A pleasant patient without any distress. VITAL SIGNS: BP 145/87, HR 95, RR 18 , weight 164.2, temperature 96.9, oxygen saturation at room air 94% . HEENT: PERRLA, EOMI.low position of soft palate, Mallapati 4 . NECK: Supple. No JVD. LUNGS: Clear to percussion and to auscultation. Good air exchange. No wheezing or rhonchi. HEART: S1, S2 regular. ABDOMEN: Soft and nontender.[] EXTREMITIES: No clubbing or cyanosis. CUSTOMER SERVICE CLERK: Awake, alert, and oriented x3. No focal deficit. Impressions: 1. Obstructive sleep apnea-hypopnea syndrome. Patient demonstrated great compliance with treatment, benefiting from treatment. 2. Chronic obstructive pulmonary disease, emphysema. 3. Smokier for 50 pack years continue to smoke. 4. Status post Covid 19.. 5. Gout. 6. Status post UPPP. Plan: 1. Continue using PAP equipment every night for the whole night. 2. To change air filter at least 1-2 times per month. 3. PAP unit should stay lower then position of the head. 4. Advised patient to remove all remaining water from humidifier canister daily and make it dry after each usage. Refill canister with fresh distilled water before each usage. 5. Sleep hygiene with regular time in bed for at least 8 hours. 6. Precautions related to driving. No driving if feel any sleepiness. 7. I will maintain prescription for PAP supplies including mask, tube, filters. 8. Follow up visit in 6 months or earlier if patient has any problems. 9. Watching weight. 10. Smoking cessation program. Thank you very much for allowing me to participate in the management of your patient. Malick Silver MD, PhD, FAASM. Diplomat of [place] [employer], Sleep Medicine Board by [place] [employer] Machine Set Up of [facility] [place]
== END ==
LOC: SLEEP 13:52
PROVIDERS: ATTEND Internal Medicine
DX: G47.33 Obstructive sleep apnea (adult) (pediatric) (principal); J43.9 Emphysema, unspecified; Z86.16 Personal history of COVID-19; Z99.89 Dependence on other enabling machines and devices; M10.9 Gout, unspecified; Z87.891 Personal history of nicotine dependence

== ENCOUNTER → 2022-06-21 | Outpatient (CLI) | payer MEDICARE ==
--- NOTE | 2022-06-21 16:24 | P.PN ---
Subjective DATE: 06/21/2022 FOLLOW UP VISIT. Patient with obstructive sleep apnea hypopnea syndrome return to sleep center for follow-up visit. Information from previous visit have been reviewed. Patient is using PAP equipment every night for the whole night, getting PAP supplies in time. The patient does not have significant problems with the mask, PAP unit and humidification. [place] sleepiness scale is 2, which is perfect. I checked information from PAP unit. PAP unit pressure 5-10, average 9.8 cm H2O. Usage is 100 % for more then 4 hours, average 8.1 hours per night. Leak is 0 l/m, which is great. Apnea Hypopnea Index is 1.2, which is normal. MEDICATIONS:1. Allopurinol 300 mg once a day During physical exam: GENERAL: A pleasant patient without any distress. VITAL SIGNS: BP 147/88, HR 98, RR 16, weight 168, temperature 97.5, oxygen saturation at room air 97 % . HEENT: PERRLA, EOMI.low position of soft palate, Mallapati 4 . NECK: Supple. No JVD. LUNGS: Clear to percussion and to auscultation. Good air exchange. No wheezing or rhonchi. HEART: S1, S2 regular. ABDOMEN: Soft and nontender. EXTREMITIES: No clubbing or cyanosis. BUTTON PUNCHER: Awake, alert, and oriented x3. No focal deficit. Impressions: 1. Obstructive sleep apnea-hypopnea syndrome. Patient demonstrated great compliance with treatment, benefiting from treatment. 2. COPD, emphysema. 3. Smoker for 50 pack years, continue to smoke. 4. Gout. 5. Status post UPPP. 6. Status post Covid 19. Plan: 1. Continue using PAP equipment every night for the whole night. 2. To change air filter at least 1-2 times per month. 3. Smoking cessation program 4. Advised patient to remove all remaining water from humidifier canister daily and make it dry after each usage. Refill canister with fresh distilled water before each usage. 5. Sleep hygiene with regular time in bed for at least 8 hours. 6. Precautions related to driving. No driving if feel any sleepiness. 7. I will maintain prescription for PAP supplies including mask, tube, filters. 8. Watching weight. 9. Follow up visit in 6 months or earlier if patient has any problems. Thank you very much for allowing me to participate in the management of your patient. Malick Stefadu, MD, PhD, FAASM. Diplomat of [place] [employer], Sleep Medicine Board by [place] [employer] Pharmacy Care Coordinator of [facility] [place]
== END ==
LOC: SLEEP 15:22
PROVIDERS: ATTEND Internal Medicine
DX: G47.33 Obstructive sleep apnea (adult) (pediatric) (principal); J43.9 Emphysema, unspecified; M10.9 Gout, unspecified; F17.210 Nicotine dependence, cigarettes, uncomplicated; Z86.16 Personal history of COVID-19; Z98.890 Other specified postprocedural states; Z99.89 Dependence on other enabling machines and devices
CPT/HCPCS: 99212

== ENCOUNTER → 2023-01-09 | Outpatient (CLI) | payer MEDICARE ==
--- NOTE | 2023-01-09 12:09 | P.PN ---
Subjective DATE: 01/09/2023 FOLLOW UP VISIT. Patient with obstructive sleep apnea hypopnea syndrome return to sleep center for follow-up visit. Information from previous visit have been reviewed. Patient is using PAP equipment every night for the whole night, getting PAP supplies in time. The patient does not have significant problems with the mask, PAP unit and humidification. Calvin sleepiness scale is 3. I checked information from PAP unit. PAP unit pressure 5-10, average 9.8 cm H2O. Usage is 100 % for more then 4 hours, average 8 hours per night. Leak is 5 l/m, which is in acceptable range. Apnea Hypopnea Index is 0.8, which is normal. MEDICATIONS:1. Allopurinol 300 mg once a day During physical exam: GENERAL: A pleasant patient without any distress. VITAL SIGNS: BP 142/89, HR 83, RR 16, weight 162.2, temperature 97.8, oxygen saturation at room air 96 % . HEENT: PERRLA, EOMI.low position of soft palate, Mallapati 4 . NECK: Supple. No JVD. LUNGS: Clear to percussion and to auscultation. Good air exchange. No wheezing or rhonchi. HEART: S1, S2 regular. ABDOMEN: Soft and nontender.[] EXTREMITIES: No clubbing or cyanosis. SINTERING PRESS OPERATOR: Awake, alert, and oriented x3. No focal deficit. Impressions: 1. Obstructive sleep apnea-hypopnea syndrome. Patient demonstrated great compliance with treatment, benefiting from treatment. 2. Patient has some difficulties to initiate sleep. Psychophysiological insomnia. 3. COPD, emphysema. 4. Smokier for about 50 pack years, continue to smoke. 5. Status post UPPP. 6. Status post COVID-19. 7. Gout. Plan: 1. Continue using PAP equipment every night for the whole night. 2. I discussed with patient psychological techniques for treatment of set psychophysiological insomnia including worry time. 3. PAP unit should stay lower then position of the head. 4. Advised patient to remove all remaining water from humidifier canister daily and make it dry after each usage. Refill canister with fresh distilled water before each usage. 5. Sleep hygiene with regular time in bed for at least 8 hours. 6. Precautions related to driving. No driving if feel any sleepiness. 7. I will maintain prescription for PAP supplies including mask, tube, filters. 8. Follow up visit in 6 months or earlier if patient has any problems. 9. Watching weight. 7. Smoking cessation program Thank you very much for allowing me to participate in the management of your patient. Malick Silver MD, PhD, FAASM. Diplomat of [place] [employer], Sleep Medicine Board by [place] [employer] [facility] [place]
== END ==
LOC: 3 N SLEEP 11:36
PROVIDERS: ATTEND Internal Medicine
DX: G47.33 Obstructive sleep apnea (adult) (pediatric) (principal); F51.04 Psychophysiologic insomnia; J43.9 Emphysema, unspecified; F17.210 Nicotine dependence, cigarettes, uncomplicated; M10.9 Gout, unspecified; Z98.890 Other specified postprocedural states; Z99.89 Dependence on other enabling machines and devices; Z86.16 Personal history of COVID-19
CPT/HCPCS: 99212

== ENCOUNTER → 2023-07-17 | Outpatient (CLI) | payer MEDICARE ==
[2023-07-17 11:44] VITALS: BP 142/84; PULSE 78; RESP 16; TEMP 98
--- NOTE | 2023-07-17 12:31 | P.PN ---
Subjective DATE: 07/17/2023 FOLLOW UP VISIT. Patient with obstructive sleep apnea hypopnea syndrome return to sleep center for follow-up visit. Information from previous visit have been reviewed. Patient is using PAP equipment every night for the whole night, getting PAP supplies in time. The patient does not have significant problems with the mask, PAP unit and humidification. Taylor sleepiness scale is 4, which is normal. I checked information from PAP unit. PAP unit pressure 5-10, average 9.9 cm H2O. Usage is 100% and 77% for more then 4 hours, average 6 hours per night. Leak is 17.0 l/m, which is in acceptable range. Apnea Hypopnea Index is 0.3, which is perfect. MEDICATIONS:1. Allopurinol 300 mg once a day During physical exam: GENERAL: A pleasant patient without any distress. VITAL SIGNS: Please see below, weight 167.6 pounds. HEENT: PERRLA, EOMI.low position of soft palate, Mallapati 4 . NECK: Supple. No JVD. LUNGS: Clear to percussion and to auscultation. Good air exchange. No wheezing or rhonchi. HEART: S1, S2 regular. ABDOMEN: Soft and nontender.[] EXTREMITIES: No clubbing or cyanosis. VENDING SERVICE TECHNICIAN: Awake, alert, and oriented x3. No focal deficit. Impressions: 1. Obstructive sleep apnea-hypopnea syndrome. Patient demonstrated great compliance with treatment, benefiting from treatment. 2. COPD, emphysema. 3. Smoker for about 50 pack years, trying to quit. 4. Psychophysiological insomnia. 5. Status post UPPP. 6. Status post COVID-19. 7. Gout. Plan: 1. Continue using PAP equipment every night for the whole night. 2. To change air filter at least 1-2 times per month. 3. PAP unit should stay lower then position of the head. 4. Advised patient to remove all remaining water from humidifier canister daily and make it dry after each usage. Refill canister with fresh distilled water before each usage. 5. Sleep hygiene with regular time in bed for at least 8 hours. 6. Precautions related to driving. No driving if feel any sleepiness. 7. I will maintain prescription for PAP supplies including mask, tube, filters. 8. Follow up visit in 6 months or earlier if patient has any problems. 9. Watching weight. Thank you very much for allowing me to participate in the management of your patient. Malick Silver MD, PhD, FAASM. Diplomat of [place] [employer], Sleep Medicine Board by [place] [employer] Client Program Manager of [facility] [place] Objective - Vital Signs Vital signs: Vital Signs Temp 98.0 F 07/17/23 11:22 Pulse 78 07/17/23 11:22 Resp 16 07/17/23 11:22 BP 142/84 07/17/23 11:22 Pulse Ox 98 07/17/23 11:22 FiO2 Intake & Output 07/16/23 07/17/23 07/17/23 18:59 06:59 18:59 Weight 71.486 kg
== END ==
LOC: 3 N SLEEP 10:45
PROVIDERS: ATTEND Internal Medicine
DX: G47.33 Obstructive sleep apnea (adult) (pediatric) (principal); J43.9 Emphysema, unspecified; J44.9 Chronic obstructive pulmonary disease, unspecified; F17.210 Nicotine dependence, cigarettes, uncomplicated; F51.04 Psychophysiologic insomnia; M10.9 Gout, unspecified; Z86.16 Personal history of COVID-19; Z99.89 Dependence on other enabling machines and devices; Z98.890 Other specified postprocedural states; Z79.51 Long term (current) use of inhaled steroids
CPT/HCPCS: 99212

== ENCOUNTER 2023-12-10 09:20 | Day surgery (SDC) | payer MEDICARE ==
[2023-12-10 09:59] VITALS: TEMP 96.8
[2023-12-10] MEDS: IV FLUID CONTINUATION 1,000 ML IV ONE (10:11)
[2023-12-10] MEDS: LACTATED RINGERS 1,000 ML IV SCH (10:11)
[2023-12-10] MEDS ORDERED: PROPOFOL 10 MG/ML 20 ML VIAL IV ONE (10:33)
--- NOTE | 2023-12-10 10:35 | P.GSHP ---
History of Present Illness H&P Date: 12/10/23 Chief Complaint: Colon cancer screening 73-year-old male here for colonoscopy. Last colonoscopy over 10 years ago. No bowel complaints. No family history of colon cancer. Past Medical History Past Medical History: COPD, Eye Disorder, Pneumonia, Sleep Apnea/CPAP/BIPAP Additional Past Medical History / Comment(s): 2.5-3 years covid- empyema, gout bilateral great toes. cataracts History of Any Multi-Drug Resistant Organisms: None Reported Past Surgical History: Adenoidectomy, Appendectomy, Ear Surgery, Tonsillectomy Additional Past Surgical History / Comment(s): Surgery for sleep apnea. Bronchscopy 2.5-3 years ago, R eardrum replaced 20 yrs ago, Cataract surgery 1.5yrs ago Past Anesthesia/Blood Transfusion Reactions: No Reported Reaction Smoking Status: Current every day smoker - Past Family History Father Family Medical History: Dementia, Hyperlipidemia, Pneumonia Additional Family Medical History / Comment(s): Father of aspiration pneumonia. Mother Family Medical History: Diabetes Mellitus, Hypertension Additional Family Medical History / Comment(s): Mother is living. Sister(s) Family Medical History: Diabetes Mellitus Additional Family Medical History / Comment(s): lung problems Medications and Allergies Home Medications Medication Instructions Recorded Confirmed Type Multivitamins, Thera [Multivitamin 1 tab PO DAILY 07/22/20 12/03/23 History (formulary)] allopurinoL [Zyloprim] 300 mg PO DAILY 07/22/20 12/03/23 History Allergies Allergy/AdvReac Type Severity Reaction Status Date / Time No Known Allergies Allergy Verified 12/10/23 10:00 Surgical - Exam Vital Signs Temp Pulse Resp BP Pulse Ox 96.8 F L 103 H 16 156/94 94 L 12/10/23 09:57 12/10/23 09:57 12/10/23 09:57 12/10/23 09:57 12/10/23 09:57 Physical exam: General: Well-developed, well-nourished HEENT: Normocephalic, sclerae nonicteric Abdomen: Nontender, nondistended Extremities: No edema Neuro: Alert and oriented Assessment and Plan (1) Colon cancer screening Narrative/Plan: Will proceed with colonoscopy at this time. Current Visit: Yes Status: Acute Code(s): Z12.11 - ENCOUNTER FOR SCREENING FOR MALIGNANT NEOPLASM OF COLON SNOMED Code(s): 866071925
--- NOTE | 2023-12-10 10:54 | P.PCN ---
Date of Procedure: 12/10/23 Procedure(s) Performed: PREOPERATIVE DIAGNOSIS: Colon cancer screening POSTOPERATIVE DIAGNOSIS: Cecal polyp, sigmoid polyp, diverticulosis PROCEDURE: Colonoscopy with snare polypectomy ANESTHESIA: MAC SURGEON: Brooks Rojas M.D. SPECIMENS: Polyps ENDOSCOPIC PROCEDURE: The patient was placed on the endoscopy table in the left decubitus position. The Olympus colonoscope was inserted into the anus and passed under direct visualization to the base of the cecum. The appendiceal orifice was visualized. From that point the scope was slowly withdrawn inspecting all surfaces carefully. There was a small polyp on the cecal fold. This was removed using the snare with cautery technique. The remainder of the cecum and ascending transverse and descending colon appeared normal. In the sigmoid colon a small polyp was seen and removed using the snare with cautery technique. The remainder of the sigmoid and rectum was normal. There was mild scattered diverticulosis. Digital rectal examination was normal. The patient was taken to the recovery room in stable condition per anesthesia guidelines. RECOMMENDATIONS: Await biopsy results. Will contact patient with timing of the next colonoscopy.
[2023-12-10 11:36] VITALS: BP 133/80; PULSE 84; RESP 18
== END 2023-12-10 11:45 | disposition home or self-care (01) ==
LOC: ORWHC2ENDO 09:20
PROVIDERS: ATTEND Surgery
DX: Z12.11 Encounter for screening for malignant neoplasm of colon (principal); D12.0 Benign neoplasm of cecum; D12.5 Benign neoplasm of sigmoid colon; K57.30 Diverticulosis of large intestine without perforation or abscess without bleeding; G47.33 Obstructive sleep apnea (adult) (pediatric); J44.9 Chronic obstructive pulmonary disease, unspecified; M10.9 Gout, unspecified; F17.210 Nicotine dependence, cigarettes, uncomplicated; Z86.16 Personal history of COVID-19; Z90.49 Acquired absence of other specified parts of digestive tract; Z90.89 Acquired absence of other organs; Z79.899 Other long term (current) drug therapy
CPT/HCPCS: 45385; 88305

== ENCOUNTER → 2024-02-05 | Outpatient (CLI) | payer MEDICARE ==
[2024-02-05 11:34] VITALS: BP 145/91; PULSE 84; RESP 16; TEMP 97.2
--- NOTE | 2024-02-05 12:00 | P.PROGSL ---
Subjective DATE: 02/05/2024 FOLLOW UP VISIT. Patient with obstructive sleep apnea hypopnea syndrome return to sleep center for follow-up visit. Information from previous visit have been reviewed. Patient is using PAP equipment every night for the whole night, getting PAP supplies in time. The patient does not have significant problems with the mask, PAP unit and humidification. Huntington sleepiness scale is 1. Patient has difficulties to initiate and maintain sleep. I checked information from PAP unit. PAP unit pressure 10 cm H2O. Usage is 100% for more then 4 hours, average 6.1 hours per night. Leak is 10 l/m, which is in acceptable range. Apnea Hypopnea Index is 0.5, which is normal. MEDICATIONS have been reviewed, please see below. During physical exam: GENERAL: A pleasant patient without any distress. VITAL SIGNS: Please see below, weight is 161 lbs. HEENT: PERRLA, EOMI.low position of soft palate, Mallapati 4 . NECK: Supple. No JVD. LUNGS: Wheezing have been documented. HEART: S1, S2 regular. ABDOMEN: Soft and nontender.[] EXTREMITIES: No clubbing or cyanosis. MANAGER PORT: Awake, alert, and oriented x3. No focal deficit. Impressions: 1. Obstructive sleep apnea-hypopnea syndrome. Patient demonstrated great compliance with treatment, benefiting from treatment. 2. Insomnia with difficulties to initiate sleep and awakenings from sleep. 3. COPD, emphysema. 4. Smoker for more than 50 pack years. 5. Status post UPPP. 6. Status post COVID-19. 7. Gout. Plan: 1. Continue using PAP equipment every night for the whole night. 2. Sleep hygiene with regular time in bed for at least 7.5-8 hours 3. PAP unit should stay lower then position of the head. 4. Advised patient to remove all remaining water from humidifier canister daily and make it dry after each usage. Refill canister with fresh distilled water before each usage. 5. Watching weight. 6. Precautions related to driving. No driving if feel any sleepiness. 7. I will maintain prescription for PAP supplies including mask, tube, filters. 8. Follow up visit in 3 months or earlier if patient has any problems. 9. Patient will be started on lowest dose of clonazepam 0.5 mg at bedtime to help with initiating sleep and prevent awakenings. Thank you very much for allowing me to participate in the management of your patient. Malick Silver MD, PhD, FAASM. Diplomat of [place] [employer] Medicine, Sleep Medicine Board by [place] [employer] Medicine Payroll Lead of [facility] [place] Objective - Vital Signs Vital Signs: Vital Signs Temp 97.2 F L 02/05/24 11:33 Pulse 84 02/05/24 11:33 Resp 16 02/05/24 11:33 BP 145/91 02/05/24 11:33 Pulse Ox 96 02/05/24 11:33 FiO2 Intake & Output 02/04/24 02/05/24 02/05/24 18:59 06:59 18:59 Weight 73.028 kg Home Medications: Home Medications Medication Instructions Recorded Confirmed Type Multivitamins, Thera [Multivitamin 1 tab PO DAILY 07/22/20 02/05/24 History (formulary)] allopurinoL [Zyloprim] 300 mg PO DAILY 07/22/20 02/05/24 History Calcium Citrate/Vitamin D3 See Rx Instructions .ROUTE .COMPLEX 02/05/24 02/05/24 History [Calcium Cit-Vit D3 500 mg Chew] Magnesium Oxide [Magnesium] 500 mg PO DAILY 02/05/24 02/05/24 History Melatonin 5 mg PO HS 02/05/24 02/05/24 History Turmeric Root Extract [Turmeric] 500 mg PO DAILY 02/05/24 02/05/24 History
== END ==
LOC: 3 N SLEEP 11:08
PROVIDERS: ATTEND Internal Medicine
DX: G47.33 Obstructive sleep apnea (adult) (pediatric) (principal); G47.00 Insomnia, unspecified; J43.9 Emphysema, unspecified; M10.9 Gout, unspecified; F17.210 Nicotine dependence, cigarettes, uncomplicated; Z98.890 Other specified postprocedural states; Z90.89 Acquired absence of other organs; Z99.89 Dependence on other enabling machines and devices; Z86.16 Personal history of COVID-19
CPT/HCPCS: 99212

== ENCOUNTER 2024-02-12 09:51 | Inpatient (IN) | payer MEDICARE ==
[2024-02-12 10:58] LABS: ALT 27 U/L (4-49); AST 34 U/L (17-59); African American GFR (CKD) 84 (>60 ml/min/1.73 sqM); Albumin 4.3 g/dL (3.5-5.0); Alkaline Phosphatase 104 U/L (38-126); Anion Gap 7 mmol/L; Basophils # (A) 0.1 k/uL (0-0.2); Basophils % (A) 1 %; Blood Urea Nitrogen 15 mg/dL (9-20); Calcium 8.5 mg/dL (8.4-10.2); Carbon Dioxide 28 mmol/L (22-30); Chloride 101 mmol/L (98-107); Eosinophils % (A) 0 %; Glucose 125 mg/dL (74-99); HGB 18.3 gm/dL (13.0-17.5); Lymphocytes # (A) 1.7 k/uL (1.0-4.8); Lymphocytes % (A) 20 %; MCH 30.1 pg (25.0-35.0); MCHC 32.7 g/dL (31.0-37.0); MCV 91.9 fL (80.0-100.0); Monocytes # (A) 0.7 k/uL (0-1.0); Monocytes % (A) 8 %; Neutrophils # (A) 5.5 k/uL (1.3-7.7); Neutrophils % (A) 68 %; Non-African American GFR(CKD) 73 (>60 ml/min/1.73 sqM); Platelet Count 158 k/uL (150-450); RDW 13.9 % (11.5-15.5); Sodium 136 mmol/L (137-145); Total Bilirubin 0.6 mg/dL (0.2-1.3); Total Protein 6.9 g/dL (6.3-8.2); WBC 8.1 k/uL (3.8-10.6)
[2024-02-12 11:05] LABS: NT-Pro-B-Type Natriuretic Pept 1300 pg/mL
--- NOTE | 2024-02-12 11:17 | ED ---
SOB HPI - General Chief Complaint: Shortness of Breath Stated Complaint: JACKSON/gasping for breath Source: patient, family Mode of arrival: ambulatory Limitations: no limitations - History of Present Illness Initial Comments: 73-year-old male with past medical history of nicotine use who presents to the emergency department with shortness of breath. Patient reports to increasing shortness of breath for the past 3 days. Has a history of COPD. He does smoke 3 to 4 packs of cigarettes per day per family member. He is not oxygen dependent. Patient does not use any inhalers. 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 He did contract COVID several years ago and ended up with empyema. He states that his lung function fully resolved after this and he has not required any follow-up. He denies any fevers. Does have a nonproductive cough. No chest pain. No history of cardiac disease. No other alleviating, precipitating modifying factors - Related Data Home Medications Medication Instructions Recorded Confirmed Multivitamins, Thera [Multivitamin 1 tab PO DAILY 07/22/20 02/12/24 (formulary)] allopurinoL [Zyloprim] 300 mg PO DAILY 07/22/20 02/12/24 Magnesium Oxide [Magnesium] 500 mg PO DAILY 02/05/24 02/12/24 Turmeric Root Extract [Turmeric] 500 mg PO DAILY 02/05/24 02/12/24 Ashwagandha Root Extract 300 mg PO DAILY 02/12/24 02/12/24 [Ashwagandha] Calcium Carbonate/Vitamin D3 1 tab PO DAILY 02/12/24 02/12/24 [Calcium 500 mg-Vit D3 5 mcg (200 Unit)] Allergies Allergy/AdvReac Type Severity Reaction Status Date / Time No Known Allergies Allergy Verified 02/12/24 09:55 Review of Systems ROS Statement: Those systems with pertinent positive or pertinent negative responses have been documented in the HPI. ROS Other: All systems not noted in ROS Statement are negative. Past Medical History Past Medical History: COPD, Eye Disorder, Pneumonia, Sleep Apnea/CPAP/BIPAP Additional Past Medical History / Comment(s): 2.5-3 years covid- empyema, gout bilateral great toes. cataracts History of Any Multi-Drug Resistant Organisms: None Reported Past Surgical History: Adenoidectomy, Appendectomy, Ear Surgery, Tonsillectomy Additional Past Surgical History / Comment(s): Surgery for sleep apnea. Bronchscopy 2.5-3 years ago, R eardrum replaced 20 yrs ago, Cataract surgery 1.5yrs ago Past Anesthesia/Blood Transfusion Reactions: No Reported Reaction Past Psychological History: No Psychological Hx Reported Smoking Status: Current every day smoker Past Alcohol Use History: None Reported Past Drug Use History: None Reported - Past Family History Father Family Medical History: Dementia, Hyperlipidemia, Pneumonia Additional Family Medical History / Comment(s): Father of aspiration pneumonia. Mother Family Medical History: Diabetes Mellitus, Hypertension Additional Family Medical History / Comment(s): Mother is living. Sister(s) Family Medical History: Diabetes Mellitus Additional Family Medical History / Comment(s): lung problems General Exam Limitations: no limitations Course Vital Signs 02/12/24 02/12/24 02/12/24 09:52 10:10 11:00 Temperature 97.9 F 98.9 F Pulse Rate 87 108 H 98 Respiratory 18 22 22 Rate Blood Pressure 170/114 148/102 140/107 O2 Sat by Pulse 83 L 96 96 Oximetry 02/12/24 02/12/24 02/12/24 12:33 13:09 13:19 Temperature Pulse Rate 96 90 90 Respiratory 20 Rate Blood Pressure 143/109 O2 Sat by Pulse 95 Oximetry Medical Decision Making - Medical Decision Making Was pt. sent in by a medical professional or institution (ANCELMO Meza, OTOLARYNGOLOGY TEACHER, urgent care, hospital, or jail...) When possible be specific @ -[No] Did you speak to anyone other than the patient for history (EMS, parent, family, police, friend...)? What history was obtained from this source @ -[No] Did you review nursing and triage notes (agree or disagree)? Why? @ -[I reviewed and agree with nursing and triage notes] Were old charts reviewed (outside hosp., previous admission, EMS record, old EKG, old radiological studies, urgent care reports/EKG's, jail records)? Report findings @ -[No old charts were reviewed] Differential Diagnosis (chest pain, altered mental status, abdominal pain women, abdominal pain men, vaginal bleeding, weakness, fever, dyspnea, syncope, headache, dizziness, GI bleed, back pain, seizure, CVA, palpatations, mental health, musculoskeletal)? @ -[not applicable] EKG interpreted by me (3pts min.). @ -Yes and demonstrates sinus tachycardia with a rate of 111. MD interval 122. QRS 85. QTc of 398. No acute ST segment elevations or depressions X-rays interpreted by me (1pt min.). @ -[None done] CT interpreted by me (1pt min.). @ -[None done] U/S interpreted by me (1pt. min.). @ -[None done] What testing was considered but not performed or refused? (CT, X-rays, U/S, labs)? Why? @ -[None] What meds were considered but not given or refused? Why? @ -[None] Did you discuss the management of the patient with other professionals (professionals i.e. , PA, OTOLARYNGOLOGY TEACHER, lab, RT, psych nurse, web content & social media manager, social service coordinator, teacher, hazard mitigation officer, pillowcase folder)? Give summary @ -[No] Was smoking cessation discussed for >3mins.? @ -[No] Was critical care preformed (if so, how long)? @ -[No] Were there social determinants of health that impacted care today? How? (Homelessness, low income, unemployed, alcoholism, drug addiction, transportation, low edu. Level, literacy, decrease access to med. care, prison, rehab)? @ -[No] Was there de-escalation of care discussed even if they declined (Discuss DNR or withdrawal of care, Hospice)? DNR status @ -[No] What co-morbidities impacted this encounter? (DM, HTN, Smoking, COPD, CAD, Cancer, CVA, ARF, Chemo, Hep., AIDS, mental health diagnosis, sleep apnea, morbid obesity)? @ -[None] Was patient admitted / discharged? Hospital course, mention meds given and route, prescriptions, significant lab abnormalities, going to OR and other pertinent info. @ -[hospital course] Undiagnosed new problem with uncertain prognosis? @ -[No] Drug Therapy requiring intensive monitoring for toxicity (Heparin, Nitro, Insulin, Cardizem)? @ -[No] Were any procedures done? @ -[No] Diagnosis/symptom? @ -[default] Acute, or Chronic, or Acute on Chronic? @ -[default] Uncomplicated (without systemic symptoms) or Complicated (systemic symptoms)? @ -[default] Side effects of treatment? @ -[No] Exacerbation, Progression, or Severe Exacerbation? @ -[No] Poses a threat to life or bodily function? How? (Chest pain, USA, SD, pneumonia, PE, COPD, DKA, ARF, appy, cholecystitis, CVA, Diverticulitis, Homicidal, Suicidal, threat to staff... and all critical care pts) @ -[No] - Lab Data Result diagrams: 02/12/24 10:02/12/24 10: Lab Results 02/12/24 02/12/24 02/12/24 Range/Units 10: 10: 10: WBC 8.1 (3.8-10.6) k/uL RBC 6.10 H (4.30-5.90) m/uL Hgb 18.3 H (13.0-17.5) gm/dL Hct 56.0 H (39.0-53.0) % MCV 91.9 (80.0-100.0) fL MCH 30.1 (25.0-35.0) pg MCHC 32.7 (31.0-37.0) g/dL RDW 13.9 (11.5-15.5) % Plt Count 158 (150-450) k/uL MPV 8.0 Neutrophils % 68 % Lymphocytes % 20 % Monocytes % 8 % Eosinophils % 0 % Basophils % 1 % Neutrophils # 5.5 (1.3-7.7) k/uL Lymphocytes # 1.7 (1.0-4.8) k/uL Monocytes # 0.7 (0-1.0) k/uL Eosinophils # 0.0 (0-0.7) k/uL Basophils # 0.1 (0-0.2) k/uL PT (10.0-12.5) sec INR (<1.2) APTT (22.0-30.0) sec Sodium 136 L (137-145) mmol/L Potassium 4.0 (3.5-5.1) mmol/L Chloride 101 (98-107) mmol/L Carbon Dioxide 28 (22-30) mmol/L Anion Gap 7 mmol/L BUN 15 (9-20) mg/dL Creatinine 1.03 (0.66-1.25) mg/dL Est GFR (CKD-EPI)AfAm 84 (>60 ml/min/1.73 sqM) Est GFR (CKD-EPI)NonAf 73 (>60 ml/min/1.73 sqM) Glucose 125 H (74-99) mg/dL Plasma Lactic Acid Maverick 1.7 (0.7-2.0) mmol/L Calcium 8.5 (8.4-10.2) mg/dL Total Bilirubin 0.6 (0.2-1.3) mg/dL AST 34 (17-59) U/L ALT 27 (4-49) U/L Alkaline Phosphatase 104 (38-126) U/L Troponin I (0.000-0.034) ng/mL NT-Pro-B Natriuret Pep 1300 pg/mL Total Protein 6.9 (6.3-8.2) g/dL Albumin 4.3 (3.5-5.0) g/dL Influenza Type A (PCR) (Not Detectd) Influenza Type B (PCR) (Not Detectd) RSV (PCR) (Not Detectd) SARS-CoV-2 (PCR) (Not Detectd) 02/12/24 02/12/24 02/12/24 Range/Units 10:29 11:16 12:07 WBC (3.8-10.6) k/uL RBC (4.30-5.90) m/uL Hgb (13.0-17.5) gm/dL Hct (39.0-53.0) % MCV (80.0-100.0) fL MCH (25.0-35.0) pg MCHC (31.0-37.0) g/dL RDW (11.5-15.5) % Plt Count (150-450) k/uL MPV Neutrophils % % Lymphocytes % % Monocytes % % Eosinophils % % Basophils % % Neutrophils # (1.3-7.7) k/uL Lymphocytes # (1.0-4.8) k/uL Monocytes # (0-1.0) k/uL Eosinophils # (0-0.7) k/uL Basophils # (0-0.2) k/uL PT 10.7 (10.0-12.5) sec INR 1.0 (<1.2) APTT 27.4 (22.0-30.0) sec Sodium (137-145) mmol/L Potassium (3.5-5.1) mmol/L Chloride (98-107) mmol/L Carbon Dioxide (22-30) mmol/L Anion Gap mmol/L BUN (9-20) mg/dL Creatinine (0.66-1.25) mg/dL Est GFR (CKD-EPI)AfAm (>60 ml/min/1.73 sqM) Est GFR (CKD-EPI)NonAf (>60 ml/min/1.73 sqM) Glucose (74-99) mg/dL Plasma Lactic Acid Maverick (0.7-2.0) mmol/L Calcium (8.4-10.2) mg/dL Total Bilirubin (0.2-1.3) mg/dL AST (17-59) U/L ALT (4-49) U/L Alkaline Phosphatase (38-126) U/L Troponin I 0.016 (0.000-0.034) ng/mL NT-Pro-B Natriuret Pep pg/mL Total Protein (6.3-8.2) g/dL Albumin (3.5-5.0) g/dL Influenza Type A (PCR) Not Detected (Not Detectd) Influenza Type B (PCR) Not Detected (Not Detectd) RSV (PCR) Not Detected (Not Detectd) SARS-CoV-2 (PCR) Not Detected (Not Detectd) Disposition Clinical Impression: COPD exacerbation, Hypoxia Disposition: ADMITTED IP TO THIS [facility] Condition: Serious Is patient prescribed a controlled substance at d/c from ED?: No Referrals: Marty Garcia MD [Primary Care Provider] - 1-2 days Time of Disposition: 13:22 Decision to Admit Reason: Admit from EC Decision Date: 02/12/24 Decision Time: 13:22
--- NOTE | 2024-02-12 11:39 | XR ---
EXAMINATION TYPE: XR chest 2V DATE OF EXAM: 02/12/2024 10:38 AM COMPARISON: Chest radiographs from 12/19/2020, CT chest 07/31/2020. TECHNIQUE: XR chest 2V Frontal and lateral views of the chest. CLINICAL INDICATION:Male, 73 years old with history of difficulty breathing; FINDINGS: Lungs/Pleura: There is flattening of the diaphragm with increased lucency of the lungs. No evidence o f pneumothorax or pleural effusion. Chronic interstitial scarring within the right mid and lower lung . Pulmonary vascularity: Unremarkable. Heart/mediastinum: Cardiomediastinal silhouette is unremarkable. Musculoskeletal: No acute osseous pathology. Bilateral shoulder arthropathy. IMPRESSION: 1. No acute cardiopulmonary disease process. 2. COPD changes with right basilar scarring. [facility], , 02/12/2024 11:37 AM
[2024-02-12 11:48] LABS: Partial Thromboplastin Time 27.4 sec (22.0-30.0); Prothrombin Time 10.7 sec (10.0-12.5)
[2024-02-12] MEDS: methylPREDNISolone SOD SUCCI 125 MG/2 ML VIAL IV STA (12:32)
[2024-02-12] MEDS: IPRATROPIUM-ALBUTEROL 3 ML NEB INHALATION STA (13:09)
[2024-02-12] MEDS ORDERED: NALOXONE 0.4 MG/ML 1 ML VIAL IV PRN (13:22)
--- NOTE | 2024-02-12 15:05 | P.CNPUL ---
History of Present Illness Consult date: 02/12/24 Requesting physician: Marty Garcia Reason for consult: dyspnea, cough, COPD, abnormal CXR/CT Chief complaint: Shortness of breath. History of present illness: Pulmonary consult daily February 12, 2024. 73-year-old male who presents to the emergency department, complaining of shortness of breath. In addition, he complained of cough, phlegm production, and wheezing. The patient has been smoking cigarettes, for 59 years. He does continue to smoke. He smokes 3 to 4 packs of cigarettes per day. He currently does not use any oxygen. He denies taking any breathing medications, inhalers, puffers, etc. He did see my partner in the past. Has not seen him recently. In the past, he apparently had an episode of empyema, and had bronchoscopy. He is seen in the emergency department, trauma room #1. He is currently on 2 L of oxygen. No IV fluids. He apparently has a history of COPD, sleep apnea, pneumonia, empyema, gout, and coronavirus infection. Laboratory data includes a white count 8.1, hemoglobin 18.3, hematocrit 56.0, and a normal platelet count. Coagulation studies are normal. Sodium 136, glucose 125. The rest of the comprehensive metabolic profile is essentially normal. N-terminal proBNP is 1300. Troponin is 0.016. Viral studies are negative. Chest x-ray shows changes of COPD. There are some scarring at the right lung base. Review of Systems REVIEW OF SYSTEMS: CONSTITUTIONAL: [Negative.] NEUROLOGIC: [ Negative.] HEENT: [ Negative.] CARDIAC: [Negative.] PULMONARY: Shortness of breath, cough, wheezing, chest congestion, and phlegm production. GI: [Negative.] : [Negative.] RHEUMATOLOGIC: [ Negative.] IMMUNOLOGIC: [ Negative.] ENDOCRINE: [Negative. ] DERMATOLOGIC: [Negative.] Past Medical History Past Medical History: COPD, Eye Disorder, Pneumonia, Sleep Apnea/CPAP/BIPAP Additional Past Medical History / Comment(s): 2.5-3 years covid- empyema, gout bilateral great toes. cataracts History of Any Multi-Drug Resistant Organisms: None Reported Past Surgical History: Adenoidectomy, Appendectomy, Ear Surgery, Tonsillectomy Additional Past Surgical History / Comment(s): Surgery for sleep apnea. Bronchscopy 2.5-3 years ago, R eardrum replaced 20 yrs ago, Cataract surgery 1.5yrs ago Past Anesthesia/Blood Transfusion Reactions: No Reported Reaction Past Psychological History: No Psychological Hx Reported Smoking Status: Current every day smoker Past Alcohol Use History: None Reported Past Drug Use History: None Reported - Past Family History Father Family Medical History: Dementia, Hyperlipidemia, Pneumonia Additional Family Medical History / Comment(s): Father of aspiration pneumonia. Mother Family Medical History: Diabetes Mellitus, Hypertension Additional Family Medical History / Comment(s): Mother is living. Sister(s) Family Medical History: Diabetes Mellitus Additional Family Medical History / Comment(s): lung problems Medications and Allergies Home Medications Medication Instructions Recorded Confirmed Type Multivitamins, Thera [Multivitamin 1 tab PO DAILY 07/22/20 02/12/24 History (formulary)] allopurinoL [Zyloprim] 300 mg PO DAILY 07/22/20 02/12/24 History Magnesium Oxide [Magnesium] 500 mg PO DAILY 02/05/24 02/12/24 History Turmeric Root Extract [Turmeric] 500 mg PO DAILY 02/05/24 02/12/24 History Ashwagandha Root Extract 300 mg PO DAILY 02/12/24 02/12/24 History [Ashwagandha] Calcium Carbonate/Vitamin D3 1 tab PO DAILY 02/12/24 02/12/24 History [Calcium 500 mg-Vit D3 5 mcg (200 Unit)] Allergies Allergy/AdvReac Type Severity Reaction Status Date / Time No Known Allergies Allergy Verified 02/12/24 09:55 Physical Exam Osteopathic Statement: *. No significant issues noted on an osteopathic structural exam other than those noted in the History and Physical/Consult. Vitals: Vital Signs Temp Pulse Resp BP Pulse Ox 02/12/24 14:31 92 20 132/84 96 02/12/24 13:19 90 02/12/24 13:09 90 02/12/24 12:33 96 20 143/109 95 02/12/24 11:00 98 22 140/107 96 02/12/24 10:10 98.9 F 108 H 22 148/102 96 02/12/24 09:52 97.9 F 87 18 170/114 83 L Intake and Output 02/12/24 02/12/24 02/12/24 06:59 14:59 22:59 Other: Weight 69.853 kg No acute distress, oriented 3. No respiratory distress. No audible wheezing. No use of accessory muscles. Currently on 2 L. HEENT examination is grossly unremarkable. Mucous membranes are moist. No oral lesions. Neck supple. Full range of motion. No adenopathy thyromegaly or neck vein distention. Cardiovascular examination reveals regular rhythm rate. S1-S2 normal. No S3 or S4. No discernible murmur noted. Heart sounds are distant. Lungs reveal diffuse bilateral inspiratory and expiratory wheezes and rhonchi. No crackles. Breath sounds are equal but diminished throughout. Abdomen soft bowel sounds are heard. No masses or tenderness. Extremities are intact. No cyanosis clubbing or edema. Skin is without rash or lesion. Neurologic examination is brief but nonfocal. Results - Laboratory Findings CBC and BMP: 02/12/24 10:29 02/12/24 10:29 PT/INR, D-dimer PT 10.7 sec (10.0-12.5) 02/12/24 11:16 INR 1.0 (<1.2) 02/12/24 11:16 Abnormal lab findings: Abnormal Labs 02/12/24 02/12/24 10:29 10:29 RBC 6.10 H Hgb 18.3 H Hct 56.0 H Sodium 136 L Glucose 125 H - Diagnostic Findings Chest x-ray: image reviewed Assessment and Plan Assessment: Acute exacerbation of COPD, without obvious pneumonia. The patient may have a tracheobronchitis. History of gout. Prior history of empyema. History of ongoing tobacco use, at more than 1 pack of cigarettes a day, for 59 years. History of sleep apnea syndrome. History of coronavirus infection. Plan: Plan dated February 12, 2024. The patient is seen in the emergency department. He is seen in trauma room 1. He is on 2 L of oxygen. The patient will be treated with appropriate treatments including albuterol sulfate and ipratropium bromide, Symbicort, and Solu-Medrol. Additional recommendations and suggestions are forthcoming. Will check a procalcitonin level. The patient is counseled about the importance of smoking cessation. He has been smoking 2 to 3 packs of cigarettes a day for 59 years. Time with Patient: Greater than 30
[2024-02-12] MEDS: methylPREDNISolone SOD SUCCI 125 MG/2 ML VIAL IV SCH (19:04)
[2024-02-12] MEDS: IPRATROPIUM-ALBUTEROL 3 ML NEB INHALATION SCH ×2 (19:21→19:31)
[2024-02-12] MEDS: SYMBICORT 160-4.5 MCG INHALER INHALATION SCH (19:22)
[2024-02-12] MEDS ORDERED: IPRATROPIUM-ALBUTEROL 3 ML NEB INHALATION PRN (19:26)
[2024-02-13 06:13] LABS: Basophils % (A) 0 %; Eosinophils % (A) 0 %; HGB 17.8 gm/dL (13.0-17.5); Lymphocytes # (A) 1.3 k/uL (1.0-4.8); Lymphocytes % (A) 12 %; MCHC 32.1 g/dL (31.0-37.0); MCV 93.5 fL (80.0-100.0); Mean Platelet Volume 7.5; Monocytes # (A) 0.2 k/uL (0-1.0); Monocytes % (A) 2 %; Neutrophils # (A) 8.9 k/uL (1.3-7.7); Neutrophils % (A) 85 %; Platelet Count 151 k/uL (150-450); RBC 5.93 m/uL (4.30-5.90); RDW 13.9 % (11.5-15.5); WBC 10.5 k/uL (3.8-10.6)
[2024-02-13 06:26] LABS: HCT 55.5 % (39.0-53.0)
[2024-02-13 06:27] LABS: African American GFR (CKD) >90 (>60 ml/min/1.73 sqM); Anion Gap 5 mmol/L; Blood Urea Nitrogen 19 mg/dL (9-20); Calcium 8.8 mg/dL (8.4-10.2); Carbon Dioxide 26 mmol/L (22-30); Chloride 107 mmol/L (98-107); Glucose 137 mg/dL (74-99); Non-African American GFR(CKD) 83 (>60 ml/min/1.73 sqM); Potassium 4.6 mmol/L (3.5-5.1); Sodium 138 mmol/L (137-145)
[2024-02-13] MEDS ORDERED: methylPREDNISolone SOD SUCCI 40 MG/ML 1 ML VIAL IV SCH (08:00)
[2024-02-13] MEDS: CALCIUM CARB-VIT D 500 MG-5 MCG TAB PO SCH (08:13)
[2024-02-13] MEDS: MAGNESIUM OXIDE 400 MG TAB PO SCH (08:13)
[2024-02-13] MEDS: MULTIVITAMINS, THERA 1 EACH TAB PO SCH (08:13)
[2024-02-13] MEDS: allopurinoL 300 MG TAB PO SCH (08:13)
[2024-02-13] MEDS ORDERED: ASHWAGANDHA ROOT EXTRACT 300 MG PO SCH (09:00)
[2024-02-13] MEDS ORDERED: NON FORMULARY DRUG (Turmeric Root Extract [Turmeric] 500 MG Tablet) PO SCH (09:00)
[2024-02-13] MEDS: NICOTINE 14MG/24HR PATCH TRANSDERM SCH (09:08)
--- NOTE | 2024-02-13 11:44 | P.HPIM ---
History of Present Illness H&P Date: 02/13/24 Chief Complaint: Shortness of breath and cough Lucian is a 73-year-old male well-known to the practice. Is not been in the office since July. He reports increasing smoking to the point of approximately 4 packs/day. He said for the past 3 to 4 days he had increasing shortness of breath and cough. Because he could not breathe he came to the emergency room for. He was seen evaluated. He was found to be afebrile. But his pulse oximetry was low at 83%. Laboratory studies showed a elevated hemoglobin 18.3. Electrolytes were normal with the exception of a slightly elevated glucose. He was negative for flu RSV and COVID. Chest x-ray showed COPD without acute changes. He spent overnight in the emergency room. He is feeling better with oxygen, he has been given IV Solu-Medrol and updrafts. Pulmonology is on consult. Review of Systems All systems: negative Past Medical History Past Medical History: COPD, Eye Disorder, Pneumonia, Sleep Apnea/CPAP/BIPAP Additional Past Medical History / Comment(s): 2.5-3 years covid- empyema, gout bilateral great toes. cataracts History of Any Multi-Drug Resistant Organisms: None Reported Past Surgical History: Adenoidectomy, Appendectomy, Ear Surgery, Tonsillectomy Additional Past Surgical History / Comment(s): Surgery for sleep apnea. Bronchscopy 2.5-3 years ago, R eardrum replaced 20 yrs ago, Cataract surgery 1.5yrs ago Past Anesthesia/Blood Transfusion Reactions: No Reported Reaction Past Psychological History: No Psychological Hx Reported Smoking Status: Current every day smoker Past Alcohol Use History: None Reported Past Drug Use History: None Reported - Past Family History Father Family Medical History: Dementia, Hyperlipidemia, Pneumonia Additional Family Medical History / Comment(s): Father of aspiration pneumonia. Mother Family Medical History: Diabetes Mellitus, Hypertension Additional Family Medical History / Comment(s): Mother is living. Sister(s) Family Medical History: Diabetes Mellitus Additional Family Medical History / Comment(s): lung problems Medications and Allergies Home Medications Medication Instructions Recorded Confirmed Type Multivitamins, Thera [Multivitamin 1 tab PO DAILY 07/22/20 02/12/24 History (formulary)] allopurinoL [Zyloprim] 300 mg PO DAILY 07/22/20 02/12/24 History Magnesium Oxide [Magnesium] 500 mg PO DAILY 02/05/24 02/12/24 History Turmeric Root Extract [Turmeric] 500 mg PO DAILY 02/05/24 02/12/24 History Ashwagandha Root Extract 300 mg PO DAILY 02/12/24 02/12/24 History [Ashwagandha] Calcium Carbonate/Vitamin D3 1 tab PO DAILY 02/12/24 02/12/24 History [Calcium 500 mg-Vit D3 5 mcg (200 Unit)] Allergies Allergy/AdvReac Type Severity Reaction Status Date / Time No Known Allergies Allergy Verified 02/12/24 09:55 Physical Exam Vitals: Vital Signs Temp Pulse Resp BP Pulse Ox 02/13/24 09:00 100 20 118/68 95 02/13/24 08:15 80 95 02/13/24 08:00 89 20 141/100 96 02/13/24 06:00 98 F 90 20 134/90 97 02/13/24 04:00 90 18 133/95 02/13/24 02:00 85 20 97/66 96 02/13/24 00:05 98.8 F 87 22 116/83 96 02/12/24 23:48 96 02/12/24 21:02 97.9 F 93 22 137/85 97 02/12/24 19:30 99 02/12/24 19:24 92 02/12/24 18:00 91 20 122/88 96 02/12/24 16:21 85 26 H 111/87 96 02/12/24 14:31 92 20 132/84 96 02/12/24 13:19 90 02/12/24 13:09 90 02/12/24 12:33 96 20 143/109 95 GENERAL: Elderly male, wearing nasal cannula oxygen. HEAD: Atraumatic, normocephalic. EYES: Pupils equal round and reactive to light, extraocular movements intact, sclera anicteric, conjunctiva are normal. ENT:nares patent, oropharynx clear without exudates. Moist mucous membranes. NECK: Normal range of motion, supple without lymphadenopathy or JVD, no thyromegaly LUNGS: Breath sounds coarse and diminished bilaterally no active wheezes rales or crackles at this time. HEART: Regular rate and rhythm without murmurs, rubs or gallops.S1S2 Normal ABDOMEN: Soft, nontender, normoactive bowel sounds. No guarding, no rebound. No masses appreciated. EXTREMITIES: Normal range of motion, no pitting or edema. No clubbing or cyanosis. NEUROLOGICAL: Cranial nerves II through XII grossly intact. Normal speech, normal gait. PSYCH: Normal mood, normal affect. SKIN: Warm, Dry, normal turgor, no rashes or lesions noted. Results CBC & Chem 7: 02/13/24 05:47 02/13/24 05:22 Labs: Abnormal Lab Results - Last 24 Hours (Table) 02/13/24 02/13/24 Range/Units 05:22 05:47 RBC 5.93 H (4.30-5.90) m/uL Hgb 17.8 H (13.0-17.5) gm/dL Hct 55.5 H (39.0-53.0) % Neutrophils # 8.9 H (1.3-7.7) k/uL Glucose 137 H (74-99) mg/dL Chest x-ray: report reviewed Thrombosis Risk Factor Assmnt - Choose All That Apply Each Factor Represents 1 point: Abnormal pulmonary function (COPD) Each Risk Factor Represents 2 Points: Age 61-74 years Thrombosis Risk Factor Assessment Total Risk Factor Score: 3 Thrombosis Risk Factor Assessment Level: Moderate Risk Assessment and Plan (1) COPD exacerbation Current Visit: Yes Status: Acute Code(s): J44.1 - CHRONIC OBSTRUCTIVE PULMONARY DISEASE W (ACUTE) EXACERBATION SNOMED Code(s): 853324089 (2) Hypoxia Current Visit: Yes Status: Acute Code(s): R09.02 - HYPOXEMIA SNOMED Code(s): 736930531 (3) Gout Current Visit: No Status: Acute Code(s): M10.9 - GOUT, UNSPECIFIED SNOMED Code(s): 68081209 (4) Thrombocytosis Current Visit: No Status: Acute Code(s): D47.3 - ESSENTIAL (HEMORRHAGIC) THROMBOCYTHEMIA SNOMED Code(s): 1397207 Plan: At this time pulmonology is already seeing him. He will remain on IV Solu- Medrol and updrafts. Will check a hemoglobin A1c, due to elevated sugars repeat labs in a.m., hold off on his home supplements. Reevaluate in the next 24 hours.
[2024-02-13] MEDS: guaiFENesin 600 MG TABLET.ER PO SCH (12:00)
[2024-02-13] MEDS: HEPARIN SODIUM,PORCINE 5,000 UNIT/ML 1 ML VIAL SQ SCH (13:07)
--- NOTE | 2024-02-13 13:56 | P.PN ---
Subjective Progress Note Date: 02/13/24 73-year-old male who presents to the emergency department, complaining of shortness of breath. In addition, he complained of cough, phlegm production, and wheezing. The patient has been smoking cigarettes, for 59 years. He does continue to smoke. He smokes 3 to 4 packs of cigarettes per day. He currently does not use any oxygen. He denies taking any breathing medications, inhalers, puffers, etc. He did see my partner in the past. Has not seen him recently. In the past, he apparently had an episode of empyema, and had bronchoscopy. He is seen in the emergency department, trauma room #1. He is currently on 2 L of oxygen. No IV fluids. He apparently has a history of COPD, sleep apnea, pn eumonia, empyema, gout, and coronavirus infection. Laboratory data includes a white count 8.1, hemoglobin 18.3, hematocrit 56.0, and a normal platelet count. Coagulation studies are normal. Sodium 136, glucose 125. The rest of the comprehensive metabolic profile is essentially normal. N-terminal proBNP is 1300. Troponin is 0.016. Viral studies are negative. Chest x-ray shows changes of COPD. There are some scarring at the right lung base. The patient is seen today February 13, 2024 in follow-up in the emergency department. He is currently sitting up on a stretcher. Awake and alert in no acute distress. Breathing a bit better today compared to yesterday. He is maintaining good O2 saturations in the 90s on 2 L/min per nasal cannula. White count 10.5. Hemoglobin 17.8. Platelets 151. Sodium 138. Potassium 4.6. Bicarb 26. BUN 19. Creatinine 0.93. Glucose 137. Procalcitonin negative at 0.11. He is continued on DuoNeb and elations, Symbicort, Solu-Medrol. Heparin for DVT prophylaxis. NicoDerm patch in place. Objective - Vital Signs Vital signs: Vital Signs Temp 98.8 F 02/13/24 13:04 Pulse 114 H 02/13/24 13:04 Resp 22 02/13/24 13:04 BP 135/92 02/13/24 13:04 Pulse Ox 93 L 02/13/24 13:04 FiO2 Intake & Output 02/12/24 02/13/24 02/13/24 18:59 06:59 18:59 Weight 69.853 kg - Exam GENERAL EXAM: Alert, pleasant 73-year-old male patient, on 2 L nasal cannula, comfortable in no apparent distress. HEAD: Normocephalic. EYES: Normal reaction of pupils, equal size. NOSE: Clear with pink turbinates. THROAT: No erythema or exudates. NECK: No masses, no JVD. CHEST: No chest wall deformity. LUNGS: Equal air entry with bilateral end expiratory wheeze CVS: S1 and S2 normal with no audible murmur, regular rhythm. ABDOMEN: No hepatosplenomegaly, normal bowel sounds, no guarding or rigidity. SPINE: No scoliosis or deformity SKIN: No rashes CENTRAL NERVOUS SYSTEM: No focal deficits, tone is normal in all 4 extremities. EXTREMITIES: There is no peripheral edema. No clubbing, no cyanosis. Peripheral pulses are intact. - Labs CBC & Chem 7: 02/13/24 05:47 02/13/24 05:22 Labs: Abnormal Lab Results - Last 24 Hours (Table) 02/13/24 02/13/24 Range/Units 05:22 05:47 RBC 5.93 H (4.30-5.90) m/uL Hgb 17.8 H (13.0-17.5) gm/dL Hct 55.5 H (39.0-53.0) % Neutrophils # 8.9 H (1.3-7.7) k/uL Glucose 137 H (74-99) mg/dL Assessment and Plan Assessment: Acute hypoxemic respiratory failure secondary to an acute exacerbation of COPD, without obvious pneumonia. Procalcitonin negative History of gout Prior history of empyema History of ongoing tobacco use, at more than 1 pack of cigarettes a day, for 59 years History of sleep apnea syndrome History of coronavirus infection Plan: The patient was seen and evaluated Labs and medications reviewed Continue bronchodilators, steroids Procalcitonin negative Add a NicoDerm patch Educated regarding smoking cessation Not quite ready for discharge We will continue to follow I have personally seen and examined the patient, performed the documentation and the assessment and plan as written. Number of minutes spent on the visit: 10 Dictation was produced using [employer] dictation software. Please excuse any grammatical, word or spelling errors.
[2024-02-13] MEDS: MELATONIN 5 MG TABLET PO SCH (21:41)
[2024-02-14 06:27] LABS: Glucose,Whole Blood 139 mg/dL (70-110)
[2024-02-14] MEDS: BENZOCAINE/MENTHOL LOZENG 1 EACH LOZENGE MUCOUS MEM PRN (06:30)
[2024-02-14 10:33] LABS: HCT 53.3 % (39.6-50.0); HGB 17.1 g/dL (13.0-17.0); MCH 29.7 pg (27.0-32.0); MCHC 32.1 g/dL (32.0-37.0); MCV 92.5 FL (80.0-97.0); Mean Platelet Volume 10.2 FL (9.5-12.2); NRBC Per 100 WBC 0 X 10*3/uL (0.00-0.01); Platelet Count 199 X 10*3/uL (140-440); RBC 5.76 X 10*6/uL (4.40-5.60); RDW 14.1 % (11.5-14.5)
[2024-02-14 10:47] LABS: BUN/Creat Ratio 19.85 Ratio (12.00-20.00); Blood Urea Nitrogen 25.8 mg/dL (9.0-27.0); Calcium 9.2 mg/dL (8.7-10.3); Carbon Dioxide 27.2 mmol/L (21.6-31.8); Chloride 102 mmol/L (96-109); Glucose 134 mg/dL (70-110); Magnesium 2.3 mg/dL (1.5-2.4); Potassium 4.9 mmol/L (3.5-5.5); Sodium 141 mmol/L (135-145)
[2024-02-14 11:22] LABS: Glucose,Whole Blood 122 mg/dL (70-110)
[2024-02-14 12:22] LABS: Basophils # (A) 0.07 X 10*3/uL (0.00-0.10); Basophils % (A) 0.3 %; Eosinophils # (A) 0.06 X 10*3/uL (0.04-0.35); Eosinophils % (A) 0.3 %; Lymphocytes # (A) 1.96 X 10*3/uL (0.90-5.00); Lymphocytes % (A) 8.4 %; Monocytes # (A) 0.85 X 10*3/uL (0.20-1.00); Monocytes % (A) 3.6 %; Neutrophils % (A) 86.7 %
--- NOTE | 2024-02-14 13:01 | P.PN ---
Subjective Progress Note Date: 02/14/24 73-year-old male who presents to the emergency department, complaining of shortness of breath. In addition, he complained of cough, phlegm production, and wheezing. The patient has been smoking cigarettes, for 59 years. He does continue to smoke. He smokes 3 to 4 packs of cigarettes per day. He currently does not use any oxygen. He denies taking any breathing medications, inhalers, puffers, etc. He did see my partner in the past. Has not seen him recently. In the past, he apparently had an episode of empyema, and had bronchoscopy. He is seen in the emergency department, trauma room #1. He is currently on 2 L of oxygen. No IV fluids. He apparently has a history of COPD, sleep apnea, pn eumonia, empyema, gout, and coronavirus infection. Laboratory data includes a white count 8.1, hemoglobin 18.3, hematocrit 56.0, and a normal platelet count. Coagulation studies are normal. Sodium 136, glucose 125. The rest of the comprehensive metabolic profile is essentially normal. N-terminal proBNP is 1300. Troponin is 0.016. Viral studies are negative. Chest x-ray shows changes of COPD. There are some scarring at the right lung base. The patient is seen today February 13, 2024 in follow-up in the emergency department. He is currently sitting up on a stretcher. Awake and alert in no acute distress. Breathing a bit better today compared to yesterday. He is maintaining good O2 saturations in the 90s on 2 L/min per nasal cannula. White count 10.5. Hemoglobin 17.8. Platelets 151. Sodium 138. Potassium 4.6. Bicarb 26. BUN 19. Creatinine 0.93. Glucose 137. Procalcitonin negative at 0.11. He is continued on DuoNeb and elations, Symbicort, Solu-Medrol. Heparin for DVT prophylaxis. NicoDerm patch in place. The patient is seen today February 14, 2024 in follow-up on the regular medical floor. He is currently sitting up in a chair. Awake and alert in no acute distress. Maintaining O2 saturations in the 90s on 2 L/min per nasal cannula. No IV fluids. White count 23.3. Hemoglobin 17.1. Platelets 199. Sodium 141. Potassium 4.9. Bicarb 27. BUN 26. Creatinine 1.3. Glucose 134. He is continued on DuoNeb and elations, Symbicort, Solu-Medrol. Heparin for DVT prophylaxis. Objective - Vital Signs Vital signs: Vital Signs Temp 98.3 F 02/14/24 07:18 Pulse 89 02/14/24 12:06 Resp 16 02/14/24 07:18 BP 120/73 02/14/24 07:18 Pulse Ox 95 02/14/24 08:34 FiO2 Intake & Output 02/13/24 02/14/24 02/14/24 18:59 06:59 18:59 Intake Total 800 Balance 800 Weight 88 kg Intake: Oral 800 Other: Voiding Method Toilet # Voids 1 - Exam GENERAL EXAM: Alert, pleasant 73-year-old male patient, sitting up in a chair, on 2 L nasal cannula, in no apparent distress. HEAD: Normocephalic. EYES: Normal reaction of pupils, equal size. NOSE: Clear with pink turbinates. THROAT: No erythema or exudates. NECK: No masses, no JVD. CHEST: No chest wall deformity. LUNGS: Equal air entry with bilateral end expiratory wheeze CVS: S1 and S2 normal with no audible murmur, regular rhythm. ABDOMEN: No hepatosplenomegaly, normal bowel sounds, no guarding or rigidity. SPINE: No scoliosis or deformity SKIN: No rashes CENTRAL NERVOUS SYSTEM: No focal deficits, tone is normal in all 4 extremities. EXTREMITIES: There is no peripheral edema. No clubbing, no cyanosis. Peripheral pulses are intact. - Labs CBC & Chem 7: 02/14/24 06:41 02/14/24 06:41 Labs: Abnormal Lab Results - Last 24 Hours (Table) 02/14/24 02/14/24 02/14/24 Range/Units 06:25 06:41 06:41 WBC 23.30 H (4.50-10.00) X 10*3/uL RBC 5.76 H (4.40-5.60) X 10*6/uL Hgb 17.1 H (13.0-17.0) g/dL Hct 53.3 H (39.6-50.0) % Immature Gran # 0.16 H (0.00-0.04) X 10*3/uL Neutrophils # 20.20 H (1.80-7.70) X 10*3/uL Est GFR (CKD-EPI) 59 L (>=60) Glucose 134 H (70-110) mg/dL POC Glucose (mg/dL) 139 H (70-110) mg/dL 02/14/24 Range/Units 10:59 WBC (4.50-10.00) X 10*3/uL RBC (4.40-5.60) X 10*6/uL Hgb (13.0-17.0) g/dL Hct (39.6-50.0) % Immature Gran # (0.00-0.04) X 10*3/uL Neutrophils # (1.80-7.70) X 10*3/uL Est GFR (CKD-EPI) (>=60) Glucose (70-110) mg/dL POC Glucose (mg/dL) 122 H (70-110) mg/dL Assessment and Plan Assessment: Acute hypoxemic respiratory failure secondary to an acute exacerbation of COPD, without obvious pneumonia. Procalcitonin negative History of gout Prior history of empyema History of ongoing tobacco use, at more than 1 pack of cigarettes a day, for 59 years History of sleep apnea syndrome History of coronavirus infection Plan: The patient was seen and evaluated Labs and medications reviewed Continue bronchodilators Discontinue Solu-Medrol Initiated prednisone taper Educated regarding smoking cessation Cleared for discharge from the pulmonary standpoint Follow-up in our office in 1 week I have personally seen and examined the patient, performed the documentation and the assessment and plan as written. Number of minutes spent on the visit: 10 Dictation was produced using [employer] dictation software. Please excuse any grammatical, word or spelling errors.
--- NOTE | 2024-02-14 15:38 | P.PN ---
Subjective Progress Note Date: 02/14/24 Patient seen evaluated for his acute exacerbation of COPD. He is a heavy heavy smoker. He has a nicotine patch in place he is wearing oxygen, currently at 2 L/min via nasal cannula. His pulse oximetry with this is 95%. Heart rate is 89. Labs today showed obese count of 23.3 hemoglobin 17.1 hematocrit 53.3 and platelets were 199. Blood chemistries are essentially normal. Glucose is slightly elevated at 134. Bill is ready to go home but was hypoxic with ambulation, down to 89%. Heart rate was 118 during this. Objective - Vital Signs Vital signs: Vital Signs Temp 98.3 F 02/14/24 07:18 Pulse 89 02/14/24 12:06 Resp 16 02/14/24 07:18 BP 120/73 02/14/24 07:18 Pulse Ox 95 02/14/24 08:34 FiO2 Intake & Output 02/13/24 02/14/24 02/14/24 18:59 06:59 18:59 Intake Total 800 Balance 800 Weight 88 kg Intake: Oral 800 Other: Voiding Method Toilet # Voids 1 - Exam General: The patient is awake and alert, in no distress, is wearing oxygen Neck: The neck is supple, there is no thyromegaly, lymphadenopathy, tenderness or JVD. Cardiovascular: S1S2 is normal, There is a regular rate and rhythm. No murmur, rub or gallop is appreciated. Respiratory: Lungs are coarse with diminished breath sounds throughout. There is no active wheezes rales or crackles Gastrointestinal: Soft, non-distended, non-tender abdomen without masses or organomegaly noted. There is no rebound or guarding present. Bowel sounds are unremarkable. Musculoskeletal: Normal ROM, no tenderness, There is no pedal edema. There is no calf tenderness or swelling. No cords were appreciated. Neurological: CN II-XII intact, there are no obvious motor or sensory deficits. Coordination appears grossly intact. Speech is normal. Skin: Skin is warm and dry and no rashes or lesions are noted. - Labs CBC & Chem 7: 02/14/24 06:41 02/14/24 06:41 Labs: Abnormal Lab Results - Last 24 Hours (Table) 02/14/24 02/14/24 02/14/24 Range/Units 06:25 06:41 06:41 WBC 23.30 H (4.50-10.00) X 10*3/uL RBC 5.76 H (4.40-5.60) X 10*6/uL Hgb 17.1 H (13.0-17.0) g/dL Hct 53.3 H (39.6-50.0) % Immature Gran # 0.16 H (0.00-0.04) X 10*3/uL Neutrophils # 20.20 H (1.80-7.70) X 10*3/uL Est GFR (CKD-EPI) 59 L (>=60) Glucose 134 H (70-110) mg/dL POC Glucose (mg/dL) 139 H (70-110) mg/dL 02/14/24 Range/Units 10:59 WBC (4.50-10.00) X 10*3/uL RBC (4.40-5.60) X 10*6/uL Hgb (13.0-17.0) g/dL Hct (39.6-50.0) % Immature Gran # (0.00-0.04) X 10*3/uL Neutrophils # (1.80-7.70) X 10*3/uL Est GFR (CKD-EPI) (>=60) Glucose (70-110) mg/dL POC Glucose (mg/dL) 122 H (70-110) mg/dL Assessment and Plan (1) COPD exacerbation Current Visit: Yes Status: Acute Code(s): J44.1 - CHRONIC OBSTRUCTIVE PULMONARY DISEASE W (ACUTE) EXACERBATION SNOMED Code(s): 583971935 (2) Hypoxia Current Visit: Yes Status: Acute Code(s): R09.02 - HYPOXEMIA SNOMED Code(s): 724519958 (3) Gout Current Visit: No Status: Acute Code(s): M10.9 - GOUT, UNSPECIFIED SNOMED Code(s): 30982379 (4) Thrombocytosis Current Visit: No Status: Acute Code(s): D47.3 - ESSENTIAL (HEMORRHAGIC) THROMBOCYTHEMIA SNOMED Code(s): 9848698 Plan: Pulmonology is cleared him, but at this point he is still in the oxygen, we will give him another 24 hours of hospitalization with medications and oral prednisone at this time. Will plan on discharge tomorrow.
[2024-02-14 17:45] LABS: Glucose,Whole Blood 129 mg/dL (70-110)
[2024-02-14 20:44] LABS: Glucose,Whole Blood 136 mg/dL (70-110)
[2024-02-15 06:22] LABS: Glucose,Whole Blood 92 mg/dL (70-110)
[2024-02-15 07:26] VITALS: BP 127/80; RESP 18; TEMP 97.9
[2024-02-15] MEDS: predniSONE 20 MG TAB PO SCH (09:26)
--- NOTE | 2024-02-15 10:48 | P.PN ---
Subjective Progress Note Date: 02/15/24 73-year-old male who presents to the emergency department, complaining of shortness of breath. In addition, he complained of cough, phlegm production, and wheezing. The patient has been smoking cigarettes, for 59 years. He does continue to smoke. He smokes 3 to 4 packs of cigarettes per day. He currently does not use any oxygen. He denies taking any breathing medications, inhalers, puffers, etc. He did see my partner in the past. Has not seen him recently. In the past, he apparently had an episode of empyema, and had bronchoscopy. He is seen in the emergency department, trauma room #1. He is currently on 2 L of oxygen. No IV fluids. He apparently has a history of COPD, sleep apnea, pn eumonia, empyema, gout, and coronavirus infection. Laboratory data includes a white count 8.1, hemoglobin 18.3, hematocrit 56.0, and a normal platelet count. Coagulation studies are normal. Sodium 136, glucose 125. The rest of the comprehensive metabolic profile is essentially normal. N-terminal proBNP is 1300. Troponin is 0.016. Viral studies are negative. Chest x-ray shows changes of COPD. There are some scarring at the right lung base. The patient is seen today February 13, 2024 in follow-up in the emergency department. He is currently sitting up on a stretcher. Awake and alert in no acute distress. Breathing a bit better today compared to yesterday. He is maintaining good O2 saturations in the 90s on 2 L/min per nasal cannula. White count 10.5. Hemoglobin 17.8. Platelets 151. Sodium 138. Potassium 4.6. Bicarb 26. BUN 19. Creatinine 0.93. Glucose 137. Procalcitonin negative at 0.11. He is continued on DuoNeb and elations, Symbicort, Solu-Medrol. Heparin for DVT prophylaxis. NicoDerm patch in place. The patient is seen today February 14, 2024 in follow-up on the regular medical floor. He is currently sitting up in a chair. Awake and alert in no acute distress. Maintaining O2 saturations in the 90s on 2 L/min per nasal cannula. No IV fluids. White count 23.3. Hemoglobin 17.1. Platelets 199. Sodium 141. Potassium 4.9. Bicarb 27. BUN 26. Creatinine 1.3. Glucose 134. He is continued on DuoNeb and elations, Symbicort, Solu-Medrol. Heparin for DVT prophylaxis. The patient is seen today February 15, 2024 in follow-up on the regular medical floor. He is currently resting comfortably in bed. Maintaining O2 saturations in the 90s on 2 L/min per nasal cannula. No IV fluids. He is continued on DuoNeb and elations, Symbicort, prednisone taper. NicoDerm patch in place. Heparin for DVT prophylaxis. Glucose 92. Objective - Vital Signs Vital signs: Vital Signs Temp 97.9 F 02/15/24 06:53 Pulse 76 02/15/24 08:52 Resp 18 02/15/24 06:53 BP 127/80 02/15/24 06:53 Pulse Ox 89 L 02/15/24 10:35 FiO2 Intake & Output 02/14/24 02/15/24 02/15/24 18:59 06:59 18:59 Intake Total 2600 Balance 2600 Weight 86.5 kg Intake: Oral 2600 Other: Voiding Method Toilet Toilet # Voids 4 3 - Exam GENERAL EXAM: Alert, 73-year-old male patient, resting in bed, on 2 L nasal richmond devora, in no apparent distress. HEAD: Normocephalic. EYES: Normal reaction of pupils, equal size. NOSE: Clear with pink turbinates. THROAT: No erythema or exudates. NECK: No masses, no JVD. CHEST: No chest wall deformity. LUNGS: Equal air entry with bilateral end expiratory wheeze CVS: S1 and S2 normal with no audible murmur, regular rhythm. ABDOMEN: No hepatosplenomegaly, normal bowel sounds, no guarding or rigidity. SPINE: No scoliosis or deformity SKIN: No rashes CENTRAL NERVOUS SYSTEM: No focal deficits, tone is normal in all 4 extremities. EXTREMITIES: There is no peripheral edema. No clubbing, no cyanosis. Peripheral pulses are intact. - Labs CBC & Chem 7: 02/14/24 06:41 02/14/24 06:41 Labs: Abnormal Lab Results - Last 24 Hours (Table) 02/14/24 02/14/24 02/14/24 Range/Units 06:41 06:41 10:59 Immature Gran # 0.16 H (0.00-0.04) X 10*3/uL Neutrophils # 20.20 H (1.80-7.70) X 10*3/uL Est GFR (CKD-EPI) 59 L (>=60) Glucose 134 H (70-110) mg/dL POC Glucose (mg/dL) 122 H (70-110) mg/dL 02/14/24 02/14/24 Range/Units 17:34 20:43 Immature Gran # (0.00-0.04) X 10*3/uL Neutrophils # (1.80-7.70) X 10*3/uL Est GFR (CKD-EPI) (>=60) Glucose (70-110) mg/dL POC Glucose (mg/dL) 129 H 136 H (70-110) mg/dL Assessment and Plan Assessment: Acute hypoxemic respiratory failure secondary to an acute exacerbation of COPD, without obvious pneumonia. Procalcitonin negative History of gout Prior history of empyema History of ongoing tobacco use, at more than 1 pack of cigarettes a day, for 59 years History of sleep apnea syndrome History of coronavirus infection Plan: The patient was seen and evaluated Labs and medications reviewed Cleared for discharge May require home oxygen Educated regarding smoking cessation Follow-up in our office in 1 week I have personally seen and examined the patient, performed the documentation and the assessment and plan as written. Number of minutes spent on the visit: 10 Dictation was produced using [employer] dictation software. Please excuse any gr ammatical, word or spelling errors.
[2024-02-15 12:00] LABS: Glucose,Whole Blood 98 mg/dL (70-110)
[2024-02-15 12:01] VITALS: PULSE 80
--- NOTE | 2024-02-15 12:48 | P.DS ---
Providers Date of admission: 02/12/24 13:22 Expected date of discharge: 02/15/24 Attending physician: Marty Garcia Consults: 02/12/24 13:22 Consult Physician Urgent Consulting Provider: Wolfgang Lind Reason/Comments: aecopd, hypoxic resp failure Do you want consulting provider notified?: Yes Primary care physician: Marty Garcia - Discharge Diagnosis(es) (1) COPD exacerbation Current Visit: Yes Status: Acute (2) Hypoxia Current Visit: Yes Status: Acute (3) Gout Current Visit: No Status: Acute (4) Thrombocytosis Current Visit: No Status: Acute Hospital Course: Patient was admitted for acute exacerbation of COPD. He started on IV Solu- Medrol. He was seen by pulmonology. He quickly improved. He still had some hypoxia with ambulation at discharge. He will be given a prescription for oral prednisone Trelegy, albuterol inhaler along with home oxygen as needed. He will follow-up in the office in the next 1 week Patient Condition at Discharge: Serious Plan - Discharge Summary New Discharge Prescriptions: New Benzocaine/Menthol Lozeng [Cepacol lozenge] 1 each MUCOUS MEM Q4HR PRN lozenge PRN Reason: Sore Throat predniSONE [Deltasone] 40 mg PO DAILY #7 tab Melatonin 5 mg PO HS tab guaiFENesin [Mucinex] 600 mg PO Q12HR #20 tab Nicotine 14Mg/24Hr Patch [Habitrol] 1 patch TRANSDERM DAILY patch Fluticasone/Umeclidin/Vilanter [Trelegy Ellipta 100-62.5-25] 1 inhalation INHALATION DAILY 30 Days #1 each Albuterol Inhaler [Ventolin Hfa Inhaler] 1 - 2 puff INHALATION Q6H PRN 30 Days #1 each PRN Reason: Shortness Of Breath Or Wheezing Continue allopurinoL [Zyloprim] 300 mg PO DAILY Multivitamins, Thera [Multivitamin (formulary)] 1 tab PO DAILY Turmeric Root Extract [Turmeric] 500 mg PO DAILY Magnesium Oxide [Magnesium] 500 mg PO DAILY Calcium Carbonate/Vitamin D3 [Calcium 500 mg-Vit D3 5 mcg (200 Unit)] 1 tab PO DAILY Ashwagandha Root Extract [Ashwagandha] 300 mg PO DAILY Discharge Medication List Multivitamins, Thera [Multivitamin (formulary)] 1 tab PO DAILY 07/22/20 [History] allopurinoL [Zyloprim] 300 mg PO DAILY 07/22/20 [History] Magnesium Oxide [Magnesium] 500 mg PO DAILY 02/05/24 [History] Turmeric Root Extract [Turmeric] 500 mg PO DAILY 02/05/24 [History] Ashwagandha Root Extract [Ashwagandha] 300 mg PO DAILY 02/12/24 [History] Calcium Carbonate/Vitamin D3 [Calcium 500 mg-Vit D3 5 mcg (200 Unit)] 1 tab PO DAILY 02/12/24 [History] Albuterol Inhaler [Ventolin Hfa Inhaler] 1 - 2 puff INHALATION Q6H PRN 30 Days #1 each 02/15/24 [Rx] Benzocaine/Menthol Lozeng [Cepacol lozenge] 1 each MUCOUS MEM Q4HR PRN lozenge 02/15/24 [Rx] Fluticasone/Umeclidin/Vilanter [Trelegy Ellipta 100-62.5-25] 1 inhalation INHALATION DAILY 30 Days #1 each 02/15/24 [Rx] Melatonin 5 mg PO HS tab 02/15/24 [Rx] Nicotine 14Mg/24Hr Patch [Habitrol] 1 patch TRANSDERM DAILY patch 02/15/24 [Rx] guaiFENesin [Mucinex] 600 mg PO Q12HR #20 tab 02/15/24 [Rx] predniSONE [Deltasone] 40 mg PO DAILY #7 tab 02/15/24 [Rx] Follow up Appointment(s)/Referral(s): Marty Garcia MD [Primary Care Provider] - 1-2 days Discharge Disposition: HOME SELF-CARE
== END 2024-02-15 16:40 | disposition home or self-care (01) | DRG 190 ==
LOC: EC 09:51 → 3SCARD 13:22 → 4SSUR 02-13 10:37
PROVIDERS: ADMIT Family Medicine; ATTEND Family Medicine
DX: J44.1 Chronic obstructive pulmonary disease with (acute) exacerbation (principal); J96.01 Acute respiratory failure with hypoxia; M10.9 Gout, unspecified; F17.210 Nicotine dependence, cigarettes, uncomplicated; G47.30 Sleep apnea, unspecified; D75.839 Thrombocytosis, unspecified; Z79.899 Other long term (current) drug therapy; Z71.6 Tobacco abuse counseling; Z20.822 Contact with and (suspected) exposure to COVID-19; Z87.01 Personal history of pneumonia (recurrent); Z86.16 Personal history of COVID-19; Z86.19 Personal history of other infectious and parasitic diseases
CPT/HCPCS: 36415; 71046; 80048; 80053; 83036; 83605; 83735; 83880; 84145; 84484; 85025; 85610; 85730; 87636; 93005; 94640; 94760; 96372; 96374; 96376; 99285

== ENCOUNTER 2024-07-15 14:30 | Emergency (ER) | payer MEDICARE ==
[2024-07-15 14:44] VITALS: RESP 20; TEMP 98.3
[2024-07-15] MEDS: IBUPROFEN 800 MG TAB PO STA (16:18)
--- NOTE | 2024-07-15 16:41 | XR ---
EXAMINATION TYPE: XR ankle complete LT DATE OF EXAM: 07/15/2024 4:36 PM COMPARISON: None CLINICAL INDICATION: Male, 73 years old with history of fall, pain; PHH, pain TECHNIQUE: XR ankle complete LT; frontal, lateral and oblique projections. FINDINGS: Acute fracture of the medial malleolus and an oblique frontal imaging. No additional fractures visual ized. There is soft tissue swelling around the ankle. Calcaneal plantar spurring. Mild degeneration changes throughout the joints of the foot with joint space and osteophyte formation . IMPRESSION: Acute fracture of the medial malleolus. There is associated soft tissue swelling. [facility], , 07/15/2024 4:38 PM
--- NOTE | 2024-07-15 16:44 | XR ---
EXAMINATION TYPE: XR forearm RT, XR wrist complete RT, XR elbow limited RT DATE OF EXAM: 07/15/2024 4:36 PM COMPARISON: Same day radiographs. CLINICAL INDICATION: Male, 73 years old with history of fall, pain; PHH, pain TECHNIQUE: XR forearm RT, XR wrist complete RT, XR elbow limited RT; Frontal lateral and oblique views of the elbow. Frontal, lateral oblique and scaphoid views of the wrist. The forearm was evaluated in frontal and lateral views. FINDINGS: Multidirectional fracture of the distal radius with intra-articular extension to the wrist and distal radioulnar joint. There is associated soft tissue spine around the wrist. Severe degenerat ion changes involving the scaphoid and its articulations more distally with joint space and osteophyt e formation. Visualized portions of the humerus appear intact. IMPRESSION: 1. Osseous demineralization and degeneration changes of the wrist with suspected acute distal radius intra-articular fracture. 2. The elbow appears intact. [facility], , 07/15/2024 4:42 PM
[2024-07-15] MEDS: HYDROcodone/APAP 5-325MG 1 EACH TAB PO STA (16:48)
--- NOTE | 2024-07-15 16:51 | XR ---
EXAMINATION TYPE: XR pelvis AP view DATE OF EXAM: 07/15/2024 4:36 PM COMPARISON: None CLINICAL INDICATION: Male, 73 years old with history of fall, pain; pain H TECHNIQUE: XR pelvis AP view, examined in a single projection. FINDINGS: There is no evidence of fracture or dislocation. There is no soft tissue abnormality. No a bnormal calcifications are present. The spine appears intact. The hips appear intact. Osteophyte form ation of the superior acetabulum bilaterally with mild joint space narrowing. IMPRESSION: 1. No acute osseous pathology. 2. Mild degeneration changes of the hip. [facility], , 07/15/2024 4:48 PM
--- NOTE | 2024-07-15 17:05 | XR ---
EXAMINATION TYPE: XR chest 1V portable DATE OF EXAM: 07/15/2024 4:36 PM COMPARISON: Chest radiographs from 02/12/2024 CLINICAL INDICATION: Male, 73 years old with history of fall, pain; [facility] TECHNIQUE: XR chest 1V portable Frontal view of the chest. FINDINGS: Lungs/Pleura: There is flattening of the diaphragm with increased lucency of the lungs. No evidence o f pneumothorax, pleural effusion or focal consolidation. Pulmonary vascularity: Unremarkable. Heart/mediastinum: Cardiomediastinal silhouette is unremarkable. Musculoskeletal: No acute osseous pathology. The humeral heads are located superiorly and inferiorly likely positional. Other findings: None IMPRESSION: 1. Chronic changes without acute pulmonary process. 2. The humeral heads are located superior and medially correlate with physical exam for dislocation. [facility], , 07/15/2024 5:03 PM
[2024-07-15] MEDS: MORPHINE SULFATE 4 MG/ML SYRINGE IVP STA (18:29)
[2024-07-15 18:30] LABS: Basophils # (A) 0.04 10*3/uL (0.00-0.10); Basophils % (A) 0.3 %; Eosinophils # (A) 0.03 10*3/uL (0.04-0.35); Eosinophils % (A) 0.2 %; HCT 52.5 % (39.6-50.0); HGB 17.4 g/dL (13.0-17.0); Lymphocytes # (A) 1.68 10*3/uL (0.90-5.00); Lymphocytes % (A) 10.9 %; MCH 30.9 pg (27.0-32.0); MCHC 33.1 g/dL (32.0-37.0); MCV 93.1 fL (80.0-97.0); Mean Platelet Volume 9.7 fL (9.5-12.2); Monocytes # (A) 0.94 10*3/uL (0.20-1.00); Monocytes % (A) 6.1 %; Neutrophils # (A) 12.67 10*3/uL (1.80-7.70); Neutrophils % (A) 82.1 %; Platelet Count 196 10*3/uL (140-440); RBC 5.64 10*6/uL (4.40-5.60); RDW 13.2 % (11.5-14.5); WBC 15.42 10*3/uL (4.50-10.00)
[2024-07-15 18:41] LABS: ALT 26 U/L (4-49); AST 33 U/L (17-59); African American GFR (CKD) 84 (>60 ml/min/1.73 sqM); Albumin 4.1 g/dL (3.5-5.0); Alkaline Phosphatase 94 U/L (38-126); Anion Gap 5 mmol/L; Blood Urea Nitrogen 21 mg/dL (9-20); Calcium 9.2 mg/dL (8.4-10.2); Carbon Dioxide 29 mmol/L (22-30); Chloride 107 mmol/L (98-107); Glucose 114 mg/dL (74-99); Non-African American GFR(CKD) 72 (>60 ml/min/1.73 sqM); Potassium 4.9 mmol/L (3.5-5.1); Sodium 141 mmol/L (137-145); Total Bilirubin 0.8 mg/dL (0.2-1.3); Total Protein 6.5 g/dL (6.3-8.2)
--- NOTE | 2024-07-15 18:49 | CT ---
EXAMINATION TYPE: CT lower extremity LT wo con DATE OF EXAM: 07/15/2024 6:19 PM COMPARISON: . Extremity radiograph same day. CLINICAL INDICATION: Male, 73 years old with history of ankle and foot.; PHH, left foot and ankle katerina n and swelling, fall TECHNIQUE: Axial images were obtained of the CT lower extremity LT wo con, Additional coronal and sag ittal reformatted images and soft tissue and bone window were obtained for review. 3-D reconstruction was created on a separate workstation. Contrast used: mL of , (None if empty) Oral contrast used: (None if empty) CT DLP: 90.7 mGycm, Automated exposure control for dose reduction was used. FINDINGS: Moderate multilevel degeneration changes of the joints of the foot with osteophyte reformat ion and joint space narrowing. There is an acute fracture through the medial malleolus with intra-art icular extension series 203 image 52 . Multidirectional fracture through the talus series 202 image 4 7 and series 2 and image 52 with intra-articular extension and minimal displacement. No radiopaque fo reign bodies. There is associated soft tissue swelling throughout the foot. Multifocal degeneration c hanges with osteophyte formation subchondral cystic change and joint space narrowing. Bipartite media l sesamoid. IMPRESSION: 1. Acute fracture through the medial malleolus with intra-articular extension. 2. Acute multidirectional intra-articular fracture of the talus with minimal displacement 3. Soft tissue swelling throughout the foot likely secondary to #1 and 2. 4. Moderate multifocal degeneration changes throughout the joints of the foot. [facility], , 07/15/2024 6:47 PM
[2024-07-15] MEDS: NICOTINE 14MG/24HR PATCH TRANSDERM STA (19:33)
[2024-07-15 19:48] VITALS: BP 120/72; PULSE 93
--- NOTE | 2024-07-15 19:49 | ED ---
General Adult HPI - General Chief complaint: Fall Stated complaint: fall, R arm injury Time Seen by Provider: 07/15/24 16:00 Source: patient, RN notes reviewed, old records reviewed Mode of arrival: ambulatory Limitations: no limitations - History of Present Illness Initial comments: Patient is a 73-year-old male who presents emergency department after a fall from a ladder. Patient fell approximately 5 to 7 feet. Was putting an extension ladder on a free hanging wire of some type to attempt to hang something from the wire. Had his stabilizing it with 2 ropes. States that when he began to climb the rungs, it fell down straight and he landed on top of the ladder. He did not hit his head. Did not lose consciousness. Is not on blood thinners. He states that his right forearm landed on the ladder and he believes it is broken, and also he is complaining of left ankle pain. Denies any back pain, chest pain, hip pain. Has been ambulatory on the left ankle since. Occurred prior to arrival. Once again is not on blood thinners. Only significant past medical history of COPD. Presents for further evaluation at this time. - Related Data Home Medications Medication Instructions Recorded Confirmed Multivitamins, Thera [Multivitamin 1 tab PO DAILY 07/22/20 07/15/24 (formulary)] allopurinoL [Zyloprim] 300 mg PO DAILY 07/22/20 07/15/24 Magnesium Oxide [Magnesium] 500 mg PO DAILY 02/05/24 07/15/24 Calcium Carbonate/Vitamin D3 1 tab PO DAILY 02/12/24 07/15/24 [Calcium 500 mg-Vit D3 5 mcg (200 Unit)] Allergies Allergy/AdvReac Type Severity Reaction Status Date / Time No Known Allergies Allergy Verified 07/15/24 19:08 Review of Systems ROS Statement: Those systems with pertinent positive or pertinent negative responses have been documented in the HPI. Review of Systems: CONST: Denies fever EYES: Denies blurry vision ENT: Denies nasal congestion C/V: Denies Chest pain RESP: Denies shortness of breath GI: Denies abdominal pain : Denies dysuria SKIN: Denies rash. MSK: Endorses right forearm pain, endorses left ankle pain. NEURO: Denies headache ROS Other: All systems not noted in ROS Statement are negative. Past Medical History Past Medical History: COPD, Eye Disorder, Pneumonia, Sleep Apnea/CPAP/BIPAP Additional Past Medical History / Comment(s): 2.5-3 years covid- empyema, gout bilateral great toes. cataracts History of Any Multi-Drug Resistant Organisms: None Reported Past Surgical History: Adenoidectomy, Appendectomy, Ear Surgery, Tonsillectomy Additional Past Surgical History / Comment(s): Surgery for sleep apnea. Bronchscopy 2.5-3 years ago, R eardrum replaced 20 yrs ago, Cataract surgery 1.5yrs ago Past Anesthesia/Blood Transfusion Reactions: No Reported Reaction Past Psychological History: No Psychological Hx Reported Smoking Status: Current every day smoker Past Alcohol Use History: None Reported Past Drug Use History: None Reported - Past Family History Father Family Medical History: Dementia, Hyperlipidemia, Pneumonia Additional Family Medical History / Comment(s): Father of aspiration pneumonia. Mother Family Medical History: Diabetes Mellitus, Hypertension Additional Family Medical History / Comment(s): Mother is living. Sister(s) Family Medical History: Diabetes Mellitus Additional Family Medical History / Comment(s): lung problems General Exam - General Exam Comments Initial Comments: General: Appears in no acute distress. HEAD: Normal with no signs of head trauma. Negative Grace sign. Negative raccoon eyes. EYES: PERRLA, EOMI, conjunctiva normal, no discharge. Pupils are 2 mm and equal bilaterally. ENT: Hearing grossly intact, normal oropharynx. RESPIRATORY: Clear breath sounds bilaterally. No wheezes, rales, or rhonchi. C/V: Regular rate and rhythm. S1 and S2 auscultated, no edema, peripheral pulses 2+ and intact throughout ABD: Abd is soft, nontender, nondistended EXT: Decreased range of motion of the left ankle secondary to pain throughout the ankle, mostly on the medial malleolus. Decreased range of motion of the ri ght arm secondary to pain primarily around the right wrist and right elbow. No midline cervical, thoracic, lumbar spine tenderness to palpation. Pelvis is stable. SKIN: Small skin tear located of the over the posterior aspect of the right elbow. NEURO: Alert and oriented x 4. Cranial nerves II-XII intact. No focal sensory or strength deficits. GCS of 15. Limitations: no limitations Course Vital Signs 07/15/24 07/15/24 07/15/24 14:42 17:44 19:47 Temperature 98.3 F Pulse Rate 84 87 93 Respiratory 20 20 20 Rate Blood Pressure 120/80 138/87 120/72 O2 Sat by Pulse 99 97 95 Oximetry Procedures - Orthopedic Splinting/Casting Injury #1 Side: left Lower Extremity Injury Location: short leg, ankle Lower Extremity Immobilizer: posterior splint, stirrup splint Injury #2 Side: right Upper Extremity Injury Location: wrist Upper Extremity Immobilizer: sugar tong splint Medical Decision Making - Medical Decision Making Was pt. sent in by a medical professional or institution (, PA, PASSENGER REPRESENTATIVE, urgent care, hospital, or retirement...) When possible be specific @ -No Did you speak to anyone other than the patient for history (EMS, parent, family, police, friend...)? What history was obtained from this source @ -No Did you review nursing and triage notes (agree or disagree)? Why? @ -I reviewed and agree with nursing and triage notes Were old charts reviewed (outside hosp., previous admission, EMS record, old EKG, old radiological studies, urgent care reports/EKG's, retirement records)? Report findings @ -No old charts were reviewed Differential Diagnosis (chest pain, altered mental status, abdominal pain women, abdominal pain men, vaginal bleeding, weakness, fever, dyspnea, syncope, headache, dizziness, GI bleed, back pain, seizure, CVA, palpatations, mental health, musculoskeletal)? @ -Differential Musculoskeletal Muscular strain, contusion, ligament sprain, fracture, arthritis, septic arthritis, bursitis, cellulitis, muscle spasm, nerve compression, DVT, arterial occlusion, herpes zoster, electrolyte abnormality, tumor.... This is not meant to be in all inclusive list EKG interpreted by me (3pts min.). @ -As above X-rays interpreted by me (1pt min.). @ -X-rays remarkable for distal right radial fracture that appears intra- articular. Patient also has a left medial malleoli are fracture of the ankle with some concerning findings of the hindfoot that were not read by radiology. Chest x-ray and pelvis x-ray unremarkable. CT interpreted by me (1pt min.). @ -CT of the left ankle and foot remarkable for left fracture of the talus with intra-articular extension as well as medial malleoli are fracture with intra- articular extension U/S interpreted by me (1pt. min.). @ -None done What testing was considered but not performed or refused? (CT, X-rays, U/S, labs)? Why? @ -None What meds were considered but not given or refused? Why? @ -None Did you discuss the management of the patient with other professionals (professionals i.e. Dr., PA, PASSENGER REPRESENTATIVE, lab, RT, psych nurse, social services, anhydrous ammonia production supervisor, teacher, tactical debriefer officer, case assistant)? Give summary @ -Discussed with DESIREE Deleon for Dr. Walls on-call orthopedics who reviewed initial x-rays and was in agreement with plan for CT imaging of the left ankle. Discussed the results of the CT imaging and she reached out with her team who is uncomfortable managing the talus fracture and recommend transfer to [facility]. Spoke with [facility] the on-call trauma physician who accepted the transfer. Was smoking cessation discussed for >3mins.? @ -No Was critical care preformed (if so, how long)? @ -Yes, 32 minutes Were there social determinants of health that impacted care today? How? (Homelessness, low income, unemployed, alcoholism, drug addiction, transportation, low edu. Level, literacy, decrease access to med. care, [facility], rehab)? @ -No Was there de-escalation of care discussed even if they declined (Discuss DNR or withdrawal of care, Hospice)? DNR status @ -No What co-morbidities impacted this encounter? (DM, HTN, Smoking, COPD, CAD, Cancer, CVA, ARF, Chemo, Hep., AIDS, mental health diagnosis, sleep apnea, morbid obesity)? @ -None Was patient admitted / discharged? Hospital course, mention meds given and route, prescriptions, significant lab abnormalities, going to OR and other pertinent info. @ -Presents with a fall. No head injury. No loss of conscious. No blood thinners. Injuries to the right arm and left ankle. Does not meet criteria for trauma activation. We will obtain x-rays of the right arm, left ankle and chest and pelvis. Patient administered analgesia medications. He was in agreement this plan. Imaging remarkable for right distal radius fracture with intra-articular extension as well as left ankle medial malleolar fracture. The x-ray was concerning for something possibly going on with the ankle in addition to the mid medial malleoli are fracture and therefore CT imaging was obtained after discussion with midlevel provider for orthopedics, Hannah Lira. We reviewed the CT imaging and she spoke with her team and attending, Dr. Cardoso and they recommend transfer to higher level of care. Recommend transfer to [facility] for treatment of the talar fracture. Patient was placed in a sugar-tong splint of the right upper extremity in sugar-tong splint of the left ankle, short leg. Discussed transfer and patient was in agreement this plan. Basic labs were obtained and showed no obvious acute findings. Mild leukocytosis which is likely reactive. Patient will be transferred in stable condition. I spoke with the accepting physician, Dr. Grey who accepted the patient for transfer to [facility]. Undiagnosed new problem with uncertain prognosis? @ -No Drug Therapy requiring intensive monitoring for toxicity (Heparin, Nitro, In sulin, Cardizem)? @ -No Were any procedures done? @ -Splinting Diagnosis/symptom? @ -Fall, right intra-articular distal radial fracture, left intra-articular medial malleolus and talar fracture of the ankle Acute, or Chronic, or Acute on Chronic? @ -Acute Uncomplicated (without systemic symptoms) or Complicated (systemic symptoms)? @ -Complicated Side effects of treatment? @ -No Exacerbation, Progression, or Severe Exacerbation? @ -No Poses a threat to life or bodily function? How? (Chest pain, USA, DC, pneumonia, PE, COPD, DKA, ARF, appy, cholecystitis, CVA, Diverticulitis, Homicidal, Suicidal, threat to staff... and all critical care pts) @ -Yes - Lab Data Result diagrams: 07/15/24 18:24 07/15/24 18:24 Lab Results 07/15/24 07/15/24 Range/Units 18:24 18:24 WBC 15.42 H (4.50-10.00) 10*3/uL RBC 5.64 H (4.40-5.60) 10*6/uL Hgb 17.4 H (13.0-17.0) g/dL Hct 52.5 H (39.6-50.0) % MCV 93.1 (80.0-97.0) fL MCH 30.9 (27.0-32.0) pg MCHC 33.1 (32.0-37.0) g/dL Plt Count 196 (140-440) 10*3/uL MPV 9.7 (9.5-12.2) fL Immature Gran % (Auto) 0.4 % Neutrophils % 82.1 % Lymphocytes % 10.9 % Monocytes % 6.1 % Eosinophils % 0.2 % Basophils % 0.3 % Immature Gran # 0.06 H (0.00-0.04) 10*3/uL Neutrophils # 12.67 H (1.80-7.70) 10*3/uL Lymphocytes # 1.68 (0.90-5.00) 10*3/uL Monocytes # 0.94 (0.20-1.00) 10*3/uL Eosinophils # 0.03 L (0.04-0.35) 10*3/uL Basophils # 0.04 (0.00-0.10) 10*3/uL Sodium 141 (137-145) mmol/L Potassium 4.9 (3.5-5.1) mmol/L Chloride 107 (98-107) mmol/L Carbon Dioxide 29 (22-30) mmol/L Anion Gap 5 mmol/L BUN 21 H (9-20) mg/dL Creatinine 1.04 (0.66-1.25) mg/dL Est GFR (CKD-EPI)AfAm 84 (>60 ml/min/1.73 sqM) Est GFR (CKD-EPI)NonAf 72 (>60 ml/min/1.73 sqM) Glucose 114 H (74-99) mg/dL Calcium 9.2 (8.4-10.2) mg/dL Total Bilirubin 0.8 (0.2-1.3) mg/dL AST 33 (17-59) U/L ALT 26 (4-49) U/L Alkaline Phosphatase 94 (38-126) U/L Total Protein 6.5 (6.3-8.2) g/dL Albumin 4.1 (3.5-5.0) g/dL Critical Care Time Critical Care Time: Yes Total Critical Care Time: 32 Disposition Clinical Impression: Fall, Fracture of talus of left ankle, closed, Fracture of medial malleolus of left tibia, Fracture of right distal radius Disposition: OTHER INSTITUTION NOT DEFINED Condition: Stable Referrals: Marty Garcia MD [Primary Care Provider] - 1-2 days Time of Disposition: 19:30 - Out of Hospital Transfer - Req. Specs Out of Hospital Transfer - Requested Specifics: Other Emergency Center (Transfer for escalation of care to higher level facility for talus fracture.)
== END 2024-07-15 20:02 | disposition other institution (70) ==
LOC: EC 14:30
DX: S82.52XA Displaced fracture of medial malleolus of left tibia, initial encounter for closed fracture (principal); S52.571A Other intraarticular fracture of lower end of right radius, initial encounter for closed fracture; S92.102A Unspecified fracture of left talus, initial encounter for closed fracture; F17.200 Nicotine dependence, unspecified, uncomplicated; Z86.16 Personal history of COVID-19; W11.XXXA Fall on and from ladder, initial encounter
CPT/HCPCS: 99291; 96374; 29515; 29125; 36415; 80053; 85025; 72170; 73070; 73090; 73110; 73610; 71045; 73700; S4990; J2270